=== PATIENT | male | born 1950 | race Caucasian/White ===

== ENCOUNTER 2018-05-13 14:27 | Inpatient (IN) | END 2018-05-19 13:12 | disposition home or self-care (01) | DRG 280 ==

== ENCOUNTER 2018-07-18 10:15 | Inpatient (IN) | payer MEDICARE, BC ==
[~2018-07-18] VITALS: Ht 172.7 cm; Wt 85.0 kg
[~2018-07-18 10:15] MED LIST: AMLO5TAB4 PO; APIX5TAB PO; DIGO125T19 PO; DOXA4TAB3 PO; ERGO500014 PO; ESOM40CA PO; FER325 PO; FURO40TA4 PO; LANT3I SC; LEVO750T25 PO; METO-319 PO; NOV SC; ROSU20TA PO; SACU1TAB4 PO; VALS160T20 PO
[2018-07-18] MEDS ORDERED: METO-335 PO (11:43)
[2018-07-18] MEDS ORDERED: FUROSEMIDE 40 MG INJ IV ONE (13:00)
[2018-07-18] MEDS ORDERED: ASPIRIN 81 MG TAB PO ONE (13:00)
[2018-07-18] MEDS ORDERED: ACETAMINOPHEN 325 MG TAB PO PRN (13:30)
[2018-07-18] MEDS ORDERED: ONDANSETRON 4 MG INJ IV PRN (13:30)
[2018-07-18] MEDS ORDERED: NACL 0.9% 3 ML SYG IV SCH (14:00)
[2018-07-18] MEDS ORDERED: NITROGLYCERIN (SL) 0.4 MG TAB SL PRN (14:00)
[2018-07-18] MEDS ORDERED: DOCUSATE SODIUM 100 MG CAP PO PRN (14:00)
[2018-07-18] MEDS ORDERED: LORAZEPAM 0.5 MG TAB PO PRN (14:00)
[2018-07-18] MEDS ORDERED: morphine LIQ (10 MG/5 ML) CUP PO PRN (14:00)
[2018-07-18] MEDS ORDERED: hydrALAzine 20 MG INJ IV PRN (14:00)
[2018-07-18] MEDS ORDERED: GLUCOSE GEL 15 GRAM TUBE PO PRN ×2 (14:30)
[2018-07-18] MEDS ORDERED: DEXTROSE 50% 50 ML SYRINGE IV PRN ×2 (14:30)
[2018-07-18] MEDS ORDERED: GLUCOSE GEL 15 GRAM TUBE BUCCAL PRN (14:30)
[2018-07-18] MEDS ORDERED: GLUCAGON 1 MG INJ IM PRN (14:30)
--- NOTE | 2018-07-18 14:34 | ERD ---
ER Documentation Chief Complaint Chief Complaint CHEST PAIN, BILAT LEG SWELLING, MILD SOB HPI 67-year-old male history of coronary disease, CABG, CHF who presents to the emergency room by his primary return to service inspector, Dr. Csineros. The patient apparently has failed the last several days of an oral diuretic. The patient is noting worsening bilateral lower extremity, shortness of breath, dyspnea on exertion and PND. Mild chest pain occasionally. No pleuritic pain. No fevers chills or cough. ROS All systems reviewed and are negative except as per history of present illness. Medications Home Meds Reported Medications Metoprolol Succinate* (Toprol XL*) 25 Mg Tab.sr.24h, 25 MG PO DAILY, #30 TAB 07/18/18 Sacubitril/Valsartan (Entresto 97 mg-103 mg Tablet) 1 Each Tablet, 1 TAB PO BID 05/13/18 Digoxin* (Digox*) 125 Mcg Tablet, 0.125 MG PO DAILY, TAB 05/13/18 Apixaban* (Eliquis*) 5 Mg Tablet, 5 MG PO BID, TAB 08/19/15 Insulin Aspart* (Novolog Insulin Vial*) 100 U/Ml Vial, 0 SC SLIDING SCALE AC, VIAL 08/19/15 Insulin Glargine* (Lantus*) 100 Unit/Ml Soln, 12 UNIT SC QHS, #1 VIAL 08/19/15 Esomeprazole Mag Trihydrate (Nexium) 40 Mg Capsule.dr, 40 MG PO DAILY, #30 CAP 08/19/15 Furosemide* (Furosemide*) 40 Mg Tablet, 40 MG PO DAILY, TAB 08/19/15 Amlodipine Besylate* (Norvasc*) 5 Mg Tablet, 5 MG PO DAILY, TAB 02/19/15 Rosuvastatin Calcium* (Crestor*) 20 Mg Tablet, 20 MG PO HS, TAB 02/19/15 Ergocalciferol* (Drisdol* (Vitamin D2)) 50,000 Unit Capsule, 75818 UNIT PO Q7D, CAP Mondays02/19/15 Doxazosin Mesylate* (Doxazosin Mesylate*) 4 Mg Tablet, 4 MG PO BID, TAB 08/17/14 Ferrous Sulfate* (Ferrous Sulfate*) 325 Mg Tabec, 325 MG PO BID, TAB 08/17/14 Discontinued Reported Medications Metoprolol Succinate* (Toprol XL*) 50 Mg Tab.er.24h, 50 MG PO DAILY, #30 TAB 08/19/15 Valsartan* (Diovan*) 160 Mg Tablet, 160 MG PO DAILY, TAB 02/19/15 Discontinued Scripts Levofloxacin* (Levaquin*) 750 Mg Tablet, 750 MG PO Q48H, #3 TAB Prov:DEVIN BALDWIN MD 05/19/18 Allergies Allergies: Coded Allergies: No Known Allergies (Verified Allergy, Mild, 07/18/18) PMhx/Soc History of Surgery: Yes (CABG, PM) Anesthesia Reaction: No Hx Neurological Disorder: No Hx Respiratory Disorders: Yes (CHF, COPD) Hx Cardiac Disorders: Yes (CABG, PM, CAD) Hx Psychiatric Problems: No Hx Miscellaneous Medical Probl: No (OPEN HEART 8 YEARS AGO. ) Hx Alcohol Use: No Hx Substance Use: No Hx Tobacco Use: Yes Smoking Status: Former smoker FmHx Family History: coronary disease; No diabetes Physical Exam Vitals Vital Signs Date Temp Pulse Resp B/P (MAP) Pulse Ox O2 O2 Flow FiO2 Time Delivery Rate 07/18/18 70 20 127/85 95 Room Air 10:45 (99) 07/18/18 97.5 64 20 124/61 96 10:25 (82) Physical Exam General: Well developed, well nourished, no acute distress Head: Normocephalic, atraumatic. Eyes: Pupils equally reactive, EOM intact ENT: Moist mucous membranes Neck: Supple, no lymphadenopathy Respiratory: Rales at the bases bilaterally Cardiovascular: RRR, no murmurs, rubs, or gallops Abdominal: Soft, non-tender, non-distended, no peritoneal signs : Deferred MSK: Bilateral lower extremity pitting edema, no unilateral swelling, 5/5 strength Neurologic: Alert and oriented, moving all extremities, normal speech, no focal weakness, no cerebellar signs Skin: No rash Psych: Normal mood Result Diagram: 07/18/18 1046 07/18/18 1046 Results 24 hrs Laboratory Tests Test 07/18/18 10:46 07/18/18 13:55 White Blood Count 6.7 10^3/ul Red Blood Count 4.86 10^6/ul Hemoglobin 12.0 g/dl Hematocrit 38.7 % Mean Corpuscular Volume 79.6 fl Mean Corpuscular Hemoglobin 24.7 pg Mean Corpuscular Hemoglobin Concent 31.0 g/dl Red Cell Distribution Width 18.9 % Platelet Count 179 10^3/UL Mean Platelet Volume 12.1 fl Immature Granulocytes % 0.300 % Neutrophils % 68.7 % Lymphocytes % 19.9 % Monocytes % 8.0 % Eosinophils % 1.8 % Basophils % 1.3 % Nucleated Red Blood Cells % 0.0 /100WBC Immature Granulocytes # 0.020 10^3/ul Neutrophils # 4.6 10^3/ul Lymphocytes # 1.3 10^3/ul Monocytes # 0.5 10^3/ul Eosinophils # 0.1 10^3/ul Basophils # 0.1 10^3/ul Nucleated Red Blood Cells # 0.0 10^3/ul Sodium Level 143 mmol/L Potassium Level 4.3 mmol/L Chloride Level 101 mmol/L Carbon Dioxide Level 28 mmol/L Anion Gap 14 Blood Urea Nitrogen 54 mg/dl Creatinine 2.26 mg/dl Est Glomerular Filtrat Rate mL/min 29 mL/min Glucose Level 171 mg/dl Calcium Level 9.8 mg/dl Troponin I 0.139 ng/ml Pending B-Type Natriuretic Peptide 68889 PG/ML Prothrombin Time 18.5 Sec Prothrombin Time Ratio 1.4 INR International Normalized Ratio 1.53 Activated Partial Thromboplast Time 42.8 Sec Creatine Kinase 58 IU/L Creatine Kinase Index Pending Creatinine Kinase MB (Mass) Pending Current Medications Medications Dose Sig/Daria Start Time Status Last (Trade) Ordered Route PRN Stop Time Admin Dose Reason Admin Aspirin 324 mg ONCE ONCE 07/18/18 DC 07/18/18 (Aspirin) PO 13:00 12:55 07/18/18 13:01 Furosemide 40 mg ONCE ONCE 07/18/18 DC 07/18/18 (Lasix) IV 13:00 12:54 07/18/18 13:01 Ondansetron 4 mg ER BRIDGE 07/18/18 HCl (Zofran PRN IV 13:30 Inj) NAUSEA/VOMITI 07/19/18 13:29 NG 650 mg ER BRIDGE 07/18/18 Acetaminophen PRN PO 13:30 (Tylenol .MILD PAIN 07/19/18 13:29 Tab) 1-3 OR TEMP IV Flush 3 ml PER 07/18/18 (NS 3 ml) PROTOCOL IV 14:00 Ondansetron 4 mg Q6H PRN 07/18/18 HCl (Zofran IV 14:00 Inj) NAUSEA/VOMITI NG 650 mg Q6H PRN 07/18/18 Acetaminophen PO .PAIN 1-3 14:00 (Tylenol OR TEMP Tab) 1 tab Q6H PRN 07/18/18 Acetaminophen PO .MOD PAIN 14:00 / 4-6 Hydrocodone Bitart (Norphlet (5/325)) Morphine 2 mg Q4H PRN 07/18/18 UNV Sulfate IV .SEVERE 14:00 (morphine) PAIN 7-10 Docusate 100 mg Q12H PRN 07/18/18 Sodium PO 14:00 (Colace) .CONSTIPATION Magnesium 30 ml DAILY PRN 07/18/18 Hydroxide PO 14:00 (Milk Of Mag) .CONSTIPATION Heparin 5,000 unit Q12 SC 07/18/18 UNV Sodium 21:00 (Porcine) (Heparin (5000 Units/1ml)) Lorazepam 0.5 mg Q6H PRN 07/18/18 UNV (Ativan) IV ANXIETY 14:00 Albuterol/ 3 ml Q4H RESP 07/18/18 Ipratropium THERAPY PRN 14:00 (Duoneb) HHN SHORTNESS OF BREATH Hydralazine 10 mg Q6H PRN 07/18/18 HCl IV ELEVATED 14:00 (Apresoline) BLOOD PRESSURE 1 tab Q5M PRN 07/18/18 UNV Nitroglycerin SL ANGINA 14:00 (Nitroglyceri n (Sl Tab) 0.4 Mg) Apixaban 5 mg BID PO 07/18/18 UNV (Eliquis) 21:00 Digoxin 0.125 mg DAILY@1300 07/19/18 (Digoxin) PO 13:00 Doxazosin 4 mg BID PO 07/18/18 Mesylate 21:00 (Cardura) 50,000 unit Q7D PO 07/18/18 UNV Ergocalcifero 14:00 l (Drisdol) Ferrous 325 mg BID PO 07/18/18 Sulfate 21:00 (Ferrous Sulfate (Ec)) Insulin 12 units QHS SC 07/18/18 Glargine 21:00 (Lantus) 40 mg DAILY PO 07/19/18 UNV Miscellaneous 09:00 Information 20 mg HS PO 07/18/18 UNV Miscellaneous 21:00 Information 1 tab BID PO 07/18/18 UNV Miscellaneous 21:00 Information Discontinue ONCE ONCE 07/18/18 DC Miscellaneous current oral XX 14:00 sulfonylur... 07/18/18 14:03 Information (* Miscellaneous Pharmacy Order) Diagnostic 1 ea 02 XX 07/19/18 Test (Pha) 02:00 (Accu-Chek) ONCE ONCE 07/18/18 DC Miscellaneous HYPOGLYCEMIA XX 14:00 PROTOCOL 07/18/18 14:03 Information w... (* Miscellaneous Pharmacy Order) Insulin NOVOLOG Q4 SC 07/18/18 UNV Aspart *MILD* 17:00 (Novolog ALGORI... Insulin Pen) Discontinue ONCE ONCE 07/18/18 DC Miscellaneous all previ... XX 14:00 07/18/18 14:03 Information (* Miscellaneous Pharmacy Order) Furosemide 40 mg DAILY IV 07/19/18 UNV (Lasix) 09:00 1 ea NOTE XX 07/18/18 Miscellaneous 14:30 Information Glucose 15 gm Q15M PRN 07/18/18 (Glutose) PO DECREASED 14:30 GLUCOSE Glucose 22.5 gm Q15M PRN 07/18/18 (Glutose) PO DECREASED 14:30 GLUCOSE Dextrose 25 ml Q15M PRN 07/18/18 (D50w IV DECREASED 14:30 Syringe) GLUCOSE Dextrose 50 ml Q15M PRN 07/18/18 (D50w IV DECREASED 14:30 Syringe) GLUCOSE Glucagon 1 mg Q15M PRN 07/18/18 (Glucagen) IM DECREASED 14:30 GLUCOSE Glucose 15 gm Q15M PRN 07/18/18 (Glutose) BUCCAL 14:30 DECREASED GLUCOSE Procedures/MDM EKG, MONITORS, & DIAGNOSTIC IMAGING: EKG: I reviewed and interpreted a 12-lead EKG. Rhythm: Atrial fibrillation, rate controlled, left bundle branch block ST Changes: No contiguous ST segment elevations T waves: No contiguous T wave inversions Impression: Abnormal EKG Repeat EKG: EKG: I reviewed and interpreted a 12-lead EKG. Rhythm: Atrial fibrillation, rate controlled, left bundle branch block ST Changes: No contiguous ST segment elevations T waves: No contiguous T wave inversions Impression: Abnormal EKG Chest x-ray: I reviewed and interpreted a 1 view of the chest Mediastinum: No enlargement Cardiac silhouette: cardiomegaly Airspace: Bilateral pulmonary edema Bones: No evidence of fracture PROCEDURES: [None] LAB INTERPRETATION: * Elevated troponin and BNP MEDICAL DECISION MAKING: The patient's history, physical exam and clinical presentation is concerning for possible cardiogenic etiology and acute coronary syndrome. Based on the patient's clinical exam and history and risk factors, I have a much lower clinical concern for pulmonary embolism, acute aortic dissection, pneumothorax, pneumonia, cardiac tamponade HEART Score: Greater than 4 MACE Rate: Greater than 16.6% Shared Decision Making: We had a conversation regarding risk stratification, MACE rate, and the risks, benefits, alternatives of disposition planning options. Disposition planning: Admit ER COURSE: * Aspirin, Lasix provided. Chest pain-free. * Dr. Brewer, on-call for primary return to service inspector notified. He agrees with plan of care and will consult CONSULTATION: Cardiology as above DISPOSITION PLAN: Accepting care team and consultations: I discussed the current laboratory data, diagnostic imaging and emergency care provided. Admitting team: Panel Admitting team indication: Insurance directed Departure Diagnosis: Primary Impression: Chest pain Chest pain type: unspecified Qualified Codes: R07.9 - Chest pain, unspe cified Additional Impressions: CHF (congestive heart failure) Heart failure type: combined systolic and diastolic Heart failure chronicity: acute on chronic Qualified Codes: I50.43 - Acute on chronic combined systolic (congestive) and diastolic (congestive) heart failure NSTEMI (non-ST elevated myocardial infarction) Chronic renal insufficiency Chronic kidney disease stage: unspecified stage Qualified Codes: N18.9 - Chronic kidney disease, unspecified Condition: Stable GRIFFIN ÁLVAREZ MD Jul 18, 2018 14:34
[2018-07-18] MEDS: INSULIN ASPART [NOVOLOG] 3 ML PEN SC SCH ×2 (17:00→21:46)
--- NOTE | 2018-07-18 17:03 | HP ---
DATE OF ADMISSION: 07/18/2018 IDENTIFICATION: This is a 67-year-old male. CHIEF COMPLAINT: Shortness of breath and leg swelling. HISTORY OF PRESENT ILLNESS: A 67-year-old male with past medical history of coronary artery disease, prior CABG, CHF with AICD placement, smoking history, atrial fibrillation, cardiomyopathy, high chol esterol, CKD, type 2 diabetes and hypertension, who has complaints of chest pressure, shortness of br eath and leg swelling. The patient went to his primary legal executive assistant earlier today with the same comp laints. He has also been having some dyspnea on exertion and PND and also again some mild chest pres sure. Apparently, he has been taking oral diuretic at home that did not help the symptoms. When he arrived to the outpatient legal executive assistant, he was told, because of his symptoms, to come to the ER where he has come now. He was given a dose of Lasix IV in the ER as well as high-dose aspirin. He was fo und with BNP elevated at 19,300. Also, his first troponin was elevated 0.139 and his creatinine was more elevated than before, today is 2.26. The patient was last here at our hospital from 05/13/2018 to 05/19/2018, so 2 months ago. At that time, he was treated for acute CHF exacerbation as well as c ommunity-acquired pneumonia. PAST MEDICAL HISTORY: As stated above. ALLERGIES: NO KNOWN DRUG ALLERGIES. HOME MEDICATIONS: 1. Eliquis 5 mg b.i.d. 2. Iron sulfate 325 mg b.i.d. 3. Norvasc 5 mg daily. 4. Digoxin 0.125 mg daily. 5. Doxazosin 4 mg b.i.d. 6. Toprol-XL 25 mg daily. 7. Crestor 20 mg at bedtime. 8. Entresto 97/103 one tab b.i.d. 9. Lasix 40 mg daily. 10. Nexium 40 mg daily. 11. Sliding scale insulin. 12. Aspart at home. 13. Lantus 12 units subcutaneously at bedtime. 14. Vitamin D2 50,000 units q. weekly. PAST SURGICAL HISTORY: Again, he has had coronary artery bypass grafting performed and AICD placemen t as well. SOCIAL HISTORY: Negative for IV drug abuse, negative for drinking, but positive smoking history. FAMILY HISTORY: Noncontributory. PHYSICAL EXAMINATION: VITAL SIGNS: Today, T-max 98.0, pulse of 63 to 70, respirations 18 to 20, blood pressure was 118/63, saturating at 97% room air. GENERAL: The patient is sitting on the edge of bed, is at the bedside, in no acute distress. HEENT: Pupils equal, round and reactive to light. Extraocular muscles are intact. NECK: Supple, no thyromegaly. LUNGS: Distant breath sounds bilaterally, mild crackles heard at the bases. CARDIOVASCULAR: Irregularly irregular heart rate. No rubs or gallops. ABDOMEN: Soft, nontender and nondistended. Normal bowel sounds. No rebound or guarding. MUSCULOSKELETAL: 2+ pitting edema in bilateral lower extremities to the mid calves. NEUROLOGIC: No focal deficits. DIAGNOSTIC DATA: CBC is normal. The sodium is 143, potassium 4.3, chloride 101, CO2 28, BUN of 54, creatinine 2.26, glucose of 171. First troponin is 0.139. Coags show an INR of 1.53. He had a ches t x-ray today that shows cardiomegaly with failure. ASSESSMENT AND PLAN: A 67-year-old male coming in with chest pressure, shortness of breath, lower ex tremity swelling, signs of congestive heart failure exacerbation, also rule out for acute coronary sy ndrome. 1. Shortness of breath and chest pressure. Again, symptoms are likely secondary to congestive heart failure exacerbation. The patient has extensive cardiac history as mentioned in the HPI, so admit t he patient; check TSH, A1c and lipid panel; and get PT and OT consults. We will also diurese the pat ient, keep the head of the bed greater than 30 degrees, follow up Cardiology recommendations and cont inue digoxin for now. 2. History of atrial fibrillation. Continue to monitor heart rate. Continue Eliquis as well. 3. Smoking history. Counseled on cessation. Order nicotine patch. 4. History of hypertension. Again, see above. Continue current medications. Also hydralazine p.r. n. 5. History of chronic kidney disease. Again, the kidney function appears to be slightly worse than when he was here 2 months ago, so we will go ahead and obtain renal consult and follow up their recom mendations. Monitor BUN and creatinine levels and urine output. 6. Type 2 diabetes. Follow up A1c. Continue Lantus and add sliding scale insulin. 7. Deep venous thrombosis prophylaxis. He is on Eliquis. Dictated By: MELVI JUÁREZ Conf#: [id number] DID#: [id number]
--- NOTE | 2018-07-18 17:15 | QN ---
Documentation Comment seen and examined MONICA JONES MD Jul 18, 2018 17:15
[2018-07-18 17:44] VITALS: BP 115/72; PULSE 81; RESP 19
--- NOTE | 2018-07-18 17:44 | CONS ---
DATE OF ADMISSION: 07/18/2018 DATE OF CONSULTATION: 07/18/2018 REASON FOR CONSULTATION: Congestive heart failure exacerbation. REQUESTING PHYSICIAN: Dr. Wolfe. HISTORY OF PRESENT ILLNESS: Mr. Cruz is a very pleasant 67-year-old male well-known to myself as a primary office patient with a history of cardiomyopathy with decreased left ventricular ejection f raction last approximately 30% by echo in 05/2018 with associated mild aortic regurgitation and moder ate tricuspid regurgitation, recurrent bouts of systolic congestive heart failure, ICD, chronic kidne y disease, dyslipidemia, and ____ during last admission who had presented to his primary electrophysi ologist's office and was noted to have worsening lower extremity edema, shortness of breath and ortho pnea. Therefore, he have been sent to the emergency department here at [facility]. Upon arrival, temperature is 97.5, blood pressure is 124/61, pulse 60, respiration 20, saturating 9 6%. The patient's labs revealed a white count of 6.7, hemoglobin 12.0, and platelet count of 179. S odium of 143, potassium 4.3, creatinine 2.2 and BUN 54. Troponin is positive at 0.139, BNP of 19,30 0, and INR of 1.53. The patient underwent a chest x-ray revealing cardiomegaly and failure. The pat ient's electrocardiogram revealed atrial fibrillation, rate of 71 with a nonspecific IVCD, secondary repolarization abnormalities. The patient subsequently has been treated with aspirin dose and Lasix and now awaits admit to the floor. PAST MEDICAL HISTORY: As above in the HPI. MEDICATIONS CURRENTLY IN THE HOSPITAL: 1. Digoxin 0.125 mg daily. 2. Lasix 40 mg IV daily. 3. Heparin 5000 subQ 12. 4. Eliquis 5 mg p.o. b.i.d. 5. Cardura 4 mg. p.o. b.i.d. 6. Lantus. 7. Nicotine patch. 8. Morphine p.r.n. 9. Tylenol p.r.n. 10. Vitamin D. MEDICATIONS PRIOR TO ADMIT: 1. Norvasc 5 mg a day. 2. Digoxin 0.125 mg daily. 3. Cardura 4 mg daily. 4. Toprol-XL 25 daily. 5. Crestor 20 mg at bedtime. 6. Entresto, unclear if patient was re-taking this again. 7. Eliquis 5 mg b.i.d. 8. Ferrous sulfate. 9. Nexium. 10. Insulin. 11. Vitamin D. ALLERGIES: NO KNOWN DRUG ALLERGIES. SOCIAL HISTORY: No current tobacco, ETOH or illicit drug use. FAMILY HISTORY: No history of sudden cardiac or early CAD. REVIEW OF SYSTEMS: As above in the HPI. CONSTITUTIONAL: No fevers or chills. PULMONARY: Shortness of breath. CARDIOVASCULAR: Congestive heart failure. GASTROINTESTINAL: No vomiting. GENITOURINARY: No hematuria. MUSCULOSKELETAL: Degenerative joint disease. PSYCHIATRIC: The patient denies depression. NEUROLOGIC: No documented history of CVA. ENDOCRINE: Diabetes mellitus. PHYSICAL EXAMINATION: VITAL SIGNS: Temperature of 97.5, blood pressure 118/60, pulse 60, respirations 18, saturation 95%. GENERAL: The patient is alert, awake, in no acute distress. NECK: JVP approximately 8 to 10 cm water. CHEST: decreased breath sounds at the bases bilaterally. HEART: Irregularly irregular, I/ systolic murmur with nondisplaced PMI. ABDOMEN: Positive bowel sounds, soft. EXTREMITIES: 2+ edema. Somewhat difficult to palpate distal pulses of bilateral posterior tibial an d dorsalis pedis. LABORATORY DATA: As above in the HPI with a repeat troponin mildly trended up to 0.16. IMAGING STUDIES: As above in the HPI with chest x-ray showing cardiomegaly with failure. ECG: As above in the HPI. No further electrocardiograms for my review at this time. RECOMMENDATIONS : 1. At this time, would admit patient to telemetry monitoring to follow rhythm and rates closely. 2. We will continue to trend the patient's cardiac enzymes and assess for any significant ongoing ca rdiac damage. 3. Would continue the patient's Lasix diuresis and consider increasing to b.i.d. in order to improve diuresis. 4. We will continue the patient's baseline Eliquis at this time to prevent thromboembolic events in the setting of atrial fibrillation and would resume the patient's baseline beta leatha and we will h old on the patient's Entresto at this time in the setting of acute on chronic renal failure. We will give patient a low-dose hydralazine afterload reduction in lieu of this at this time. 5. The patient is status post 2D echo in May revealing an ejection fraction of 30%. 6. Follow the patient's blood sugars closely. 7. Check a digoxin level to rule out any possible accumulation in the setting of renal failure. Thank you for allowing me to take part in the care of this patient. I will continue to follow him cl osely with you with further recommendations to be made as the patient progresses through inpatient the [facility]opedic specialty hospital clinical course. Dictated By: DEVIN TURNER/REBECCA Conf#: [id number] DID#: [id number] CC: MONICA WOLFE;*EndCC*
[2018-07-18] MEDS: ERGOCALCIFEROL 50,000 UNIT CAP PO SCH (18:03)
--- NOTE | 2018-07-18 18:03 | CONS ---
DATE OF ADMISSION: 07/18/2018 DATE OF CONSULTATION: TYPE OF CONSULTATION: Renal. REASON FOR ADMISSION: Shortness of breath and lower extremity edema. REASON FOR CONSULTATION: Acute on chronic renal failure. HISTORY OF PRESENT ILLNESS: This is a 67-year-old male with a past medical history of coronary arter y bypass, AICD placement, CHF, cardiomyopathy and CKD with a creatinine ranging from 1.4 to 1.7 since 2016. The patient was last admitted in 05/2018. At that time, the creatinine was ranging between 1 .5 to 2.1. On discharge, the creatinine was 1.1. The patient presented to the emergency department after being sent by Dr. Cisneros due to worsening in the bilateral lower extremity edema and shortness of breath for about 2 weeks. The patient has been followed by Dr. Cisneros as an outpatient. The jacquelyn ent was having abdominal distention and bilateral lower extremity edema for the past 2 weeks. The carole machado was seen by Dr. Cisneros 3 days ago and Lasix was increased to 80 b.i.d. He went to Dr. Cisneros's office today and still was having persistent edema and abdominal distention and was sent into the ER for further evaluation. The patient denies any abdominal pain, nausea, vomiting and diarrhea. Acco rding to the patient, he has actually lost weight since seeing Dr. Cisneros of about 6 pounds. On arri berkley to ED, vital signs showed a blood pressure of 124/61, heart rate 64, respirations 20, saturating 96%. Labs showed white count of 6.7, hemoglobin 12.0, platelet count 179, BUN of 15 and creatinine 2 .26. Troponin 0.131 and 0.160. BNP 19,300. Chest x-ray showed cardiomegaly with failure and the carole machado was admitted for further management. PAST MEDICAL HISTORY: 1. Diabetes. 2. Hypertension. 3. Hyperlipidemia. 4. Congestive heart failure. 5. Atrial fibrillation. 6. History of AICD. 7. Chronic kidney disease IIIB likely secondary to diabetes/cardiac. 8. Chronic obstructive pulmonary disease. ALLERGIES: NO KNOWN DRUG ALLERGIES. PAST SURGICAL HISTORY: Coronary artery bypass and AICD. MEDICATIONS TAKING AT HOME: 1. Eliquis 5 b.i.d. 2. Lasix 40, which was increased to 80 b.i.d. for the last 3 days. 3. Crestor 40. 4. Doxazosin 8. 5. Entresto. 6. Digoxin 0.125. 7. Metoprolol. 8. Iron. 9. Norvasc. 10. Insulin. SOCIAL HISTORY: He did smoke cigarettes. He denies any alcohol or any recreational drug use. FAMILY HISTORY: No history of kidney disease in the family. REVIEW OF SYSTEMS: The patient complains of shortness of breath, orthopnea, PND and lower extremity edema. He denies any abdominal pain, nausea, vomiting or diarrhea. He denies any headache or any bl urry vision. He denied any hematemesis, any melena or any blood per rectum. Urine output has increa sed somewhat when he has increased the Lasix. PHYSICAL EXAMINATION: VITAL SIGNS: Blood pressure 125/85, pulse 70, respirations 20, saturating 95% on room air. GENERAL: The patient is awake, alert, oriented and appears to be in mild distress secondary to short ness of breath. HEENT: Pupils equal, round and reactive to light. Extraocular movements are intact. NECK: Supple. JVD appreciated. LUNGS: Decreased breath sounds bilaterally. Few crackles heard at the bases. HEART: Irregularly irregular. No murmur, rub or gallop. ABDOMEN: Soft, somewhat distended with some abdominal wall edema. EXTREMITIES: Legs with 2 to 3+ pitting edema in bilateral lower extremity to mid-calf. GENERAL: Awake, alert, oriented and does not appear to in any acute distress. 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 DIAGNOSTIC DATA: CBC is normal. Sodium 143, potassium 4.3, chloride 101, bicarbonate 28, BUN of 54, creatinine 2.26, glucose 171. First troponin 0.139. Coags showed INR of 1.53. Chest x-ray shows c ardiomegaly and pulmonary edema. ASSESSMENT: A 67-year-old male presenting with: 1. Shortness of breath with bilateral lower extremity edema, orthopnea and PND likely secondary to a cute on chronic congestive heart failure. 2. Acute on chronic renal failure; however, the patient's baseline creatinine ranges from 1.9 to 2. On last discharge in May, the creatinine was 1.9. This could be all secondary to cardiorenal a s the patient is clearly in decompensated heart failure right now. 3. History of atrial fibrillation. 4. Hypertension. 5. Diabetes. 6. Hyperlipidemia. 7. BPH. 8. Positive troponin with chest pain ____. 9. Elevated BNP. PLAN: 1. At this period of time, the patient will be admitted to telemetry. 2. The patient should be on fluid restriction of 1 liter. 3. The patient should monitor strict I's and O's. 4. Agree with Lasix 40 IV b.i.d. 5. We will check a UA, urine electrolytes and urine eosinophils. 6. Would hold off Entresto at this point. 7. We will check for digoxin levels. 8. Keep a systolic blood pressure of greater than 100. 9. Renally dose all meds. 10. Avoid nephrotoxic agents. 11. We will closely follow the patient with the Cardiology and primary team. In case the patient ne eded an angiogram, we will have to explain to him the risks and benefits. The rest of the treatment will depend on the patient's hospitalization course. I spoke to the family and the patient's at the bedside. Dictated By: MONICA RODRIGUEZ/REBECCA Conf#: [id number] DID#: [id number]
[2018-07-18] MEDS: NICOTINE (21 MG/24 HR) PATCH TRANSDERM SCH (18:06)
[2018-07-18 18:12] VITALS: PULSE 55
[2018-07-18 18:16] VITALS: Ht 172.7 cm; Wt 85.0 kg
[2018-07-18 20:00] VITALS: PULSE 67
[2018-07-18 20:02] VITALS: BP 110/55; PULSE 71; RESP 18
[2018-07-18] MEDS: APIXABAN 5 MG TABLET PO SCH (20:53)
[2018-07-18] MEDS: FERROUS SULFATE (EC) 325 MG TAB PO SCH (20:53)
[2018-07-18] MEDS: ATORVASTATIN 80 MG TAB PO SCH (20:53)
[2018-07-18] MEDS: ENTRESTO 97 MG/103 MG PO SCH (20:54)
[2018-07-18] MEDS: DOXAZOSIN 4 MG TAB PO SCH (20:54)
[2018-07-18] MEDS ORDERED: SACUBITRIL PO SCH (21:00)
[2018-07-18] MEDS ORDERED: [UNRECOGNIZED DRUG - OTHER] PO SCH (21:00)
[2018-07-18] MEDS ORDERED: HEPARIN 5,000 UNIT/1 ML VIAL SC SCH (21:00)
[2018-07-18] MEDS ORDERED: VALSARTAN PO SCH (21:00)
[2018-07-18] MEDS: INSULIN GLARGINE [LANTus] (100 UNITS/ML) SYG SC SCH (21:46)
[2018-07-18] MEDS: ACETAMINOPHEN 325 MG TAB PO PRN (22:02)
[2018-07-18] MEDS: FAMOTIDINE 20 MG TAB PO SCH (22:24)
[2018-07-18] MEDS: HYDROCODONE/APAP (5/325) TAB PO PRN (22:58)
[2018-07-18 23:30] VITALS: BP 105/60; PULSE 48; RESP 20
[2018-07-19] VITALS (12 sets, daily range): BP systolic 99–140; BP diastolic 55–79; PULSE 47–77; RESP 18–20
[2018-07-19] MEDS: INSULIN ASPART [NOVOLOG] 3 ML PEN SC SCH ×4 (01:01→12:01)
[2018-07-19] MEDS: ACCU-CHEK XX SCH (01:04)
[2018-07-19] MEDS: DOXAZOSIN 4 MG TAB PO SCH ×2 (08:07→20:27)
[2018-07-19] MEDS: APIXABAN 5 MG TABLET PO SCH ×2 (08:07→20:26)
[2018-07-19] MEDS: FUROSEMIDE 40 MG INJ IV SCH ×2 (08:08→20:26)
[2018-07-19] MEDS: FERROUS SULFATE (EC) 325 MG TAB PO SCH ×2 (08:08→20:26)
[2018-07-19] MEDS: FAMOTIDINE 20 MG TAB PO SCH ×2 (08:08→20:26)
[2018-07-19] MEDS: METOPROLOL (XL) 25 MG TAB PO SCH (08:08)
[2018-07-19] MEDS: ENTRESTO 97 MG/103 MG PO SCH (08:09)
[2018-07-19] MEDS: NICOTINE (21 MG/24 HR) PATCH TRANSDERM SCH (08:10)
[2018-07-19] MEDS ORDERED: FUROSEMIDE 40 MG INJ IV SCH (09:00)
--- NOTE | 2018-07-19 10:31 | CONS ---
Consult Date/Type/Reason Admit Date/Time Jul 18, 2018 at 13:13 Initial Consult Date Date/Time of Note DATE: 07/19/18 TIME: 10:28 Subjective No acute events - improved fluidsatus - con't diuresis as Cr allows - better now. ROS: No fever, no chills, no nausea, no vomiting, no diarrhea/constipation No recent weight changes No chest pain, no PND, no orthopnea - improved SOB. No dizziness, blurred vision No thirst, no heat or cold intolerance Objective Vitals Vital Signs Date Temp Pulse Resp B/P (MAP) Pulse Ox O2 O2 Flow FiO2 Time Delivery Rate 07/19/18 71 08:00 07/19/18 97.5 20 116/63 91 07:22 (80) 07/18/18 Room Air 15:50 Intake and Output 07/18/18 07/18/18 07/19/18 1515:00 23:00 07:00 IntakeIntake Total 220 ml 120 ml OutputOutput Total 600 ml 400 ml BalanceBalance -380 ml -280 ml Exam General: WN/WD/NAD, AOx 3 HEENT: Unicetric/atraumatic/EOMI ( follow commands) NECK: JVD elevated, no thyromegaly, JVD 78 cm Lymph: no lymphadenopathy HEART: regular with no S3, II/ systolic murmur at apex, PMI L , ICD LUNGS: Coarse sounds ABD: soft, NT, ND, +BS : Intact Neuro: non focal SKIN: chronic changes EXT: 1-2+ edema Results/Medications Result Diagram: 07/19/18 0653 07/19/18 0653 Results 24 hrs Laboratory Tests Test 07/18/18 10:46 07/18/18 13:55 07/18/18 17:58 07/18/18 18:58 White Blood Count 6.7 # Red Blood Count 4.86 Hemoglobin 12.0 L Hematocrit 38.7 L Mean Corpuscular 79.6 L Volume Mean Corpuscular 24.7 L Hemoglobin Mean Corpuscular 31.0 L Hemoglobin Concent Red Cell 18.9 H Distribution Width Platelet Count 179 # Mean Platelet Volume 12.1 H Immature 0.300 Granulocytes % Neutrophils % 68.7 Lymphocytes % 19.9 Monocytes % 8.0 Eosinophils % 1.8 Basophils % 1.3 Nucleated Red Blood 0.0 Cells % Immature 0.020 Granulocytes # Neutrophils # 4.6 Lymphocytes # 1.3 Monocytes # 0.5 Eosinophils # 0.1 Basophils # 0.1 Nucleated Red Blood 0.0 Cells # Sodium Level 143 Potassium Level 4.3 Chloride Level 101 Carbon Dioxide Level 28 Anion Gap 14 H Blood Urea Nitrogen 54 H Creatinine 2.26 H Est Glomerular 29 L Filtrat Rate mL/min Glucose Level 171 Calcium Level 9.8 Troponin I 0.139 *H 0.160 *H 0.198 *H B-Type Natriuretic 78589 H Peptide Prothrombin Time 18.5 H Prothrombin Time 1.4 Ratio INR International 1.53 Normalized Ratio Activated 42.8 H Partial Thromboplast Time Creatine Kinase 58 64 Creatine Kinase 3.1 3.8 Index Creatinine Kinase MB 1.82 2.45 H (Mass) Free Thyroxine 2.16 Bedside Glucose 143 Test 07/18/18 21:00 07/18/18 21:36 07/19/18 00:49 07/19/18 02:33 Urine Color YELLOW Urine Clarity CLEAR Urine pH 5.0 Urine Specific 1.009 [place] Urine Ketones NEGATIVE Urine Nitrite NEGATIVE Urine Bilirubin NEGATIVE Urine Urobilinogen NEGATIVE Urine Leukocyte NEGATIVE Esterase Urine Eosinophils % 0.0 Urine Hemoglobin NEGATIVE Urine Random Sodium 89 Urine Glucose NEGATIVE Urine Total Protein NEGATIVE Bedside Glucose 297 H 145 Troponin I 0.171 *H Test 07/19/18 04:34 07/19/18 06:53 07/19/18 08:05 Bedside Glucose 122 98 White Blood Count 5.5 Red Blood Count 4.42 L Hemoglobin 10.9 L Hematocrit 35.1 L Mean Corpuscular 79.4 L Volume Mean Corpuscular 24.7 L Hemoglobin Mean Corpuscular 31.1 L Hemoglobin Concent Red Cell 18.5 H Distribution Width Platelet Count 178 Mean Platelet Volume 13.4 H Immature 0.400 Granulocytes % Neutrophils % 55.7 Lymphocytes % 28.7 Monocytes % 10.8 Eosinophils % 3.1 Basophils % 1.3 Nucleated Red Blood 0.0 Cells % Immature 0.020 Granulocytes # Neutrophils # 3.1 Lymphocytes # 1.6 Monocytes # 0.6 Eosinophils # 0.2 Basophils # 0.1 Nucleated Red Blood 0.0 Cells # Sodium Level 143 Potassium Level 3.9 Chloride Level 105 Carbon Dioxide Level 33 H Anion Gap 5 # Blood Urea Nitrogen 54 H Creatinine 2.27 H Est Glomerular 29 L Filtrat Rate mL/min Glucose Level 101 # Hemoglobin A1c 9.0 H Calcium Level 9.2 Phosphorus Level 3.9 Magnesium Level 2.0 Troponin I 0.166 *H Triglycerides Level 90 Cholesterol Level 90 L LDL Cholesterol, 31 Calculated HDL Cholesterol 41 Cholesterol/HDL 2.1 Ratio Thyroid Stimulating 5.510 H Hormone (TSH) Home Meds Reported Medications Metoprolol Succinate* (Toprol XL*) 25 Mg Tab.sr.24h, 25 MG PO DAILY, #30 TAB 07/18/18 Sacubitril/Valsartan (Entresto 97 mg-103 mg Tablet) 1 Each Tablet, 1 TAB PO BID 05/13/18 Digoxin* (Digox*) 125 Mcg Tablet, 0.125 MG PO DAILY, TAB 05/13/18 Apixaban* (Eliquis*) 5 Mg Tablet, 5 MG PO BID, TAB 08/19/15 Insulin Aspart* (Novolog Insulin Vial*) 100 U/Ml Vial, 0 SC SLIDING SCALE AC, VIAL 08/19/15 Insulin Glargine* (Lantus*) 100 Unit/Ml Soln, 12 UNIT SC QHS, #1 VIAL 08/19/15 Esomeprazole Mag Trihydrate (Nexium) 40 Mg Capsule.dr, 40 MG PO DAILY, #30 CAP 08/19/15 Furosemide* (Furosemide*) 40 Mg Tablet, 40 MG PO DAILY, TAB 08/19/15 Amlodipine Besylate* (Norvasc*) 5 Mg Tablet, 5 MG PO DAILY, TAB 02/19/15 Rosuvastatin Calcium* (Crestor*) 20 Mg Tablet, 20 MG PO HS, TAB 02/19/15 Ergocalciferol* (Drisdol* (Vitamin D2)) 50,000 Unit Capsule, 70823 UNIT PO Q7D, CAP Mondays02/19/15 Doxazosin Mesylate* (Doxazosin Mesylate*) 4 Mg Tablet, 4 MG PO BID, TAB 08/17/14 Ferrous Sulfate* (Ferrous Sulfate*) 325 Mg Tabec, 325 MG PO BID, TAB 08/17/14 Discontinued Reported Medications Metoprolol Succinate* (Toprol XL*) 50 Mg Tab.er.24h, 50 MG PO DAILY, #30 TAB 08/19/15 Valsartan* (Diovan*) 160 Mg Tablet, 160 MG PO DAILY, TAB 02/19/15 Discontinued Scripts Levofloxacin* (Levaquin*) 750 Mg Tablet, 750 MG PO Q48H, #3 TAB Prov:DEVIN BALDWIN MD 05/19/18 Medications Current Medications IV Flush (NS 3 ml) 3 ml PER PROTOCOL IV ; Start 07/18/18 at 14:00 Ondansetron HCl (Zofran Inj) 4 mg Q6H PRN IV NAUSEA/VOMITING; Start 07/18/18 at 14:00 Acetaminophen (Tylenol Tab) 650 mg Q6H PRN PO .PAIN 1-3 OR TEMP Last administered on 07/18/18at 22:02; Admin Dose 650 MG; Start 07/18/18 at 14:00 Acetaminophen/ Hydrocodone Bitart ([place] (5/325)) 1 tab Q6H PRN PO .MOD PAIN 4- 6 Last administered on 07/18/18at 22:58; Admin Dose 1 TAB; Start 07/18/18 at 14:00 Morphine Sulfate (morphine) 6 mg Q4H PRN PO .SEVERE PAIN 7-10; Start 07/18/18 at 14:00 Docusate Sodium (Colace) 100 mg Q12H PRN PO .CONSTIPATION; Start 07/18/18 at 14:00 Magnesium Hydroxide (Milk Of Mag) 30 ml DAILY PRN PO .CONSTIPATION; Start 07/18/18 at 14:00 Lorazepam (Ativan) 0.5 mg Q6H PRN PO ANXIETY; Start 07/18/18 at 14:00 Albuterol/ Ipratropium (Duoneb) 3 ml Q4H RESP THERAPY PRN HHN SHORTNESS OF BREATH; Start 07/18/18 at 14:00 Hydralazine HCl (Apresoline) 10 mg Q6H PRN IV ELEVATED BLOOD PRESSURE; Start 07/18/18 at 14:00 Nitroglycerin (Nitroglycerin (Sl Tab) 0.4 Mg) 1 tab Q5M PRN SL ANGINA; Start 07/18/18 at 14:00 Apixaban (Eliquis) 5 mg BID PO Last administered on 07/19/18at 08:07; Admin Dose 5 MG; Start 07/18/18 at 21:00 Digoxin (Digoxin) 0.125 mg DAILY@1300 PO ; Start 07/19/18 at 13:00 Doxazosin Mesylate (Cardura) 4 mg BID PO Last administered on 07/19/18at 08:07; Admin Dose 4 MG; Start 07/18/18 at 21:00 Ergocalciferol (Drisdol) 50,000 unit Q7D PO Last administered on 07/18/18at 18:03; Admin Dose 50,000 UNIT; Start 07/18/18 at 14:00 Ferrous Sulfate (Ferrous Sulfate (Ec)) 325 mg BID PO Last administered on 07/19/18at 08:08; Admin Dose 325 MG; Start 07/18/18 at 21:00 Insulin Glargine (Lantus) 12 units QHS SC Last administered on 07/18/18at 21:46; Admin Dose 12 UNITS; Start 07/18/18 at 21:00 Famotidine (Pepcid) 20 mg DAILY PO Last administered on 07/19/18at 08:08; Admin Dose 20 MG; Start 07/19/18 at 09:00 Atorvastatin Calcium (Lipitor) 80 mg HS PO Last administered on 07/18/18at 20:53; Admin Dose 80 MG; Start 07/18/18 at 21:00 Diagnostic Test (Pha) (Accu-Chek) 1 ea 02 XX ; Start 07/19/18 at 02:00 Insulin Aspart (Novolog Insulin Pen) NOVOLOG *MILD* ALGORI... Q4 SC Last administered on 07/19/18at 01:01; Admin Dose 1 UNIT; Start 07/18/18 at 17:00 Miscellaneous Information 1 ea NOTE XX ; Start 07/18/18 at 14:30 Glucose (Glutose) 15 gm Q15M PRN PO DECREASED GLUCOSE; Start 07/18/18 at 14:30 Glucose (Glutose) 22.5 gm Q15M PRN PO DECREASED GLUCOSE; Start 07/18/18 at 14:30 Dextrose (D50w Syringe) 25 ml Q15M PRN IV DECREASED GLUCOSE; Start 07/18/18 at 14:30 Dextrose (D50w Syringe) 50 ml Q15M PRN IV DECREASED GLUCOSE; Start 07/18/18 at 14:30 Glucagon (Glucagen) 1 mg Q15M PRN IM DECREASED GLUCOSE; Start 07/18/18 at 14:30 Glucose (Glutose) 15 gm Q15M PRN BUCCAL DECREASED GLUCOSE; Start 07/18/18 at 14:30 Nicotine (Nicoderm 21 Mg/ 24hr) 1 patch DAILY TRANSDERM ; Start 07/18/18 at 16:30 Metoprolol Succinate (Toprol Xl) 25 mg DAILY PO Last administered on 07/19/18at 08:08; Admin Dose 25 MG; Start 07/19/18 at 09:00 Furosemide (Lasix) 40 mg BID IV Last administered on 07/19/18 08:08; Admin Dose 40 MG; Start 07/19/18 at 09:00 Patient Own Medication 1 ea BID PO Last administered on 07/19/18 08:09; Admin Dose 1 EA; Start 07/18/18 at 21:00 Famotidine (Pepcid) 20 mg Q24H PO Last administered on 07/18/18 22:24; Admin Dose 20 MG; Start 07/18/18 at 22:00 Imaging 1. CHF - acute on chronic - not able to keep up with diuresis in the officewith Cr 2.2 - better now with IV lasix. 2. CAD - trend the patient's cardiac enzymes and assess for any significant ongoing cardiac damage. Doubt ACS now. 3. A. fib - continue the patient's baseline Eliquis at this time to prevent thromboembolic events in the setting of atrial fibrillation and would resume the patient's baseline beta leatha and we will hold on the patient's Entresto at this time in the setting of acute on chronic renal failure. We will give patient a low-dose hydralazine afterload reduction in lieu of this at this time. 5. The patient is status post 2D echo in May revealing an ejection fraction of 30% - ICD in place. 6. DM - Follow the patient's blood sugars closely 7. Check a digoxin level to rule out any possible accumulation in the setting of renal failure. 8. ARF - Cr high - renal team on the case. KINSEY PEPPER MD Jul 19, 2018 10:31
--- NOTE | 2018-07-19 12:25 | PN ---
Date/Time of Note Date/Time of Note DATE: 07/19/18 TIME: 12: Assessment/Plan VTE Prophylaxis Risk score (from Ns)>0 risk: 5 SCD applied (from Ns): No SCD contraindicated: other Pharmacological prophylaxis: apixaban Lines/Catheters Urinary Cath still in place: No Assessment/Plan Hospital Course S: Patient has less shortness of breath symptoms. Seen by renal and cardiology team yesterday. O: VS - see below PHYSICAL EXAMINATION: GENERAL: lying in bed, in no acute distress. HEENT: Pupils equal, round and reactive to light. Extraocular muscles are intact. NECK: Supple, no thyromegaly. LUNGS: Distant breath sounds bilaterally, mild crackles heard at the bases. CARDIOVASCULAR: Irregularly irregular heart rate. No rubs or gallops. ABDOMEN: Soft, nontender and nondistended. Normal bowel sounds. No rebound or guarding. MUSCULOSKELETAL: 2+ pitting edema in bilateral lower extremities to the mid calves. NEUROLOGIC: No focal deficits. ASSESSMENT AND PLAN: 67-year-old male coming in with chest pressure, shortness of breath, lower extremity swelling, signs of congestive heart failure exacerbation, also rule out for acute coronary syndrome. 1. Shortness of breath and chest pressure -slowly improving, symptoms are likely secondary to congestive heart failure exacerbation. -Continue fluid restriction as recommended by cardiology and renal teams, continue twice daily diurese as well with Lasix, low-dose beta-leatha -Continue to keep the head of the bed greater than 30 degrees - follow up Cardiology recommendations and continue digoxin for now. -Off of Entresto presently while in-house 2. Acute on chronic kidney disease. Again, the kidney function appears to be slightly worse than when he was here 2 months ago -Follow-up recommendations renal consult -Continue to monitor BUN and creatinine levels and urine output. 3. Smoking history. Counseled on cessation. Order nicotine patch. 4. History of hypertension. Again, see above. Continue current medications. Also hydralazine p.r.n. 5. History of atrial fibrillation -appears stable -Monitor, continue Eliquis as well. 6. Type 2 diabetes. A1c equals 9.0, sugars presently stable - continue Lantus and sliding scale insulin. 7. Deep venous thrombosis prophylaxis-on Eliquis. Result Diagram: 07/19/18 0653 07/19/18 06 Results 24hrs Laboratory Tests Test 07/18/18 13:55 07/18/18 17:58 07/18/18 18:58 07/18/18 21:00 Prothrombin Time 18.5 H Prothrombin Time 1.4 Ratio INR International 1.53 Normalized Ratio Activated 42.8 H Partial Thromboplast Time Creatine Kinase 58 64 Creatine Kinase 3.1 3.8 Index Creatinine Kinase MB 1.82 2.45 H (Mass) Troponin I 0.160 *H 0.198 *H Free Thyroxine 2.16 Bedside Glucose 143 Urine Color YELLOW Urine Clarity CLEAR Urine pH 5.0 Urine Specific 1.009 [place] Urine Ketones NEGATIVE Urine Nitrite NEGATIVE Urine Bilirubin NEGATIVE Urine Urobilinogen NEGATIVE Urine Leukocyte NEGATIVE Esterase Urine Eosinophils % 0.0 Urine Hemoglobin NEGATIVE Urine Random Sodium 89 Urine Glucose NEGATIVE Urine Total Protein NEGATIVE Test 07/18/18 21:36 07/19/18 00:49 07/19/18 02:33 07/19/18 04:34 Bedside Glucose 297 H 145 122 Troponin I 0.171 *H Test 07/19/18 06:50 07/19/18 06:53 07/19/18 08:05 07/19/18 11:55 Digoxin Level 1.5 White Blood Count 5.5 Red Blood Count 4.42 L Hemoglobin 10.9 L Hematocrit 35.1 L Mean Corpuscular 79.4 L Volume Mean Corpuscular 24.7 L Hemoglobin Mean Corpuscular 31.1 L Hemoglobin Concent Red Cell 18.5 H Distribution Width Platelet Count 178 Mean Platelet Volume 13.4 H Immature 0.400 Granulocytes % Neutrophils % 55.7 Lymphocytes % 28.7 Monocytes % 10.8 Eosinophils % 3.1 Basophils % 1.3 Nucleated Red Blood 0.0 Cells % Immature 0.020 Granulocytes # Neutrophils # 3.1 Lymphocytes # 1.6 Monocytes # 0.6 Eosinophils # 0.2 Basophils # 0.1 Nucleated Red Blood 0.0 Cells # Sodium Level 143 Potassium Level 3.9 Chloride Level 105 Carbon Dioxide Level 33 H Anion Gap 5 # Blood Urea Nitrogen 54 H Creatinine 2.27 H Est Glomerular 29 L Filtrat Rate mL/min Glucose Level 101 # Hemoglobin A1c 9.0 H Calcium Level 9.2 Phosphorus Level 3.9 Magnesium Level 2.0 Troponin I 0.166 *H Triglycerides Level 90 Cholesterol Level 90 L LDL Cholesterol, 31 Calculated HDL Cholesterol 41 Cholesterol/HDL 2.1 Ratio Thyroid Stimulating 5.510 H Hormone (TSH) Bedside Glucose 98 120 Exam/Review of Systems Exam Vitals Vital Signs Date Temp Pulse Resp B/P (MAP) Pulse Ox O2 O2 Flow FiO2 Time Delivery Rate 07/19/18 97.7 77 18 140/65 92 11:23 (90) 07/18/18 Room Air 15:50 Intake and Output 07/18/18 07/18/18 07/19/18 1515:00 23:00 07:00 IntakeIntake Total 220 ml 120 ml OutputOutput Total 600 ml 400 ml BalanceBalance -380 ml -280 ml Results Results 24hrs Laboratory Tests Test 07/18/18 13:55 07/18/18 17:58 07/18/18 18:58 07/18/18 21:00 Prothrombin Time 18.5 H Prothrombin Time 1.4 Ratio INR International 1.53 Normalized Ratio Activated 42.8 H Partial Thromboplast Time Creatine Kinase 58 64 Creatine Kinase 3.1 3.8 Index Creatinine Kinase MB 1.82 2.45 H (Mass) Troponin I 0.160 *H 0.198 *H Free Thyroxine 2.16 Bedside Glucose 143 Urine Color YELLOW Urine Clarity CLEAR Urine pH 5.0 Urine Specific 1.009 [place] Urine Ketones NEGATIVE Urine Nitrite NEGATIVE Urine Bilirubin NEGATIVE Urine Urobilinogen NEGATIVE Urine Leukocyte NEGATIVE Esterase Urine Eosinophils % 0.0 Urine Hemoglobin NEGATIVE Urine Random Sodium 89 Urine Glucose NEGATIVE Urine Total Protein NEGATIVE Test 07/18/18 21:36 07/19/18 00:49 07/19/18 02:33 07/19/18 04:34 Bedside Glucose 297 H 145 122 Troponin I 0.171 *H Test 07/19/18 06:50 07/19/18 06:53 07/19/18 08:05 07/19/18 11:55 Digoxin Level 1.5 White Blood Count 5.5 Red Blood Count 4.42 L Hemoglobin 10.9 L Hematocrit 35.1 L Mean Corpuscular 79.4 L Volume Mean Corpuscular 24.7 L Hemoglobin Mean Corpuscular 31.1 L Hemoglobin Concent Red Cell 18.5 H Distribution Width Platelet Count 178 Mean Platelet Volume 13.4 H Immature 0.400 Granulocytes % Neutrophils % 55.7 Lymphocytes % 28.7 Monocytes % 10.8 Eosinophils % 3.1 Basophils % 1.3 Nucleated Red Blood 0.0 Cells % Immature 0.020 Granulocytes # Neutrophils # 3.1 Lymphocytes # 1.6 Monocytes # 0.6 Eosinophils # 0.2 Basophils # 0.1 Nucleated Red Blood 0.0 Cells # Sodium Level 143 Potassium Level 3.9 Chloride Level 105 Carbon Dioxide Level 33 H Anion Gap 5 # Blood Urea Nitrogen 54 H Creatinine 2.27 H Est Glomerular 29 L Filtrat Rate mL/min Glucose Level 101 # Hemoglobin A1c 9.0 H Calcium Level 9.2 Phosphorus Level 3.9 Magnesium Level 2.0 Troponin I 0.166 *H Triglycerides Level 90 Cholesterol Level 90 L LDL Cholesterol, 31 Calculated HDL Cholesterol 41 Cholesterol/HDL 2.1 Ratio Thyroid Stimulating 5.510 H Hormone (TSH) Bedside Glucose 98 120 Medications Medication Current Medications IV Flush (NS 3 ml) 3 ml PER PROTOCOL IV ; Start 07/18/18 at 14:00 Ondansetron HCl (Zofran Inj) 4 mg Q6H PRN IV NAUSEA/VOMITING; Start 07/18/18 at 14:00 Acetaminophen (Tylenol Tab) 650 mg Q6H PRN PO .PAIN 1-3 OR TEMP Last administered on 07/18/18at 22:02; Admin Dose 650 MG; Start 07/18/18 at 14:00 Acetaminophen/ Hydrocodone Bitart ([place] (5/325)) 1 tab Q6H PRN PO .MOD PAIN 4- 6 Last administered on 07/18/18at 22:58; Admin Dose 1 TAB; Start 07/18/18 at 14:00 Morphine Sulfate (morphine) 6 mg Q4H PRN PO .SEVERE PAIN 7-10; Start 07/18/18 at 14:00 Docusate Sodium (Colace) 100 mg Q12H PRN PO .CONSTIPATION; Start 07/18/18 at 14:00 Magnesium Hydroxide (Milk Of Mag) 30 ml DAILY PRN PO .CONSTIPATION; Start 07/18/18 at 14:00 Lorazepam (Ativan) 0.5 mg Q6H PRN PO ANXIETY; Start 07/18/18 at 14:00 Albuterol/ Ipratropium (Duoneb) 3 ml Q4H RESP THERAPY PRN HHN SHORTNESS OF BREATH; Start 07/18/18 at 14:00 Hydralazine HCl (Apresoline) 10 mg Q6H PRN IV ELEVATED BLOOD PRESSURE; Start 07/18/18 at 14:00 Nitroglycerin (Nitroglycerin (Sl Tab) 0.4 Mg) 1 tab Q5M PRN SL ANGINA; Start 07/18/18 at 14:00 Apixaban (Eliquis) 5 mg BID PO Last administered on 07/19/18at 08:07; Admin Dose 5 MG; Start 07/18/18 at 21:00 Digoxin (Digoxin) 0.125 mg DAILY@1300 PO ; Start 07/19/18 at 13:00 Doxazosin Mesylate (Cardura) 4 mg BID PO Last administered on 07/19/18at 08:07; Admin Dose 4 MG; Start 07/18/18 at 21:00 Ergocalciferol (Drisdol) 50,000 unit Q7D PO Last administered on 07/18/18at 18:03; Admin Dose 50,000 UNIT; Start 07/18/18 at 14:00 Ferrous Sulfate (Ferrous Sulfate (Ec)) 325 mg BID PO Last administered on 07/19/18at 08:08; Admin Dose 325 MG; Start 07/18/18 at 21:00 Insulin Glargine (Lantus) 12 units QHS SC Last administered on 07/18/18at 21:46; Admin Dose 12 UNITS; Start 07/18/18 at 21:00 Famotidine (Pepcid) 20 mg DAILY PO Last administered on 07/19/18at 08:08; Admin Dose 20 MG; Start 07/19/18 at 09:00 Atorvastatin Calcium (Lipitor) 80 mg HS PO Last administered on 07/18/18at 20:53; Admin Dose 80 MG; Start 07/18/18 at 21:00 Diagnostic Test (Pha) (Accu-Chek) 1 ea 02 XX ; Start 07/19/18 at 02:00 Insulin Aspart (Novolog Insulin Pen) NOVOLOG *MILD* ALGORI... Q4 SC Last administered on 07/19/18at 01:01; Admin Dose 1 UNIT; Start 07/18/18 at 17:00 Miscellaneous Information 1 ea NOTE XX ; Start 07/18/18 at 14:30 Glucose (Glutose) 15 gm Q15M PRN PO DECREASED GLUCOSE; Start 07/18/18 at 14:30 Glucose (Glutose) 22.5 gm Q15M PRN PO DECREASED GLUCOSE; Start 07/18/18 at 14:30 Dextrose (D50w Syringe) 25 ml Q15M PRN IV DECREASED GLUCOSE; Start 07/18/18 at 14:30 Dextrose (D50w Syringe) 50 ml Q15M PRN IV DECREASED GLUCOSE; Start 07/18/18 at 14:30 Glucagon (Glucagen) 1 mg Q15M PRN IM DECREASED GLUCOSE; Start 07/18/18 at 14:30 Glucose (Glutose) 15 gm Q15M PRN BUCCAL DECREASED GLUCOSE; Start 07/18/18 at 14:30 Nicotine (Nicoderm 21 Mg/ 24hr) 1 patch DAILY TRANSDERM ; Start 07/18/18 at 16:30 Metoprolol Succinate (Toprol Xl) 25 mg DAILY PO Last administered on 07/19/18at 08:08; Admin Dose 25 MG; Start 07/19/18 at 09:00 Furosemide (Lasix) 40 mg BID IV Last administered on 07/19/18at 08:08; Admin Dose 40 MG; Start 07/19/18 at 09:00 Patient Own Medication 1 ea BID PO Last administered on 07/19/18at 08:09; Admin Dose 1 EA; Start 07/18/18 at 21:00 Famotidine (Pepcid) 20 mg Q24H PO Last administered on 07/18/18at 22:24; Admin Dose 20 MG; Start 07/18/18 at 22:00 MELVI LANCE Jul 19, 2018 12:25
[2018-07-19] MEDS: DIGOXIN 0.125 MG TAB PO SCH (12:42)
[2018-07-19] MEDS: HYDROCODONE/APAP (5/325) TAB PO PRN (13:01)
--- NOTE | 2018-07-19 13:22 | CONS ---
Assessment/Plan Assessment/Plan Assessment/Plan (Daily) ASSESSMENT: A 67-year-old male presenting with: 1. Shortness of breath with bilateral lower extremity edema, orthopnea and PND likely secondary to acute on chronic congestive heart failure. 2. Acute on chronic renal failure; however, the patient's baseline creatinine ranges from 1.9 to 2. On last discharge in May, the creatinine was 1.9. This could be all secondary to cardiorenal as the patient is clearly in decompensated heart failure right now.Cr stable from yesterday, pt had Renal U/S in 05/24 which showed chronci kidney disease 3. History of atrial fibrillation. 4. Hypertension. 5. Diabetes. 6. Hyperlipidemia. 7. BPH. 8. Positive troponin with chest pain ? NSTEMI 9. Elevated BNP. PLAN: - CW with Lasix 40 IV b.i.d. - cw hold off Entresto at this point. - Digoxin levels normal. -. Keep a systolic blood pressure of greater than 100. - Renally dose all meds. - Avoid nephrotoxic agents. Consultation Date/Type/Reason Admit Date/Time Jul 18, 2018 at 13:13 Initial Consult Date Date/Time of Note DATE: 07/19/18 TIME: 13:22 24 HR Interval Summary Free Text/Dictation Feels slightly better. Exam/Review of Systems Exam Vitals Vital Signs Date Temp Pulse Resp B/P (MAP) Pulse Ox O2 O2 Flow FiO2 Time Delivery Rate 07/19/18 97.7 77 18 140/65 92 11:23 (90) 07/18/18 Room Air 15:50 Intake and Output 07/18/18 07/18/18 07/19/18 1515:00 23:00 07:00 IntakeIntake Total 220 ml 120 ml OutputOutput Total 600 ml 400 ml BalanceBalance -380 ml -280 ml Exam ENERAL: The patient is awake, alert, oriented and appears to be in mild distr ess secondary to shortness of breath. HEENT: Pupils equal, round and reactive to light. Extraocular movements are intact. NECK: Supple. JVD appreciated. LUNGS: Decreased breath sounds bilaterally. Few crackles heard at the bases. HEART: Irregularly irregular. No murmur, rub or gallop. ABDOMEN: Soft, somewhat distended with some abdominal wall edema. EXTREMITIES: Legs with 2 to 3+ pitting edema in bilateral lower extremity to mid-calf. GENERAL: Awake, alert, oriented and does not appear to in any acute distress. 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 Results Result Diagram: 07/19/18 0653 07/19/18 0653 Results 24hrs Laboratory Tests Test 07/18/18 13:55 07/18/18 17:58 07/18/18 18:58 07/18/18 21:00 Prothrombin Time 18.5 H Prothrombin Time 1.4 Ratio INR International 1.53 Normalized Ratio Activated 42.8 H Partial Thromboplast Time Creatine Kinase 58 64 Creatine Kinase 3.1 3.8 Index Creatinine Kinase MB 1.82 2.45 H (Mass) Troponin I 0.160 *H 0.198 *H Free Thyroxine 2.16 Bedside Glucose 143 Urine Color YELLOW Urine Clarity CLEAR Urine pH 5.0 Urine Specific 1.009 [place] Urine Ketones NEGATIVE Urine Nitrite NEGATIVE Urine Bilirubin NEGATIVE Urine Urobilinogen NEGATIVE Urine Leukocyte NEGATIVE Esterase Urine Eosinophils % 0.0 Urine Hemoglobin NEGATIVE Urine Random Sodium 89 Urine Glucose NEGATIVE Urine Total Protein NEGATIVE Test 07/18/18 21:36 07/19/18 00:49 07/19/18 02:33 07/19/18 04:34 Bedside Glucose 297 H 145 122 Troponin I 0.171 *H Test 07/19/18 06:50 07/19/18 06:53 07/19/18 08:05 07/19/18 11:55 Digoxin Level 1.5 White Blood Count 5.5 Red Blood Count 4.42 L Hemoglobin 10.9 L Hematocrit 35.1 L Mean Corpuscular 79.4 L Volume Mean Corpuscular 24.7 L Hemoglobin Mean Corpuscular 31.1 L Hemoglobin Concent Red Cell 18.5 H Distribution Width Platelet Count 178 Mean Platelet Volume 13.4 H Immature 0.400 Granulocytes % Neutrophils % 55.7 Lymphocytes % 28.7 Monocytes % 10.8 Eosinophils % 3.1 Basophils % 1.3 Nucleated Red Blood 0.0 Cells % Immature 0.020 Granulocytes # Neutrophils # 3.1 Lymphocytes # 1.6 Monocytes # 0.6 Eosinophils # 0.2 Basophils # 0.1 Nucleated Red Blood 0.0 Cells # Sodium Level 143 Potassium Level 3.9 Chloride Level 105 Carbon Dioxide Level 33 H Anion Gap 5 # Blood Urea Nitrogen 54 H Creatinine 2.27 H Est Glomerular 29 L Filtrat Rate mL/min Glucose Level 101 # Hemoglobin A1c 9.0 H Calcium Level 9.2 Phosphorus Level 3.9 Magnesium Level 2.0 Troponin I 0.166 *H Triglycerides Level 90 Cholesterol Level 90 L LDL Cholesterol, 31 Calculated HDL Cholesterol 41 Cholesterol/HDL 2.1 Ratio Thyroid Stimulating 5.510 H Hormone (TSH) Bedside Glucose 98 120 Medications Medication Current Medications IV Flush (NS 3 ml) 3 ml PER PROTOCOL IV ; Start 07/18/18 at 14:00 Ondansetron HCl (Zofran Inj) 4 mg Q6H PRN IV NAUSEA/VOMITING; Start 07/18/18 at 14:00 Acetaminophen (Tylenol Tab) 650 mg Q6H PRN PO .PAIN 1-3 OR TEMP Last administered on 07/18/18at 22:02; Admin Dose 650 MG; Start 07/18/18 at 14:00 Acetaminophen/ Hydrocodone Bitart ([place] (5/325)) 1 tab Q6H PRN PO .MOD PAIN 4- 6 Last administered on 07/19/18at 13:01; Admin Dose 1 TAB; Start 07/18/18 at 14:00 Morphine Sulfate (morphine) 6 mg Q4H PRN PO .SEVERE PAIN 7-10; Start 07/18/18 at 14:00 Docusate Sodium (Colace) 100 mg Q12H PRN PO .CONSTIPATION; Start 07/18/18 at 14:00 Magnesium Hydroxide (Milk Of Mag) 30 ml DAILY PRN PO .CONSTIPATION; Start 07/18/18 at 14:00 Lorazepam (Ativan) 0.5 mg Q6H PRN PO ANXIETY; Start 07/18/18 at 14:00 Albuterol/ Ipratropium (Duoneb) 3 ml Q4H RESP THERAPY PRN HHN SHORTNESS OF BREATH; Start 07/18/18 at 14:00 Hydralazine HCl (Apresoline) 10 mg Q6H PRN IV ELEVATED BLOOD PRESSURE; Start 07/18/18 at 14:00 Nitroglycerin (Nitroglycerin (Sl Tab) 0.4 Mg) 1 tab Q5M PRN SL ANGINA; Start 07/18/18 at 14:00 Apixaban (Eliquis) 5 mg BID PO Last administered on 07/19/18at 08:07; Admin Dose 5 MG; Start 07/18/18 at 21:00 Digoxin (Digoxin) 0.125 mg DAILY@1300 PO Last administered on 07/19/18at 12:42; Admin Dose 0.125 MG; Start 07/19/18 at 13:00 Doxazosin Mesylate (Cardura) 4 mg BID PO Last administered on 07/19/18at 08:07; Admin Dose 4 MG; Start 07/18/18 at 21:00 Ergocalciferol (Drisdol) 50,000 unit Q7D PO Last administered on 07/18/18at 18:03; Admin Dose 50,000 UNIT; Start 07/18/18 at 14:00 Ferrous Sulfate (Ferrous Sulfate (Ec)) 325 mg BID PO Last administered on 07/19/18at 08:08; Admin Dose 325 MG; Start 07/18/18 at 21:00 Insulin Glargine (Lantus) 12 units QHS SC Last administered on 07/18/18at 21:46; Admin Dose 12 UNITS; Start 07/18/18 at 21:00 Famotidine (Pepcid) 20 mg DAILY PO Last administered on 07/19/18at 08:08; Admin Dose 20 MG; Start 07/19/18 at 09:00 Atorvastatin Calcium (Lipitor) 80 mg HS PO Last administered on 07/18/18at 20:53; Admin Dose 80 MG; Start 07/18/18 at 21:00 Diagnostic Test (Pha) (Accu-Chek) 1 ea 02 XX ; Start 07/19/18 at 02:00 Miscellaneous Information 1 ea NOTE XX ; Start 07/18/18 at 14:30 Glucose (Glutose) 15 gm Q15M PRN PO DECREASED GLUCOSE; Start 07/18/18 at 14:30 Glucose (Glutose) 22.5 gm Q15M PRN PO DECREASED GLUCOSE; Start 07/18/18 at 14:30 Dextrose (D50w Syringe) 25 ml Q15M PRN IV DECREASED GLUCOSE; Start 07/18/18 at 14:30 Dextrose (D50w Syringe) 50 ml Q15M PRN IV DECREASED GLUCOSE; Start 07/18/18 at 14:30 Glucagon (Glucagen) 1 mg Q15M PRN IM DECREASED GLUCOSE; Start 07/18/18 at 14:30 Glucose (Glutose) 15 gm Q15M PRN BUCCAL DECREASED GLUCOSE; Start 07/18/18 at 14:30 Nicotine (Nicoderm 21 Mg/ 24hr) 1 patch DAILY TRANSDERM ; Start 07/18/18 at 16:30 Metoprolol Succinate (Toprol Xl) 25 mg DAILY PO Last administered on 07/19/18 08:08; Admin Dose 25 MG; Start 07/19/18 at 09:00 Furosemide (Lasix) 40 mg BID IV Last administered on 07/19/18 08:08; Admin Dose 40 MG; Start 07/19/18 at 09:00 Patient Own Medication 1 ea BID PO Last administered on 07/19/18at 08:09; Admin Dose 1 EA; Start 07/18/18 at 21:00; Status Hold Famotidine (Pepcid) 20 mg Q24H PO Last administered on 07/18/18at 22:24; Admin Dose 20 MG; Start 07/18/18 at 22:00 Insulin Aspart (Novolog Insulin Pen) (Adult SC Insulin - Mild Algorithm)... AC MEALS AND BEDTIME SC ; Start 07/19/18 at 17:25 MONICA JONES MD Jul 19, 2018 13:22
[2018-07-19] MEDS: Insulin NOVOLOG SS MILD Algorithm (SS with meals and bedtime) SC SCH ×2 (17:15→20:27)
[2018-07-19] MEDS ORDERED: INSULIN ASPART [NOVOLOG] 3 ML PEN SC SCH (17:25)
[2018-07-19] MEDS: MAGNESIUM HYDROXIDE 30ML CUP PO PRN (18:09)
[2018-07-19] MEDS: ATORVASTATIN 80 MG TAB PO SCH (20:26)
[2018-07-19] MEDS: INSULIN GLARGINE [LANTus] (100 UNITS/ML) SYG SC SCH (20:32)
[2018-07-19] MEDS: ONDANSETRON 4 MG INJ IV PRN (21:20)
[2018-07-20] VITALS (12 sets, daily range): BP systolic 85–130; BP diastolic 50–74; PULSE 51–68; RESP 17–20
[2018-07-20] MEDS: ACCU-CHEK XX SCH (02:00)
[2018-07-20] MEDS: ONDANSETRON 4 MG INJ IV PRN (04:47)
[2018-07-20] MEDS: FUROSEMIDE 40 MG INJ IV SCH ×2 (05:20→17:34)
[2018-07-20] MEDS: ALBUTEROL/IPRATROPIUM (NEB) 3 ML AMP HHN PRN (05:39)
[2018-07-20] MEDS: Insulin NOVOLOG SS MILD Algorithm (SS with meals and bedtime) SC SCH ×4 (07:25→22:22)
[2018-07-20] MEDS: NICOTINE (21 MG/24 HR) PATCH TRANSDERM SCH (08:42)
[2018-07-20] MEDS: FAMOTIDINE 20 MG TAB PO SCH ×2 (08:42→22:08)
[2018-07-20] MEDS: DOXAZOSIN 4 MG TAB PO SCH ×2 (08:42→21:00)
[2018-07-20] MEDS: FERROUS SULFATE (EC) 325 MG TAB PO SCH ×2 (08:42→22:07)
[2018-07-20] MEDS: APIXABAN 5 MG TABLET PO SCH ×2 (08:42→22:07)
[2018-07-20] MEDS: METOPROLOL (XL) 25 MG TAB PO SCH (08:43)
--- NOTE | 2018-07-20 11:03 | PN ---
Date/Time of Note Date/Time of Note DATE: 07/20/18 TIME: 11:00 Assessment/Plan VTE Prophylaxis Risk score (from Ns)>0 risk: 5 SCD applied (from Ns): No SCD contraindicated: other Pharmacological prophylaxis: apixaban Lines/Catheters Urinary Cath still in place: No Assessment/Plan Hospital Course S: Patient had an episode of increased shortness of breath earlier this morning, given Lasix orally for that. Did require nonrebreather for a couple of hours, now back on 4 L nasal cannula presently does not have any increased shortness of breath symptoms. He did complain of some vomiting symptoms earlier, and chest x-ray this morning did show some increased pulmonary edema. O: VS - see below PHYSICAL EXAMINATION: GENERAL: lying in bed, in no acute distress. HEENT: Pupils equal, round and reactive to light. Extraocular muscles are intact. NECK: Supple, no thyromegaly. LUNGS: Distant breath sounds bilaterally, mild crackles heard at the bases. CARDIOVASCULAR: Irregularly irregular heart rate. No rubs or gallops. ABDOMEN: Soft, nontender and nondistended. Normal bowel sounds. No rebound or guarding. MUSCULOSKELETAL: 2+ pitting edema in bilateral lower extremities to the mid calves. NEUROLOGIC: No focal deficits. ASSESSMENT AND PLAN: 67-year-old male coming in with chest pressure, shortness of breath, lower extremity swelling, signs of congestive heart failure exacerbation, also rule out for acute coronary syndrome. 1. Shortness of breath and chest pressure -appeared to be slowly improving, although patient did have some increased shortness of breath symptoms earlier this morning as mentioned above. -Continue fluid restriction as recommended by cardiology and renal teams, continue twice daily diurese as well with Lasix (perhaps consider increasing the dose now to 60 given the chest x-ray findings this morning?), low-dose beta- leatha -Continue to keep the head of the bed greater than 30 degrees - follow up Cardiology recommendations and continue digoxin for now. -Off of Entresto presently while in-house 2. Acute on chronic kidney disease. Again, the kidney function appears to be slightly worse than when he was here 2 months ago. Creatinine slightly decreased from yesterday. Patient having adequate urine output -Follow-up recommendations renal consult -Continue to monitor BUN and creatinine levels and urine output. 3. Smoking history. -Counseled on cessation. -Continue nicotine patch. 4. History of hypertension. Again, see above. - Continue current medications. - Also hydralazine p.r.n. 5. History of atrial fibrillation -appears stable -Monitor, continue Eliquis as well. 6. Type 2 diabetes. A1c equals 9.0, sugars presently stable - continue Lantus and sliding scale insulin. 7. Deep venous thrombosis prophylaxis-on Eliquis. Result Diagram: 07/20/18 0545 07/20/18 0545 Results 24hrs Laboratory Tests Test 07/19/18 11:55 07/19/18 17:14 07/19/18 20:23 07/20/18 04:51 Bedside Glucose 120 122 147 108 Test 07/20/18 05:01 07/20/18 05:45 07/20/18 07:42 Blood Gas Blood arterial Specimen Source Arterial Blood 07/20/2018 5:10:0 Date Drawn 1 AM Arterial Blood pH 7.383 (Temp corrected) Arterial Blood 54.7 H pCO2 (Temp correct) Arterial Blood 90.1 pO2 (Temp corrected) Arterial Blood 31.9 H HCO3 Arterial Blood 5.5 H Base Excess Arterial Blood 96.8 Oxygen Saturation Ankur Test ACCEPTAB Arterial Blood Right Radial Gas Puncture Site Arterial 1.1 Blood Carboxyhemo globin Arterial Blood 0.3 Methemoglobin Blood Gas A-a O2 568.2 H Differential Oxyhemoglobin 95.4 Percent Blood Gas 37.0 Temperature Blood Gas Actual 22 Respiration Rate Blood Gas MASK - NRB Modality FiO2 100.0 Blood Gas MG Notified Whom Blood Gas 07/20/2018 5:30:0 Notified Time 9 AM White Blood Count 5.4 Red Blood Count 4.52 L Hemoglobin 11.0 L Hematocrit 36.8 L Mean Corpuscular 81.4 L Volume Mean Corpuscular 24.3 L Hemoglobin Mean Corpuscular 29.9 L Hemoglobin Concen t Red Cell 18.5 H Distribution Width Platelet Count 160 Mean Platelet 11.8 H Volume Immature 0.200 Granulocytes % Neutrophils % 65.1 Lymphocytes % 21.4 Monocytes % 9.8 Eosinophils % 2.0 Basophils % 1.5 Nucleated Red 0.0 Blood Cells % Immature 0.010 Granulocytes # Neutrophils # 3.5 Lymphocytes # 1.2 Monocytes # 0.5 Eosinophils # 0.1 Basophils # 0.1 Nucleated Red 0.0 Blood Cells # Sodium Level 141 Potassium Level 4.1 Chloride Level 100 Carbon Dioxide 31 Level Anion Gap 10 # Blood Urea 53 H Nitrogen Creatinine 2.17 H Est Glomerular 30 L Filtrat Rate mL/min Glucose Level 114 Calcium Level 9.0 Troponin I 0.109 Bedside Glucose 112 Exam/Review of Systems Exam Vitals Vital Signs Date Temp Pulse Resp B/P (MAP) Pulse Ox O2 O2 Flow FiO2 Time Delivery Rate 07/20/18 63 08:46 07/20/18 97.8 18 130/60 100 Nasal 07:26 (83) Cannula 07/20/18 15.0 100 05:40 Intake and Output 07/19/18 07/19/18 07/20/18 1515:00 23:00 07:00 IntakeIntake Total 640 ml 120 ml OutputOutput Total 1310 ml 500 ml BalanceBalance -670 ml -380 ml Results Results 24hrs Laboratory Tests Test 07/19/18 11:55 07/19/18 17:14 07/19/18 20:23 07/20/18 04:51 Bedside Glucose 120 122 147 108 Test 07/20/18 05:01 07/20/18 05:45 07/20/18 07:42 Blood Gas Blood arterial Specimen Source Arterial Blood 07/20/2018 5:10:0 Date Drawn 1 AM Arterial Blood pH 7.383 (Temp corrected) Arterial Blood 54.7 H pCO2 (Temp correct) Arterial Blood 90.1 pO2 (Temp corrected) Arterial Blood 31.9 H HCO3 Arterial Blood 5.5 H Base Excess Arterial Blood 96.8 Oxygen Saturation Ankur Test ACCEPTAB Arterial Blood Right Radial Gas Puncture Site Arterial 1.1 Blood Carboxyhemo globin Arterial Blood 0.3 Methemoglobin Blood Gas A-a O2 568.2 H Differential Oxyhemoglobin 95.4 Percent Blood Gas 37.0 Temperature Blood Gas Actual 22 Respiration Rate Blood Gas MASK - NRB Modality FiO2 100.0 Blood Gas MG Notified Whom Blood Gas 07/20/2018 5:30:0 Notified Time 9 AM White Blood Count 5.4 Red Blood Count 4.52 L Hemoglobin 11.0 L Hematocrit 36.8 L Mean Corpuscular 81.4 L Volume Mean Corpuscular 24.3 L Hemoglobin Mean Corpuscular 29.9 L Hemoglobin Concen t Red Cell 18.5 H Distribution Width Platelet Count 160 Mean Platelet 11.8 H Volume Immature 0.200 Granulocytes % Neutrophils % 65.1 Lymphocytes % 21.4 Monocytes % 9.8 Eosinophils % 2.0 Basophils % 1.5 Nucleated Red 0.0 Blood Cells % Immature 0.010 Granulocytes # Neutrophils # 3.5 Lymphocytes # 1.2 Monocytes # 0.5 Eosinophils # 0.1 Basophils # 0.1 Nucleated Red 0.0 Blood Cells # Sodium Level 141 Potassium Level 4.1 Chloride Level 100 Carbon Dioxide 31 Level Anion Gap 10 # Blood Urea 53 H Nitrogen Creatinine 2.17 H Est Glomerular 30 L Filtrat Rate mL/min Glucose Level 114 Calcium Level 9.0 Troponin I 0.109 Bedside Glucose 112 Medications Medication Current Medications IV Flush (NS 3 ml) 3 ml PER PROTOCOL IV ; Start 07/18/18 at 14:00 Ondansetron HCl (Zofran Inj) 4 mg Q6H PRN IV NAUSEA/VOMITING Last administered on 07/20/18at 04:47; Admin Dose 4 MG; Start 07/18/18 at 14:00 Acetaminophen (Tylenol Tab) 650 mg Q6H PRN PO .PAIN 1-3 OR TEMP Last administ ered on 07/18/18at 22:02; Admin Dose 650 MG; Start 07/18/18 at 14:00 Acetaminophen/ Hydrocodone Bitart ([place] (5/325)) 1 tab Q6H PRN PO .MOD PAIN 4- 6 Last administered on 07/19/18at 13:01; Admin Dose 1 TAB; Start 07/18/18 at 14:00 Morphine Sulfate (morphine) 6 mg Q4H PRN PO .SEVERE PAIN 7-10; Start 07/18/18 at 14:00 Docusate Sodium (Colace) 100 mg Q12H PRN PO .CONSTIPATION; Start 07/18/18 at 14:00 Magnesium Hydroxide (Milk Of Mag) 30 ml DAILY PRN PO .CONSTIPATION Last administered on 07/19/18at 18:09; Admin Dose 30 ML; Start 07/18/18 at 14:00 Lorazepam (Ativan) 0.5 mg Q6H PRN PO ANXIETY; Start 07/18/18 at 14:00 Albuterol/ Ipratropium (Duoneb) 3 ml Q4H RESP THERAPY PRN HHN SHORTNESS OF BOUCHRA ATH Last administered on 07/20/18at 05:39; Admin Dose 3 ML; Start 07/18/18 at 14:00 Hydralazine HCl (Apresoline) 10 mg Q6H PRN IV ELEVATED BLOOD PRESSURE; Start 07/18/18 at 14:00 Nitroglycerin (Nitroglycerin (Sl Tab) 0.4 Mg) 1 tab Q5M PRN SL ANGINA; Start 07/18/18 at 14:00 Apixaban (Eliquis) 5 mg BID PO Last administered on 07/20/18 08:42; Admin Dose 5 MG; Start 07/18/18 at 21:00 Digoxin (Digoxin) 0.125 mg DAILY@1300 PO Last administered on 07/19/18 12:42; Admin Dose 0.125 MG; Start 07/19/18 at 13:00 Doxazosin Mesylate (Cardura) 4 mg BID PO Last administered on 07/20/18 08:42; Admin Dose 4 MG; Start 07/18/18 at 21:00 Ergocalciferol (Drisdol) 50,000 unit Q7D PO Last administered on 07/18/18 18:03; Admin Dose 50,000 UNIT; Start 07/18/18 at 14:00 Ferrous Sulfate (Ferrous Sulfate (Ec)) 325 mg BID PO Last administered on 07/20/18 08:42; Admin Dose 325 MG; Start 07/18/18 at 21:00 Insulin Glargine (Lantus) 12 units QHS SC Last administered on 07/19/18 20:32; Admin Dose 12 UNITS; Start 07/18/18 at 21:00 Famotidine (Pepcid) 20 mg DAILY PO Last administered on 07/20/18 08:42; Admin Dose 20 MG; Start 07/19/18 at 09:00 Atorvastatin Calcium (Lipitor) 80 mg HS PO Last administered on 07/19/18 20:26; Admin Dose 80 MG; Start 07/18/18 at 21:00 Diagnostic Test (Pha) (Accu-Chek) 1 ea 02 XX ; Start 07/19/18 at 02:00 Miscellaneous Information 1 ea NOTE XX ; Start 07/18/18 at 14:30 Glucose (Glutose) 15 gm Q15M PRN PO DECREASED GLUCOSE; Start 07/18/18 at 14:30 Glucose (Glutose) 22.5 gm Q15M PRN PO DECREASED GLUCOSE; Start 07/18/18 at 14:30 Dextrose (D50w Syringe) 25 ml Q15M PRN IV DECREASED GLUCOSE; Start 07/18/18 at 14:30 Dextrose (D50w Syringe) 50 ml Q15M PRN IV DECREASED GLUCOSE; Start 07/18/18 at 14:30 Glucagon (Glucagen) 1 mg Q15M PRN IM DECREASED GLUCOSE; Start 07/18/18 at 14:30 Glucose (Glutose) 15 gm Q15M PRN BUCCAL DECREASED GLUCOSE; Start 07/18/18 at 14:30 Nicotine (Nicoderm 21 Mg/ 24hr) 1 patch DAILY TRANSDERM ; Start 07/18/18 at 16:30 Metoprolol Succinate (Toprol Xl) 25 mg DAILY PO Last administered on 07/20/18at 08:43; Admin Dose 25 MG; Start 07/19/18 at 09:00 Furosemide (Lasix) 40 mg BID IV Last administered on 07/20/18at 05:20; Admin Dose 40 MG; Start 07/19/18 at 09:00 Patient Own Medication 1 ea BID PO Last administered on 07/19/18at 08:09; Admin Dose 1 EA; Start 07/18/18 at 21:00; Status Hold Famotidine (Pepcid) 20 mg Q24H PO Last administered on 07/19/18at 20:26; Admin Dose 20 MG; Start 07/18/18 at 22:00 Insulin Aspart (Novolog Insulin Pen) (Adult SC Insulin - Mild Algorithm)... AC MEALS AND BEDTIME SC ; Start 07/19/18 at 17:25 Miscellaneous Information Patients own medicat... BID@10,16 XX ; Start 07/20/18 at 10:00 MELVI LANCE Jul 20, 2018 11:03
[2018-07-20] MEDS: ACETAMINOPHEN 325 MG TAB PO PRN (13:07)
[2018-07-20] MEDS: DIGOXIN 0.125 MG TAB PO SCH (13:21)
--- NOTE | 2018-07-20 15:15 | PN ---
Date/Time of Note Date/Time of Note DATE: 07/20/18 TIME: 15:11 Assessment/Plan VTE Prophylaxis Risk score (from Ns)>0 risk: 5 SCD applied (from [facility] [place] SCD contraindicated: low risk/ambulating Pharmacological prophylaxis: NA/contraindicated Pharm contraindication: low risk/ambulating Lines/Catheters Urinary Cath still in place: No Assessment/Plan Hospital Course A 67-year-old male presenting with: 1. Shortness of breath with bilateral lower extremity edema, orthopnea and PND likely secondary to acute on chronic congestive heart failure. 2. Acute on chronic renal failure; however, the patient's baseline creatinine ranges from 1.9 to 2. On last discharge in May, the creatinine was 1.9. This could be all secondary to cardiorenal as the patient is clearly in decompensated heart failure right now.Cr stable from yesterday, pt had Renal U/S in 05/24 which showed chronci kidney disease 3. History of atrial fibrillation. 4. Hypertension. 5. Diabetes. 6. Hyperlipidemia. 7. BPH. 8. Positive troponin with chest pain ? NSTEMI 9. Elevated BNP. PLAN: - neg 1 L - due to worseing sob/chest xray and cr being stable> will increase lasix to 40 tid - cw hold off Entresto at this point. - Digoxin levels normal. -. Keep a systolic blood pressure of greater than 100. - Renally dose all meds. - Avoid nephrotoxic agents. spoke to family at bedside Result Diagram: 07/20/18 0545 07/20/18 0545 Results 24hrs Laboratory Tests Test 07/19/18 17:14 07/19/18 20:23 07/20/18 04:51 07/20/18 05:01 Bedside Glucose 122 147 108 Blood Gas Blood arterial Specimen Source Arterial Blood 07/20/2018 5:10:0 Date Drawn 1 AM Arterial Blood pH 7.383 (Temp corrected) Arterial Blood 54.7 H pCO2 (Temp correct) Arterial Blood 90.1 pO2 (Temp corrected) Arterial Blood 31.9 H HCO3 Arterial Blood 5.5 H Base Excess Arterial Blood 96.8 Oxygen Saturation Ankur Test ACCEPTAB Arterial Blood Right Radial Gas Puncture Site Arterial 1.1 Blood Carboxyhemo globin Arterial Blood 0.3 Methemoglobin Blood Gas A-a O2 568.2 H Differential Oxyhemoglobin 95.4 Percent Blood Gas 37.0 Temperature Blood Gas Actual 22 Respiration Rate Blood Gas MASK - NRB Modality FiO2 100.0 Blood Gas MG Notified Whom Blood Gas 07/20/2018 5:30:0 Notified Time 9 AM Test 07/20/18 05:45 07/20/18 07:42 07/20/18 11:59 07/20/18 13:05 White Blood Count 5.4 Red Blood Count 4.52 L Hemoglobin 11.0 L Hematocrit 36.8 L Mean Corpuscular 81.4 L Volume Mean Corpuscular 24.3 L Hemoglobin Mean Corpuscular 29.9 L Hemoglobin Concen t Red Cell 18.5 H Distribution Width Platelet Count 160 Mean Platelet 11.8 H Volume Immature 0.200 Granulocytes % Neutrophils % 65.1 Lymphocytes % 21.4 Monocytes % 9.8 Eosinophils % 2.0 Basophils % 1.5 Nucleated Red 0.0 Blood Cells % Immature 0.010 Granulocytes # Neutrophils # 3.5 Lymphocytes # 1.2 Monocytes # 0.5 Eosinophils # 0.1 Basophils # 0.1 Nucleated Red 0.0 Blood Cells # Sodium Level 141 Potassium Level 4.1 Chloride Level 100 Carbon Dioxide 31 Level Anion Gap 10 # Blood Urea 53 H Nitrogen Creatinine 2.17 H Est Glomerular 30 L Filtrat Rate mL/min Glucose Level 114 Calcium Level 9.0 Troponin I 0.109 Bedside Glucose 112 165 197 Subjective 24 Hr Interval Summary Free Text/Dictation Short of breath today. Episode of vomiting this morning resolved Exam/Review of Systems Exam Vitals Vital Signs Date Temp Pulse Resp B/P (MAP) Pulse Ox O2 O2 Flow FiO2 Time Delivery Rate 07/20/18 56 13:32 07/20/18 98.3 17 115/54 92 11:25 (74) 07/20/18 Nasal 07:26 Cannula 07/20/18 15.0 100 05:40 Intake and Output 07/19/18 07/19/18 07/20/18 1515:00 23:00 07:00 IntakeIntake Total 640 ml 120 ml OutputOutput Total 1310 ml 500 ml BalanceBalance -670 ml -380 ml Exam ENERAL: The patient is awake, alert, oriented and appears to be in mild distress secondary to shortness of breath. HEENT: Pupils equal, round and reactive to light. Extraocular movements are intact. NECK: Supple. JVD appreciated. LUNGS: crackles at bases HEART: Irregularly irregular. No murmur, rub or gallop. ABDOMEN: Soft, somewhat distended with some abdominal wall edema. EXTREMITIES: Legs with 2 to 3+ pitting edema in bilateral lower extremity to mid-calf. GENERAL: Awake, alert, oriented and does not appear to in any acute distress. 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 Results Results 24hrs Laboratory Tests Test 07/19/18 17:14 07/19/18 20:23 07/20/18 04:51 07/20/18 05:01 Bedside Glucose 122 147 108 Blood Gas Blood arterial Specimen Source Arterial Blood 07/20/2018 5:10:0 Date Drawn 1 AM Arterial Blood pH 7.383 (Temp corrected) Arterial Blood 54.7 H pCO2 (Temp correct) Arterial Blood 90.1 pO2 (Temp corrected) Arterial Blood 31.9 H HCO3 Arterial Blood 5.5 H Base Excess Arterial Blood 96.8 Oxygen Saturation Ankur Test ACCEPTAB Arterial Blood Right Radial Gas Puncture Site Arterial 1.1 Blood Carboxyhemo globin Arterial Blood 0.3 Methemoglobin Blood Gas A-a O2 568.2 H Differential Oxyhemoglobin 95.4 Percent Blood Gas 37.0 Temperature Blood Gas Actual 22 Respiration Rate Blood Gas MASK - NRB Modality FiO2 100.0 Blood Gas MG Notified Whom Blood Gas 07/20/2018 5:30:0 Notified Time 9 AM Test 07/20/18 05:45 07/20/18 07:42 07/20/18 11:59 07/20/18 13:05 White Blood Count 5.4 Red Blood Count 4.52 L Hemoglobin 11.0 L Hematocrit 36.8 L Mean Corpuscular 81.4 L Volume Mean Corpuscular 24.3 L Hemoglobin Mean Corpuscular 29.9 L Hemoglobin Concen t Red Cell 18.5 H Distribution Width Platelet Count 160 Mean Platelet 11.8 H Volume Immature 0.200 Granulocytes % Neutrophils % 65.1 Lymphocytes % 21.4 Monocytes % 9.8 Eosinophils % 2.0 Basophils % 1.5 Nucleated Red 0.0 Blood Cells % Immature 0.010 Granulocytes # Neutrophils # 3.5 Lymphocytes # 1.2 Monocytes # 0.5 Eosinophils # 0.1 Basophils # 0.1 Nucleated Red 0.0 Blood Cells # Sodium Level 141 Potassium Level 4.1 Chloride Level 100 Carbon Dioxide 31 Level Anion Gap 10 # Blood Urea 53 H Nitrogen Creatinine 2.17 H Est Glomerular 30 L Filtrat Rate mL/min Glucose Level 114 Calcium Level 9.0 Troponin I 0.109 Bedside Glucose 112 165 197 Medications Medication Current Medications IV Flush (NS 3 ml) 3 ml PER PROTOCOL IV ; Start 07/18/18 at 14:00 Ondansetron HCl (Zofran Inj) 4 mg Q6H PRN IV NAUSEA/VOMITING Last administered on 07/20/18at 04:47; Admin Dose 4 MG; Start 07/18/18 at 14:00 Acetaminophen (Tylenol Tab) 650 mg Q6H PRN PO .PAIN 1-3 OR TEMP Last administered on 07/20/18at 13:07; Admin Dose 650 MG; Start 07/18/18 at 14:00 Acetaminophen/ Hydrocodone Bitart ([place] (5/325)) 1 tab Q6H PRN PO .MOD PAIN 4- 6 Last administered on 07/19/18at 13:01; Admin Dose 1 TAB; Start 07/18/18 at 14:00 Morphine Sulfate (morphine) 6 mg Q4H PRN PO .SEVERE PAIN 7-10; Start 07/18/18 at 14:00 Docusate Sodium (Colace) 100 mg Q12H PRN PO .CONSTIPATION; Start 07/18/18 at 14:00 Magnesium Hydroxide (Milk Of Mag) 30 ml DAILY PRN PO .CONSTIPATION Last administered on 07/19/18at 18:09; Admin Dose 30 ML; Start 07/18/18 at 14:00 Lorazepam (Ativan) 0.5 mg Q6H PRN PO ANXIETY; Start 07/18/18 at 14:00 Albuterol/ Ipratropium (Duoneb) 3 ml Q4H RESP THERAPY PRN HHN SHORTNESS OF BREATH Last administered on 07/20/18at 05:39; Admin Dose 3 ML; Start 07/18/18 at 14:00 Hydralazine HCl (Apresoline) 10 mg Q6H PRN IV ELEVATED BLOOD PRESSURE; Start 07/18/18 at 14:00 Nitroglycerin (Nitroglycerin (Sl Tab) 0.4 Mg) 1 tab Q5M PRN SL ANGINA; Start 07/18/18 at 14:00 Apixaban (Eliquis) 5 mg BID PO Last administered on 07/20/18 08:42; Admin Dose 5 MG; Start 07/18/18 at 21:00 Digoxin (Digoxin) 0.125 mg DAILY@1300 PO Last administered on 07/20/18 13:21; Admin Dose 0.125 MG; Start 07/19/18 at 13:00 Doxazosin Mesylate (Cardura) 4 mg BID PO Last administered on 07/20/18 08:42; Admin Dose 4 MG; Start 07/18/18 at 21:00 Ergocalciferol (Drisdol) 50,000 unit Q7D PO Last administered on 07/18/18 18:03; Admin Dose 50,000 UNIT; Start 07/18/18 at 14:00 Ferrous Sulfate (Ferrous Sulfate (Ec)) 325 mg BID PO Last administered on 08:42; Admin Dose 325 MG; Start 07/18/18 at 21:00 Insulin Glargine (Lantus) 12 units QHS SC Last administered on 07/19/18 20:32; Admin Dose 12 UNITS; Start 07/18/18 at 21:00 Famotidine (Pepcid) 20 mg DAILY PO Last administered on 07/20/18 08:42; Admin Dose 20 MG; Start 07/19/18 at 09:00 Atorvastatin Calcium (Lipitor) 80 mg HS PO Last administered on 07/19/18 20:26; Admin Dose 80 MG; Start 07/18/18 at 21:00 Diagnostic Test (Pha) (Accu-Chek) 1 ea 02 XX ; Start 07/19/18 at 02:00 Miscellaneous Information 1 ea NOTE XX ; Start 07/18/18 at 14:30 Glucose (Glutose) 15 gm Q15M PRN PO DECREASED GLUCOSE; Start 07/18/18 at 14:30 Glucose (Glutose) 22.5 gm Q15M PRN PO DECREASED GLUCOSE; Start 07/18/18 at 14:30 Dextrose (D50w Syringe) 25 ml Q15M PRN IV DECREASED GLUCOSE; Start 07/18/18 at 14:30 Dextrose (D50w Syringe) 50 ml Q15M PRN IV DECREASED GLUCOSE; Start 07/18/18 at 14:30 Glucagon (Glucagen) 1 mg Q15M PRN IM DECREASED GLUCOSE; Start 07/18/18 at 14:30 Glucose (Glutose) 15 gm Q15M PRN BUCCAL DECREASED GLUCOSE; Start 07/18/18 at 14:30 Nicotine (Nicoderm 21 Mg/ 24hr) 1 patch DAILY TRANSDERM ; Start 07/18/18 at 16:30 Metoprolol Succinate (Toprol Xl) 25 mg DAILY PO Last administered on 07/20/18at 08:43; Admin Dose 25 MG; Start 07/19/18 at 09:00 Patient Own Medication 1 ea BID PO Last administered on 07/19/18at 08:09; Admin Dose 1 EA; Start 07/18/18 at 21:00; Status Hold Famotidine (Pepcid) 20 mg Q24H PO Last administered on 07/19/18at 20:26; Admin Dose 20 MG; Start 07/18/18 at 22:00 Insulin Aspart (Novolog Insulin Pen) (Adult SC Insulin - Mild Algorithm)... AC MEALS AND BEDTIME SC Last administered on 07/20/18at 12:07; Admin Dose 1 UNIT; Start 07/19/18 at 17:25 Miscellaneous Information Patients own medicat... BID@10,16 XX ; Start 07/20/18 at 10:00 Furosemide (Lasix) 40 mg 0900,1300,1700 IV ; Start 07/20/18 at 17:00 MONIAC JONES MD Jul 20, 2018 15:15
--- NOTE | 2018-07-20 16:17 | CONS ---
Assessment/Plan Assessment/Plan Hospital Course (Demo Recall) IMP: 1.CHF- systolic acute on chronic 2.Cardiomyoopathy- EF 30% 3.CKD 4.HTN 5.Dyslipidemia Recc: -Tele -Agree with increase in lasix dose and consider addition of metolazone to assure good output -continue bb/cardura and would consider addition of hydralazine afterload reduction in lieu of ACEI given renal failure -Continue statin/Eliquis Consultation Date/Type/Reason Admit Date/Time Jul 18, 2018 at 13:13 Initial Consult Date 07/18/18 Type of Consult Cardiology Reason for Consultation CHF Requesting Provider: MELVI LANCE Date/Time of Note DATE: 07/20/18 TIME: 16:01 Exam/Review of Systems Vital Signs Vitals Vital Signs Date Temp Pulse Resp B/P (MAP) Pulse Ox O2 O2 Flow FiO2 Time Delivery Rate 07/20/18 98.8 57 18 109/55 98 15:21 (73) 07/20/18 Nasal 07:26 Cannula 07/20/18 15.0 100 05:40 Intake and Output 07/19/18 07/19/18 07/20/18 1515:00 23:00 07:00 IntakeIntake Total 640 ml 120 ml OutputOutput Total 1310 ml 500 ml BalanceBalance -670 ml -380 ml Exam Exam Review of Systems: CONSTITUTIONAL: No fevers, chills. PULMONARY: No sob CARDIOVASCULAR: No chest pain/palpitations GASTROINTESTINAL: No nausea/vomiting. GENITOURINARY: No hematuria/dysuria. MUSCULOSKELETAL: No myagias/arthalgias. PSYCHIATRIC: The patient denies depression. NEUROLOGIC: No weakness Constitutional: alert Psych: no complaints Head: normocephalic ENMT: mucosa pink and moist Neck: supple, jvd (9 cm water) Respiratory: diminished breath sounds (at bases/B) Cardiovascular: regular rate and rhythm Gastrointestinal: soft, non-tender Musculoskeletal: muscle tone (normal) Extremities: pitting pedal edema (bilteral) Neurological: other (No focal deficits) Labs Result Diagram: 07/20/18 0545 07/20/18 0545 Results 24hrs Laboratory Tests Test 07/19/18 17:14 07/19/18 20:23 07/20/18 04:51 07/20/18 05:01 Bedside Glucose 122 147 108 Blood Gas Blood arterial Specimen Source Arterial Blood 07/20/2018 5:10:0 Date Drawn 1 AM Arterial Blood pH 7.383 (Temp corrected) Arterial Blood 54.7 H pCO2 (Temp correct) Arterial Blood 90.1 pO2 (Temp corrected) Arterial Blood 31.9 H HCO3 Arterial Blood 5.5 H Base Excess Arterial Blood 96.8 Oxygen Saturation Ankur Test ACCEPTAB Arterial Blood Right Radial Gas Puncture Site Arterial 1.1 Blood Carboxyhemo globin Arterial Blood 0.3 Methemoglobin Blood Gas A-a O2 568.2 H Differential Oxyhemoglobin 95.4 Percent Blood Gas 37.0 Temperature Blood Gas Actual 22 Respiration Rate Blood Gas MASK - NRB Modality FiO2 100.0 Blood Gas MG Notified Whom Blood Gas 07/20/2018 5:30:0 Notified Time 9 AM Test 07/20/18 05:45 07/20/18 07:42 07/20/18 11:59 07/20/18 13:05 White Blood Count 5.4 Red Blood Count 4.52 L Hemoglobin 11.0 L Hematocrit 36.8 L Mean Corpuscular 81.4 L Volume Mean Corpuscular 24.3 L Hemoglobin Mean Corpuscular 29.9 L Hemoglobin Concen t Red Cell 18.5 H Distribution Width Platelet Count 160 Mean Platelet 11.8 H Volume Immature 0.200 Granulocytes % Neutrophils % 65.1 Lymphocytes % 21.4 Monocytes % 9.8 Eosinophils % 2.0 Basophils % 1.5 Nucleated Red 0.0 Blood Cells % Immature 0.010 Granulocytes # Neutrophils # 3.5 Lymphocytes # 1.2 Monocytes # 0.5 Eosinophils # 0.1 Basophils # 0.1 Nucleated Red 0.0 Blood Cells # Sodium Level 141 Potassium Level 4.1 Chloride Level 100 Carbon Dioxide 31 Level Anion Gap 10 # Blood Urea 53 H Nitrogen Creatinine 2.17 H Est Glomerular 30 L Filtrat Rate mL/min Glucose Level 114 Calcium Level 9.0 Troponin I 0.109 Bedside Glucose 112 165 197 Medications Medications Current Medications IV Flush (NS 3 ml) 3 ml PER PROTOCOL IV ; Start 07/18/18 at 14:00 Ondansetron HCl (Zofran Inj) 4 mg Q6H PRN IV NAUSEA/VOMITING Last administered on 07/20/18at 04:47; Admin Dose 4 MG; Start 07/18/18 at 14:00 Acetaminophen (Tylenol Tab) 650 mg Q6H PRN PO .PAIN 1-3 OR TEMP Last administered on 07/20/18 13:07; Admin Dose 650 MG; Start 07/18/18 at 14:00 Acetaminophen/ Hydrocodone Bitart ([place] (5/325)) 1 tab Q6H PRN PO .MOD PAIN 4- 6 Last administered on 07/19/18 13:01; Admin Dose 1 TAB; Start 07/18/18 at 14:00 Morphine Sulfate (morphine) 6 mg Q4H PRN PO .SEVERE PAIN 7-10; Start 07/18/18 at 14:00 Docusate Sodium (Colace) 100 mg Q12H PRN PO .CONSTIPATION; Start 07/18/18 at 14:00 Magnesium Hydroxide (Milk Of Mag) 30 ml DAILY PRN PO .CONSTIPATION Last adminis tered on 07/19/18 18:09; Admin Dose 30 ML; Start 07/18/18 at 14:00 Lorazepam (Ativan) 0.5 mg Q6H PRN PO ANXIETY; Start 07/18/18 at 14:00 Albuterol/ Ipratropium (Duoneb) 3 ml Q4H RESP THERAPY PRN HHN SHORTNESS OF BREATH Last administered on 07/20/18 05:39; Admin Dose 3 ML; Start 07/18/18 at 14:00 Hydralazine HCl (Apresoline) 10 mg Q6H PRN IV ELEVATED BLOOD PRESSURE; Start 07/18/18 at 14:00 Nitroglycerin (Nitroglycerin (Sl Tab) 0.4 Mg) 1 tab Q5M PRN SL ANGINA; Start 07/18/18 at 14:00 Apixaban (Eliquis) 5 mg BID PO Last administered on 07/20/18 08:42; Admin Dose 5 MG; Start 07/18/18 at 21:00 Digoxin (Digoxin) 0.125 mg DAILY@1300 PO Last administered on 07/20/18 13:21; Admin Dose 0.125 MG; Start 07/19/18 at 13:00 Doxazosin Mesylate (Cardura) 4 mg BID PO Last administered on 07/20/18 08:42; Admin Dose 4 MG; Start 07/18/18 at 21:00 Ergocalciferol (Drisdol) 50,000 unit Q7D PO Last administered on 07/18/18 18:03; Admin Dose 50,000 UNIT; Start 07/18/18 at 14:00 Ferrous Sulfate (Ferrous Sulfate (Ec)) 325 mg BID PO Last administered on 07/20/18 08:42; Admin Dose 325 MG; Start 07/18/18 at 21:00 Insulin Glargine (Lantus) 12 units QHS SC Last administered on 07/19/18 20:32; Admin Dose 12 UNITS; Start 07/18/18 at 21:00 Famotidine (Pepcid) 20 mg DAILY PO Last administered on 07/20/18 08:42; Admin Dose 20 MG; Start 07/19/18 at 09:00 Atorvastatin Calcium (Lipitor) 80 mg HS PO Last administered on 07/19/18 20:26; Admin Dose 80 MG; Start 07/18/18 at 21:00 Diagnostic Test (Pha) (Accu-Chek) 1 ea 02 XX ; Start 07/19/18 at 02:00 Miscellaneous Information 1 ea NOTE XX ; Start 07/18/18 at 14:30 Glucose (Glutose) 15 gm Q15M PRN PO DECREASED GLUCOSE; Start 07/18/18 at 14:30 Glucose (Glutose) 22.5 gm Q15M PRN PO DECREASED GLUCOSE; Start 07/18/18 at 14:30 Dextrose (D50w Syringe) 25 ml Q15M PRN IV DECREASED GLUCOSE; Start 07/18/18 at 14:30 Dextrose (D50w Syringe) 50 ml Q15M PRN IV DECREASED GLUCOSE; Start 07/18/18 at 14:30 Glucagon (Glucagen) 1 mg Q15M PRN IM DECREASED GLUCOSE; Start 07/18/18 at 14:30 Glucose (Glutose) 15 gm Q15M PRN BUCCAL DECREASED GLUCOSE; Start 07/18/18 at 14:30 Nicotine (Nicoderm 21 Mg/ 24hr) 1 patch DAILY TRANSDERM ; Start 07/18/18 at 16:30 Metoprolol Succinate (Toprol Xl) 25 mg DAILY PO Last administered on 07/20/18 08:43; Admin Dose 25 MG; Start 07/19/18 at 09:00 Patient Own Medication 1 ea BID PO Last administered on 07/19/18at 08:09; Admin Dose 1 EA; Start 07/18/18 at 21:00; Status Hold Famotidine (Pepcid) 20 mg Q24H PO Last administered on 07/19/18at 20:26; Admin Dose 20 MG; Start 07/18/18 at 22:00 Insulin Aspart (Novolog Insulin Pen) (Adult SC Insulin - Mild Algorithm)... AC MEALS AND BEDTIME SC Last administered on 07/20/18at 12:07; Admin Dose 1 UNIT; Start 07/19/18 at 17:25 Miscellaneous Information Patients own medicat... BID@10,16 XX ; Start 07/20/18 at 10:00 Furosemide (Lasix) 40 mg 0900,1300,1700 IV ; Start 07/20/18 at 17:00 DEVIN LOWE Jul 20, 2018 16:13
[2018-07-20] MEDS ORDERED: METOLAZONE 2.5 MG TAB PO SCH (16:30)
[2018-07-20] MEDS: METOLAZONE 2.5 MG TAB PO SCH (17:15)
[2018-07-20] MEDS ORDERED: FUROSEMIDE 40 MG INJ IV SCH (21:00)
[2018-07-20] MEDS: INSULIN GLARGINE [LANTus] (100 UNITS/ML) SYG SC SCH (21:00)
[2018-07-20] MEDS: ATORVASTATIN 80 MG TAB PO SCH (22:07)
[2018-07-21] VITALS (14 sets, daily range): BP systolic 96–112; BP diastolic 55–64; PULSE 48–132; RESP 18–22
[2018-07-21] MEDS: ACCU-CHEK XX SCH (02:00)
[2018-07-21] MEDS: Insulin NOVOLOG SS MILD Algorithm (SS with meals and bedtime) SC SCH ×4 (07:25→21:15)
[2018-07-21] MEDS: APIXABAN 5 MG TABLET PO SCH ×2 (08:37→21:02)
[2018-07-21] MEDS: FAMOTIDINE 20 MG TAB PO SCH ×2 (08:37→21:02)
[2018-07-21] MEDS: DOXAZOSIN 4 MG TAB PO SCH ×2 (08:38→21:00)
[2018-07-21] MEDS: FERROUS SULFATE (EC) 325 MG TAB PO SCH ×2 (08:38→21:02)
[2018-07-21] MEDS: FUROSEMIDE 40 MG INJ IV SCH ×3 (08:39→17:45)
[2018-07-21] MEDS: METOPROLOL (XL) 25 MG TAB PO SCH (08:39)
[2018-07-21] MEDS: NICOTINE (21 MG/24 HR) PATCH TRANSDERM SCH (09:00)
[2018-07-21] MEDS: METOLAZONE 2.5 MG TAB PO SCH ×2 (09:00→21:00)
--- NOTE | 2018-07-21 12:22 | PN ---
Date/Time of Note Date/Time of Note DATE: 07/21/18 TIME: 12:20 Assessment/Plan VTE Prophylaxis Risk score (from Ns)>0 risk: 5 SCD applied (from Ns): No SCD contraindicated: other Pharmacological prophylaxis: apixaban Lines/Catheters IV [facility]ter Type (from [facility]): Peripheral IV Urinary Cath still in place: No Assessment/Plan Hospital Course S: Patient states less shortness of breath today. Seen by cardiology team earlier today. O: VS - see below PHYSICAL EXAMINATION: GENERAL: lying in bed, in no acute distress. HEENT: Pupils equal, round and reactive to light. Extraocular muscles are intact. NECK: Supple, no thyromegaly. LUNGS: Distant breath sounds bilaterally, less crackles heard at the bases. CARDIOVASCULAR: Irregularly irregular heart rate. No rubs or gallops. ABDOMEN: Soft, nontender and nondistended. Normal bowel sounds. No rebound or guarding. MUSCULOSKELETAL: 1+ pitting edema in bilateral lower extremities to the mid calves. NEUROLOGIC: No focal deficits. ASSESSMENT AND PLAN: 67-year-old male coming in with chest pressure, shortness of breath, lower extremity swelling, signs of congestive heart failure exacerbation, also rule out for acute coronary syndrome. 1. Shortness of breath and chest pressure -overall slowly improving now. -Continue fluid restriction as recommended by cardiology and renal teams, and for now continue 3 times a day IV Lasix, lower dose metolazone, and low-dose beta-leatha -Continue to keep the head of the bed greater than 30 degrees - follow up Cardiology recommendations and continue digoxin for now. -Off of Entresto presently while in-house 2. Acute on chronic kidney disease. Again, the kidney function appears to be slightly worse than when he was here 2 months ago. Creatinine slightly increased from yesterday. Patient having adequate urine output. -Follow-up recommendations from renal consult -Continue to carefully monitor BUN and creatinine levels and urine output. 3. Smoking history. -Counseled on cessation. -Continue nicotine patch. 4. History of hypertension. Again, see above. - Continue current medications. - Also hydralazine p.r.n. 5. History of atrial fibrillation -appears stable -Monitor, continue Eliquis as well. 6. Type 2 diabetes. A1c equals 9.0, sugars presently stable - continue Lantus and sliding scale insulin. 7. Deep venous thrombosis prophylaxis-on Eliquis. Result Diagram: 07/21/18 0553 07/21/18 0553 Results 24hrs Laboratory Tests Test 07/20/18 13:05 07/20/18 17:32 07/20/18 22:06 07/21/18 02:40 Bedside Glucose 197 199 195 129 Test 07/21/18 05:53 07/21/18 08:30 07/21/18 08:55 07/21/18 09:17 White Blood Count 6.1 Red Blood Count 4.40 L Hemoglobin 10.9 L Hematocrit 36.7 L Mean Corpuscular 83.4 Volume Mean Corpuscular 24.8 L Hemoglobin Mean Corpuscular 29.7 L Hemoglobin Concent Red Cell 18.5 H Distribution Width Platelet Count 178 Mean Platelet Volume 12.3 H Immature 0.300 Granulocytes % Neutrophils % 70.0 Lymphocytes % 17.0 Monocytes % 9.0 Eosinophils % 2.9 Basophils % 0.8 Nucleated Red Blood 0.0 Cells % Immature 0.020 Granulocytes # Neutrophils # 4.3 Lymphocytes # 1.0 Monocytes # 0.6 Eosinophils # 0.2 Basophils # 0.1 Nucleated Red Blood 0.0 Cells # Sodium Level 142 Potassium Level 4.1 Chloride Level 97 Carbon Dioxide Level 34 H Anion Gap 11 Blood Urea Nitrogen 56 H Creatinine 2.51 H Est Glomerular 26 L Filtrat Rate mL/min Glucose Level 68 #L Calcium Level 9.0 Bedside Glucose 55 L 84 84 Test 07/21/18 12:01 Bedside Glucose 126 Exam/Review of Systems Exam Vitals Vital Signs Date Temp Pulse Resp B/P (MAP) Pulse Ox O2 O2 Flow FiO2 Time Delivery Rate 07/21/18 98.0 56 22 112/64 96 Nasal 5.0 11:54 (80) Cannula 07/21/18 50 04:30 Intake and Output 07/20/18 07/20/18 07/21/18 1414:59 22:59 06:59 IntakeIntake Total 750 ml 250 ml OutputOutput Total 900 ml 720 ml BalanceBalance -150 ml -470 ml Results Results 24hrs Laboratory Tests Test 07/20/18 13:05 07/20/18 17:32 07/20/18 22:06 07/21/18 02:40 Bedside Glucose 197 199 195 129 Test 07/21/18 05:53 07/21/18 08:30 07/21/18 08:55 07/21/18 09:17 White Blood Count 6.1 Red Blood Count 4.40 L Hemoglobin 10.9 L Hematocrit 36.7 L Mean Corpuscular 83.4 Volume Mean Corpuscular 24.8 L Hemoglobin Mean Corpuscular 29.7 L Hemoglobin Concent Red Cell 18.5 H Distribution Width Platelet Count 178 Mean Platelet Volume 12.3 H Immature 0.300 Granulocytes % Neutrophils % 70.0 Lymphocytes % 17.0 Monocytes % 9.0 Eosinophils % 2.9 Basophils % 0.8 Nucleated Red Blood 0.0 Cells % Immature 0.020 Granulocytes # Neutrophils # 4.3 Lymphocytes # 1.0 Monocytes # 0.6 Eosinophils # 0.2 Basophils # 0.1 Nucleated Red Blood 0.0 Cells # Sodium Level 142 Potassium Level 4.1 Chloride Level 97 Carbon Dioxide Level 34 H Anion Gap 11 Blood Urea Nitrogen 56 H Creatinine 2.51 H Est Glomerular 26 L Filtrat Rate mL/min Glucose Level 68 #L Calcium Level 9.0 Bedside Glucose 55 L 84 84 Test 07/21/18 12:01 Bedside Glucose 126 Medications Medication Current Medications IV Flush (NS 3 ml) 3 ml PER PROTOCOL IV ; Start 07/18/18 at 14:00 Ondansetron HCl (Zofran Inj) 4 mg Q6H PRN IV NAUSEA/VOMITING Last administered on 07/20/18at 04:47; Admin Dose 4 MG; Start 07/18/18 at 14:00 Acetaminophen (Tylenol Tab) 650 mg Q6H PRN PO .PAIN 1-3 OR TEMP Last administered on 07/20/18at 13:07; Admin Dose 650 MG; Start 07/18/18 at 14:00 Acetaminophen/ Hydrocodone Bitart ([place] (5/325)) 1 tab Q6H PRN PO .MOD PAIN 4- 6 Last administered on 07/19/18at 13:01; Admin Dose 1 TAB; Start 07/18/18 at 14:00 Morphine Sulfate (morphine) 6 mg Q4H PRN PO .SEVERE PAIN 7-10; Start 07/18/18 at 14:00 Docusate Sodium (Colace) 100 mg Q12H PRN PO .CONSTIPATION; Start 07/18/18 at 14:00 Magnesium Hydroxide (Milk Of Mag) 30 ml DAILY PRN PO .CONSTIPATION Last administered on 07/19/18 18:09; Admin Dose 30 ML; Start 07/18/18 at 14:00 Lorazepam (Ativan) 0.5 mg Q6H PRN PO ANXIETY; Start 07/18/18 at 14:00 Albuterol/ Ipratropium (Duoneb) 3 ml Q4H RESP THERAPY PRN HHN SHORTNESS OF BREATH Last administered on 07/20/18 05:39; Admin Dose 3 ML; Start 07/18/18 at 14:00 Hydralazine HCl (Apresoline) 10 mg Q6H PRN IV ELEVATED BLOOD PRESSURE; Start 07/18/18 at 14:00 Nitroglycerin (Nitroglycerin (Sl Tab) 0.4 Mg) 1 tab Q5M PRN SL ANGINA; Start 07/18/18 at 14:00 Apixaban (Eliquis) 5 mg BID PO Last administered on 07/21/18 08:37; Admin Dose 5 MG; Start 07/18/18 at 21:00 Digoxin (Digoxin) 0.125 mg DAILY@1300 PO Last administered on 07/20/18 13:21; Admin Dose 0.125 MG; Start 07/19/18 at 13:00 Doxazosin Mesylate (Cardura) 4 mg BID PO Last administered on 07/20/18 08:42; Admin Dose 4 MG; Start 07/18/18 at 21:00 Ergocalciferol (Drisdol) 50,000 unit Q7D PO Last administered on 07/18/18 18:03; Admin Dose 50,000 UNIT; Start 07/18/18 at 14:00 Ferrous Sulfate (Ferrous Sulfate (Ec)) 325 mg BID PO Last administered on 08:38; Admin Dose 325 MG; Start 07/18/18 at 21:00 Insulin Glargine (Lantus) 12 units QHS SC Last administered on 07/20/18 21:00; Admin Dose 12 UNITS; Start 07/18/18 at 21:00 Famotidine (Pepcid) 20 mg DAILY PO Last administered on 07/21/18 08:37; Admin Dose 20 MG; Start 07/19/18 at 09:00 Atorvastatin Calcium (Lipitor) 80 mg HS PO Last administered on 07/20/18 22:07; Admin Dose 80 MG; Start 07/18/18 at 21:00 Diagnostic Test (Pha) (Accu-Chek) 1 ea 02 XX ; Start 07/19/18 at 02:00 Miscellaneous Information 1 ea NOTE XX ; Start 07/18/18 at 14:30 Glucose (Glutose) 15 gm Q15M PRN PO DECREASED GLUCOSE; Start 07/18/18 at 14:30 Glucose (Glutose) 22.5 gm Q15M PRN PO DECREASED GLUCOSE; Start 07/18/18 at 14:30 Dextrose (D50w Syringe) 25 ml Q15M PRN IV DECREASED GLUCOSE; Start 07/18/18 at 14:30 Dextrose (D50w Syringe) 50 ml Q15M PRN IV DECREASED GLUCOSE; Start 07/18/18 at 14:30 Glucagon (Glucagen) 1 mg Q15M PRN IM DECREASED GLUCOSE; Start 07/18/18 at 14:30 Glucose (Glutose) 15 gm Q15M PRN BUCCAL DECREASED GLUCOSE Last administered on 07/21/18at 08:36; Admin Dose 15 GM; Start 07/18/18 at 14:30 Nicotine (Nicoderm 21 Mg/ 24hr) 1 patch DAILY TRANSDERM ; Start 07/18/18 at 16:30 Metoprolol Succinate (Toprol Xl) 25 mg DAILY PO Last administered on 07/20/18at 08:43; Admin Dose 25 MG; Start 07/19/18 at 09:00 Patient Own Medication 1 ea BID PO Last administered on 07/19/18at 08:09; Admin Dose 1 EA; Start 07/18/18 at 21:00; Status Hold Famotidine (Pepcid) 20 mg Q24H PO Last administered on 07/20/18at 22:08; Admin Dose 20 MG; Start 07/18/18 at 22:00 Insulin Aspart (Novolog Insulin Pen) (Adult SC Insulin - Mild Algorithm)... AC MEALS AND BEDTIME SC Last administered on 07/20/18at 22:22; Admin Dose 1 UNIT; Start 07/19/18 at 17:25 Miscellaneous Information Patients own medicat... BID@10,16 XX ; Start 07/20/18 at 10:00 Furosemide (Lasix) 40 mg 0900,1300,1700 IV Last administered on 07/21/18at 08:39; Admin Dose 40 MG; Start 07/20/18 at 17:00 Metolazone (Zaroxolyn) 2.5 mg BID PO Last administered on 07/21/18at 09:00; Admin Dose 2.5 MG; Start 07/20/18 at 17:15 MELVI LANCE Jul 21, 2018 12:22
[2018-07-21] MEDS: DIGOXIN 0.125 MG TAB PO SCH (13:00)
--- NOTE | 2018-07-21 17:20 | CONS ---
Assessment/Plan Assessment/Plan Assessment/Plan (Daily) A 67-year-old male presenting with: 1. Shortness of breath with bilateral lower extremity edema, orthopnea and PND likely secondary to acute on chronic congestive heart failure. 2. Acute on chronic renal failure; however, the patient's baseline creatinine ranges from 1.9 to 2. On last discharge in May, the creatinine was 1.9. This could be all secondary to cardiorenal as the patient is clearly in decompensated heart failure right now., pt had Renal U/S in 05/24 which showed chronci kidney disease, net negative only 620 however creatinine up trended today, and had episode of hypotension yesterday 3. History of atrial fibrillation. 4. Hypertension. 5. Diabetes. 6. Hyperlipidemia. 7. BPH. 8. Positive troponin with chest pain ? NSTEMI 9. Elevated BNP. PLAN: - neg 620 ml -cw with Lasix of 40 IV 3 times daily/metolazone - cr 2.5 today> to monitor - cw hold off Entresto at this point. - Digoxin levels normal. -. Keep a systolic blood pressure of greater than 100 to have adequate renal perfusion - Renally dose all meds. - Avoid nephrotoxic agents. Spoke to the family at bedside Consultation Date/Type/Reason Admit Date/Time Jul 18, 2018 at 13:13 Initial Consult Date Requesting Provider: MELVI LANCE Date/Time of Note DATE: 07/21/18 TIME: 17:17 24 HR Interval Summary Free Text/Dictation -620 Bilateral lower extremity edema is improved Exam/Review of Systems Exam Vitals Vital Signs Date Temp Pulse Resp B/P (MAP) Pulse Ox O2 O2 Flow FiO2 Time Delivery Rate 07/21/18 98.0 56 22 99/58 (72) 92 Nasal 5.0 16:07 Cannula 07/21/18 50 13:23 Intake and Output 07/20/18 07/20/18 07/21/18 1515:00 23:00 07:00 IntakeIntake Total 750 ml 250 ml OutputOutput Total 900 ml 720 ml BalanceBalance -150 ml -470 ml Exam ENERAL: The patient is awake, alert, oriented and appears to be in mild distress secondary to shortness of breath. HEENT: Pupils equal, round and reactive to light. Extraocular movements are intact. NECK: Supple. JVD appreciated. LUNGS: crackles at bases improved HEART: Irregularly irregular. No murmur, rub or gallop. ABDOMEN: Soft, somewhat distended with some abdominal wall edema. EXTREMITIES: Legs with 2 to 3+ pitting edema in bilateral lower extremity to mid-calf. GENERAL: Awake, alert, oriented and does not appear to in any acute distress. 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 Results Result Diagram: 07/21/18 0553 07/21/18 0553 Results 24hrs Laboratory Tests Test 07/20/18 17:32 07/20/18 22:06 07/21/18 02:40 07/21/18 05:53 Bedside Glucose 199 195 129 White Blood Count 6.1 Red Blood Count 4.40 L Hemoglobin 10.9 L Hematocrit 36.7 L Mean Corpuscular 83.4 Volume Mean Corpuscular 24.8 L Hemoglobin Mean Corpuscular 29.7 L Hemoglobin Concent Red Cell 18.5 H Distribution Width Platelet Count 178 Mean Platelet Volume 12.3 H Immature 0.300 Granulocytes % Neutrophils % 70.0 Lymphocytes % 17.0 Monocytes % 9.0 Eosinophils % 2.9 Basophils % 0.8 Nucleated Red Blood 0.0 Cells % Immature 0.020 Granulocytes # Neutrophils # 4.3 Lymphocytes # 1.0 Monocytes # 0.6 Eosinophils # 0.2 Basophils # 0.1 Nucleated Red Blood 0.0 Cells # Sodium Level 142 Potassium Level 4.1 Chloride Level 97 Carbon Dioxide Level 34 H Anion Gap 11 Blood Urea Nitrogen 56 H Creatinine 2.51 H Est Glomerular 26 L Filtrat Rate mL/min Glucose Level 68 #L Calcium Level 9.0 Test 07/21/18 08:30 07/21/18 08:55 07/21/18 09:17 07/21/18 12:01 Bedside Glucose 55 L 84 84 126 Medications Medication Current Medications IV Flush (NS 3 ml) 3 ml PER PROTOCOL IV ; Start 07/18/18 at 14:00 Ondansetron HCl (Zofran Inj) 4 mg Q6H PRN IV NAUSEA/VOMITING Last administered on 07/20/18at 04:47; Admin Dose 4 MG; Start 07/18/18 at 14:00 Acetaminophen (Tylenol Tab) 650 mg Q6H PRN PO .PAIN 1-3 OR TEMP Last administered on 07/20/18at 13:07; Admin Dose 650 MG; Start 07/18/18 at 14:00 Acetaminophen/ Hydrocodone Bitart ([place] (5/325)) 1 tab Q6H PRN PO .MOD PAIN 4- 6 Last administered on 07/19/18at 13:01; Admin Dose 1 TAB; Start 07/18/18 at 14:00 Morphine Sulfate (morphine) 6 mg Q4H PRN PO .SEVERE PAIN 7-10; Start 07/18/18 at 14:00 Docusate Sodium (Colace) 100 mg Q12H PRN PO .CONSTIPATION; Start 07/18/18 at 14:00 Magnesium Hydroxide (Milk Of Mag) 30 ml DAILY PRN PO .CONSTIPATION Last administered on 07/19/18 18:09; Admin Dose 30 ML; Start 07/18/18 at 14:00 Lorazepam (Ativan) 0.5 mg Q6H PRN PO ANXIETY; Start 07/18/18 at 14:00 Albuterol/ Ipratropium (Duoneb) 3 ml Q4H RESP THERAPY PRN HHN SHORTNESS OF BREATH Last administered on 07/20/18at 05:39; Admin Dose 3 ML; Start 07/18/18 at 14:00 Hydralazine HCl (Apresoline) 10 mg Q6H PRN IV ELEVATED BLOOD PRESSURE; Start 07/18/18 at 14:00 Nitroglycerin (Nitroglycerin (Sl Tab) 0.4 Mg) 1 tab Q5M PRN SL ANGINA; Start 07/18/18 at 14:00 Apixaban (Eliquis) 5 mg BID PO Last administered on 07/21/18at 08:37; Admin Dose 5 MG; Start 07/18/18 at 21:00 Digoxin (Digoxin) 0.125 mg DAILY@1300 PO Last administered on 07/21/18 13:00; Admin Dose 0.125 MG; Start 07/19/18 at 13:00 Ergocalciferol (Drisdol) 50,000 unit Q7D PO Last administered on 07/18/18 18:03; Admin Dose 50,000 UNIT; Start 07/18/18 at 14:00 Ferrous Sulfate (Ferrous Sulfate (Ec)) 325 mg BID PO Last administered on 07/21/18 08:38; Admin Dose 325 MG; Start 07/18/18 at 21:00 Insulin Glargine (Lantus) 12 units QHS SC Last administered on 07/20/18at 21:00; Admin Dose 12 UNITS; Start 07/18/18 at 21:00 Famotidine (Pepcid) 20 mg DAILY PO Last administered on 07/21/18at 08:37; Admin Dose 20 MG; Start 07/19/18 at 09:00 Atorvastatin Calcium (Lipitor) 80 mg HS PO Last administered on 07/20/18at 22:07; Admin Dose 80 MG; Start 07/18/18 at 21:00 Diagnostic Test (Pha) (Accu-Chek) 1 ea 02 XX ; Start 07/19/18 at 02:00 Miscellaneous Information 1 ea NOTE XX ; Start 07/18/18 at 14:30 Glucose (Glutose) 15 gm Q15M PRN PO DECREASED GLUCOSE; Start 07/18/18 at 14:30 Glucose (Glutose) 22.5 gm Q15M PRN PO DECREASED GLUCOSE; Start 07/18/18 at 14:30 Dextrose (D50w Syringe) 25 ml Q15M PRN IV DECREASED GLUCOSE; Start 07/18/18 at 14:30 Dextrose (D50w Syringe) 50 ml Q15M PRN IV DECREASED GLUCOSE; Start 07/18/18 at 14:30 Glucagon (Glucagen) 1 mg Q15M PRN IM DECREASED GLUCOSE; Start 07/18/18 at 14:30 Glucose (Glutose) 15 gm Q15M PRN BUCCAL DECREASED GLUCOSE Last administered on 07/21/18at 08:36; Admin Dose 15 GM; Start 07/18/18 at 14:30 Nicotine (Nicoderm 21 Mg/ 24hr) 1 patch DAILY TRANSDERM ; Start 07/18/18 at 16:30 Metoprolol Succinate (Toprol Xl) 25 mg DAILY PO Last administered on 07/20/18at 08:43; Admin Dose 25 MG; Start 07/19/18 at 09:00 Patient Own Medication 1 ea BID PO Last administered on 07/19/18at 08:09; Admin Dose 1 EA; Start 07/18/18 at 21:00; Status Hold Famotidine (Pepcid) 20 mg Q24H PO Last administered on 07/20/18at 22:08; Admin Dose 20 MG; Start 07/18/18 at 22:00 Insulin Aspart (Novolog Insulin Pen) (Adult SC Insulin - Mild Algorithm)... AC MEALS AND BEDTIME SC Last administered on 07/20/18at 22:22; Admin Dose 1 UNIT; Start 07/19/18 at 17:25 Miscellaneous Information Patients own medicat... BID@10,16 XX ; Start 07/20/18 at 10:00 Furosemide (Lasix) 40 mg 0900,1300,1700 IV Last administered on 07/21/18at 14:00; Admin Dose 40 MG; Start 07/20/18 at 17:00 Metolazone (Zaroxolyn) 2.5 mg BID PO Last administered on 07/21/18at 09:00; Admin Dose 2.5 MG; Start 07/20/18 at 17:15 Doxazosin Mesylate (Cardura) 4 mg HS PO ; Start 07/21/18 at 21:00 MONICA JONES MD Jul 21, 2018 17:20
[2018-07-21] MEDS: ATORVASTATIN 80 MG TAB PO SCH (21:02)
[2018-07-21] MEDS: INSULIN GLARGINE [LANTus] (100 UNITS/ML) SYG SC SCH (21:15)
[2018-07-21] MEDS: ALBUTEROL/IPRATROPIUM (NEB) 3 ML AMP HHN PRN (23:35)
[2018-07-22] VITALS (12 sets, daily range): BP systolic 95–118; BP diastolic 50–59; PULSE 53–83; RESP 18
[2018-07-22] MEDS: ACCU-CHEK XX SCH (02:00)
[2018-07-22] MEDS: Insulin NOVOLOG SS MILD Algorithm (SS with meals and bedtime) SC SCH ×4 (07:25→21:31)
[2018-07-22] MEDS: FERROUS SULFATE (EC) 325 MG TAB PO SCH ×2 (08:17→21:00)
[2018-07-22] MEDS: METOLAZONE 2.5 MG TAB PO SCH ×2 (08:17→22:49)
[2018-07-22] MEDS: FUROSEMIDE 40 MG INJ IV SCH ×3 (08:18→17:08)
[2018-07-22] MEDS: APIXABAN 5 MG TABLET PO SCH ×2 (08:18→21:10)
[2018-07-22] MEDS: FAMOTIDINE 20 MG TAB PO SCH ×2 (08:18→21:11)
[2018-07-22] MEDS: NICOTINE (21 MG/24 HR) PATCH TRANSDERM SCH (09:00)
[2018-07-22] MEDS: METOPROLOL (XL) 25 MG TAB PO SCH (09:00)
[2018-07-22] MEDS: DIGOXIN 0.125 MG TAB PO SCH (13:00)
--- NOTE | 2018-07-22 13:36 | CONS ---
[facility] Name: [place] Unit Number: [id number] Date of : 1950 Patient Status: Admitted Inpatient Attending Doctor: Melvi Lance Edit: MONICA JONES MD on 07/22/18 @ 17:30 cr fluctating cw monitor Assessment/Plan Assessment/Plan Hospital Course (Demo Recall) 1. Shortness of breath with bilateral lower extremity edema, orthopnea and PND likely secondary to acute on chronic congestive heart failure. 2. Acute on chronic renal failure; however, the patient's baseline creatinine ranges from 1.9 to 2. On last discharge in May, the creatinine was 1.9. This could be all secondary to cardiorenal as the patient is clearly in decompensated heart failure right now., pt had Renal U/S in 05/24 which showed chronic kidney disease, 3. History of atrial fibrillation. 4. Hypertension. 5. Diabetes. 6. Hyperlipidemia. 7. BPH. 8. Positive troponin with chest pain ? NSTEMI. Per cardiology CHF EF 35% 9. Elevated BNP. 10 Microcytic hypochromic anemia 11. Overweight 12. fatty liver infiltration 13. s/p cholecystectomy Assessment/Plan (Daily) -cw with Lasix of 40 IV 3 times daily/metolazone - cr 2.33 from 2.5 > to monitor - Digoxin levels normal. -Renal US is normal - Keep a systolic blood pressure of greater than 100 to have adequate renal perfusion - Renally dose all meds. - Avoid nephrotoxic agents. Consultation Date/Type/Reason Admit Date/Time Jul 18, 2018 at 13:13 Initial Consult Date 07/18/2018 Type of Consult nephrology Reason for Consultation dr Ellsworth Requesting Provider: MELVI LANCE Date/Time of Note DATE: 07/22/18 TIME: 13:33 24 HR Interval Summary Free Text/Dictation less leg edema Constitutional: improved Exam/Review of Systems Exam Vitals Vital Signs Date Temp Pulse Resp B/P (MAP) Pulse Ox O2 O2 Flow FiO2 Time Delivery Rate 07/22/18 63 13:11 07/22/18 98.4 18 108/55 95 11:51 (72) 07/22/18 Nasal 3.0 07:48 Cannula 07/21/18 50 13:23 Intake and Output 07/21/18 07/21/18 07/22/18 1515:00 23:00 07:00 IntakeIntake Total 700 ml 400 ml OutputOutput Total 1100 ml 1000 ml BalanceBalance -400 ml -600 ml Constitutional: alert, oriented Neck: supple Respiratory: diminished breath sounds Cardiovascular: regular rate and rhythm, other (afib) Gastrointestinal: soft Musculoskeletal: other (BLE discoloration) Results Result Diagram: 07/22/1861807/22/18618 Results 24hrs Laboratory Tests Test 07/21/18 17:38 07/21/18 20:59 07/22/18 01:36 07/22/18 06:19 Bedside Glucose 168 229 H 233 H White Blood Count 6.1 Red Blood Count 4.41 L Hemoglobin 10.6 L Hematocrit 37.0 L Mean Corpuscular 83.9 Volume Mean Corpuscular 24.0 L Hemoglobin Mean Corpuscular 28.6 L Hemoglobin Concent Red Cell 18.5 H Distribution Width Platelet Count 173 Mean Platelet Volume 12.4 H Immature 0.300 Granulocytes % Neutrophils % 67.2 Lymphocytes % 17.9 Monocytes % 10.8 Eosinophils % 3.0 Basophils % 0.8 Nucleated Red Blood 0.0 Cells % Immature 0.020 Granulocytes # Neutrophils # 4.1 Lymphocytes # 1.1 Monocytes # 0.7 Eosinophils # 0.2 Basophils # 0.1 Nucleated Red Blood 0.0 Cells # Sodium Level 143 Potassium Level 4.2 Chloride Level 99 Carbon Dioxide Level 36 H Anion Gap 8 Blood Urea Nitrogen 57 H Creatinine 2.33 H Est Glomerular 28 L Filtrat Rate mL/min Glucose Level 124 # Calcium Level 9.0 Test 07/22/18 07:34 07/22/18 11:59 Bedside Glucose 131 112 Medications Medication Current Medications IV Flush (NS 3 ml) 3 ml PER PROTOCOL IV ; Start 07/18/18 at 14:00 Ondansetron HCl (Zofran Inj) 4 mg Q6H PRN IV NAUSEA/VOMITING Last administered on 07/20/18 04:47; Admin Dose 4 MG; Start 07/18/18 at 14:00 Acetaminophen (Tylenol Tab) 650 mg Q6H PRN PO .PAIN 1-3 OR TEMP Last administered on 07/20/18 13:07; Admin Dose 650 MG; Start 07/18/18 at 14:00 Acetaminophen/ Hydrocodone Bitart ([place] (5/325)) 1 tab Q6H PRN PO .MOD PAIN 4- 6 Last administered on 07/19/18 13:01; Admin Dose 1 TAB; Start 07/18/18 at 14:00 Morphine Sulfate (morphine) 6 mg Q4H PRN PO .SEVERE PAIN 7-10; Start 07/18/18 at 14:00 Docusate Sodium (Colace) 100 mg Q12H PRN PO .CONSTIPATION; Start 07/18/18 at 14:00 Magnesium Hydroxide (Milk Of Mag) 30 ml DAILY PRN PO .CONSTIPATION Last administered on 07/19/18 18:09; Admin Dose 30 ML; Start 07/18/18 at 14:00 Lorazepam (Ativan) 0.5 mg Q6H PRN PO ANXIETY; Start 07/18/18 at 14:00 Albuterol/ Ipratropium (Duoneb) 3 ml Q4H RESP THERAPY PRN HHN SHORTNESS OF BREATH Last administered on 07/21/18 23:35; Admin Dose 3 ML; Start 07/18/18 at 14:00 Hydralazine HCl (Apresoline) 10 mg Q6H PRN IV ELEVATED BLOOD PRESSURE; Start 07/18/18 at 14:00 Nitroglycerin (Nitroglycerin (Sl Tab) 0.4 Mg) 1 tab Q5M PRN SL ANGINA; Start 07/18/18 at 14:00 Apixaban (Eliquis) 5 mg BID PO Last administered on 07/22/18 08:18; Admin Dose 5 MG; Start 07/18/18 at 21:00 Digoxin (Digoxin) 0.125 mg DAILY@1300 PO Last administered on 07/21/18 13:00; Admin Dose 0.125 MG; Start 07/19/18 at 13:00 Ergocalciferol (Drisdol) 50,000 unit Q7D PO Last administered on 07/18/18at 18:03; Admin Dose 50,000 UNIT; Start 07/18/18 at 14:00 Ferrous Sulfate (Ferrous Sulfate (Ec)) 325 mg BID PO Last administered on 07/22/18at 08:17; Admin Dose 325 MG; Start 07/18/18 at 21:00 Insulin Glargine (Lantus) 12 units QHS SC Last administered on 07/21/18 21:15; Admin Dose 12 UNITS; Start 07/18/18 at 21:00 Famotidine (Pepcid) 20 mg DAILY PO Last administered on 07/22/18 08:18; Admin Dose 20 MG; Start 07/19/18 at 09:00 Atorvastatin Calcium (Lipitor) 80 mg HS PO Last administered on 07/21/18 21:02; Admin Dose 80 MG; Start 07/18/18 at 21:00 Diagnostic Test (Pha) (Accu-Chek) 1 ea 02 XX ; Start 07/19/18 at 02:00 Miscellaneous Information 1 ea NOTE XX ; Start 07/18/18 at 14:30 Glucose (Glutose) 15 gm Q15M PRN PO DECREASED GLUCOSE; Start 07/18/18 at 14:30 Glucose (Glutose) 22.5 gm Q15M PRN PO DECREASED GLUCOSE; Start 07/18/18 at 14:30 Dextrose (D50w Syringe) 25 ml Q15M PRN IV DECREASED GLUCOSE; Start 07/18/18 at 14:30 Dextrose (D50w Syringe) 50 ml Q15M PRN IV DECREASED GLUCOSE; Start 07/18/18 at 14:30 Glucagon (Glucagen) 1 mg Q15M PRN IM DECREASED GLUCOSE; Start 07/18/18 at 14:30 Glucose (Glutose) 15 gm Q15M PRN BUCCAL DECREASED GLUCOSE Last administered on 07/21/18at 08:36; Admin Dose 15 GM; Start 07/18/18 at 14:30 Nicotine (Nicoderm 21 Mg/ 24hr) 1 patch DAILY TRANSDERM ; Start 07/18/18 at 16:30 Metoprolol Succinate (Toprol Xl) 25 mg DAILY PO Last administered on 07/20/18at 08:43; Admin Dose 25 MG; Start 07/19/18 at 09:00 Patient Own Medication 1 ea BID PO Last administered on 07/19/18 08:09; Admin Dose 1 EA; Start 07/18/18 at 21:00; Status Hold Famotidine (Pepcid) 20 mg Q24H PO Last administered on 07/21/18 21:02; Admin Dose 20 MG; Start 07/18/18 at 22:00 Insulin Aspart (Novolog Insulin Pen) (Adult SC Insulin - Mild Algorithm)... AC MEALS AND BEDTIME SC Last administered on 07/21/18 21:15; Admin Dose 2 UNIT; Start 07/19/18 at 17:25 Miscellaneous Information Patients own medicat... BID@10,16 XX Last administered on 07/22/18 10:13; Admin Dose 1,000 EA; Start 07/20/18 at 10:00 Furosemide (Lasix) 40 mg 0900,1300,1700 IV Last administered on 07/22/18 13:07; Admin Dose 40 MG; Start 07/20/18 at 17:00 Metolazone (Zaroxolyn) 2.5 mg BID PO Last administered on 07/22/18 08:17; Admin Dose 2.5 MG; Start 07/20/18 at 17:15 Doxazosin Mesylate (Cardura) 4 mg HS PO ; Start 07/21/18 at 21:00 KACI GUILLORY Jul 22, 2018 13:36
--- NOTE | 2018-07-22 14:38 | CONS ---
Assessment/Plan Assessment/Plan Hospital Course (Demo Recall) IMP: 1.CHF- systolic acute on chronic 2.Cardiomyopathy- EF 30% 3.CKD 4.HTN 5.Dyslipidemia 6. Hepatomegaly-likley due to passive congestion of liver Recc: -Tele -Continue lasix dose and metolazone and follow volume status and creatnine clsoely -continue bb and decrease cardura and as BP allows will add afterload reduction with low dose hydralazine -Continue statin/Eliquis Consultation Date/Type/Reason Admit Date/Time Jul 18, 2018 at 13:13 Initial Consult Date 07/18/18 Type of Consult Cardiology Reason for Consultation CHF Requesting Provider: MELVI LANCE Date/Time of Note DATE: 07/22/18 TIME: 14:34 Exam/Review of Systems Vital Signs Vitals Vital Signs Date Temp Pulse Resp B/P (MAP) Pulse Ox O2 O2 Flow FiO2 Time Delivery Rate 07/22/18 63 13:11 07/22/18 98.4 18 108/55 95 11:51 (72) 07/22/18 Nasal 3.0 07:48 Cannula 07/21/18 50 13:23 Intake and Output 07/21/18 07/21/18 07/22/18 1515:00 23:00 07:00 IntakeIntake Total 700 ml 400 ml OutputOutput Total 1100 ml 1000 ml BalanceBalance -400 ml -600 ml Exam Exam Review of Systems: CONSTITUTIONAL: No fevers, chills. PULMONARY: No sob CARDIOVASCULAR: No chest pain/palpitations GASTROINTESTINAL: No nausea/vomiting. GENITOURINARY: No hematuria/dysuria. MUSCULOSKELETAL: No myagias/arthalgias. PSYCHIATRIC: The patient denies depression. NEUROLOGIC: No weakness Constitutional: alert Psych: no complaints Head: normocephalic ENMT: mucosa pink and moist Neck: supple, jvd (9 cm water) Respiratory: diminished breath sounds (at bases/B) Cardiovascular: regular rate and rhythm Gastrointestinal: soft, non-tender Musculoskeletal: muscle tone (normal) Extremities: edema (none) Neurological: other (No focal deficits) Labs Result Diagram: 07/22/18 0619 07/22/18 0619 Results 24hrs Laboratory Tests Test 07/21/18 17:38 07/21/18 20:59 07/22/18 01:36 07/22/18 06:19 Bedside Glucose 168 229 H 233 H White Blood Count 6.1 Red Blood Count 4.41 L Hemoglobin 10.6 L Hematocrit 37.0 L Mean Corpuscular 83.9 Volume Mean Corpuscular 24.0 L Hemoglobin Mean Corpuscular 28.6 L Hemoglobin Concent Red Cell 18.5 H Distribution Width Platelet Count 173 Mean Platelet Volume 12.4 H Immature 0.300 Granulocytes % Neutrophils % 67.2 Lymphocytes % 17.9 Monocytes % 10.8 Eosinophils % 3.0 Basophils % 0.8 Nucleated Red Blood 0.0 Cells % Immature 0.020 Granulocytes # Neutrophils # 4.1 Lymphocytes # 1.1 Monocytes # 0.7 Eosinophils # 0.2 Basophils # 0.1 Nucleated Red Blood 0.0 Cells # Sodium Level 143 Potassium Level 4.2 Chloride Level 99 Carbon Dioxide Level 36 H Anion Gap 8 Blood Urea Nitrogen 57 H Creatinine 2.33 H Est Glomerular 28 L Filtrat Rate mL/min Glucose Level 124 # Calcium Level 9.0 Test 07/22/18 07:34 07/22/18 11:59 Bedside Glucose 131 112 Medications Medications Current Medications IV Flush (NS 3 ml) 3 ml PER PROTOCOL IV ; Start 07/18/18 at 14:00 Ondansetron HCl (Zofran Inj) 4 mg Q6H PRN IV NAUSEA/VOMITING Last administered on 07/20/18at 04:47; Admin Dose 4 MG; Start 07/18/18 at 14:00 Acetaminophen (Tylenol Tab) 650 mg Q6H PRN PO .PAIN 1-3 OR TEMP Last administered on 07/20/18at 13:07; Admin Dose 650 MG; Start 07/18/18 at 14:00 Acetaminophen/ Hydrocodone Bitart ([place] (5/325)) 1 tab Q6H PRN PO .MOD PAIN 4- 6 Last administered on 07/19/18at 13:01; Admin Dose 1 TAB; Start 07/18/18 at 14:00 Morphine Sulfate (morphine) 6 mg Q4H PRN PO .SEVERE PAIN 7-10; Start 07/18/18 at 14:00 Docusate Sodium (Colace) 100 mg Q12H PRN PO .CONSTIPATION; Start 07/18/18 at 14:00 Magnesium Hydroxide (Milk Of Mag) 30 ml DAILY PRN PO .CONSTIPATION Last administered on 07/19/18 18:09; Admin Dose 30 ML; Start 07/18/18 at 14:00 Lorazepam (Ativan) 0.5 mg Q6H PRN PO ANXIETY; Start 07/18/18 at 14:00 Albuterol/ Ipratropium (Duoneb) 3 ml Q4H RESP THERAPY PRN HHN SHORTNESS OF BREATH Last administered on 07/21/18 23:35; Admin Dose 3 ML; Start 07/18/18 at 14:00 Hydralazine HCl (Apresoline) 10 mg Q6H PRN IV ELEVATED BLOOD PRESSURE; Start 07/18/18 at 14:00 Nitroglycerin (Nitroglycerin (Sl Tab) 0.4 Mg) 1 tab Q5M PRN SL ANGINA; Start 07/18/18 at 14:00 Apixaban (Eliquis) 5 mg BID PO Last administered on 07/22/18 08:18; Admin Dose 5 MG; Start 07/18/18 at 21:00 Digoxin (Digoxin) 0.125 mg DAILY@1300 PO Last administered on 07/21/18 13:00; Admin Dose 0.125 MG; Start 07/19/18 at 13:00 Ergocalciferol (Drisdol) 50,000 unit Q7D PO Last administered on 07/18/18 18:03; Admin Dose 50,000 UNIT; Start 07/18/18 at 14:00 Ferrous Sulfate (Ferrous Sulfate (Ec)) 325 mg BID PO Last administered on 07/22/18 08:17; Admin Dose 325 MG; Start 07/18/18 at 21:00 Insulin Glargine (Lantus) 12 units QHS SC Last administered on 07/21/18 21:15; Admin Dose 12 UNITS; Start 07/18/18 at 21:00 Famotidine (Pepcid) 20 mg DAILY PO Last administered on 07/22/18 08:18; Admin Dose 20 MG; Start 07/19/18 at 09:00 Atorvastatin Calcium (Lipitor) 80 mg HS PO Last administered on 07/21/18 21:02; Admin Dose 80 MG; Start 07/18/18 at 21:00 Diagnostic Test (Pha) (Accu-Chek) 1 ea 02 XX ; Start 07/19/18 at 02:00 Miscellaneous Information 1 ea NOTE XX ; Start 07/18/18 at 14:30 Glucose (Glutose) 15 gm Q15M PRN PO DECREASED GLUCOSE; Start 07/18/18 at 14:30 Glucose (Glutose) 22.5 gm Q15M PRN PO DECREASED GLUCOSE; Start 07/18/18 at 14:30 Dextrose (D50w Syringe) 25 ml Q15M PRN IV DECREASED GLUCOSE; Start 07/18/18 at 14:30 Dextrose (D50w Syringe) 50 ml Q15M PRN IV DECREASED GLUCOSE; Start 07/18/18 at 14:30 Glucagon (Glucagen) 1 mg Q15M PRN IM DECREASED GLUCOSE; Start 07/18/18 at 14:30 Glucose (Glutose) 15 gm Q15M PRN BUCCAL DECREASED GLUCOSE Last administered on 07/21/18at 08:36; Admin Dose 15 GM; Start 07/18/18 at 14:30 Nicotine (Nicoderm 21 Mg/ 24hr) 1 patch DAILY TRANSDERM ; Start 07/18/18 at 16:30 Metoprolol Succinate (Toprol Xl) 25 mg DAILY PO Last administered on 07/20/18at 08:43; Admin Dose 25 MG; Start 07/19/18 at 09:00 Patient Own Medication 1 ea BID PO Last administered on 07/19/18 08:09; Admin Dose 1 EA; Start 07/18/18 at 21:00; Status Hold Famotidine (Pepcid) 20 mg Q24H PO Last administered on 07/21/18at 21:02; Admin Dose 20 MG; Start 07/18/18 at 22:00 Insulin Aspart (Novolog Insulin Pen) (Adult SC Insulin - Mild Algorithm)... AC MEALS AND BEDTIME SC Last administered on 07/21/18at 21:15; Admin Dose 2 UNIT; Start 07/19/18 at 17:25 Miscellaneous Information Patients own medicat... BID@10,16 XX Last administered on 07/22/18at 10:13; Admin Dose 1,000 EA; Start 07/20/18 at 10:00 Furosemide (Lasix) 40 mg 0900,1300,1700 IV Last administered on 07/22/18at 13:07; Admin Dose 40 MG; Start 07/20/18 at 17:00 Metolazone (Zaroxolyn) 2.5 mg BID PO Last administered on 07/22/18at 08:17; Admin Dose 2.5 MG; Start 07/20/18 at 17:15 Doxazosin Mesylate (Cardura) 4 mg HS PO ; Start 07/21/18 at 21:00 Magnesium Citrate (Citroma) 300 ml ONCE ONCE PO ; Start 07/22/18 at 15:00; Stop 07/22/18 at 15:01 DEVIN LOWE Jul 22, 2018 14:38
[2018-07-22] MEDS ORDERED: MAGNESIUM CITRATE 300 ML BTL PO ONE (15:00)
--- NOTE | 2018-07-22 15:32 | PN ---
Date/Time of Note Date/Time of Note DATE: 07/22/18 TIME: 15:28 Assessment/Plan VTE Prophylaxis Risk score (from Ns)>0 risk: 5 SCD applied (from Ns): No SCD contraindicated: other Pharmacological prophylaxis: apixaban Lines/Catheters IV C[facility]ter Type (from [facility]): Peripheral IV Urinary Cath still in place: No Assessment/Plan Hospital Course S: Patient states less shortness of breath today. Seen by cardiology team earlier today. O: VS - see below PHYSICAL EXAMINATION: GENERAL: lying in bed, in no acute distress. HEENT: Pupils equal, round and reactive to light. Extraocular muscles are intact. NECK: Supple, no thyromegaly. LUNGS: Distant breath sounds bilaterally, less crackles heard at the bases. CARDIOVASCULAR: Irregularly irregular heart rate. No rubs or gallops. ABDOMEN: Soft, nontender and nondistended. Normal bowel sounds. No rebound or guarding. MUSCULOSKELETAL: 1+ pitting edema in bilateral lower extremities to the mid calves. NEUROLOGIC: No focal deficits. ASSESSMENT AND PLAN: 67-year-old male coming in with chest pressure, shortness of breath, lower extremity swelling, signs of congestive heart failure exacerbation, also rule out for acute coronary syndrome. 1. Shortness of breath and chest pressure -overall slowly improving now. -Continue fluid restriction as recommended by cardiology and renal teams, and for now continue 3 times a day IV Lasix, lower dose metolazone, and low-dose beta-leatha -Continue to keep the head of the bed greater than 30 degrees - follow up Cardiology recommendations and continue digoxin for now. -Off of Entresto presently while in-house 2. Acute on chronic kidney disease. Again, the kidney function appears to be slightly worse than when he was here 2 months ago. Creatinine slightly increased from yesterday. Patient having adequate urine output. -Follow-up recommendations from renal consult -Continue to carefully monitor BUN and creatinine levels and urine output. 3. Smoking history. -Counseled on cessation. -Continue nicotine patch. 4. History of hypertension. Again, see above. - Continue current medications. - Also hydralazine p.r.n. 5. History of atrial fibrillation -appears stable -Monitor, continue Eliquis as well. 6. Type 2 diabetes. A1c equals 9.0, sugars presently stable - continue Lantus and sliding scale insulin. 7. Deep venous thrombosis prophylaxis-on Eliquis. Result Diagram: 07/22/18 0619 07/22/18 0619 Results 24hrs Laboratory Tests Test 07/21/18 17:38 07/21/18 20:59 07/22/18 01:36 07/22/18 06:19 Bedside Glucose 168 229 H 233 H White Blood Count 6.1 Red Blood Count 4.41 L Hemoglobin 10.6 L Hematocrit 37.0 L Mean Corpuscular 83.9 Volume Mean Corpuscular 24.0 L Hemoglobin Mean Corpuscular 28.6 L Hemoglobin Concent Red Cell 18.5 H Distribution Width Platelet Count 173 Mean Platelet Volume 12.4 H Immature 0.300 Granulocytes % Neutrophils % 67.2 Lymphocytes % 17.9 Monocytes % 10.8 Eosinophils % 3.0 Basophils % 0.8 Nucleated Red Blood 0.0 Cells % Immature 0.020 Granulocytes # Neutrophils # 4.1 Lymphocytes # 1.1 Monocytes # 0.7 Eosinophils # 0.2 Basophils # 0.1 Nucleated Red Blood 0.0 Cells # Sodium Level 143 Potassium Level 4.2 Chloride Level 99 Carbon Dioxide Level 36 H Anion Gap 8 Blood Urea Nitrogen 57 H Creatinine 2.33 H Est Glomerular 28 L Filtrat Rate mL/min Glucose Level 124 # Calcium Level 9.0 Test 07/22/18 07:34 07/22/18 11:59 Bedside Glucose 131 112 Exam/Review of Systems Exam Vitals Vital Signs Date Temp Pulse Resp B/P (MAP) Pulse Ox O2 O2 Flow FiO2 Time Delivery Rate 07/22/18 63 13:11 07/22/18 98.4 18 108/55 95 11:51 (72) 07/22/18 Nasal 3.0 07:48 Cannula 07/21/18 50 13:23 Intake and Output 07/21/18 07/21/18 07/22/18 1414:59 22:59 06:59 IntakeIntake Total 700 ml 400 ml OutputOutput Total 1100 ml 1000 ml BalanceBalance -400 ml -600 ml Results Results 24hrs Laboratory Tests Test 07/21/18 17:38 07/21/18 20:59 07/22/18 01:36 07/22/18 06:19 Bedside Glucose 168 229 H 233 H White Blood Count 6.1 Red Blood Count 4.41 L Hemoglobin 10.6 L Hematocrit 37.0 L Mean Corpuscular 83.9 Volume Mean Corpuscular 24.0 L Hemoglobin Mean Corpuscular 28.6 L Hemoglobin Concent Red Cell 18.5 H Distribution Width Platelet Count 173 Mean Platelet Volume 12.4 H Immature 0.300 Granulocytes % Neutrophils % 67.2 Lymphocytes % 17.9 Monocytes % 10.8 Eosinophils % 3.0 Basophils % 0.8 Nucleated Red Blood 0.0 Cells % Immature 0.020 Granulocytes # Neutrophils # 4.1 Lymphocytes # 1.1 Monocytes # 0.7 Eosinophils # 0.2 Basophils # 0.1 Nucleated Red Blood 0.0 Cells # Sodium Level 143 Potassium Level 4.2 Chloride Level 99 Carbon Dioxide Level 36 H Anion Gap 8 Blood Urea Nitrogen 57 H Creatinine 2.33 H Est Glomerular 28 L Filtrat Rate mL/min Glucose Level 124 # Calcium Level 9.0 Test 07/22/18 07:34 07/22/18 11:59 Bedside Glucose 131 112 Medications Medication Current Medications IV Flush (NS 3 ml) 3 ml PER PROTOCOL IV ; Start 07/18/18 at 14:00 Ondansetron HCl (Zofran Inj) 4 mg Q6H PRN IV NAUSEA/VOMITING Last administered on 07/20/18at 04:47; Admin Dose 4 MG; Start 07/18/18 at 14:00 Acetaminophen (Tylenol Tab) 650 mg Q6H PRN PO .PAIN 1-3 OR TEMP Last administered on 07/20/18at 13:07; Admin Dose 650 MG; Start 07/18/18 at 14:00 Acetaminophen/ Hydrocodone Bitart ([place] (5/325)) 1 tab Q6H PRN PO .MOD PAIN 4- 6 Last administered on 07/19/18at 13:01; Admin Dose 1 TAB; Start 07/18/18 at 14:00 Morphine Sulfate (morphine) 6 mg Q4H PRN PO .SEVERE PAIN 7-10; Start 07/18/18 at 14:00 Docusate Sodium (Colace) 100 mg Q12H PRN PO .CONSTIPATION; Start 07/18/18 at 14:00 Magnesium Hydroxide (Milk Of Mag) 30 ml DAILY PRN PO .CONSTIPATION Last administered on 07/19/18at 18:09; Admin Dose 30 ML; Start 07/18/18 at 14:00 Lorazepam (Ativan) 0.5 mg Q6H PRN PO ANXIETY; Start 07/18/18 at 14:00 Albuterol/ Ipratropium (Duoneb) 3 ml Q4H RESP THERAPY PRN HHN SHORTNESS OF BREATH Last administered on 07/21/18at 23:35; Admin Dose 3 ML; Start 07/18/18 at 14:00 Hydralazine HCl (Apresoline) 10 mg Q6H PRN IV ELEVATED BLOOD PRESSURE; Start 07/18/18 at 14:00 Nitroglycerin (Nitroglycerin (Sl Tab) 0.4 Mg) 1 tab Q5M PRN SL ANGINA; Start at 14:00 Apixaban (Eliquis) 5 mg BID PO Last administered on 07/22/18 08:18; Admin Dose 5 MG; Start 07/18/18 at 21:00 Digoxin (Digoxin) 0.125 mg DAILY@1300 PO Last administered on 07/21/18 13:00; Admin Dose 0.125 MG; Start 07/19/18 at 13:00 Ergocalciferol (Drisdol) 50,000 unit Q7D PO Last administered on 07/18/18 18:03; Admin Dose 50,000 UNIT; Start 07/18/18 at 14:00 Ferrous Sulfate (Ferrous Sulfate (Ec)) 325 mg BID PO Last administered on 07/22/18 08:17; Admin Dose 325 MG; Start 07/18/18 at 21:00 Insulin Glargine (Lantus) 12 units QHS SC Last administered on 07/21/18 21:15; Admin Dose 12 UNITS; Start 07/18/18 at 21:00 Famotidine (Pepcid) 20 mg DAILY PO Last administered on 07/22/18 08:18; Admin Dose 20 MG; Start 07/19/18 at 09:00 Atorvastatin Calcium (Lipitor) 80 mg HS PO Last administered on 07/21/18 21:02; Admin Dose 80 MG; Start 07/18/18 at 21:00 Diagnostic Test (Pha) (Accu-Chek) 1 ea 02 XX ; Start 07/19/18 at 02:00 Miscellaneous Information 1 ea NOTE XX ; Start 07/18/18 at 14:30 Glucose (Glutose) 15 gm Q15M PRN PO DECREASED GLUCOSE; Start 07/18/18 at 14:30 Glucose (Glutose) 22.5 gm Q15M PRN PO DECREASED GLUCOSE; Start 07/18/18 at 14:30 Dextrose (D50w Syringe) 25 ml Q15M PRN IV DECREASED GLUCOSE; Start 07/18/18 at 14:30 Dextrose (D50w Syringe) 50 ml Q15M PRN IV DECREASED GLUCOSE; Start 07/18/18 at 14:30 Glucagon (Glucagen) 1 mg Q15M PRN IM DECREASED GLUCOSE; Start 07/18/18 at 14:30 Glucose (Glutose) 15 gm Q15M PRN BUCCAL DECREASED GLUCOSE Last administered on 07/21/18at 08:36; Admin Dose 15 GM; Start 07/18/18 at 14:30 Nicotine (Nicoderm 21 Mg/ 24hr) 1 patch DAILY TRANSDERM ; Start 07/18/18 at 16:30 Metoprolol Succinate (Toprol Xl) 25 mg DAILY PO Last administered on 07/20/18at 08:43; Admin Dose 25 MG; Start 07/19/18 at 09:00 Patient Own Medication 1 ea BID PO Last administered on 07/19/18 08:09; Admin Dose 1 EA; Start 07/18/18 at 21:00; Status Hold Famotidine (Pepcid) 20 mg Q24H PO Last administered on 07/21/18 21:02; Admin Dose 20 MG; Start 07/18/18 at 22:00 Insulin Aspart (Novolog Insulin Pen) (Adult SC Insulin - Mild Algorithm)... AC MEALS AND BEDTIME SC Last administered on 07/21/18at 21:15; Admin Dose 2 UNIT; Start 07/19/18 at 17:25 Miscellaneous Information Patients own medicat... BID@10,16 XX Last administered on 07/22/18at 10:13; Admin Dose 1,000 EA; Start 07/20/18 at 10:00 Furosemide (Lasix) 40 mg 0900,1300,1700 IV Last administered on 07/22/18at 13:07; Admin Dose 40 MG; Start 07/20/18 at 17:00 Metolazone (Zaroxolyn) 2.5 mg BID PO Last administered on 07/22/18 08:17; Admin Dose 2.5 MG; Start 07/20/18 at 17:15 Doxazosin Mesylate (Cardura) 4 mg HS PO ; Start 07/21/18 at 21:00 MELVI LANCE Jul 22, 2018 15:31
[2018-07-22] MEDS: ATORVASTATIN 80 MG TAB PO SCH (21:10)
[2018-07-22] MEDS: DOXAZOSIN 4 MG TAB PO SCH (21:14)
[2018-07-22] MEDS: INSULIN GLARGINE [LANTus] (100 UNITS/ML) SYG SC SCH (21:23)
[2018-07-23] VITALS (12 sets, daily range): BP systolic 98–132; BP diastolic 47–62; PULSE 55–150; RESP 16–19
[2018-07-23] MEDS: traZODone 50 MG TAB PO SCH ×2 (00:18→20:15)
[2018-07-23] MEDS: ACCU-CHEK XX SCH (02:00)
[2018-07-23] MEDS: FUROSEMIDE 40 MG INJ IV SCH ×3 (08:27→17:27)
[2018-07-23] MEDS: FERROUS SULFATE (EC) 325 MG TAB PO SCH ×2 (08:27→20:13)
[2018-07-23] MEDS: METOLAZONE 2.5 MG TAB PO SCH ×2 (08:27→20:14)
[2018-07-23] MEDS: FAMOTIDINE 20 MG TAB PO SCH ×2 (08:27→21:23)
[2018-07-23] MEDS: APIXABAN 5 MG TABLET PO SCH ×2 (08:27→20:13)
[2018-07-23] MEDS: METOPROLOL (XL) 25 MG TAB PO SCH (08:27)
[2018-07-23] MEDS: NICOTINE (21 MG/24 HR) PATCH TRANSDERM SCH ×2 (08:28→09:00)
[2018-07-23] MEDS: Insulin NOVOLOG SS MILD Algorithm (SS with meals and bedtime) SC SCH ×4 (08:40→20:26)
[2018-07-23] MEDS: DIGOXIN 0.125 MG TAB PO SCH (12:10)
--- NOTE | 2018-07-23 12:48 | PN ---
Date/Time of Note Date/Time of Note DATE: 07/23/18 TIME: 12:46 Assessment/Plan VTE Prophylaxis Risk score (from Ns)>0 risk: 5 SCD applied (from Ns): No SCD contraindicated: other Pharmacological prophylaxis: apixaban Lines/Catheters IV Catheter Type (from [facility]): Peripheral IV Urinary Cath still in place: No Assessment/Plan Hospital Course S: Patient had no acute events overnight. O: VS - see below PHYSICAL EXAMINATION: GENERAL: lying in bed, in no acute distress. HEENT: Pupils equal, round and reactive to light. Extraocular muscles are intact. NECK: Supple, no thyromegaly. LUNGS: Distant breath sounds bilaterally, less crackles heard at the bases. CARDIOVASCULAR: Irregularly irregular heart rate. No rubs or gallops. ABDOMEN: Soft, nontender and nondistended. Normal bowel sounds. No rebound or guarding. MUSCULOSKELETAL: 1+ pitting edema in bilateral lower extremities to the mid calves. NEUROLOGIC: No focal deficits. ASSESSMENT AND PLAN: 67-year-old male coming in with chest pressure, shortness of breath, lower extremity swelling, signs of congestive heart failure exacerbation, also rule out for acute coronary syndrome. 1. Shortness of breath and chest pressure -overall slowly improving now. -Continue fluid restriction as recommended by cardiology and renal teams, 3 times a day IV Lasix, lower dose metolazone, and low-dose beta-leatha -Continue to keep the head of the bed greater than 30 degrees - follow up Cardiology recommendations and continue digoxin for now. -Off of Entresto presently while in-house 2. Acute on chronic kidney disease. Again, the kidney function appears to be slightly worse than when he was here 2 months ago. Creatinine levels have been in the low to mid 2 range. Patient having adequate urine output. -Follow-up recommendations from renal consult -Continue to carefully monitor BUN and creatinine levels and urine output. 3. Smoking history. -Counseled on cessation. -Continue nicotine patch. 4. History of hypertension. Again, see above. - Continue current medications. - Also hydralazine p.r.n. 5. History of atrial fibrillation -appears stable -Monitor, continue Eliquis as well. 6. Type 2 diabetes. A1c equals 9.0, sugars presently stable - continue Lantus and sliding scale insulin. 7. Deep venous thrombosis prophylaxis-on Eliquis. Result Diagram: 07/23/18 0600 07/23/18 0600 Results 24hrs Laboratory Tests Test 07/22/18 17:06 07/22/18 21:19 07/23/18 03:58 07/23/18 06:00 Bedside Glucose 206 309 H 130 White Blood Count 6.6 Red Blood Count 4.50 L Hemoglobin 10.9 L Hematocrit 37.5 L Mean Corpuscular 83.3 Volume Mean Corpuscular 24.2 L Hemoglobin Mean Corpuscular 29.1 L Hemoglobin Concent Red Cell 18.6 H Distribution Width Platelet Count 186 Mean Platelet Volume 12.8 H Immature 0.300 Granulocytes % Neutrophils % 71.6 Lymphocytes % 15.5 Monocytes % 9.0 Eosinophils % 2.7 Basophils % 0.9 Nucleated Red Blood 0.0 Cells % Immature 0.020 Granulocytes # Neutrophils # 4.7 Lymphocytes # 1.0 Monocytes # 0.6 Eosinophils # 0.2 Basophils # 0.1 Nucleated Red Blood 0.0 Cells # Sodium Level 141 Potassium Level 4.7 Chloride Level 97 Carbon Dioxide Level 36 H Anion Gap 8 Blood Urea Nitrogen 62 H Creatinine 2.41 H Est Glomerular 27 L Filtrat Rate mL/min Glucose Level 201 Calcium Level 9.3 Test 07/23/18 08:34 07/23/18 12:08 Bedside Glucose 179 212 Exam/Review of Systems Exam Vitals Vital Signs Date Temp Pulse Resp B/P (MAP) Pulse Ox O2 O2 Flow FiO2 Time Delivery Rate 07/23/18 97.7 58 16 105/59 100 Nasal 4.0 11:20 (74) Cannula 07/21/18 50 13:23 Intake and Output 07/22/18 07/22/18 07/23/18 1515:00 23:00 07:00 IntakeIntake Total 1100 ml 400 ml OutputOutput Total 3375 ml 1075 ml BalanceBalance -2275 ml -675 ml Results Results 24hrs Laboratory Tests Test 07/22/18 17:06 07/22/18 21:19 07/23/18 03:58 07/23/18 06:00 Bedside Glucose 206 309 H 130 White Blood Count 6.6 Red Blood Count 4.50 L Hemoglobin 10.9 L Hematocrit 37.5 L Mean Corpuscular 83.3 Volume Mean Corpuscular 24.2 L Hemoglobin Mean Corpuscular 29.1 L Hemoglobin Concent Red Cell 18.6 H Distribution Width Platelet Count 186 Mean Platelet Volume 12.8 H Immature 0.300 Granulocytes % Neutrophils % 71.6 Lymphocytes % 15.5 Monocytes % 9.0 Eosinophils % 2.7 Basophils % 0.9 Nucleated Red Blood 0.0 Cells % Immature 0.020 Granulocytes # Neutrophils # 4.7 Lymphocytes # 1.0 Monocytes # 0.6 Eosinophils # 0.2 Basophils # 0.1 Nucleated Red Blood 0.0 Cells # Sodium Level 141 Potassium Level 4.7 Chloride Level 97 Carbon Dioxide Level 36 H Anion Gap 8 Blood Urea Nitrogen 62 H Creatinine 2.41 H Est Glomerular 27 L Filtrat Rate mL/min Glucose Level 201 Calcium Level 9.3 Test 07/23/18 08:34 07/23/18 12:08 Bedside Glucose 179 212 Medications Medication Current Medications IV Flush (NS 3 ml) 3 ml PER PROTOCOL IV ; Start 07/18/18 at 14:00 Ondansetron HCl (Zofran Inj) 4 mg Q6H PRN IV NAUSEA/VOMITING Last administered on 07/20/18at 04:47; Admin Dose 4 MG; Start 07/18/18 at 14:00 Acetaminophen (Tylenol Tab) 650 mg Q6H PRN PO .PAIN 1-3 OR TEMP Last administered on 07/20/18 13:07; Admin Dose 650 MG; Start 07/18/18 at 14:00 Acetaminophen/ Hydrocodone Bitart ([place] (5/325)) 1 tab Q6H PRN PO .MOD PAIN 4- 6 Last administered on 07/19/18at 13:01; Admin Dose 1 TAB; Start 07/18/18 at 14:00 Morphine Sulfate (morphine) 6 mg Q4H PRN PO .SEVERE PAIN 7-10; Start 07/18/18 at 14:00 Docusate Sodium (Colace) 100 mg Q12H PRN PO .CONSTIPATION; Start 07/18/18 at 14:00 Magnesium Hydroxide (Milk Of Mag) 30 ml DAILY PRN PO .CONSTIPATION Last administered on 07/19/18at 18:09; Admin Dose 30 ML; Start 07/18/18 at 14:00 Lorazepam (Ativan) 0.5 mg Q6H PRN PO ANXIETY; Start 07/18/18 at 14:00 Albuterol/ Ipratropium (Duoneb) 3 ml Q4H RESP THERAPY PRN HHN SHORTNESS OF BREATH Last administered on 07/21/18 23:35; Admin Dose 3 ML; Start 07/18/18 at 14:00 Hydralazine HCl (Apresoline) 10 mg Q6H PRN IV ELEVATED BLOOD PRESSURE; Start 07/18/18 at 14:00 Nitroglycerin (Nitroglycerin (Sl Tab) 0.4 Mg) 1 tab Q5M PRN SL ANGINA; Start 07/18/18 at 14:00 Apixaban (Eliquis) 5 mg BID PO Last administered on 07/23/18 08:27; Admin Dose 5 MG; Start 07/18/18 at 21:00 Digoxin (Digoxin) 0.125 mg DAILY@1300 PO Last administered on 07/23/18 12:10; Admin Dose 0.125 MG; Start 07/19/18 at 13:00 Ergocalciferol (Drisdol) 50,000 unit Q7D PO Last administered on 07/18/18 18:03; Admin Dose 50,000 UNIT; Start 07/18/18 at 14:00 Ferrous Sulfate (Ferrous Sulfate (Ec)) 325 mg BID PO Last administered on 07/23/18 08:27; Admin Dose 325 MG; Start 07/18/18 at 21:00 Insulin Glargine (Lantus) 12 units QHS SC Last administered on 07/22/18 21:23; Admin Dose 12 UNITS; Start 07/18/18 at 21:00 Famotidine (Pepcid) 20 mg DAILY PO Last administered on 07/23/18 08:27; Admin Dose 20 MG; Start 07/19/18 at 09:00 Atorvastatin Calcium (Lipitor) 80 mg HS PO Last administered on 07/22/18 21:10; Admin Dose 80 MG; Start 07/18/18 at 21:00 Diagnostic Test (Pha) (Accu-Chek) 1 ea 02 XX ; Start 07/19/18 at 02:00 Miscellaneous Information 1 ea NOTE XX ; Start 07/18/18 at 14:30 Glucose (Glutose) 15 gm Q15M PRN PO DECREASED GLUCOSE; Start 07/18/18 at 14:30 Glucose (Glutose) 22.5 gm Q15M PRN PO DECREASED GLUCOSE; Start 07/18/18 at 14:30 Dextrose (D50w Syringe) 25 ml Q15M PRN IV DECREASED GLUCOSE; Start 07/18/18 at 14:30 Dextrose (D50w Syringe) 50 ml Q15M PRN IV DECREASED GLUCOSE; Start 07/18/18 at 14:30 Glucagon (Glucagen) 1 mg Q15M PRN IM DECREASED GLUCOSE; Start 07/18/18 at 14:30 Glucose (Glutose) 15 gm Q15M PRN BUCCAL DECREASED GLUCOSE Last administered on 07/21/18 08:36; Admin Dose 15 GM; Start 07/18/18 at 14:30 Nicotine (Nicoderm 21 Mg/ 24hr) 1 patch DAILY TRANSDERM ; Start 07/18/18 at 16:30 Metoprolol Succinate (Toprol Xl) 25 mg DAILY PO Last administered on 07/23/18 08:27; Admin Dose 25 MG; Start 07/19/18 at 09:00 Patient Own Medication 1 ea BID PO Last administered on 07/19/18 08:09; Admin Dose 1 EA; Start 07/18/18 at 21:00; Status Hold Famotidine (Pepcid) 20 mg Q24H PO Last administered on 07/22/18 21:11; Admin Dose 20 MG; Start 07/18/18 at 22:00 Insulin Aspart (Novolog Insulin Pen) (Adult SC Insulin - Mild Algorithm)... AC MEALS AND BEDTIME SC Last administered on 07/23/18 12:33; Admin Dose 2 UNIT; Start 07/19/18 at 17:25 Miscellaneous Information Patients own medicat... BID@10,16 XX Last administered on 07/22/18 16:28; Admin Dose 1,600 EA; Start 07/20/18 at 10:00 Furosemide (Lasix) 40 mg 0900,1300,1700 IV Last administered on 07/23/18 12:09; Admin Dose 40 MG; Start 07/20/18 at 17:00 Metolazone (Zaroxolyn) 2.5 mg BID PO Last administered on 07/23/18 08:27; Admin Dose 2.5 MG; Start 07/20/18 at 17:15 Doxazosin Mesylate (Cardura) 4 mg HS PO Last administered on 07/22/18 21:14; Admin Dose 4 MG; Start 07/21/18 at 21:00 Trazodone HCl (Desyrel) 50 mg HS PO ; Start 07/23/18 at 00:30 MELVI LANCE Jul 23, 2018 12:48
--- NOTE | 2018-07-23 13:17 | CONS ---
Assessment/Plan Assessment/Plan Hospital Course (Demo Recall) 1. Shortness of breath with bilateral lower extremity edema, orthopnea and PND likely secondary to acute on chronic congestive heart failure. 2. Acute on chronic renal failure; however, the patient's baseline creatinine ranges from 1.9 to 2. On last discharge in May, the creatinine was 1.9. This could be all secondary to cardiorenal as the patient is clearly in decompensated heart failure right now., pt had Renal U/S in 05/24 which showed chronic kidney disease, 3. History of atrial fibrillation. 4. Hypertension. 5. Diabetes. 6. Hyperlipidemia. 7. BPH. 8. Positive troponin with chest pain ? NSTEMI. Per cardiology CHF EF 35% 9. Elevated BNP. 10 Microcytic hypochromic anemia 11. Overweight 12. fatty liver infiltration 13. s/p cholecystectomy Assessment/Plan (Daily) -cw with Lasix of 40 IV 2 times daily/metolazone - cr is fluctuating 2.33 from 2.5 > to monitor - Digoxin levels normal. -Renal US is normal - Keep a systolic blood pressure of greater than 100 to have adequate renal perfusion - Renally dose all meds. - Avoid nephrotoxic agents. Consultation Date/Type/Reason Admit Date/Time Jul 18, 2018 at 13:13 Initial Consult Date 07/18/2018 Type of Consult nephrology Requesting Provider: MLEVI LANCE Date/Time of Note DATE: 07/23/18 TIME: 13:16 24 HR Interval Summary Constitutional: requiring O2 Exam/Review of Systems Exam Vitals Vital Signs Date Temp Pulse Resp B/P (MAP) Pulse Ox O2 O2 Flow FiO2 Time Delivery Rate 07/23/18 97.7 58 16 105/59 100 Nasal 4.0 11:20 (74) Cannula 07/21/18 50 13:23 Intake and Output 07/22/18 07/22/18 07/23/18 1515:00 23:00 07:00 IntakeIntake Total 1100 ml 400 ml OutputOutput Total 3375 ml 1075 ml BalanceBalance -2275 ml -675 ml Constitutional: alert, oriented Head: normocephalic Eyes: nl conjunctiva Neck: supple Respiratory: diminished breath sounds, labored breathing Cardiovascular: regular rate and rhythm Gastrointestinal: soft Musculoskeletal: muscle weakness, swelling; No nl extremities to inspection, No nl gait and stance, No joint tenderness, No muscle tone, No range of motion, No spine non-tender, No other Results Result Diagram: 07/23/18 0600 07/23/18 0600 Results 24hrs Laboratory Tests Test 07/22/18 17:06 07/22/18 21:19 07/23/18 03:58 07/23/18 06:00 Bedside Glucose 206 309 H 130 White Blood Count 6.6 Red Blood Count 4.50 L Hemoglobin 10.9 L Hematocrit 37.5 L Mean Corpuscular 83.3 Volume Mean Corpuscular 24.2 L Hemoglobin Mean Corpuscular 29.1 L Hemoglobin Concent Red Cell 18.6 H Distribution Width Platelet Count 186 Mean Platelet Volume 12.8 H Immature 0.300 Granulocytes % Neutrophils % 71.6 Lymphocytes % 15.5 Monocytes % 9.0 Eosinophils % 2.7 Basophils % 0.9 Nucleated Red Blood 0.0 Cells % Immature 0.020 Granulocytes # Neutrophils # 4.7 Lymphocytes # 1.0 Monocytes # 0.6 Eosinophils # 0.2 Basophils # 0.1 Nucleated Red Blood 0.0 Cells # Sodium Level 141 Potassium Level 4.7 Chloride Level 97 Carbon Dioxide Level 36 H Anion Gap 8 Blood Urea Nitrogen 62 H Creatinine 2.41 H Est Glomerular 27 L Filtrat Rate mL/min Glucose Level 201 Calcium Level 9.3 Test 07/23/18 08:34 07/23/18 12:08 Bedside Glucose 179 212 Medications Medication Current Medications IV Flush (NS 3 ml) 3 ml PER PROTOCOL IV ; Start 07/18/18 at 14:00 Ondansetron HCl (Zofran Inj) 4 mg Q6H PRN IV NAUSEA/VOMITING Last administered on 07/20/18at 04:47; Admin Dose 4 MG; Start 07/18/18 at 14:00 Acetaminophen (Tylenol Tab) 650 mg Q6H PRN PO .PAIN 1-3 OR TEMP Last administered on 07/20/18at 13:07; Admin Dose 650 MG; Start 07/18/18 at 14:00 Acetaminophen/ Hydrocodone Bitart ([place] (5/325)) 1 tab Q6H PRN PO .MOD PAIN 4- 6 Last administered on 07/19/18at 13:01; Admin Dose 1 TAB; Start 07/18/18 at 14:00 Morphine Sulfate (morphine) 6 mg Q4H PRN PO .SEVERE PAIN 7-10; Start 07/18/18 at 14:00 Docusate Sodium (Colace) 100 mg Q12H PRN PO .CONSTIPATION; Start 07/18/18 at 14:00 Magnesium Hydroxide (Milk Of Mag) 30 ml DAILY PRN PO .CONSTIPATION Last administered on 07/19/18 18:09; Admin Dose 30 ML; Start 07/18/18 at 14:00 Lorazepam (Ativan) 0.5 mg Q6H PRN PO ANXIETY; Start 07/18/18 at 14:00 Albuterol/ Ipratropium (Duoneb) 3 ml Q4H RESP THERAPY PRN HHN SHORTNESS OF BREATH Last administered on 07/21/18 23:35; Admin Dose 3 ML; Start 07/18/18 at 14:00 Hydralazine HCl (Apresoline) 10 mg Q6H PRN IV ELEVATED BLOOD PRESSURE; Start 07/18/18 at 14:00 Nitroglycerin (Nitroglycerin (Sl Tab) 0.4 Mg) 1 tab Q5M PRN SL ANGINA; Start 07/18/18 at 14:00 Apixaban (Eliquis) 5 mg BID PO Last administered on 07/23/18 08:27; Admin Dose 5 MG; Start 07/18/18 at 21:00 Digoxin (Digoxin) 0.125 mg DAILY@1300 PO Last administered on 07/23/18 12:10; Admin Dose 0.125 MG; Start 07/19/18 at 13:00 Ergocalciferol (Drisdol) 50,000 unit Q7D PO Last administered on 07/18/18 18:03; Admin Dose 50,000 UNIT; Start 07/18/18 at 14:00 Ferrous Sulfate (Ferrous Sulfate (Ec)) 325 mg BID PO Last administered on 07/08 08:27; Admin Dose 325 MG; Start 07/18/18 at 21:00 Insulin Glargine (Lantus) 12 units QHS SC Last administered on 07/22/18 21:23; Admin Dose 12 UNITS; Start 07/18/18 at 21:00 Famotidine (Pepcid) 20 mg DAILY PO Last administered on 07/23/18 08:27; Admin Dose 20 MG; Start 07/19/18 at 09:00 Atorvastatin Calcium (Lipitor) 80 mg HS PO Last administered on 07/22/18at 21:10; Admin Dose 80 MG; Start 07/18/18 at 21:00 Diagnostic Test (Pha) (Accu-Chek) 1 ea 02 XX ; Start 07/19/18 at 02:00 Miscellaneous Information 1 ea NOTE XX ; Start 07/18/18 at 14:30 Glucose (Glutose) 15 gm Q15M PRN PO DECREASED GLUCOSE; Start 07/18/18 at 14:30 Glucose (Glutose) 22.5 gm Q15M PRN PO DECREASED GLUCOSE; Start 07/18/18 at 14:30 Dextrose (D50w Syringe) 25 ml Q15M PRN IV DECREASED GLUCOSE; Start 07/18/18 at 14:30 Dextrose (D50w Syringe) 50 ml Q15M PRN IV DECREASED GLUCOSE; Start 07/18/18 at 14:30 Glucagon (Glucagen) 1 mg Q15M PRN IM DECREASED GLUCOSE; Start 07/18/18 at 14:30 Glucose (Glutose) 15 gm Q15M PRN BUCCAL DECREASED GLUCOSE Last administered on 07/21/18at 08:36; Admin Dose 15 GM; Start 07/18/18 at 14:30 Nicotine (Nicoderm 21 Mg/ 24hr) 1 patch DAILY TRANSDERM ; Start 07/18/18 at 16:30 Metoprolol Succinate (Toprol Xl) 25 mg DAILY PO Last administered on 07/23/18at 08:27; Admin Dose 25 MG; Start 07/19/18 at 09:00 Patient Own Medication 1 ea BID PO Last administered on 07/19/18at 08:09; Admin Dose 1 EA; Start 07/18/18 at 21:00; Status Hold Famotidine (Pepcid) 20 mg Q24H PO Last administered on 07/22/18at 21:11; Admin Dose 20 MG; Start 07/18/18 at 22:00 Insulin Aspart (Novolog Insulin Pen) (Adult SC Insulin - Mild Algorithm)... AC MEALS AND BEDTIME SC Last administered on 07/23/18at 12:33; Admin Dose 2 UNIT; Start 07/19/18 at 17:25 Miscellaneous Information Patients own medicat... BID@,16 XX Last administered on 07/22/18at 16:28; Admin Dose 1,600 EA; Start 07/20/18 at 10:00 Furosemide (Lasix) 40 mg 0900,1300,1700 IV Last administered on 07/23/18at 12:09; Admin Dose 40 MG; Start 07/20/18 at 17:00 Metolazone (Zaroxolyn) 2.5 mg BID PO Last administered on 07/23/18at 08:27; Ad min Dose 2.5 MG; Start 07/20/18 at 17:15 Doxazosin Mesylate (Cardura) 4 mg HS PO Last administered on 07/22/18at 21:14; Admin Dose 4 MG; Start 07/21/18 at 21:00 Trazodone HCl (Desyrel) 50 mg HS PO ; Start 07/23/18 at 00:30 KACI GUILLORY Jul 23, 2018 13:17
--- NOTE | 2018-07-23 15:08 | CONS ---
Consult Date/Type/Reason Admit Date/Time Jul 18, 2018 at 13:13 Initial Consult Date Requesting Provider: MELVI LANCE Date/Time of Note DATE: 07/23/18 TIME: 15:05 Subjective NO acute events - BP in good range - much improved with diuresis - Cr high - con't gent;le duresis and afterload reduction to goal. Pt determined to get better. ROS: No fever, no chills, no nausea, no vomiting, no diarrhea/constipation No recent weight changes No chest pain, no PND, no orthopnea - much better SOB No dizziness, blurred vision No thirst, no heat or cold intolerance Objective Vitals Vital Signs Date Temp Pulse Resp B/P (MAP) Pulse Ox O2 O2 Flow FiO2 Time Delivery Rate 07/23/18 69 12:00 07/23/18 97.7 16 105/59 100 Nasal 4.0 11:20 (74) Cannula 07/21/18 50 13:23 Intake and Output 07/22/18 07/22/18 07/23/18 1515:00 23:00 07:00 IntakeIntake Total 1100 ml 400 ml OutputOutput Total 3375 ml 1075 ml BalanceBalance -2275 ml -675 ml Exam General: WN/WD/NAD, AOx 3 HEENT: Unicetric/atraumatic/EOMI (follow commands) NECK: JVD elevated, no thyromegaly Lymph: no lymphadenopathy HEART: regular with no S3, II/ systolic murmur at apex, PMI L - ICD in place LUNGS: Coarse sounds ABD: soft, NT, ND, +BS : Intact Neuro: non focal SKIN: chronic changes EXT: trace edema Results/Medications Result Diagram: 07/23/18 0600 07/23/18 0600 Results 24 hrs Laboratory Tests Test 07/22/18 17:06 07/22/18 21:19 07/23/18 03:58 07/23/18 06:00 Bedside Glucose 206 309 H 130 White Blood Count 6.6 Red Blood Count 4.50 L Hemoglobin 10.9 L Hematocrit 37.5 L Mean Corpuscular 83.3 Volume Mean Corpuscular 24.2 L Hemoglobin Mean Corpuscular 29.1 L Hemoglobin Concent Red Cell 18.6 H Distribution Width Platelet Count 186 Mean Platelet Volume 12.8 H Immature 0.300 Granulocytes % Neutrophils % 71.6 Lymphocytes % 15.5 Monocytes % 9.0 Eosinophils % 2.7 Basophils % 0.9 Nucleated Red Blood 0.0 Cells % Immature 0.020 Granulocytes # Neutrophils # 4.7 Lymphocytes # 1.0 Monocytes # 0.6 Eosinophils # 0.2 Basophils # 0.1 Nucleated Red Blood 0.0 Cells # Sodium Level 141 Potassium Level 4.7 Chloride Level 97 Carbon Dioxide Level 36 H Anion Gap 8 Blood Urea Nitrogen 62 H Creatinine 2.41 H Est Glomerular 27 L Filtrat Rate mL/min Glucose Level 201 Calcium Level 9.3 Test 07/23/18 08:34 07/23/18 12:08 Bedside Glucose 179 212 Home Meds Reported Medications Metoprolol Succinate* (Toprol XL*) 25 Mg Tab.sr.24h, 25 MG PO DAILY, #30 TAB 07/18/18 Sacubitril/Valsartan (Entresto 97 mg-103 mg Tablet) 1 Each Tablet, 1 TAB PO BID 05/13/18 Digoxin* (Digox*) 125 Mcg Tablet, 0.125 MG PO DAILY, TAB 05/13/18 Apixaban* (Eliquis*) 5 Mg Tablet, 5 MG PO BID, TAB 08/19/15 Insulin Aspart* (Novolog Insulin Vial*) 100 U/Ml Vial, 0 SC SLIDING SCALE AC, VIAL 08/19/15 Insulin Glargine* (Lantus*) 100 Unit/Ml Soln, 12 UNIT SC QHS, #1 VIAL 08/19/15 Esomeprazole Mag Trihydrate (Nexium) 40 Mg Capsule.dr, 40 MG PO DAILY, #30 CAP 08/19/15 Furosemide* (Furosemide*) 40 Mg Tablet, 40 MG PO DAILY, TAB 08/19/15 Amlodipine Besylate* (Norvasc*) 5 Mg Tablet, 5 MG PO DAILY, TAB 02/19/15 Rosuvastatin Calcium* (Crestor*) 20 Mg Tablet, 20 MG PO HS, TAB 02/19/15 Ergocalciferol* (Drisdol* (Vitamin D2)) 50,000 Unit Capsule, 20118 UNIT PO Q7D, CAP Mondays02/19/15 Doxazosin Mesylate* (Doxazosin Mesylate*) 4 Mg Tablet, 4 MG PO BID, TAB 08/17/14 Ferrous Sulfate* (Ferrous Sulfate*) 325 Mg Tabec, 325 MG PO BID, TAB 08/17/14 Discontinued Reported Medications Metoprolol Succinate* (Toprol XL*) 50 Mg Tab.er.24h, 50 MG PO DAILY, #30 TAB 08/19/15 Valsartan* (Diovan*) 160 Mg Tablet, 160 MG PO DAILY, TAB 02/19/15 Discontinued Scripts Levofloxacin* (Levaquin*) 750 Mg Tablet, 750 MG PO Q48H, #3 TAB Prov:DEVIN BALDWIN MD 05/19/18 Medications Current Medications IV Flush (NS 3 ml) 3 ml PER PROTOCOL IV ; Start 07/18/18 at 14:00 Ondansetron HCl (Zofran Inj) 4 mg Q6H PRN IV NAUSEA/VOMITING Last administered on 07/20/18at 04:47; Admin Dose 4 MG; Start 07/18/18 at 14:00 Acetaminophen (Tylenol Tab) 650 mg Q6H PRN PO .PAIN 1-3 OR TEMP Last administered on 07/20/18at 13:07; Admin Dose 650 MG; Start 07/18/18 at 14:00 Acetaminophen/ Hydrocodone Bitart ([place] (5/325)) 1 tab Q6H PRN PO .MOD PAIN 4- 6 Last administered on 07/19/18at 13:01; Admin Dose 1 TAB; Start 07/18/18 at 14:00 Morphine Sulfate (morphine) 6 mg Q4H PRN PO .SEVERE PAIN 7-10; Start 07/18/18 at 14:00 Docusate Sodium (Colace) 100 mg Q12H PRN PO .CONSTIPATION; Start 07/18/18 at 14:00 Magnesium Hydroxide (Milk Of Mag) 30 ml DAILY PRN PO .CONSTIPATION Last administered on 07/19/18at 18:09; Admin Dose 30 ML; Start 07/18/18 at 14:00 Lorazepam (Ativan) 0.5 mg Q6H PRN PO ANXIETY; Start 07/18/18 at 14:00 Albuterol/ Ipratropium (Duoneb) 3 ml Q4H RESP THERAPY PRN HHN SHORTNESS OF BREATH Last administered on 07/21/18at 23:35; Admin Dose 3 ML; Start 07/18/18 at 14:00 Hydralazine HCl (Apresoline) 10 mg Q6H PRN IV ELEVATED BLOOD PRESSURE; Start 07/18/18 at 14:00 Nitroglycerin (Nitroglycerin (Sl Tab) 0.4 Mg) 1 tab Q5M PRN SL ANGINA; Start 07/18/18 at 14:00 Apixaban (Eliquis) 5 mg BID PO Last administered on 07/23/18 08:27; Admin Dose 5 MG; Start 07/18/18 at 21:00 Digoxin (Digoxin) 0.125 mg DAILY@1300 PO Last administered on 07/23/18at 12:10; Admin Dose 0.125 MG; Start 07/19/18 at 13:00 Ergocalciferol (Drisdol) 50,000 unit Q7D PO Last administered on 07/18/18 18:03; Admin Dose 50,000 UNIT; Start 07/18/18 at 14:00 Ferrous Sulfate (Ferrous Sulfate (Ec)) 325 mg BID PO Last administered on 07/23/18 08:27; Admin Dose 325 MG; Start 07/18/18 at 21:00 Insulin Glargine (Lantus) 12 units QHS SC Last administered on 07/22/18 21:23; Admin Dose 12 UNITS; Start 07/18/18 at 21:00 Famotidine (Pepcid) 20 mg DAILY PO Last administered on 07/23/18 08:27; Admin Dose 20 MG; Start 07/19/18 at 09:00 Atorvastatin Calcium (Lipitor) 80 mg HS PO Last administered on 07/22/18 21:10; Admin Dose 80 MG; Start 07/18/18 at 21:00 Diagnostic Test (Pha) (Accu-Chek) 1 ea 02 XX ; Start 07/19/18 at 02:00 Miscellaneous Information 1 ea NOTE XX ; Start 07/18/18 at 14:30 Glucose (Glutose) 15 gm Q15M PRN PO DECREASED GLUCOSE; Start 07/18/18 at 14:30 Glucose (Glutose) 22.5 gm Q15M PRN PO DECREASED GLUCOSE; Start 07/18/18 at 14:30 Dextrose (D50w Syringe) 25 ml Q15M PRN IV DECREASED GLUCOSE; Start 07/18/18 at 14:30 Dextrose (D50w Syringe) 50 ml Q15M PRN IV DECREASED GLUCOSE; Start 07/18/18 at 14:30 Glucagon (Glucagen) 1 mg Q15M PRN IM DECREASED GLUCOSE; Start 07/18/18 at 14:30 Glucose (Glutose) 15 gm Q15M PRN BUCCAL DECREASED GLUCOSE Last administered on 07/21/18 08:36; Admin Dose 15 GM; Start 07/18/18 at 14:30 Nicotine (Nicoderm 21 Mg/ 24hr) 1 patch DAILY TRANSDERM ; Start 07/18/18 at 16:30 Metoprolol Succinate (Toprol Xl) 25 mg DAILY PO Last administered on 07/23/18 08:27; Admin Dose 25 MG; Start 07/19/18 at 09:00 Patient Own Medication 1 ea BID PO Last administered on 07/19/18 08:09; Admin Dose 1 EA; Start 07/18/18 at 21:00; Status Hold Famotidine (Pepcid) 20 mg Q24H PO Last administered on 07/22/18 21:11; Admin Dose 20 MG; Start 07/18/18 at 22:00 Insulin Aspart (Novolog Insulin Pen) (Adult SC Insulin - Mild Algorithm)... AC MEALS AND BEDTIME SC Last administered on 07/23/18 12:33; Admin Dose 2 UNIT; Start 07/19/18 at 17:25 Miscellaneous Information Patients own medicat... BID@10,16 XX Last admi nistered on 07/22/18 16:28; Admin Dose 1,600 EA; Start 07/20/18 at 10:00 Furosemide (Lasix) 40 mg 0900,1300,1700 IV Last administered on 07/23/18 12:09; Admin Dose 40 MG; Start 07/20/18 at 17:00 Metolazone (Zaroxolyn) 2.5 mg BID PO Last administered on 07/23/18 08:27; Admin Dose 2.5 MG; Start 07/20/18 at 17:15 Doxazosin Mesylate (Cardura) 4 mg HS PO Last administered on 07/22/18 21:14; Admin Dose 4 MG; Start 07/21/18 at 21:00 Trazodone HCl (Desyrel) 50 mg HS PO ; Start 07/23/18 at 00:30 Assessment/Plan Hospital Course (Demo Recall) 1.CHF- systolic acute on chronic - responded wel to diuresis - con't Rx and afterload reduction. 2.Cardiomyopathy- EF 30% - ICD in place. 3.CKD - Cr at 2.4 - close to baseline - with diuresis. 4.HTN - well Rx now. 5.Dyslipidemia 6. Hepatomegaly-likley due to passive congestion of liver - primary follows. KINSEY PEPPER MD Jul 23, 2018 15:08
[2018-07-23] MEDS: ATORVASTATIN 80 MG TAB PO SCH (20:12)
[2018-07-23] MEDS: DOXAZOSIN 4 MG TAB PO SCH (20:15)
[2018-07-23] MEDS: INSULIN GLARGINE [LANTus] (100 UNITS/ML) SYG SC SCH (20:26)
[2018-07-24] VITALS (11 sets, daily range): BP systolic 96–121; BP diastolic 40–70; PULSE 50–81; RESP 19–20
[2018-07-24] MEDS: ACCU-CHEK XX SCH (02:29)
[2018-07-24] MEDS: APIXABAN 5 MG TABLET PO SCH ×2 (08:05→20:35)
[2018-07-24] MEDS: FERROUS SULFATE (EC) 325 MG TAB PO SCH ×2 (08:05→20:34)
[2018-07-24] MEDS: FAMOTIDINE 20 MG TAB PO SCH ×2 (08:05→21:06)
[2018-07-24] MEDS: FUROSEMIDE 40 MG INJ IV SCH ×3 (08:06→17:37)
[2018-07-24] MEDS: METOLAZONE 2.5 MG TAB PO SCH ×2 (08:06→20:34)
[2018-07-24] MEDS: NICOTINE (21 MG/24 HR) PATCH TRANSDERM SCH (08:07)
[2018-07-24] MEDS: METOPROLOL (XL) 25 MG TAB PO SCH (08:07)
[2018-07-24] MEDS: Insulin NOVOLOG SS MILD Algorithm (SS with meals and bedtime) SC SCH ×4 (08:13→20:41)
[2018-07-24] MEDS: DIGOXIN 0.125 MG TAB PO SCH (13:00)
--- NOTE | 2018-07-24 13:17 | PN ---
Date/Time of Note Date/Time of Note DATE: 07/24/18 TIME: 13:17 Assessment/Plan VTE Prophylaxis Risk score (from Ns)>0 risk: 7 SCD applied (from Ns): No SCD contraindicated: other Pharmacological prophylaxis: apixaban Lines/Catheters [facility]from [facility]): Peripheral IV Urinary Cath still in place: No Assessment/Plan Hospital Course S: Patient had no acute events overnight, still on IV Lasix 3 times a day, seen by renal and cardiology teams yesterday. O: VS - see below PHYSICAL EXAMINATION: GENERAL: lying in bed, in no acute distress. HEENT: Pupils equal, round and reactive to light. Extraocular muscles are intact. NECK: Supple, no thyromegaly. LUNGS: Distant breath sounds bilaterally, less crackles heard at the bases. CARDIOVASCULAR: Irregularly irregular heart rate. No rubs or gallops. ABDOMEN: Soft, nontender and nondistended. Normal bowel sounds. No rebound or guarding. MUSCULOSKELETAL: 1+ pitting edema in bilateral lower extremities to the mid calves. NEUROLOGIC: No focal deficits. ASSESSMENT AND PLAN: 67-year-old male coming in with chest pressure, shortness of breath, lower extremity swelling, signs of congestive heart failure exacerbation, also rule out for acute coronary syndrome. 1. Shortness of breath and chest pressure -overall slowly improving now. -Continue fluid restriction as recommended by cardiology and renal teams, apparently for now still continue 3 times a day IV Lasix, lower dose metolazone, and low-dose beta-leatha -Continue to keep the head of the bed greater than 30 degrees - follow up Cardiology recommendations and continue digoxin for now. -Off of Entresto presently while in-house 2. Acute on chronic kidney disease. Again, the kidney function appears to be slightly worse than when he was here 2 months ago. Creatinine levels have been in the low to mid 2 range. Patient having adequate urine output. -Follow-up recommendations from renal consult -Continue to carefully monitor BUN and creatinine levels and urine output. 3. Smoking history. -Counseled on cessation. -Continue nicotine patch. 4. History of hypertension. Again, see above. - Continue current medications. - Also hydralazine p.r.n. 5. History of atrial fibrillation -appears stable -Monitor, continue Eliquis as well. 6. Type 2 diabetes. A1c equals 9.0, sugars presently stable - continue Lantus and sliding scale insulin. 7. Deep venous thrombosis prophylaxis-on Eliquis. Result Diagram: 07/24/18 0540 07/24/18 0540 Results 24hrs Laboratory Tests Test 07/23/18 17:25 07/23/18 20:11 07/24/18 02:01 07/24/18 05:40 Bedside Glucose 143 209 238 H White Blood Count 6.1 Red Blood Count 4.31 L Hemoglobin 10.7 L Hematocrit 36.3 L Mean Corpuscular 84.2 Volume Mean Corpuscular 24.8 L Hemoglobin Mean Corpuscular 29.5 L Hemoglobin Concent Red Cell 19.5 H Distribution Width Platelet Count 158 Mean Platelet Volume 12.2 H Immature 0.200 Granulocytes % Neutrophils % 66.0 Lymphocytes % 18.1 Monocytes % 11.7 H Eosinophils % 3.0 Basophils % 1.0 Nucleated Red Blood 0.0 Cells % Immature 0.010 Granulocytes # Neutrophils # 4.0 Lymphocytes # 1.1 Monocytes # 0.7 Eosinophils # 0.2 Basophils # 0.1 Nucleated Red Blood 0.0 Cells # Sodium Level 139 Potassium Level 4.5 Chloride Level 93 L Carbon Dioxide Level 37 H Anion Gap 9 Blood Urea Nitrogen 72 H Creatinine 2.41 H Est Glomerular 27 L Filtrat Rate mL/min Glucose Level 205 Calcium Level 9.3 Test 07/24/18 08:03 07/24/18 11:48 Bedside Glucose 164 179 Exam/Review of Systems Exam Vitals Vital Signs Date Temp Pulse Resp B/P (MAP) Pulse Ox O2 O2 Flow FiO2 Time Delivery Rate 07/24/18 62 12:00 07/24/18 97.9 20 114/56 97 11:19 (75) 07/24/18 Nasal 4.0 07:21 Cannula 07/21/18 50 13:23 Intake and Output 07/23/18 07/23/18 07/24/18 1515:00 23:00 07:00 IntakeIntake Total 800 ml 480 ml OutputOutput Total 1700 ml 900 ml BalanceBalance -900 ml -420 ml Results Results 24hrs Laboratory Tests Test 07/23/18 17:25 07/23/18 20:11 07/24/18 02:01 07/24/18 05:40 Bedside Glucose 143 209 238 H White Blood Count 6.1 Red Blood Count 4.31 L Hemoglobin 10.7 L Hematocrit 36.3 L Mean Corpuscular 84.2 Volume Mean Corpuscular 24.8 L Hemoglobin Mean Corpuscular 29.5 L Hemoglobin Concent Red Cell 19.5 H Distribution Width Platelet Count 158 Mean Platelet Volume 12.2 H Immature 0.200 Granulocytes % Neutrophils % 66.0 Lymphocytes % 18.1 Monocytes % 11.7 H Eosinophils % 3.0 Basophils % 1.0 Nucleated Red Blood 0.0 Cells % Immature 0.010 Granulocytes # Neutrophils # 4.0 Lymphocytes # 1.1 Monocytes # 0.7 Eosinophils # 0.2 Basophils # 0.1 Nucleated Red Blood 0.0 Cells # Sodium Level 139 Potassium Level 4.5 Chloride Level 93 L Carbon Dioxide Level 37 H Anion Gap 9 Blood Urea Nitrogen 72 H Creatinine 2.41 H Est Glomerular 27 L Filtrat Rate mL/min Glucose Level 205 Calcium Level 9.3 Test 07/24/18 08:03 07/24/18 11:48 Bedside Glucose 164 179 Medications Medication Current Medications IV Flush (NS 3 ml) 3 ml PER PROTOCOL IV ; Start 07/18/18 at 14:00 Ondansetron HCl (Zofran Inj) 4 mg Q6H PRN IV NAUSEA/VOMITING Last administered on 07/20/18at 04:47; Admin Dose 4 MG; Start 07/18/18 at 14:00 Acetaminophen (Tylenol Tab) 650 mg Q6H PRN PO .PAIN 1-3 OR TEMP Last administered on 07/20/18at 13:07; Admin Dose 650 MG; Start 07/18/18 at 14:00 Acetaminophen/ Hydrocodone Bitart ([place] (5/325)) 1 tab Q6H PRN PO .MOD PAIN 4- 6 Last administered on 07/19/18at 13:01; Admin Dose 1 TAB; Start 07/18/18 at 14:00 Morphine Sulfate (morphine) 6 mg Q4H PRN PO .SEVERE PAIN 7-10; Start 07/18/18 at 14:00 Docusate Sodium (Colace) 100 mg Q12H PRN PO .CONSTIPATION; Start 07/18/18 at 14:00 Magnesium Hydroxide (Milk Of Mag) 30 ml DAILY PRN PO .CONSTIPATION Last administered on 07/19/18at 18:09; Admin Dose 30 ML; Start 07/18/18 at 14:00 Lorazepam (Ativan) 0.5 mg Q6H PRN PO ANXIETY; Start 07/18/18 at 14:00 Albuterol/ Ipratropium (Duoneb) 3 ml Q4H RESP THERAPY PRN HHN SHORTNESS OF BREATH Last administered on 07/21/18at 23:35; Admin Dose 3 ML; Start 07/18/18 at 14:00 Hydralazine HCl (Apresoline) 10 mg Q6H PRN IV ELEVATED BLOOD PRESSURE; Start 07/18/18 at 14:00 Nitroglycerin (Nitroglycerin (Sl Tab) 0.4 Mg) 1 tab Q5M PRN SL ANGINA; Start 07/18/18 at 14:00 Apixaban (Eliquis) 5 mg BID PO Last administered on 07/24/18 08:05; Admin Dose 5 MG; Start 07/18/18 at 21:00 Digoxin (Digoxin) 0.125 mg DAILY@1300 PO Last administered on 07/23/18 12:10; Admin Dose 0.125 MG; Start 07/19/18 at 13:00 Ergocalciferol (Drisdol) 50,000 unit Q7D PO Last administered on 07/18/18 18:03; Admin Dose 50,000 UNIT; Start 07/18/18 at 14:00 Ferrous Sulfate (Ferrous Sulfate (Ec)) 325 mg BID PO Last administered on 07/24/18 08:05; Admin Dose 325 MG; Start 07/18/18 at 21:00 Insulin Glargine (Lantus) 12 units QHS SC Last administered on 07/23/18 20:26; Admin Dose 12 UNITS; Start 07/18/18 at 21:00 Famotidine (Pepcid) 20 mg DAILY PO Last administered on 07/24/18 08:05; Admin Dose 20 MG; Start 07/19/18 at 09:00 Atorvastatin Calcium (Lipitor) 80 mg HS PO Last administered on 07/23/18 20:12; Admin Dose 80 MG; Start 07/18/18 at 21:00 Diagnostic Test (Pha) (Accu-Chek) 1 ea 02 XX Last administered on 07/24/18at 02:29; Admin Dose 1 EA; Start 07/19/18 at 02:00 Miscellaneous Information 1 ea NOTE XX ; Start 07/18/18 at 14:30 Glucose (Glutose) 15 gm Q15M PRN PO DECREASED GLUCOSE; Start 07/18/18 at 14:30 Glucose (Glutose) 22.5 gm Q15M PRN PO DECREASED GLUCOSE; Start 07/18/18 at 14:30 Dextrose (D50w Syringe) 25 ml Q15M PRN IV DECREASED GLUCOSE; Start 07/18/18 at 14:30 Dextrose (D50w Syringe) 50 ml Q15M PRN IV DECREASED GLUCOSE; Start 07/18/18 at 14:30 Glucagon (Glucagen) 1 mg Q15M PRN IM DECREASED GLUCOSE; Start 07/18/18 at 14:30 Glucose (Glutose) 15 gm Q15M PRN BUCCAL DECREASED GLUCOSE Last administered on 07/21/18at 08:36; Admin Dose 15 GM; Start 07/18/18 at 14:30 Nicotine (Nicoderm 21 Mg/ 24hr) 1 patch DAILY TRANSDERM ; Start 07/18/18 at 16:30 Metoprolol Succinate (Toprol Xl) 25 mg DAILY PO Last administered on 07/24/18 08:07; Admin Dose 25 MG; Start 07/19/18 at 09:00 Patient Own Medication 1 ea BID PO Last administered on 07/19/18 08:09; Admin Dose 1 EA; Start 07/18/18 at 21:00; Status Hold Famotidine (Pepcid) 20 mg Q24H PO Last administered on 07/23/18 21:23; Admin D ose 20 MG; Start 07/18/18 at 22:00 Insulin Aspart (Novolog Insulin Pen) (Adult SC Insulin - Mild Algorithm)... AC MEALS AND BEDTIME SC Last administered on 07/24/18at 11:53; Admin Dose 1 UNIT; Start 07/19/18 at 17:25 Miscellaneous Information Patients own medicat... BID@10,16 XX Last administered on 07/22/18 16:28; Admin Dose 1,600 EA; Start 07/20/18 at 10:00 Furosemide (Lasix) 40 mg 0900,1300,1700 IV Last administered on 07/24/18 08:06; Admin Dose 40 MG; Start 07/20/18 at 17:00 Metolazone (Zaroxolyn) 2.5 mg BID PO Last administered on 2/17/19at 08:06; Admin Dose 2.5 MG; Start 07/20/18 at 17:15 Doxazosin Mesylate (Cardura) 4 mg HS PO Last administered on 07/22/18at 21:14; Admin Dose 4 MG; Start 07/21/18 at 21:00 Trazodone HCl (Desyrel) 50 mg HS PO ; Start 07/23/18 at 00:30 MELVI LANCE Jul 24, 2018 13:17
--- NOTE | 2018-07-24 14:33 | CONS ---
Consult Date/Type/Reason Admit Date/Time Jul 18, 2018 at 13:13 Initial Consult Date Requesting Provider: MELVI LANCE Date/Time of Note DATE: 07/24/18 TIME: 14:31 Subjective NO acute events - pt stable - Cr at 2.41 - unchanged - improved fluid status. ROS: No fever, no chills, no nausea, no vomiting, no diarrhea/constipation No recent weight changes No chest pain, no PND, no orthopnea - improved SOB No dizziness, blurred vision No thirst, no heat or cold intolerance Objective Vitals Vital Signs Date Temp Pulse Resp B/P (MAP) Pulse Ox O2 O2 Flow FiO2 Time Delivery Rate 07/24/18 62 12:00 07/24/18 97.9 20 114/56 97 11:19 (75) 07/24/18 Nasal 4.0 07:21 Cannula 07/21/18 50 13:23 Intake and Output 07/23/18 07/23/18 07/24/18 1515:00 23:00 07:00 IntakeIntake Total 800 ml 480 ml OutputOutput Total 1700 ml 900 ml BalanceBalance -900 ml -420 ml Exam General: WN/WD/NAD, AOx 3 HEENT: Unicetric/atraumatic/EOMI (follows commands) NECK: JVD elevated, no thyromegaly Lymph: no lymphadenopathy HEART: regular with no S3, II/ systolic murmur at apex, PMI L LUNGS: Coarse sounds ABD: soft, NT, ND, +BS : Intact Neuro: non focal SKIN: chronic changes EXT: trace edema Results/Medications Result Diagram: 07/24/18 0540 07/24/18 0540 Results 24 hrs Laboratory Tests Test 07/23/18 17:25 07/23/18 20:11 07/24/18 02:01 07/24/18 05:40 Bedside Glucose 143 209 238 H White Blood Count 6.1 Red Blood Count 4.31 L Hemoglobin 10.7 L Hematocrit 36.3 L Mean Corpuscular 84.2 Volume Mean Corpuscular 24.8 L Hemoglobin Mean Corpuscular 29.5 L Hemoglobin Concent Red Cell 19.5 H Distribution Width Platelet Count 158 Mean Platelet Volume 12.2 H Immature 0.200 Granulocytes % Neutrophils % 66.0 Lymphocytes % 18.1 Monocytes % 11.7 H Eosinophils % 3.0 Basophils % 1.0 Nucleated Red Blood 0.0 Cells % Immature 0.010 Granulocytes # Neutrophils # 4.0 Lymphocytes # 1.1 Monocytes # 0.7 Eosinophils # 0.2 Basophils # 0.1 Nucleated Red Blood 0.0 Cells # Sodium Level 139 Potassium Level 4.5 Chloride Level 93 L Carbon Dioxide Level 37 H Anion Gap 9 Blood Urea Nitrogen 72 H Creatinine 2.41 H Est Glomerular 27 L Filtrat Rate mL/min Glucose Level 205 Calcium Level 9.3 Test 07/24/18 08:03 07/24/18 11:48 Bedside Glucose 164 179 Home Meds Reported Medications Metoprolol Succinate* (Toprol XL*) 25 Mg Tab.sr.24h, 25 MG PO DAILY, #30 TAB 07/18/18 Sacubitril/Valsartan (Entresto 97 mg-103 mg Tablet) 1 Each Tablet, 1 TAB PO BID 05/13/18 Digoxin* (Digox*) 125 Mcg Tablet, 0.125 MG PO DAILY, TAB 05/13/18 Apixaban* (Eliquis*) 5 Mg Tablet, 5 MG PO BID, TAB 08/19/15 Insulin Aspart* (Novolog Insulin Vial*) 100 U/Ml Vial, 0 SC SLIDING SCALE AC, VIAL 08/19/15 Insulin Glargine* (Lantus*) 100 Unit/Ml Soln, 12 UNIT SC QHS, #1 VIAL 08/19/15 Esomeprazole Mag Trihydrate (Nexium) 40 Mg Capsule.dr, 40 MG PO DAILY, #30 CAP 08/19/15 Furosemide* (Furosemide*) 40 Mg Tablet, 40 MG PO DAILY, TAB 08/19/15 Amlodipine Besylate* (Norvasc*) 5 Mg Tablet, 5 MG PO DAILY, TAB 02/19/15 Rosuvastatin Calcium* (Crestor*) 20 Mg Tablet, 20 MG PO HS, TAB 02/19/15 Ergocalciferol* (Drisdol* (Vitamin D2)) 50,000 Unit Capsule, 41073 UNIT PO Q7D, CAP Mondays02/19/15 Doxazosin Mesylate* (Doxazosin Mesylate*) 4 Mg Tablet, 4 MG PO BID, TAB 08/17/14 Ferrous Sulfate* (Ferrous Sulfate*) 325 Mg Tabec, 325 MG PO BID, TAB 08/17/14 Discontinued Reported Medications Metoprolol Succinate* (Toprol XL*) 50 Mg Tab.er.24h, 50 MG PO DAILY, #30 TAB 08/19/15 Valsartan* (Diovan*) 160 Mg Tablet, 160 MG PO DAILY, TAB 02/19/15 Discontinued Scripts Levofloxacin* (Levaquin*) 750 Mg Tablet, 750 MG PO Q48H, #3 TAB Prov:DEVIN BALDWIN MD 05/19/18 Medications Current Medications IV Flush (NS 3 ml) 3 ml PER PROTOCOL IV ; Start 07/18/18 at 14:00 Ondansetron HCl (Zofran Inj) 4 mg Q6H PRN IV NAUSEA/VOMITING Last administered on 07/20/18at 04:47; Admin Dose 4 MG; Start 07/18/18 at 14:00 Acetaminophen (Tylenol Tab) 650 mg Q6H PRN PO .PAIN 1-3 OR TEMP Last administered on 07/20/18at 13:07; Admin Dose 650 MG; Start 07/18/18 at 14:00 Acetaminophen/ Hydrocodone Bitart ([place] (5/325)) 1 tab Q6H PRN PO .MOD PAIN 4- 6 Last administered on 07/19/18at 13:01; Admin Dose 1 TAB; Start 07/18/18 at 14:00 Morphine Sulfate (morphine) 6 mg Q4H PRN PO .SEVERE PAIN 7-10; Start 07/18/18 at 14:00 Docusate Sodium (Colace) 100 mg Q12H PRN PO .CONSTIPATION; Start 07/18/18 at 14:00 Magnesium Hydroxide (Milk Of Mag) 30 ml DAILY PRN PO .CONSTIPATION Last administered on 07/19/18at 18:09; Admin Dose 30 ML; Start 07/18/18 at 14:00 Lorazepam (Ativan) 0.5 mg Q6H PRN PO ANXIETY; Start 07/18/18 at 14:00 Albuterol/ Ipratropium (Duoneb) 3 ml Q4H RESP THERAPY PRN HHN SHORTNESS OF BREATH Last administered on 07/21/18at 23:35; Admin Dose 3 ML; Start 07/18/18 at 14:00 Hydralazine HCl (Apresoline) 10 mg Q6H PRN IV ELEVATED BLOOD PRESSURE; Start 07/18/18 at 14:00 Nitroglycerin (Nitroglycerin (Sl Tab) 0.4 Mg) 1 tab Q5M PRN SL ANGINA; Start 07/18/18 at 14:00 Apixaban (Eliquis) 5 mg BID PO Last administered on 07/24/18at 08:05; Admin Dose 5 MG; Start 07/18/18 at 21:00 Digoxin (Digoxin) 0.125 mg DAILY@1300 PO Last administered on 07/24/18at 13:00; Admin Dose 0.125 MG; Start 07/19/18 at 13:00 Ergocalciferol (Drisdol) 50,000 unit Q7D PO Last administered on 07/18/18at 18:03; Admin Dose 50,000 UNIT; Start 07/18/18 at 14:00 Ferrous Sulfate (Ferrous Sulfate (Ec)) 325 mg BID PO Last administered on 07/24at 08:05; Admin Dose 325 MG; Start 07/18/18 at 21:00 Insulin Glargine (Lantus) 12 units QHS SC Last administered on 07/23/18at 20:26; Admin Dose 12 UNITS; Start 07/18/18 at 21:00 Famotidine (Pepcid) 20 mg DAILY PO Last administered on 07/24/18at 08:05; Admin Dose 20 MG; Start 07/19/18 at 09:00 Atorvastatin Calcium (Lipitor) 80 mg HS PO Last administered on 07/23/18at 20:12; Admin Dose 80 MG; Start 07/18/18 at 21:00 Diagnostic Test (Pha) (Accu-Chek) 1 ea 02 XX Last administered on 07/24/18at 0 2:29; Admin Dose 1 EA; Start 07/19/18 at 02:00 Miscellaneous Information 1 ea NOTE XX ; Start 07/18/18 at 14:30 Glucose (Glutose) 15 gm Q15M PRN PO DECREASED GLUCOSE; Start 07/18/18 at 14:30 Glucose (Glutose) 22.5 gm Q15M PRN PO DECREASED GLUCOSE; Start 07/18/18 at 14:30 Dextrose (D50w Syringe) 25 ml Q15M PRN IV DECREASED GLUCOSE; Start 07/18/18 at 14:30 Dextrose (D50w Syringe) 50 ml Q15M PRN IV DECREASED GLUCOSE; Start 07/18/18 at 14:30 Glucagon (Glucagen) 1 mg Q15M PRN IM DECREASED GLUCOSE; Start 07/18/18 at 14:30 Glucose (Glutose) 15 gm Q15M PRN BUCCAL DECREASED GLUCOSE Last administered on 07/21/18at 08:36; Admin Dose 15 GM; Start 07/18/18 at 14:30 Nicotine (Nicoderm 21 Mg/ 24hr) 1 patch DAILY TRANSDERM ; Start 07/18/18 at 16:30 Metoprolol Succinate (Toprol Xl) 25 mg DAILY PO Last administered on 07/24/18 08:07; Admin Dose 25 MG; Start 07/19/18 at 09:00 Patient Own Medication 1 ea BID PO Last administered on 07/19/18 08:09; Admin Dose 1 EA; Start 07/18/18 at 21:00; Status Hold Famotidine (Pepcid) 20 mg Q24H PO Last administered on 07/23/18 21:23; Admin Dose 20 MG; Start 07/18/18 at 22:00 Insulin Aspart (Novolog Insulin Pen) (Adult SC Insulin - Mild Algorithm)... AC MEALS AND BEDTIME SC Last administered on 07/24/18 11:53; Admin Dose 1 UNIT; Start 07/19/18 at 17:25 Miscellaneous Information Patients own medicat... BID@10,16 XX Last administered on 07/22/18 16:28; Admin Dose 1,600 EA; Start 07/20/18 at 10:00 Furosemide (Lasix) 40 mg 0900,1300,1700 IV Last administered on 07/24/18 13:16; Admin Dose 40 MG; Start 07/20/18 at 17:00 Metolazone (Zaroxolyn) 2.5 mg BID PO Last administered on 07/24/18 08:06; Admin Dose 2.5 MG; Start 07/20/18 at 17:15 Doxazosin Mesylate (Cardura) 4 mg HS PO Last administered on 07/22/18 21:14; Admin Dose 4 MG; Start 07/21/18 at 21:00 Trazodone HCl (Desyrel) 50 mg HS PO ; Start 07/23/18 at 00:30 Assessment/Plan Hospital Course (Demo Recall) 1.CHF- systolic acute on chronic - responded wel to diuresis - con't Rx and afterload reduction. Better now - will try to transition to po tomorrow. 2.Cardiomyopathy- EF 30% - ICD in place. 3.CKD - Cr at 2.4 - close to baseline - with diuresis. Stable x 2 days. 4.HTN - well Rx now. WEll Rx. 5.Dyslipidemia 6. Hepatomegaly-likley due to passive congestion of liver - primary follows. KINSEY PEPPER MD Jul 24, 2018 14:33
--- NOTE | 2018-07-24 18:20 | CONS ---
Assessment/Plan Assessment/Plan Hospital Course (Demo Recall) 1. Shortness of breath with bilateral lower extremity edema, orthopnea and PND likely secondary to acute on chronic congestive heart failure. 2. Acute on chronic renal failure; however, the patient's baseline creatinine 3. History of atrial fibrillation. 4. Hypertension. 5. Diabetes. 6. Hyperlipidemia. 7. BPH. 8. Positive troponin with chest pain ? NSTEMI 9. Elevated BNP 10 LEG EDEMA PLAN DIURETIC Consultation Date/Type/Reason Admit Date/Time Jul 18, 2018 at 13:13 Initial Consult Date Type of Consult renal SOB BETTER Requesting Provider: MELVI LANCE Date/Time of Note DATE: 07/24/18 TIME: 18:18 Exam/Review of Systems Exam Vitals Vital Signs Date Temp Pulse Resp B/P (MAP) Pulse Ox O2 O2 Flow FiO2 Time Delivery Rate 07/24/18 3.0 18:17 07/24/18 78 16:00 07/24/18 98.7 20 96/40 (58) 93 15:05 07/24/18 Nasal 07:21 Cannula 07/21/18 50 13:23 Intake and Output 07/23/18 07/23/18 07/24/18 1515:00 23:00 07:00 IntakeIntake Total 800 ml 480 ml OutputOutput Total 1700 ml 900 ml BalanceBalance -900 ml -420 ml Respiratory: diminished breath sounds Cardiovascular: regular rate and rhythm Gastrointestinal: soft Musculoskeletal: nl extremities to inspection Extremities: normal pulses Results Result Diagram: 07/24/18 0540 07/24/18 0540 Results 24hrs Laboratory Tests Test 07/23/18 20:11 07/24/18 02:01 07/24/18 05:40 07/24/18 08:03 Bedside Glucose 209 238 H 164 White Blood Count 6.1 Red Blood Count 4.31 L Hemoglobin 10.7 L Hematocrit 36.3 L Mean Corpuscular 84.2 Volume Mean Corpuscular 24.8 L Hemoglobin Mean Corpuscular 29.5 L Hemoglobin Concent Red Cell 19.5 H Distribution Width Platelet Count 158 Mean Platelet Volume 12.2 H Immature 0.200 Granulocytes % Neutrophils % 66.0 Lymphocytes % 18.1 Monocytes % 11.7 H Eosinophils % 3.0 Basophils % 1.0 Nucleated Red Blood 0.0 Cells % Immature 0.010 Granulocytes # Neutrophils # 4.0 Lymphocytes # 1.1 Monocytes # 0.7 Eosinophils # 0.2 Basophils # 0.1 Nucleated Red Blood 0.0 Cells # Sodium Level 139 Potassium Level 4.5 Chloride Level 93 L Carbon Dioxide Level 37 H Anion Gap 9 Blood Urea Nitrogen 72 H Creatinine 2.41 H Est Glomerular 27 L Filtrat Rate mL/min Glucose Level 205 Calcium Level 9.3 Test 07/24/18 11:48 07/24/18 17:31 Bedside Glucose 179 306 H Medications Medication Current Medications IV Flush (NS 3 ml) 3 ml PER PROTOCOL IV ; Start 07/18/18 at 14:00 Ondansetron HCl (Zofran Inj) 4 mg Q6H PRN IV NAUSEA/VOMITING Last administered on 07/20/18at 04:47; Admin Dose 4 MG; Start 07/18/18 at 14:00 Acetaminophen (Tylenol Tab) 650 mg Q6H PRN PO .PAIN 1-3 OR TEMP Last administered on 07/20/18at 13:07; Admin Dose 650 MG; Start 07/18/18 at 14:00 Acetaminophen/ Hydrocodone Bitart ([place] (5/325)) 1 tab Q6H PRN PO .MOD PAIN 4- 6 Last administered on 07/19/18at 13:01; Admin Dose 1 TAB; Start 07/18/18 at 14:00 Morphine Sulfate (morphine) 6 mg Q4H PRN PO .SEVERE PAIN 7-10; Start 07/18/18 at 14:00 Docusate Sodium (Colace) 100 mg Q12H PRN PO .CONSTIPATION; Start 07/18/18 at 14:00 Magnesium Hydroxide (Milk Of Mag) 30 ml DAILY PRN PO .CONSTIPATION Last administered on 07/19/18at 18:09; Admin Dose 30 ML; Start 07/18/18 at 14:00 Lorazepam (Ativan) 0.5 mg Q6H PRN PO ANXIETY; Start 07/18/18 at 14:00 Albuterol/ Ipratropium (Duoneb) 3 ml Q4H RESP THERAPY PRN HHN SHORTNESS OF BREATH Last administered on 07/21/18at 23:35; Admin Dose 3 ML; Start 07/18/18 at 14:00 Hydralazine HCl (Apresoline) 10 mg Q6H PRN IV ELEVATED BLOOD PRESSURE; Start 07/18/18 at 14:00 Nitroglycerin (Nitroglycerin (Sl Tab) 0.4 Mg) 1 tab Q5M PRN SL ANGINA; Start 07/18/18 at 14:00 Apixaban (Eliquis) 5 mg BID PO Last administered on 07/24/18at 08:05; Admin Dose 5 MG; Start 07/18/18 at 21:00 Digoxin (Digoxin) 0.125 mg DAILY@1300 PO Last administered on 07/24/18at 13:00; Admin Dose 0.125 MG; Start 07/19/18 at 13:00 Ergocalciferol (Drisdol) 50,000 unit Q7D PO Last administered on 07/18/18at 18:03; Admin Dose 50,000 UNIT; Start 07/18/18 at 14:00 Ferrous Sulfate (Ferrous Sulfate (Ec)) 325 mg BID PO Last administered on 07/24/18at 08:05; Admin Dose 325 MG; Start 07/18/18 at 21:00 Insulin Glargine (Lantus) 12 units QHS SC Last administered on 07/23/18at 20:26; Admin Dose 12 UNITS; Start 07/18/18 at 21:00 Famotidine (Pepcid) 20 mg DAILY PO Last administered on 07/24/18at 08:05; Admin Dose 20 MG; Start 07/19/18 at 09:00 Atorvastatin Calcium (Lipitor) 80 mg HS PO Last administered on 07/23/18at 20:12; Admin Dose 80 MG; Start 07/18/18 at 21:00 Diagnostic Test (Pha) (Accu-Chek) 1 ea 02 XX Last administered on 07/24/18at 02:29; Admin Dose 1 EA; Start 07/19/18 at 02:00 Miscellaneous Information 1 ea NOTE XX ; Start 07/18/18 at 14:30 Glucose (Glutose) 15 gm Q15M PRN PO DECREASED GLUCOSE; Start 07/18/18 at 14:30 Glucose (Glutose) 22.5 gm Q15M PRN PO DECREASED GLUCOSE; Start 07/18/18 at 14:30 Dextrose (D50w Syringe) 25 ml Q15M PRN IV DECREASED GLUCOSE; Start 07/18/18 at 14:30 Dextrose (D50w Syringe) 50 ml Q15M PRN IV DECREASED GLUCOSE; Start 07/18/18 at 14:30 Glucagon (Glucagen) 1 mg Q15M PRN IM DECREASED GLUCOSE; Start 07/18/18 at 14:30 Glucose (Glutose) 15 gm Q15M PRN BUCCAL DECREASED GLUCOSE Last administered on 07/21/18at 08:36; Admin Dose 15 GM; Start 07/18/18 at 14:30 Nicotine (Nicoderm 21 Mg/ 24hr) 1 patch DAILY TRANSDERM ; Start 07/18/18 at 16:30 Metoprolol Succinate (Toprol Xl) 25 mg DAILY PO Last administered on 07/24/18at 08:07; Admin Dose 25 MG; Start 07/19/18 at 09:00 Patient Own Medication 1 ea BID PO Last administered on 07/19/18 08:09; Admin Dose 1 EA; Start 07/18/18 at 21:00; Status Hold Famotidine (Pepcid) 20 mg Q24H PO Last administered on 07/23/18 21:23; Admin Dose 20 MG; Start 07/18/18 at 22:00 Insulin Aspart (Novolog Insulin Pen) (Adult SC Insulin - Mild Algorithm)... AC MEALS AND BEDTIME SC Last administered on 07/24/18 17:41; Admin Dose 5 UNIT; Start 07/19/18 at 17:25 Miscellaneous Information Patients own medicat... BID@10,16 XX Last administered on 07/22/18at 16:28; Admin Dose 1,600 EA; Start 07/20/18 at 10:00 Furosemide (Lasix) 40 mg 0900,1300,1700 IV Last administered on 07/24/18 17:37; Admin Dose 40 MG; Start 07/20/18 at 17:00 Metolazone (Zaroxolyn) 2.5 mg BID PO Last administered on 07/24/18 08:06; Admin Dose 2.5 MG; Start 07/20/18 at 17:15 Doxazosin Mesylate (Cardura) 4 mg HS PO Last administered on 07/22/18 21:14; Admin Dose 4 MG; Start 07/21/18 at 21:00 Trazodone HCl (Desyrel) 50 mg HS PO ; Start 07/23/18 at 00:30 CHAUNCEY BURGER MD Jul 24, 2018 18:20
[2018-07-24] MEDS: ATORVASTATIN 80 MG TAB PO SCH (20:34)
[2018-07-24] MEDS: DOXAZOSIN 4 MG TAB PO SCH ×2 (20:35→20:40)
[2018-07-24] MEDS: INSULIN GLARGINE [LANTus] (100 UNITS/ML) SYG SC SCH (20:40)
[2018-07-24] MEDS: traZODone 50 MG TAB PO SCH (20:41)
[2018-07-25] VITALS (12 sets, daily range): BP systolic 88–113; BP diastolic 53–65; PULSE 44–75; RESP 17–22
[2018-07-25] MEDS: ACCU-CHEK XX SCH (01:07)
[2018-07-25] MEDS: Insulin NOVOLOG SS MILD Algorithm (SS with meals and bedtime) SC SCH ×4 (07:25→21:26)
[2018-07-25] MEDS: FERROUS SULFATE (EC) 325 MG TAB PO SCH ×2 (08:52→20:06)
[2018-07-25] MEDS: METOLAZONE 2.5 MG TAB PO SCH (08:52)
[2018-07-25] MEDS: METOPROLOL (XL) 25 MG TAB PO SCH (08:53)
[2018-07-25] MEDS: FAMOTIDINE 20 MG TAB PO SCH ×2 (08:53→22:09)
[2018-07-25] MEDS: FUROSEMIDE 40 MG INJ IV SCH (08:53)
[2018-07-25] MEDS: APIXABAN 5 MG TABLET PO SCH ×2 (08:53→20:06)
[2018-07-25] MEDS: ACETAZOLAMIDE 500 MG INJ IV SCH (08:54)
[2018-07-25] MEDS: NICOTINE (21 MG/24 HR) PATCH TRANSDERM SCH (08:54)
--- NOTE | 2018-07-25 12:12 | CONS ---
Assessment/Plan Assessment/Plan Hospital Course (Demo Recall) IMP: 1.CHF- systolic acute on chronic 2.Cardiomyopathy- EF 30% 3.CKD 4.HTN 5.Dyslipidemia 6. Hepatomegaly-likley due to passive congestion of liver Recc: -Tele -Continue lasix but change to PO and now diamox for contraction alkalosis and follow volume status and creatnine clsoely -continue bb and cardura and if BP allows will start afterload reduction with hydralazine low dose -Continue statin/Eliquis Consultation Date/Type/Reason Admit Date/Time Jul 18, 2018 at 13:13 Initial Consult Date 07/18/18 Type of Consult Cardiology Reason for Consultation CHF Requesting Provider: MELVI LANCE Date/Time of Note DATE: 07/25/18 TIME: 12:09 Exam/Review of Systems Vital Signs Vitals Vital Signs Date Temp Pulse Resp B/P (MAP) Pulse Ox O2 O2 Flow FiO2 Time Delivery Rate 07/25/18 98.0 57 20 109/57 100 3.0 11:38 (74) 07/25/18 Nasal 07:25 Cannula 07/25/18 31 04:29 Intake and Output 07/24/18 07/24/18 07/25/18 1515:00 23:00 07:00 IntakeIntake Total 650 ml 100 ml OutputOutput Total 1200 ml BalanceBalance -550 ml 100 ml Exam Exam Review of Systems: CONSTITUTIONAL: No fevers, chills. PULMONARY: No sob CARDIOVASCULAR: No chest pain/palpitations GASTROINTESTINAL: No nausea/vomiting. GENITOURINARY: No hematuria/dysuria. MUSCULOSKELETAL: No myagias/arthalgias. PSYCHIATRIC: The patient denies depression. NEUROLOGIC: No weakness Constitutional: alert, oriented, well developed Psych: no complaints Head: normocephalic ENMT: mucosa pink and moist Neck: supple, jvd (9 cm water) Respiratory: diminished breath sounds (at bases/B) Cardiovascular: regular rate and rhythm Gastrointestinal: soft, non-tender Musculoskeletal: muscle tone (normal) Extremities: edema (normal) Neurological: other (None) Labs Result Diagram: 07/25/18 0549 07/25/18 0549 Results 24hrs Laboratory Tests Test 07/24/18 17:31 07/24/18 20:31 07/25/18 05:49 07/25/18 08:17 Bedside Glucose 306 H 142 129 White Blood Count 7.1 Red Blood Count 4.31 L Hemoglobin 10.8 L Hematocrit 34.6 L Mean Corpuscular 80.3 L Volume Mean Corpuscular 25.1 L Hemoglobin Mean Corpuscular 31.2 L Hemoglobin Concent Red Cell 18.1 H Distribution Width Platelet Count 166 Mean Platelet Volume 12.7 H Immature 0.300 Granulocytes % Neutrophils % 66.2 Lymphocytes % 18.9 Monocytes % 10.5 Eosinophils % 3.4 Basophils % 0.7 Nucleated Red Blood 0.0 Cells % Immature 0.020 Granulocytes # Neutrophils # 4.7 Lymphocytes # 1.3 Monocytes # 0.7 Eosinophils # 0.2 Basophils # 0.1 Nucleated Red Blood 0.0 Cells # Sodium Level 140 Potassium Level 4.2 Chloride Level 92 L Carbon Dioxide Level 41 *H Anion Gap 7 Blood Urea Nitrogen 74 H Creatinine 2.23 H Est Glomerular 29 L Filtrat Rate mL/min Glucose Level 177 Calcium Level 9.4 Medications Medications Current Medications IV Flush (NS 3 ml) 3 ml PER PROTOCOL IV ; Start 07/18/18 at 14:00 Ondansetron HCl (Zofran Inj) 4 mg Q6H PRN IV NAUSEA/VOMITING Last administered on 07/20/18at 04:47; Admin Dose 4 MG; Start 07/18/18 at 14:00 Acetaminophen (Tylenol Tab) 650 mg Q6H PRN PO .PAIN 1-3 OR TEMP Last administered on 07/20/18at 13:07; Admin Dose 650 MG; Start 07/18/18 at 14:00 Acetaminophen/ Hydrocodone Bitart ([place] (5/325)) 1 tab Q6H PRN PO .MOD PAIN 4- 6 Last administered on 07/19/18at 13:01; Admin Dose 1 TAB; Start 07/18/18 at 14:00 Morphine Sulfate (morphine) 6 mg Q4H PRN PO .SEVERE PAIN 7-10; Start 07/18/18 at 14:00 Docusate Sodium (Colace) 100 mg Q12H PRN PO .CONSTIPATION; Start 07/18/18 at 14:00 Magnesium Hydroxide (Milk Of Mag) 30 ml DAILY PRN PO .CONSTIPATION Last administered on 07/19/18at 18:09; Admin Dose 30 ML; Start 07/18/18 at 14:00 Lorazepam (Ativan) 0.5 mg Q6H PRN PO ANXIETY; Start 07/18/18 at 14:00 Albuterol/ Ipratropium (Duoneb) 3 ml Q4H RESP THERAPY PRN HHN SHORTNESS OF BREATH Last administered on 07/21/18at 23:35; Admin Dose 3 ML; Start 07/18/18 at 14:00 Hydralazine HCl (Apresoline) 10 mg Q6H PRN IV ELEVATED BLOOD PRESSURE; Start 07/18/18 at 14:00 Nitroglycerin (Nitroglycerin (Sl Tab) 0.4 Mg) 1 tab Q5M PRN SL ANGINA; Start 07/18/18 at 14:00 Apixaban (Eliquis) 5 mg BID PO Last administered on 07/25/18 08:53; Admin Dose 5 MG; Start 07/18/18 at 21:00 Digoxin (Digoxin) 0.125 mg DAILY@1300 PO Last administered on 07/24/18 13:00; Admin Dose 0.125 MG; Start 07/19/18 at 13:00 Ergocalciferol (Drisdol) 50,000 unit Q7D PO Last administered on 07/18/18 18:03; Admin Dose 50,000 UNIT; Start 07/18/18 at 14:00 Ferrous Sulfate (Ferrous Sulfate (Ec)) 325 mg BID PO Last administered on 07/25/18 08:52; Admin Dose 325 MG; Start 07/18/18 at 21:00 Insulin Glargine (Lantus) 12 units QHS SC Last administered on 07/24/18 20:40; Admin Dose 12 UNITS; Start 07/18/18 at 21:00 Famotidine (Pepcid) 20 mg DAILY PO Last administered on 07/25/18 08:53; Admin Dose 20 MG; Start 07/19/18 at 09:00 Atorvastatin Calcium (Lipitor) 80 mg HS PO Last administered on 07/24/18 20:34; Admin Dose 80 MG; Start 07/18/18 at 21:00 Diagnostic Test (Pha) (Accu-Chek) 1 ea 02 XX Last administered on 07/24/18at 02:29; Admin Dose 1 EA; Start 07/19/18 at 02:00 Miscellaneous Information 1 ea NOTE XX ; Start 07/18/18 at 14:30 Glucose (Glutose) 15 gm Q15M PRN PO DECREASED GLUCOSE; Start 07/18/18 at 14:30 Glucose (Glutose) 22.5 gm Q15M PRN PO DECREASED GLUCOSE; Start 07/18/18 at 14:30 Dextrose (D50w Syringe) 25 ml Q15M PRN IV DECREASED GLUCOSE; Start 07/18/18 at 14:30 Dextrose (D50w Syringe) 50 ml Q15M PRN IV DECREASED GLUCOSE; Start 07/18/18 at 14:30 Glucagon (Glucagen) 1 mg Q15M PRN IM DECREASED GLUCOSE; Start 07/18/18 at 14:30 Glucose (Glutose) 15 gm Q15M PRN BUCCAL DECREASED GLUCOSE Last administered on 07/21/18 08:36; Admin Dose 15 GM; Start 07/18/18 at 14:30 Nicotine (Nicoderm 21 Mg/ 24hr) 1 patch DAILY TRANSDERM ; Start 07/18/18 at 16:30 Metoprolol Succinate (Toprol Xl) 25 mg DAILY PO Last administered on 07/25/18 08:53; Admin Dose 25 MG; Start 07/19/18 at 09:00 Patient Own Medication 1 ea BID PO Last administered on 07/19/18 08:09; Admin Dose 1 EA; Start 07/18/18 at 21:00; Status Hold Famotidine (Pepcid) 20 mg Q24H PO Last administered on 07/24/18 21:06; Admin Dose 20 MG; Start 07/18/18 at 22:00 Insulin Aspart (Novolog Insulin Pen) (Adult SC Insulin - Mild Algorithm)... AC MEALS AND BEDTIME SC Last administered on 07/24/18 17:41; Admin Dose 5 UNIT; Start 07/19/18 at 17:25 Miscellaneous Information Patients own medicat... BID@10,16 XX Last administered on 07/22/18 16:28; Admin Dose 1,600 EA; Start 07/20/18 at 10:00 Furosemide (Lasix) 40 mg 0900,1300,1700 IV Last administered on 07/25/18 08:53; Admin Dose 40 MG; Start 07/20/18 at 17:00 Metolazone (Zaroxolyn) 2.5 mg BID PO Last administered on 2/18/19at 08:52; Admin Dose 2.5 MG; Start 07/20/18 at 17:15 Doxazosin Mesylate (Cardura) 4 mg HS PO Last administered on 07/22/18at 21:14; Admin Dose 4 MG; Start 07/21/18 at 21:00 Trazodone HCl (Desyrel) 50 mg HS PO ; Start 07/23/18 at 00:30 Acetazolamide (Diamox) 500 mg DAILY IV Last administered on 07/25/18at 08:54; Admin Dose 500 MG; Start 07/25/18 at 09:00; Stop 07/30/18 at 08:59 DEVIN LOWE Jul 25, 2018 12:12
--- NOTE | 2018-07-25 12:24 | PN ---
Date/Time of Note Date/Time of Note DATE: 07/25/18 TIME: 12:21 Assessment/Plan VTE Prophylaxis Risk score (from [facility] [place])>0 risk: 10 SCD applied (from [facility] [place]): No SCD contraindicated: low risk/ambulating Pharmacological prophylaxis: NA/contraindicated Pharm contraindication: low risk/ambulating Lines/Catheters IV Catheter Type (from [facility] Saline Lock Urinary Cath still in place: No Assessment/Plan Hospital Course A 67-year-old male presenting with: 1. Shortness of breath with bilateral lower extremity edema, orthopnea and PND likely secondary to acute on chronic congestive heart failure. 2. Acute on chronic renal failure; however, the patient's baseline creatinine ranges from 1.9 to 2. On last discharge in May, the creatinine was 1.9. This could be all secondary to cardiorenal as the patient is clearly in decompensated heart failure right now. now reached a euvolemic state, pt had Renal U/S in 05/24 which showed chronci kidney disease. Cr 2.23 today 3. History of atrial fibrillation. 4. Hypertension. 5. Diabetes. 6. Hyperlipidemia. 7. BPH. 8. Positive troponin with chest pain ? NSTEMI 9. Elevated BNP. 10 Contraction alkalosis with worsening uremia PLAN: - neg 1 L -change lasix to 40 bid - dc metalozone - diamox iv - cw hold off Entresto at this point. - Digoxin levels normal. -. Keep a systolic blood pressure of greater than 100. - Renally dose all meds. - Avoid nephrotoxic agents. spoke to patient at bedside Result Diagram: 07/25/18 0549 07/25/18 0549 Results 24hrs Laboratory Tests Test 07/24/18 17:31 07/24/18 20:31 07/25/18 05:49 07/25/18 08:17 Bedside Glucose 306 H 142 129 White Blood Count 7.1 Red Blood Count 4.31 L Hemoglobin 10.8 L Hematocrit 34.6 L Mean Corpuscular 80.3 L Volume Mean Corpuscular 25.1 L Hemoglobin Mean Corpuscular 31.2 L Hemoglobin Concent Red Cell 18.1 H Distribution Width Platelet Count 166 Mean Platelet Volume 12.7 H Immature 0.300 Granulocytes % Neutrophils % 66.2 Lymphocytes % 18.9 Monocytes % 10.5 Eosinophils % 3.4 Basophils % 0.7 Nucleated Red Blood 0.0 Cells % Immature 0.020 Granulocytes # Neutrophils # 4.7 Lymphocytes # 1.3 Monocytes # 0.7 Eosinophils # 0.2 Basophils # 0.1 Nucleated Red Blood 0.0 Cells # Sodium Level 140 Potassium Level 4.2 Chloride Level 92 L Carbon Dioxide Level 41 *H Anion Gap 7 Blood Urea Nitrogen 74 H Creatinine 2.23 H Est Glomerular 29 L Filtrat Rate mL/min Glucose Level 177 Calcium Level 9.4 Subjective 24 Hr Interval Summary Free Text/Dictation Feeling better Lower extremity edema is improved Bicarb 41 Exam/Review of Systems Exam Vitals Vital Signs Date Temp Pulse Resp B/P (MAP) Pulse Ox O2 O2 Flow FiO2 Time Delivery Rate 07/25/18 98.0 57 20 109/57 100 3.0 11:38 (74) 07/25/18 Nasal 07:25 Cannula 07/25/18 31 04:29 Intake and Output 07/24/18 07/24/18 07/25/18 1515:00 23:00 07:00 IntakeIntake Total 650 ml 100 ml OutputOutput Total 1200 ml BalanceBalance -550 ml 100 ml Exam Respiratory: diminished breath sounds Cardiovascular: regular rate and rhythm Gastrointestinal: soft Musculoskeletal: nl extremities to inspection Extremities: normal pulses + Edema improved Results Results 24hrs Laboratory Tests Test 07/24/18 17:31 07/24/18 20:31 07/25/18 05:49 07/25/18 08:17 Bedside Glucose 306 H 142 129 White Blood Count 7.1 Red Blood Count 4.31 L Hemoglobin 10.8 L Hematocrit 34.6 L Mean Corpuscular 80.3 L Volume Mean Corpuscular 25.1 L Hemoglobin Mean Corpuscular 31.2 L Hemoglobin Concent Red Cell 18.1 H Distribution Width Platelet Count 166 Mean Platelet Volume 12.7 H Immature 0.300 Granulocytes % Neutrophils % 66.2 Lymphocytes % 18.9 Monocytes % 10.5 Eosinophils % 3.4 Basophils % 0.7 Nucleated Red Blood 0.0 Cells % Immature 0.020 Granulocytes # Neutrophils # 4.7 Lymphocytes # 1.3 Monocytes # 0.7 Eosinophils # 0.2 Basophils # 0.1 Nucleated Red Blood 0.0 Cells # Sodium Level 140 Potassium Level 4.2 Chloride Level 92 L Carbon Dioxide Level 41 *H Anion Gap 7 Blood Urea Nitrogen 74 H Creatinine 2.23 H Est Glomerular 29 L Filtrat Rate mL/min Glucose Level 177 Calcium Level 9.4 Medications Medication Current Medications IV Flush (NS 3 ml) 3 ml PER PROTOCOL IV ; Start 07/18/18 at 14:00 Ondansetron HCl (Zofran Inj) 4 mg Q6H PRN IV NAUSEA/VOMITING Last administered on 07/20/18at 04:47; Admin Dose 4 MG; Start 07/18/18 at 14:00 Acetaminophen (Tylenol Tab) 650 mg Q6H PRN PO .PAIN 1-3 OR TEMP Last administered on 07/20/18 13:07; Admin Dose 650 MG; Start 07/18/18 at 14:00 Acetaminophen/ Hydrocodone Bitart ([place] (5/325)) 1 tab Q6H PRN PO .MOD PAIN 4- 6 Last administered on 07/19/18at 13:01; Admin Dose 1 TAB; Start 07/18/18 at 14:00 Morphine Sulfate (morphine) 6 mg Q4H PRN PO .SEVERE PAIN 7-10; Start 07/18/18 at 14:00 Docusate Sodium (Colace) 100 mg Q12H PRN PO .CONSTIPATION; Start 07/18/18 at 14:00 Magnesium Hydroxide (Milk Of Mag) 30 ml DAILY PRN PO .CONSTIPATION Last administered on 07/19/18 18:09; Admin Dose 30 ML; Start 07/18/18 at 14:00 Lorazepam (Ativan) 0.5 mg Q6H PRN PO ANXIETY; Start 07/18/18 at 14:00 Albuterol/ Ipratropium (Duoneb) 3 ml Q4H RESP THERAPY PRN HHN SHORTNESS OF BREATH Last administered on 07/21/18at 23:35; Admin Dose 3 ML; Start 07/18/18 at 14:00 Hydralazine HCl (Apresoline) 10 mg Q6H PRN IV ELEVATED BLOOD PRESSURE; Start 07/18/18 at 14:00 Nitroglycerin (Nitroglycerin (Sl Tab) 0.4 Mg) 1 tab Q5M PRN SL ANGINA; Start 07/18/18 at 14:00 Apixaban (Eliquis) 5 mg BID PO Last administered on 07/25/18at 08:53; Admin Dose 5 MG; Start 07/18/18 at 21:00 Digoxin (Digoxin) 0.125 mg DAILY@1300 PO Last administered on 07/24/18at 13:00; Admin Dose 0.125 MG; Start 07/19/18 at 13:00 Ergocalciferol (Drisdol) 50,000 unit Q7D PO Last administered on 07/18/18at 1 8:03; Admin Dose 50,000 UNIT; Start 07/18/18 at 14:00 Ferrous Sulfate (Ferrous Sulfate (Ec)) 325 mg BID PO Last administered on 07/25/18at 08:52; Admin Dose 325 MG; Start 07/18/18 at 21:00 Insulin Glargine (Lantus) 12 units QHS SC Last administered on 07/24/18at 20:40; Admin Dose 12 UNITS; Start 07/18/18 at 21:00 Famotidine (Pepcid) 20 mg DAILY PO Last administered on 07/25/18at 08:53; Admin Dose 20 MG; Start 07/19/18 at 09:00 Atorvastatin Calcium (Lipitor) 80 mg HS PO Last administered on 07/24/18at 20:34; Admin Dose 80 MG; Start 07/18/18 at 21:00 Diagnostic Test (Pha) (Accu-Chek) 1 ea 02 XX Last administered on 07/24/18at 02:29; Admin Dose 1 EA; Start 07/19/18 at 02:00 Miscellaneous Information 1 ea NOTE XX ; Start 07/18/18 at 14:30 Glucose (Glutose) 15 gm Q15M PRN PO DECREASED GLUCOSE; Start 07/18/18 at 14:30 Glucose (Glutose) 22.5 gm Q15M PRN PO DECREASED GLUCOSE; Start 07/18/18 at 14:30 Dextrose (D50w Syringe) 25 ml Q15M PRN IV DECREASED GLUCOSE; Start 07/18/18 at 14:30 Dextrose (D50w Syringe) 50 ml Q15M PRN IV DECREASED GLUCOSE; Start 07/18/18 at 14:30 Glucagon (Glucagen) 1 mg Q15M PRN IM DECREASED GLUCOSE; Start 07/18/18 at 14:30 Glucose (Glutose) 15 gm Q15M PRN BUCCAL DECREASED GLUCOSE Last administered on 07/21/18at 08:36; Admin Dose 15 GM; Start 07/18/18 at 14:30 Nicotine (Nicoderm 21 Mg/ 24hr) 1 patch DAILY TRANSDERM ; Start 07/18/18 at 16:30 Metoprolol Succinate (Toprol Xl) 25 mg DAILY PO Last administered on 07/25/18 08:53; Admin Dose 25 MG; Start 07/19/18 at 09:00 Patient Own Medication 1 ea BID PO Last administered on 07/19/18 08:09; Admin Dose 1 EA; Start 07/18/18 at 21:00; Status Hold Famotidine (Pepcid) 20 mg Q24H PO Last administered on 07/24/18 21:06; Admin Dose 20 MG; Start 07/18/18 at 22:00 Insulin Aspart (Novolog Insulin Pen) (Adult SC Insulin - Mild Algorithm)... AC MEALS AND BEDTIME SC Last administered on 07/24/18 17:41; Admin Dose 5 UNIT; Start 07/19/18 at 17:25 Miscellaneous Information Patients own medicat... BID@10,16 XX Last administered on 07/22/18 16:28; Admin Dose 1,600 EA; Start 07/20/18 at 10:00 Metolazone (Zaroxolyn) 2.5 mg BID PO Last administered on 07/25/18 08:52; Admin Dose 2.5 MG; Start 07/20/18 at 17:15 Doxazosin Mesylate (Cardura) 4 mg HS PO Last administered on 07/22/18 21:14; Admin Dose 4 MG; Start 07/21/18 at 21:00 Trazodone HCl (Desyrel) 50 mg HS PO ; Start 07/23/18 at 00:30 Acetazolamide (Diamox) 500 mg DAILY IV Last administered on 07/25/18 08:54; Admin Dose 500 MG; Start 07/25/18 at 09:00; Stop 07/30/18 at 08:59 Furosemide (Lasix) 40 mg BID DIURETICS PO ; Start 07/25/18 at 18:00 MONICA JONES MD Jul 25, 2018 12:24
[2018-07-25] MEDS: DIGOXIN 0.125 MG TAB PO SCH (12:40)
[2018-07-25] MEDS: ERGOCALCIFEROL 50,000 UNIT CAP PO SCH (13:00)
--- NOTE | 2018-07-25 15:43 | PN ---
Date/Time of Note Date/Time of Note DATE: 07/25/18 TIME: 15:40 Assessment/Plan VTE Prophylaxis Risk score (from [facility])>0 risk: 10 SCD applied (from [facility]): No SCD contraindicated: other (not contraindicated) Pharmacological prophylaxis: apixaban Lines/Catheters IV [facility] (from [facility] Saline Lock Urinary Cath still in place: No Assessment/Plan Assessment/Plan 67-year-old man coming in with chest pressure, shortness of breath, lower extremity swelling, signs of congestive heart failure exacerbation, also rule out for acute coronary syndrome. 1. Shortness of breath and chest pressure -overall slowly improving now. -Continue fluid restriction as recommended by cardiology and renal teams, apparently for now still continue 3 times a day IV Lasix, lower dose metolazone, and low-dose beta-leatha -Continue to keep the head of the bed greater than 30 degrees - follow up Cardiology recommendations and continue digoxin for now. -Off of Entresto presently while in-house 2. Acute on chronic kidney disease. Again, the kidney function appears to be sl ightly worse than when he was here 2 months ago. Creatinine levels have been in the low to mid 2 range. Patient having adequate urine output. -Follow-up recommendations from renal consult -Continue to carefully monitor BUN and creatinine levels and urine output. 3. Smoking history. -Counseled on cessation. -Continue nicotine patch. 4. History of hypertension. Again, see above. - Continue current medications. - Also hydralazine p.r.n. 5. History of atrial fibrillation -appears stable -Monitor, continue Eliquis as well. 6. Type 2 diabetes. A1c equals 9.0, sugars presently stable - continue Lantus and sliding scale insulin. 7. Deep venous thrombosis prophylaxis-on Eliquis. Result Diagram: 07/25/18 0549 07/25/18 0549 Subjective 24 Hr Interval Summary Free Text/Dictation Patient feeling well. Lying flat in bed on oxygen nasal cannula. No complaints. Exam/Review of Systems Exam Vitals Vital Signs Date Temp Pulse Resp B/P (MAP) Pulse Ox O2 O2 Flow FiO2 Time Delivery Rate 07/25/18 44 12:00 07/25/18 98.0 20 109/57 100 3.0 11:38 (74) 07/25/18 Nasal 07:25 Cannula 07/25/18 31 04:29 Intake and Output 07/24/18 07/24/18 07/25/18 1414:59 22:59 06:59 IntakeIntake Total 650 ml 100 ml OutputOutput Total 1200 ml BalanceBalance -550 ml 100 ml Exam GENERAL: lying in bed, in no acute distress. HEENT: Pupils equal, round and reactive to light. Extraocular muscles are intact. NECK: Supple, no thyromegaly. LUNGS: Distant breath sounds bilaterally, no crackles appreciated. CARDIOVASCULAR: Irregularly irregular heart rate. No rubs or gallops. ABDOMEN: Soft, nontender and nondistended. Normal bowel sounds. No rebound or guarding. MUSCULOSKELETAL: 1+ pitting edema in bilateral lower extremities to the mid calves. Medications Medication Current Medications IV Flush (NS 3 ml) 3 ml PER PROTOCOL IV ; Start 07/18/18 at 14:00 Ondansetron HCl (Zofran Inj) 4 mg Q6H PRN IV NAUSEA/VOMITING Last administered on 07/20/18at 04:47; Admin Dose 4 MG; Start 07/18/18 at 14:00 Acetaminophen (Tylenol Tab) 650 mg Q6H PRN PO .PAIN 1-3 OR TEMP Last administered on 07/20/18at 13:07; Admin Dose 650 MG; Start 07/18/18 at 14:00 Acetaminophen/ Hydrocodone Bitart ([place] (5/325)) 1 tab Q6H PRN PO .MOD PAIN 4- 6 Last administered on 07/19/18at 13:01; Admin Dose 1 TAB; Start 07/18/18 at 14:00 Morphine Sulfate (morphine) 6 mg Q4H PRN PO .SEVERE PAIN 7-10; Start 07/18/18 at 14:00 Docusate Sodium (Colace) 100 mg Q12H PRN PO .CONSTIPATION; Start 07/18/18 at 14:00 Magnesium Hydroxide (Milk Of Mag) 30 ml DAILY PRN PO .CONSTIPATION Last administered on 07/19/18at 18:09; Admin Dose 30 ML; Start 07/18/18 at 14:00 Lorazepam (Ativan) 0.5 mg Q6H PRN PO ANXIETY; Start 07/18/18 at 14:00 Albuterol/ Ipratropium (Duoneb) 3 ml Q4H RESP THERAPY PRN HHN SHORTNESS OF BREATH Last administered on 07/21/18 23:35; Admin Dose 3 ML; Start 07/18/18 at 14:00 Hydralazine HCl (Apresoline) 10 mg Q6H PRN IV ELEVATED BLOOD PRESSURE; Start 07/18/18 at 14:00 Nitroglycerin (Nitroglycerin (Sl Tab) 0.4 Mg) 1 tab Q5M PRN SL ANGINA; Start 07/18/18 at 14:00 Apixaban (Eliquis) 5 mg BID PO Last administered on 07/25/18 08:53; Admin Dose 5 MG; Start 07/18/18 at 21:00 Digoxin (Digoxin) 0.125 mg DAILY@1300 PO Last administered on 07/25/18 12:40; Admin Dose 0.125 MG; Start 07/19/18 at 13:00 Ergocalciferol (Drisdol) 50,000 unit Q7D PO Last administered on 07/25/18 13:00; Admin Dose 50,000 UNIT; Start 07/18/18 at 14:00 Ferrous Sulfate (Ferrous Sulfate (Ec)) 325 mg BID PO Last administered on 07/25/18 08:52; Admin Dose 325 MG; Start 07/18/18 at 21:00 Insulin Glargine (Lantus) 12 units QHS SC Last administered on 07/24/18 20:40; Admin Dose 12 UNITS; Start 07/18/18 at 21:00 Famotidine (Pepcid) 20 mg DAILY PO Last administered on 07/25/18 08:53; Admin Dose 20 MG; Start 07/19/18 at 09:00 Atorvastatin Calcium (Lipitor) 80 mg HS PO Last administered on 07/24/18 20:34; Admin Dose 80 MG; Start 07/18/18 at 21:00 Diagnostic Test (Pha) (Accu-Chek) 1 ea 02 XX Last administered on 07/24/18at 02:29; Admin Dose 1 EA; Start 07/19/18 at 02:00 Miscellaneous Information 1 ea NOTE XX ; Start 07/18/18 at 14:30 Glucose (Glutose) 15 gm Q15M PRN PO DECREASED GLUCOSE; Start 07/18/18 at 14:30 Glucose (Glutose) 22.5 gm Q15M PRN PO DECREASED GLUCOSE; Start 07/18/18 at 14:30 Dextrose (D50w Syringe) 25 ml Q15M PRN IV DECREASED GLUCOSE; Start 07/18/18 at 14:30 Dextrose (D50w Syringe) 50 ml Q15M PRN IV DECREASED GLUCOSE; Start 07/18/18 at 14:30 Glucagon (Glucagen) 1 mg Q15M PRN IM DECREASED GLUCOSE; Start 07/18/18 at 14:30 Glucose (Glutose) 15 gm Q15M PRN BUCCAL DECREASED GLUCOSE Last administered on 07/21/18at 08:36; Admin Dose 15 GM; Start 07/18/18 at 14:30 Nicotine (Nicoderm 21 Mg/ 24hr) 1 patch DAILY TRANSDERM ; Start 07/18/18 at 16:30 Metoprolol Succinate (Toprol Xl) 25 mg DAILY PO Last administered on 07/25/18 08:53; Admin Dose 25 MG; Start 07/19/18 at 09:00 Patient Own Medication 1 ea BID PO Last administered on 07/19/18 08:09; Admin Dose 1 EA; Start 07/18/18 at 21:00; Status Hold Famotidine (Pepcid) 20 mg Q24H PO Last administered on 07/24/18 21:06; Admin Dose 20 MG; Start 07/18/18 at 22:00 Insulin Aspart (Novolog Insulin Pen) (Adult SC Insulin - Mild Algorithm)... AC MEALS AND BEDTIME SC Last administered on 07/25/18 12:45; Admin Dose 3 UNIT; Start 07/19/18 at 17:25 Miscellaneous Information Patients own medicat... BID@10,16 XX Last administered on 07/22/18at 16:28; Admin Dose 1,600 EA; Start 07/20/18 at 10:00 Doxazosin Mesylate (Cardura) 4 mg HS PO Last administered on 07/22/18 21:14; Admin Dose 4 MG; Start 07/21/18 at 21:00 Trazodone HCl (Desyrel) 50 mg HS PO ; Start 07/23/18 at 00:30 Acetazolamide (Diamox) 500 mg DAILY IV Last administered on 07/25/18at 08:54; Admin Dose 500 MG; Start 07/25/18 at 09:00; Stop 07/30/18 at 08:59 Furosemide (Lasix) 40 mg BID DIURETICS PO ; Start 07/25/18 at 18:00 DEVIN BALDWIN MD Jul 25, 2018 15:43
[2018-07-25] MEDS: FUROSEMIDE 40 MG TAB PO SCH (17:44)
[2018-07-25] MEDS: traZODone 50 MG TAB PO SCH (20:06)
[2018-07-25] MEDS: MAGNESIUM HYDROXIDE 30ML CUP PO PRN (20:06)
[2018-07-25] MEDS: ATORVASTATIN 80 MG TAB PO SCH (20:06)
[2018-07-25] MEDS: DOXAZOSIN 4 MG TAB PO SCH (20:06)
[2018-07-25] MEDS: INSULIN GLARGINE [LANTus] (100 UNITS/ML) SYG SC SCH (21:25)
[2018-07-26] VITALS (10 sets, daily range): BP systolic 87–111; BP diastolic 51–56; PULSE 53–71; RESP 18
[2018-07-26] MEDS: ACCU-CHEK XX SCH (01:54)
[2018-07-26] MEDS: FUROSEMIDE 40 MG TAB PO SCH ×2 (05:37→17:12)
[2018-07-26] MEDS: NICOTINE (21 MG/24 HR) PATCH TRANSDERM SCH (08:30)
[2018-07-26] MEDS: METOPROLOL (XL) 25 MG TAB PO SCH (08:35)
[2018-07-26] MEDS: APIXABAN 5 MG TABLET PO SCH ×2 (08:36→20:15)
[2018-07-26] MEDS: FAMOTIDINE 20 MG TAB PO SCH (08:36)
[2018-07-26] MEDS: FERROUS SULFATE (EC) 325 MG TAB PO SCH ×2 (08:36→20:15)
[2018-07-26] MEDS: ACETAZOLAMIDE 500 MG INJ IV SCH (08:37)
[2018-07-26] MEDS: Insulin NOVOLOG SS MILD Algorithm (SS with meals and bedtime) SC SCH ×4 (08:42→20:25)
--- NOTE | 2018-07-26 10:00 | CONS ---
Consult Date/Type/Reason Admit Date/Time Jul 18, 2018 at 13:13 Initial Consult Date Requesting Provider: MELVI LANCE Date/Time of Note DATE: 07/26/18 TIME: 09:58 Subjective NO acute events - tolerated PO diuresis - dispo to follow. ROS: No fever, no chills, no nausea, no vomiting, no diarrhea/constipation No recent weight changes No chest pain, no PND, no orthopnea - improved SOB. No dizziness, blurred vision No thirst, no heat or cold intolerance Objective Vitals Vital Signs Date Temp Pulse Resp B/P (MAP) Pulse Ox O2 O2 Flow FiO2 Time Delivery Rate 07/26/18 53 09:05 07/26/18 98.8 18 102/56 95 Nasal 07:27 (71) Cannula 07/26/18 3.0 03:05 07/25/18 31 04:29 Intake and Output 07/25/18 07/25/18 07/26/18 1414:59 22:59 06:59 IntakeIntake Total 600 ml OutputOutput Total 1600 ml BalanceBalance -1000 ml Exam General: WN/WD/NAD, AOx 3 HEENT: Unicetric/atraumatic/EOMI (follow commands) NECK: JVD elevated, no thyromegaly Lymph: no lymphadenopathy HEART: regular with no S3, II/ systolic murmur at apex, PMI L LUNGS: Coarse sounds ABD: soft, NT, ND, +BS : Intact Neuro: non focal SKIN: chronic changes EXT: trace edema Results/Medications Result Diagram: 07/26/18 0609 07/26/18 0609 Results 24 hrs Laboratory Tests Test 07/25/18 12:39 07/25/18 17:36 07/25/18 21:21 07/26/18 01:52 Bedside Glucose 225 H 195 207 167 Test 07/26/18 06:09 07/26/18 08:34 White Blood Count 6.0 Red Blood Count 4.80 Hemoglobin 11.5 L Hematocrit 38.5 L Mean Corpuscular 80.2 L Volume Mean Corpuscular 24.0 L Hemoglobin Mean Corpuscular 29.9 L Hemoglobin Concent Red Cell 18.2 H Distribution Width Platelet Count 169 Mean Platelet Volume 11.9 H Immature 0.300 Granulocytes % Neutrophils % 68.3 Lymphocytes % 19.2 Monocytes % 9.2 Eosinophils % 2.0 Basophils % 1.0 Nucleated Red Blood 0.0 Cells % Immature 0.020 Granulocytes # Neutrophils # 4.1 Lymphocytes # 1.2 Monocytes # 0.6 Eosinophils # 0.1 Basophils # 0.1 Nucleated Red Blood 0.0 Cells # Sodium Level 142 Potassium Level 4.5 Chloride Level 87 L Carbon Dioxide Level 41 *H Anion Gap 14 #H Blood Urea Nitrogen 69 H Creatinine 2.39 H Est Glomerular 27 L Filtrat Rate mL/min Glucose Level 139 Calcium Level 9.7 Bedside Glucose 172 Home Meds Reported Medications Metoprolol Succinate* (Toprol XL*) 25 Mg Tab.sr.24h, 25 MG PO DAILY, #30 TAB 07/18/18 Sacubitril/Valsartan (Entresto 97 mg-103 mg Tablet) 1 Each Tablet, 1 TAB PO BID 05/13/18 Digoxin* (Digox*) 125 Mcg Tablet, 0.125 MG PO DAILY, TAB 05/13/18 Apixaban* (Eliquis*) 5 Mg Tablet, 5 MG PO BID, TAB 08/19/15 Insulin Aspart* (Novolog Insulin Vial*) 100 U/Ml Vial, 0 SC SLIDING SCALE AC, VIAL 08/19/15 Insulin Glargine* (Lantus*) 100 Unit/Ml Soln, 12 UNIT SC QHS, #1 VIAL 08/19/15 Esomeprazole Mag Trihydrate (Nexium) 40 Mg Capsule.dr, 40 MG PO DAILY, #30 CAP 08/19/15 Furosemide* (Furosemide*) 40 Mg Tablet, 40 MG PO DAILY, TAB 08/19/15 Amlodipine Besylate* (Norvasc*) 5 Mg Tablet, 5 MG PO DAILY, TAB 02/19/15 Rosuvastatin Calcium* (Crestor*) 20 Mg Tablet, 20 MG PO HS, TAB 02/19/15 Ergocalciferol* (Drisdol* (Vitamin D2)) 50,000 Unit Capsule, 70435 UNIT PO Q7D, CAP Mondays02/19/15 Doxazosin Mesylate* (Doxazosin Mesylate*) 4 Mg Tablet, 4 MG PO BID, TAB 08/17/14 Ferrous Sulfate* (Ferrous Sulfate*) 325 Mg Tabec, 325 MG PO BID, TAB 08/17/14 Medications Current Medications IV Flush (NS 3 ml) 3 ml PER PROTOCOL IV ; Start 07/18/18 at 14:00 Ondansetron HCl (Zofran Inj) 4 mg Q6H PRN IV NAUSEA/VOMITING Last administered on 07/20/18 04:47; Admin Dose 4 MG; Start 07/18/18 at 14:00 Acetaminophen (Tylenol Tab) 650 mg Q6H PRN PO .PAIN 1-3 OR TEMP Last administered on 07/20/18 13:07; Admin Dose 650 MG; Start 07/18/18 at 14:00 Acetaminophen/ Hydrocodone Bitart ([place] (5/325)) 1 tab Q6H PRN PO .MOD PAIN 4- 6 Last administered on 07/19/18 13:01; Admin Dose 1 TAB; Start 07/18/18 at 1 4:00 Morphine Sulfate (morphine) 6 mg Q4H PRN PO .SEVERE PAIN 7-10; Start 07/18/18 at 14:00 Docusate Sodium (Colace) 100 mg Q12H PRN PO .CONSTIPATION Last administered on 07/25/18 20:37; Admin Dose 100 MG; Start 07/18/18 at 14:00 Magnesium Hydroxide (Milk Of Mag) 30 ml DAILY PRN PO .CONSTIPATION Last administered on 07/25/18 20:06; Admin Dose 30 ML; Start 07/18/18 at 14:00 Lorazepam (Ativan) 0.5 mg Q6H PRN PO ANXIETY; Start 07/18/18 at 14:00 Albuterol/ Ipratropium (Duoneb) 3 ml Q4H RESP THERAPY PRN HHN SHORTNESS OF BREATH Last administered on 07/21/18at 23:35; Admin Dose 3 ML; Start 07/18/18 at 14:00 Hydralazine HCl (Apresoline) 10 mg Q6H PRN IV ELEVATED BLOOD PRESSURE; Start 07/18/18 at 14:00 Nitroglycerin (Nitroglycerin (Sl Tab) 0.4 Mg) 1 tab Q5M PRN SL ANGINA; Start 07/18/18 at 14:00 Apixaban (Eliquis) 5 mg BID PO Last administered on 07/26/18 08:36; Admin Dose 5 MG; Start 07/18/18 at 21:00 Digoxin (Digoxin) 0.125 mg DAILY@1300 PO Last administered on 07/25/18at 12:40; Admin Dose 0.125 MG; Start 07/19/18 at 13:00 Ergocalciferol (Drisdol) 50,000 unit Q7D PO Last administered on 07/25/18at 13:00; Admin Dose 50,000 UNIT; Start 07/18/18 at 14:00 Ferrous Sulfate (Ferrous Sulfate (Ec)) 325 mg BID PO Last administered on 07/26/18 08:36; Admin Dose 325 MG; Start 07/18/18 at 21:00 Insulin Glargine (Lantus) 12 units QHS SC Last administered on 07/25/18 21:25; Admin Dose 12 UNITS; Start 07/18/18 at 21:00 Famotidine (Pepcid) 20 mg DAILY PO Last administered on 07/26/18 08:36; Admin Dose 20 MG; Start 07/19/18 at 09:00 Atorvastatin Calcium (Lipitor) 80 mg HS PO Last administered on 07/25/18at 20:06; Admin Dose 80 MG; Start 07/18/18 at 21:00 Diagnostic Test (Pha) (Accu-Chek) 1 ea 02 XX Last administered on 07/26/18at 01:54; Admin Dose 1 EA; Start 07/19/18 at 02:00 Miscellaneous Information 1 ea NOTE XX ; Start 07/18/18 at 14:30 Glucose (Glutose) 15 gm Q15M PRN PO DECREASED GLUCOSE; Start 07/18/18 at 14:30 Glucose (Glutose) 22.5 gm Q15M PRN PO DECREASED GLUCOSE; Start 07/18/18 at 14:30 Dextrose (D50w Syringe) 25 ml Q15M PRN IV DECREASED GLUCOSE; Start 07/18/18 at 14:30 Dextrose (D50w Syringe) 50 ml Q15M PRN IV DECREASED GLUCOSE; Start 07/18/18 at 14:30 Glucagon (Glucagen) 1 mg Q15M PRN IM DECREASED GLUCOSE; Start 07/18/18 at 14:30 Glucose (Glutose) 15 gm Q15M PRN BUCCAL DECREASED GLUCOSE Last administered on 07/21/18 08:36; Admin Dose 15 GM; Start 07/18/18 at 14:30 Nicotine (Nicoderm 21 Mg/ 24hr) 1 patch DAILY TRANSDERM ; Start 07/18/18 at 16:30 Metoprolol Succinate (Toprol Xl) 25 mg DAILY PO Last administered on 07/25/18 08:53; Admin Dose 25 MG; Start 07/19/18 at 09:00 Patient Own Medication 1 ea BID PO Last administered on 07/19/18 08:09; Admin Dose 1 EA; Start 07/18/18 at 21:00; Status Hold Famotidine (Pepcid) 20 mg Q24H PO Last administered on 07/25/18 22:09; Admin Dose 20 MG; Start 07/18/18 at 22:00 Insulin Aspart (Novolog Insulin Pen) (Adult SC Insulin - Mild Algorithm)... AC MEALS AND BEDTIME SC Last administered on 07/26/18 08:42; Admin Dose 1 UNIT; Start 07/19/18 at 17:25 Miscellaneous Information Patients own medicat... BID@10,16 XX Last administered on 07/22/18 16:28; Admin Dose 1,600 EA; Start 07/20/18 at 10:00 Doxazosin Mesylate (Cardura) 4 mg HS PO Last administered on 07/22/18 21:14; Admin Dose 4 MG; Start 07/21/18 at 21:00 Trazodone HCl (Desyrel) 50 mg HS PO Last administered on 07/25/18 20:06; Admin Dose 50 MG; Start 07/23/18 at 00:30 Acetazolamide (Diamox) 500 mg DAILY IV Last administered on 07/26/18 08:37; Admin Dose 500 MG; Start 07/25/18 at 09:00; Stop 07/30/18 at 08:59 Furosemide (Lasix) 40 mg BID DIURETICS PO Last administered on 07/26/18 05:37; Admin Dose 40 MG; Start 07/25/18 at 18:00 Assessment/Plan Hospital Course (Demo Recall) 1.CHF- systolic acute on chronic - responded wel to diuresis - con't Rx and afterload reduction. Better now - to PO - stable- Cr ok at 2.39. 2.Cardiomyopathy- EF 30% - ICD in place. 3.CKD - Cr at 2.4 - close to baseline - with diuresis. Stable x 4 days. Renal team on the case. 4.HTN - well Rx now. WEll Rx. Treated., 5.Dyslipidemia 6. Hepatomegaly-likley due to passive congestion of liver - primary follows. KINSEY PEPPER MD Jul 26, 2018 10:00
[2018-07-26] MEDS: DIGOXIN 0.125 MG TAB PO SCH (13:00)
[2018-07-26] MEDS ORDERED: SENNA TAB PO PRN (13:30)
--- NOTE | 2018-07-26 14:32 | PN ---
Date/Time of Note Date/Time of Note DATE: 07/26/18 TIME: 14:29 Assessment/Plan VTE Prophylaxis Risk score (from Ns)>0 risk: 5 SCD applied (from Ns): No SCD contraindicated: other (no) Pharmacological prophylaxis: apixaban Lines/Catheters IV [facility]ter Type [facility]from [facility] Urinary Cath still in place: No Assessment/Plan Assessment/Plan 67-year-old man coming in with chest pressure, shortness of breath, lower extremity swelling, signs of congestive heart failure exacerbation. 1. Shortness of breath and chest pressure -overall slowly improving now. -Continue fluid restriction as recommended by cardiology and renal teams. -Currently holding diuresis due to severe contraction alkalosis. - follow up Cardiology recommendations and continue digoxin for now. -Off of Entresto presently while in-house 2. Acute on chronic kidney disease. Again, the kidney function appears to be slightly worse than when he was here 2 months ago. Creatinine levels have been in the low to mid 2 range. Patient having adequate urine output. -Follow-up recommendations from renal consult -Continue to carefully monitor BUN and creatinine levels and urine output. 3. Smoking history. -Counseled on cessation. -Continue nicotine patch. 4. History of hypertension. Again, see above. - Continue current medications. - Also hydralazine p.r.n. 5. History of atrial fibrillation -appears stable -Monitor, continue Eliquis as well. 6. Type 2 diabetes. A1c equals 9.0, sugars presently stable - continue Lantus and sliding scale insulin. 7. Deep venous thrombosis prophylaxis-on Eliquis. Result Diagram: 07/26/18 0609 07/26/18 0609 Subjective 24 Hr Interval Summary Free Text/Dictation No acute overnight events. Patient feeling slightly better. Still requiring oxygen. Able to ambulate independently to bathroom. He does have severe constipation and during a particularly forceful bowel movement this afternoon he did have small spots of blood on the tissue. Exam/Review of Systems Exam Vitals Vital Signs Date Temp Pulse Resp B/P (MAP) Pulse Ox O2 O2 Flow FiO2 Time Delivery Rate 07/26/18 57 12:49 07/26/18 98.4 18 99/53 (68) 96 12:11 07/26/18 Nasal 2.0 08:15 Cannula 07/25/18 31 04:29 Intake and Output 07/25/18 07/25/18 07/26/18 1515:00 23:00 07:00 IntakeIntake Total 600 ml OutputOutput Total 1600 ml BalanceBalance -1000 ml Exam GENERAL: lying in bed, in no acute distress. HEENT: Pupils equal, round and reactive to light. Extraocular muscles are intact. NECK: Supple, no thyromegaly. LUNGS: Distant breath sounds bilaterally, no crackles appreciated. CARDIOVASCULAR: Irregularly irregular heart rate. No rubs or gallops. ABDOMEN: Soft, nontender and nondistended. Normal bowel sounds. No rebound or guarding. MUSCULOSKELETAL: 1+ pitting edema in bilateral lower extremities to the mid calves. Medications Medication Current Medications IV Flush (NS 3 ml) 3 ml PER PROTOCOL IV ; Start 07/18/18 at 14:00 Ondansetron HCl (Zofran Inj) 4 mg Q6H PRN IV NAUSEA/VOMITING Last administered on 07/20/18 04:47; Admin Dose 4 MG; Start 07/18/18 at 14:00 Acetaminophen (Tylenol Tab) 650 mg Q6H PRN PO .PAIN 1-3 OR TEMP Last administered on 07/20/18 13:07; Admin Dose 650 MG; Start 07/18/18 at 14:00 Acetaminophen/ Hydrocodone Bitart ([place] (5/325)) 1 tab Q6H PRN PO .MOD PAIN 4- 6 Last administered on 07/19/18 13:01; Admin Dose 1 TAB; Start 07/18/18 at 14:00 Morphine Sulfate (morphine) 6 mg Q4H PRN PO .SEVERE PAIN 7-10; Start 07/18/18 at 14:00 Docusate Sodium (Colace) 100 mg Q12H PRN PO .CONSTIPATION Last administered on 07/25/18 20:37; Admin Dose 100 MG; Start 07/18/18 at 14:00 Magnesium Hydroxide (Milk Of Mag) 30 ml DAILY PRN PO .CONSTIPATION Last administered on 07/25/18 20:06; Admin Dose 30 ML; Start 07/18/18 at 14:00 Lorazepam (Ativan) 0.5 mg Q6H PRN PO ANXIETY; Start 07/18/18 at 14:00 Albuterol/ Ipratropium (Duoneb) 3 ml Q4H RESP THERAPY PRN HHN SHORTNESS OF BREATH Last administered on 07/21/18 23:35; Admin Dose 3 ML; Start 07/18/18 at 14:00 Hydralazine HCl (Apresoline) 10 mg Q6H PRN IV ELEVATED BLOOD PRESSURE; Start 07/18/18 at 14:00 Nitroglycerin (Nitroglycerin (Sl Tab) 0.4 Mg) 1 tab Q5M PRN SL ANGINA; Start 07/18/18 at 14:00 Apixaban (Eliquis) 5 mg BID PO Last administered on 07/26/18 08:36; Admin Dose 5 MG; Start 07/18/18 at 21:00 Digoxin (Digoxin) 0.125 mg DAILY@1300 PO Last administered on 07/25/18 12:40; Admin Dose 0.125 MG; Start 07/19/18 at 13:00 Ergocalciferol (Drisdol) 50,000 unit Q7D PO Last administered on 07/25/18 13:00; Admin Dose 50,000 UNIT; Start 07/18/18 at 14:00 Ferrous Sulfate (Ferrous Sulfate (Ec)) 325 mg BID PO Last administered on 07/26/18 08:36; Admin Dose 325 MG; Start 07/18/18 at 21:00 Insulin Glargine (Lantus) 12 units QHS SC Last administered on 07/25/18 21:25; Admin Dose 12 UNITS; Start 07/18/18 at 21:00 Famotidine (Pepcid) 20 mg DAILY PO Last administered on 07/26/18 08:36; Admin Dose 20 MG; Start 07/19/18 at 09:00 Atorvastatin Calcium (Lipitor) 80 mg HS PO Last administered on 07/25/18 20:06; Admin Dose 80 MG; Start 07/18/18 at 21:00 Diagnostic Test (Pha) (Accu-Chek) 1 ea 02 XX Last administered on 07/26/18 01:54; Admin Dose 1 EA; Start 07/19/18 at 02:00 Miscellaneous Information 1 ea NOTE XX ; Start 07/18/18 at 14:30 Glucose (Glutose) 15 gm Q15M PRN PO DECREASED GLUCOSE; Start 07/18/18 at 14:30 Glucose (Glutose) 22.5 gm Q15M PRN PO DECREASED GLUCOSE; Start 07/18/18 at 14:30 Dextrose (D50w Syringe) 25 ml Q15M PRN IV DECREASED GLUCOSE; Start 07/18/18 at 14:30 Dextrose (D50w Syringe) 50 ml Q15M PRN IV DECREASED GLUCOSE; Start 07/18/18 at 14:30 Glucagon (Glucagen) 1 mg Q15M PRN IM DECREASED GLUCOSE; Start 07/18/18 at 14:30 Glucose (Glutose) 15 gm Q15M PRN BUCCAL DECREASED GLUCOSE Last administered on 07/21/18 08:36; Admin Dose 15 GM; Start 07/18/18 at 14:30 Nicotine (Nicoderm 21 Mg/ 24hr) 1 patch DAILY TRANSDERM ; Start 07/18/18 at 16:30 Metoprolol Succinate (Toprol Xl) 25 mg DAILY PO Last administered on 07/25/18 08:53; Admin Dose 25 MG; Start 07/19/18 at 09:00 Patient Own Medication 1 ea BID PO Last administered on 07/19/18 08:09; Admin Dose 1 EA; Start 07/18/18 at 21:00; Status Hold Famotidine (Pepcid) 20 mg Q24H PO Last administered on 07/25/18 22:09; Admin Dose 20 MG; Start 07/18/18 at 22:00 Insulin Aspart (Novolog Insulin Pen) (Adult SC Insulin - Mild Algorithm)... AC MEALS AND BEDTIME SC Last administered on 07/26/18 12:04; Admin Dose 2 UNIT; Start 07/19/18 at 17:25 Miscellaneous Information Patients own medicat... BID@10,16 XX Last administered on 07/22/18 16:28; Admin Dose 1,600 EA; Start 07/20/18 at 10:00 Doxazosin Mesylate (Cardura) 4 mg HS PO Last administered on 07/22/18 21:14; Admin Dose 4 MG; Start 07/21/18 at 21:00 Trazodone HCl (Desyrel) 50 mg HS PO Last administered on 07/25/18 20:06; Admin Dose 50 MG; Start 07/23/18 at 00:30 Acetazolamide (Diamox) 500 mg DAILY IV Last administered on 07/26/18 08:37; Admin Dose 500 MG; Start 07/25/18 at 09:00; Stop 07/30/18 at 08:59 Furosemide (Lasix) 40 mg BID DIURETICS PO Last administered on 07/26/18at 05:37; Admin Dose 40 MG; Start 07/25/18 at 18:00 Senna (Senokot) 1 tab BID PRN PO CONSTIPATION; Start 07/26/18 at 13:30 DEVIN BALDWIN MD Jul 26, 2018 14:32
--- NOTE | 2018-07-26 14:47 | CONS ---
Assessment/Plan Assessment/Plan Assessment/Plan (Daily) A 67-year-old male presenting with: 1. Shortness of breath with bilateral lower extremity edema, orthopnea and PND likely secondary to acute on chronic congestive heart failure. 2. Acute on chronic renal failure; however, the patient's baseline creatinine ranges from 1.9 to 2. On last discharge in May, the creatinine was 1.9. This could be all secondary to cardiorenal as the patient is clearly in decompensated heart failure right now. now reached a euvolemic state, pt had Renal U/S in 05/24 which showed chronci kidney disease. Cr 2.23 >2.39 3. History of atrial fibrillation. 4. Hypertension. 5. Diabetes. 6. Hyperlipidemia. 7. BPH. 8. Positive troponin with chest pain ? NSTEMI 9. Elevated BNP. 10 Contraction alkalosis with worsening uremia PLAN: - Will check ABG to see if true contraction alkalosis - neg 1 L -changeD lasix to 40 bid yesterday> cw for now - diamox iv 500 mg iv for total 5 days, will reassess daily - cw hold off Entresto at this point. - Digoxin levels normal. -. Keep a systolic blood pressure of greater than 100. - Renally dose all meds. - Avoid nephrotoxic agents. Consultation Date/Type/Reason Admit Date/Time Jul 18, 2018 at 13:13 Initial Consult Date Requesting Provider: MELVI LANCE Date/Time of Note DATE: 07/26/18 TIME: 14:45 24 HR Interval Summary Free Text/Dictation Patient is little more lethargic today According to the patient did not sleep at night Bilateral lower extremity edema is much improved Exam/Review of Systems Exam Vitals Vital Signs Date Temp Pulse Resp B/P (MAP) Pulse Ox O2 O2 Flow FiO2 Time Delivery Rate 07/26/18 57 12:49 07/26/18 98.4 18 99/53 (68) 96 12:11 07/26/18 Nasal 2.0 08:15 Cannula 07/25/18 31 04:29 Intake and Output 07/25/18 07/25/18 07/26/18 1515:00 23:00 07:00 IntakeIntake Total 600 ml OutputOutput Total 1600 ml BalanceBalance -1000 ml Exam Respiratory: diminished breath sounds Cardiovascular: regular rate and rhythm, TRICE Gastrointestinal: soft Musculoskeletal: nl extremities to inspection Extremities: normal pulses + Edema improved Results Result Diagram: 07/26/18 0609 07/26/18 0609 Results 24hrs Laboratory Tests Test 07/25/18 17:36 07/25/18 21:21 07/26/18 01:52 07/26/18 06:09 Bedside Glucose 195 207 167 White Blood Count 6.0 Red Blood Count 4.80 Hemoglobin 11.5 L Hematocrit 38.5 L Mean Corpuscular 80.2 L Volume Mean Corpuscular 24.0 L Hemoglobin Mean Corpuscular 29.9 L Hemoglobin Concent Red Cell 18.2 H Distribution Width Platelet Count 169 Mean Platelet Volume 11.9 H Immature 0.300 Granulocytes % Neutrophils % 68.3 Lymphocytes % 19.2 Monocytes % 9.2 Eosinophils % 2.0 Basophils % 1.0 Nucleated Red Blood 0.0 Cells % Immature 0.020 Granulocytes # Neutrophils # 4.1 Lymphocytes # 1.2 Monocytes # 0.6 Eosinophils # 0.1 Basophils # 0.1 Nucleated Red Blood 0.0 Cells # Sodium Level 142 Potassium Level 4.5 Chloride Level 87 L Carbon Dioxide Level 41 *H Anion Gap 14 #H Blood Urea Nitrogen 69 H Creatinine 2.39 H Est Glomerular 27 L Filtrat Rate mL/min Glucose Level 139 Calcium Level 9.7 Test 07/26/18 08:34 07/26/18 11:57 Bedside Glucose 172 201 Medications Medication Current Medications IV Flush (NS 3 ml) 3 ml PER PROTOCOL IV ; Start 07/18/18 at 14:00 Ondansetron HCl (Zofran Inj) 4 mg Q6H PRN IV NAUSEA/VOMITING Last administered on 07/20/18at 04:47; Admin Dose 4 MG; Start 07/18/18 at 14:00 Acetaminophen (Tylenol Tab) 650 mg Q6H PRN PO .PAIN 1-3 OR TEMP Last administered on 07/20/18at 13:07; Admin Dose 650 MG; Start 07/18/18 at 14:00 Acetaminophen/ Hydrocodone Bitart ([place] (5/325)) 1 tab Q6H PRN PO .MOD PAIN 4- 6 Last administered on 07/19/18at 13:01; Admin Dose 1 TAB; Start 07/18/18 at 14:00 Morphine Sulfate (morphine) 6 mg Q4H PRN PO .SEVERE PAIN 7-10; Start 07/18/18 at 14:00 Docusate Sodium (Colace) 100 mg Q12H PRN PO .CONSTIPATION Last administered on 07/25/18 20:37; Admin Dose 100 MG; Start 07/18/18 at 14:00 Magnesium Hydroxide (Milk Of Mag) 30 ml DAILY PRN PO .CONSTIPATION Last administered on 07/25/18 20:06; Admin Dose 30 ML; Start 07/18/18 at 14:00 Lorazepam (Ativan) 0.5 mg Q6H PRN PO ANXIETY; Start 07/18/18 at 14:00 Albuterol/ Ipratropium (Duoneb) 3 ml Q4H RESP THERAPY PRN HHN SHORTNESS OF BR EATH Last administered on 07/21/18 23:35; Admin Dose 3 ML; Start 07/18/18 at 14:00 Hydralazine HCl (Apresoline) 10 mg Q6H PRN IV ELEVATED BLOOD PRESSURE; Start 07/18/18 at 14:00 Nitroglycerin (Nitroglycerin (Sl Tab) 0.4 Mg) 1 tab Q5M PRN SL ANGINA; Start 07/18/18 at 14:00 Apixaban (Eliquis) 5 mg BID PO Last administered on 07/26/18 08:36; Admin Dose 5 MG; Start 07/18/18 at 21:00 Digoxin (Digoxin) 0.125 mg DAILY@1300 PO Last administered on 07/25/18 12:40; Admin Dose 0.125 MG; Start 07/19/18 at 13:00 Ergocalciferol (Drisdol) 50,000 unit Q7D PO Last administered on 07/25/18 13:00; Admin Dose 50,000 UNIT; Start 07/18/18 at 14:00 Ferrous Sulfate (Ferrous Sulfate (Ec)) 325 mg BID PO Last administered on 07/26/18 08:36; Admin Dose 325 MG; Start 07/18/18 at 21:00 Insulin Glargine (Lantus) 12 units QHS SC Last administered on 07/25/18 21:25; Admin Dose 12 UNITS; Start 07/18/18 at 21:00 Famotidine (Pepcid) 20 mg DAILY PO Last administered on 07/26/18 08:36; Admin Dose 20 MG; Start 07/19/18 at 09:00 Atorvastatin Calcium (Lipitor) 80 mg HS PO Last administered on 07/25/18at 20:06 ; Admin Dose 80 MG; Start 07/18/18 at 21:00 Diagnostic Test (Pha) (Accu-Chek) 1 ea 02 XX Last administered on 07/26/18at 01:54; Admin Dose 1 EA; Start 07/19/18 at 02:00 Miscellaneous Information 1 ea NOTE XX ; Start 07/18/18 at 14:30 Glucose (Glutose) 15 gm Q15M PRN PO DECREASED GLUCOSE; Start 07/18/18 at 14:30 Glucose (Glutose) 22.5 gm Q15M PRN PO DECREASED GLUCOSE; Start 07/18/18 at 14:30 Dextrose (D50w Syringe) 25 ml Q15M PRN IV DECREASED GLUCOSE; Start 07/18/18 at 14:30 Dextrose (D50w Syringe) 50 ml Q15M PRN IV DECREASED GLUCOSE; Start 07/18/18 at 14:30 Glucagon (Glucagen) 1 mg Q15M PRN IM DECREASED GLUCOSE; Start 07/18/18 at 14:30 Glucose (Glutose) 15 gm Q15M PRN BUCCAL DECREASED GLUCOSE Last administered on 07/21/18at 08:36; Admin Dose 15 GM; Start 07/18/18 at 14:30 Nicotine (Nicoderm 21 Mg/ 24hr) 1 patch DAILY TRANSDERM ; Start 07/18/18 at 16:30 Metoprolol Succinate (Toprol Xl) 25 mg DAILY PO Last administered on 07/25/18at 08:53; Admin Dose 25 MG; Start 07/19/18 at 09:00 Patient Own Medication 1 ea BID PO Last administered on 07/19/18at 08:09; Admin Dose 1 EA; Start 07/18/18 at 21:00; Status Hold Famotidine (Pepcid) 20 mg Q24H PO Last administered on 07/25/18at 22:09; Admin Dose 20 MG; Start 07/18/18 at 22:00 Insulin Aspart (Novolog Insulin Pen) (Adult SC Insulin - Mild Algorithm)... AC MEALS AND BEDTIME SC Last administered on 07/26/18at 12:04; Admin Dose 2 UNIT; Start 07/19/18 at 17:25 Miscellaneous Information Patients own medicat... BID@10,16 XX Last admin istered on 07/22/18 16:28; Admin Dose 1,600 EA; Start 07/20/18 at 10:00 Doxazosin Mesylate (Cardura) 4 mg HS PO Last administered on 07/22/18at 21:14; Admin Dose 4 MG; Start 07/21/18 at 21:00 Trazodone HCl (Desyrel) 50 mg HS PO Last administered on 07/25/18 20:06; Admin Dose 50 MG; Start 07/23/18 at 00:30 Acetazolamide (Diamox) 500 mg DAILY IV Last administered on 07/26/18 08:37; Admin Dose 500 MG; Start 07/25/18 at 09:00; Stop 07/30/18 at 08:59 Furosemide (Lasix) 40 mg BID DIURETICS PO Last administered on 07/26/18 05:37; Admin Dose 40 MG; Start 07/25/18 at 18:00 Senna (Senokot) 1 tab BID PRN PO CONSTIPATION; Start 07/26/18 at 13:30 MONICA JONES MD Jul 26, 2018 14:47
[2018-07-26] MEDS: DOXAZOSIN 4 MG TAB PO SCH (20:09)
[2018-07-26] MEDS: ATORVASTATIN 80 MG TAB PO SCH (20:15)
[2018-07-26] MEDS: INSULIN GLARGINE [LANTus] (100 UNITS/ML) SYG SC SCH (20:25)
[2018-07-26] MEDS: traZODone 50 MG TAB PO SCH (21:00)
[2018-07-27] VITALS (10 sets, daily range): BP systolic 91–102; BP diastolic 51–72; PULSE 52–87; RESP 18–19
[2018-07-27] MEDS: ACETAMINOPHEN 325 MG TAB PO PRN (01:50)
[2018-07-27] MEDS: ACCU-CHEK XX SCH (01:50)
[2018-07-27] MEDS: FUROSEMIDE 40 MG TAB PO SCH (05:49)
[2018-07-27] MEDS: FAMOTIDINE 20 MG TAB PO SCH (08:13)
[2018-07-27] MEDS: FERROUS SULFATE (EC) 325 MG TAB PO SCH ×2 (08:13→20:52)
[2018-07-27] MEDS: ACETAZOLAMIDE 500 MG INJ IV SCH ×2 (08:13→20:51)
[2018-07-27] MEDS: APIXABAN 5 MG TABLET PO SCH ×2 (08:14→20:51)
[2018-07-27] MEDS: NICOTINE (21 MG/24 HR) PATCH TRANSDERM SCH (08:15)
[2018-07-27] MEDS: METOPROLOL (XL) 25 MG TAB PO SCH (08:15)
[2018-07-27] MEDS: Insulin NOVOLOG SS MILD Algorithm (SS with meals and bedtime) SC SCH ×4 (08:27→20:52)
--- NOTE | 2018-07-27 10:52 | CONS ---
Assessment/Plan Assessment/Plan Assessment/Plan (Daily) A 67-year-old male presenting with: 1. Shortness of breath with bilateral lower extremity edema, orthopnea and PND likely secondary to acute on chronic congestive heart failure. 2. Acute on chronic renal failure; however, the patient's baseline creatinine ranges from 1.9 to 2. On last discharge in May, the creatinine was 1.9. This could be all secondary to cardiorenal as the patient is clearly in decompensated heart failure right now. now reached a euvolemic state, pt had Renal U/S in 05/24 which showed chronci kidney disease. Cr 2.23 >2.39>2.69 3. History of atrial fibrillation. 4. Hypertension. 5. Diabetes. 6. Hyperlipidemia. 7. BPH. 8. Positive troponin with chest pain ? NSTEMI 9. Elevated BNP. 10 Contraction alkalosis with worsening uremia today worsening bicarb 11 hypoxia on ABG due to CHF PLAN: -Hold lasix due to contraction alkalosis - iv diamox 2 doses - Consider chest US and thoracentesis on rt ? - cw hold off Entresto at this point. - Digoxin levels normal. -. Keep a systolic blood pressure of greater than 100. - Renally dose all meds. - Avoid nephrotoxic agents. Consultation Date/Type/Reason Admit Date/Time Jul 18, 2018 at 13:13 Initial Consult Date Requesting Provider: MELVI LANCE Date/Time of Note DATE: 07/27/18 TIME: 10:52 24 HR Interval Summary Free Text/Dictation Feels that the breathing has improved 7 bilateral lower extremity edema has improved Bicarb 44 and Cr UPTRENDING Exam/Review of Systems Exam Vitals Vital Signs Date Temp Pulse Resp B/P (MAP) Pulse Ox O2 O2 Flow FiO2 Time Delivery Rate 07/27/18 58 08:42 07/27/18 Nasal 2.0 07:50 Cannula 07/27/18 97.8 18 101/59 99 07:34 (73) 07/27/18 30 01:40 Intake and Output 07/26/18 07/26/18 07/27/18 1414:59 22:59 06:59 IntakeIntake Total 600 ml 600 ml 800 ml OutputOutput Total 1000 ml 1150 ml 900 ml BalanceBalance -400 ml -550 ml -100 ml Exam Respiratory: diminished breath sounds Cardiovascular: regular rate and rhythm, TRICE Gastrointestinal: soft Musculoskeletal: nl extremities to inspection Extremities: normal pulses + Edema improved Results Result Diagram: 07/26/18 0609 07/27/18 0731 Results 24hrs Laboratory Tests Test 07/26/18 11:57 07/26/18 15:00 07/26/18 17:03 07/26/18 20:09 Bedside Glucose 201 260 H 239 H Blood Gas Blood arterial Specimen Source Arterial Blood 07/26/2018 3:40:3 Date Drawn 8 PM Arterial Blood pH 7.480 H (Temp corrected) Arterial Blood 51.4 H pCO2 (Temp correct) Arterial Blood 52.7 *L pO2 (Temp corrected) Arterial Blood 37.4 H HCO3 Arterial Blood 12.1 H Base Excess Arterial Blood 88.3 L Oxygen Saturation Ankur Test ACCEPTAB Arterial Blood Right Radial Gas Puncture Site Arterial 0.8 Blood Carboxyhemo globin Arterial Blood 0.3 Methemoglobin Blood Gas A-a O2 79.0 H Differential Oxyhemoglobin 87.3 L Percent Blood Gas 37.0 Temperature Blood Gas NASAL CANNULA Modality FiO2 27.0 Blood Gas Critical Value Read Back Blood Gas RT Notified Whom Blood Gas 07/26/2018 3:50:1 Notified Time 6 PM Test 07/27/18 01:43 07/27/18 07:31 07/27/18 08:12 Bedside Glucose 239 H 147 Sodium Level 139 Potassium Level 4.0 Chloride Level 89 L Carbon Dioxide 44 *H Level Anion Gap 6 # Blood Urea 70 H Nitrogen Creatinine 2.69 H Est Glomerular 24 L Filtrat Rate mL/min Glucose Level 157 Calcium Level 9.6 Medications Medication Current Medications IV Flush (NS 3 ml) 3 ml PER PROTOCOL IV ; Start 07/18/18 at 14:00 Ondansetron HCl (Zofran Inj) 4 mg Q6H PRN IV NAUSEA/VOMITING Last administered on 07/20/18at 04:47; Admin Dose 4 MG; Start 07/18/18 at 14:00 Acetaminophen (Tylenol Tab) 650 mg Q6H PRN PO .PAIN 1-3 OR TEMP Last admini stered on 07/27/18at 01:50; Admin Dose 650 MG; Start 07/18/18 at 14:00 Acetaminophen/ Hydrocodone Bitart ([place] (5/325)) 1 tab Q6H PRN PO .MOD PAIN 4- 6 Last administered on 07/19/18 13:01; Admin Dose 1 TAB; Start 07/18/18 at 14:00 Morphine Sulfate (morphine) 6 mg Q4H PRN PO .SEVERE PAIN 7-10; Start 07/18/18 at 14:00 Docusate Sodium (Colace) 100 mg Q12H PRN PO .CONSTIPATION Last administered on 07/25/18 20:37; Admin Dose 100 MG; Start 07/18/18 at 14:00 Magnesium Hydroxide (Milk Of Mag) 30 ml DAILY PRN PO .CONSTIPATION Last administered on 07/25/18 20:06; Admin Dose 30 ML; Start 07/18/18 at 14:00 Lorazepam (Ativan) 0.5 mg Q6H PRN PO ANXIETY; Start 07/18/18 at 14:00 Albuterol/ Ipratropium (Duoneb) 3 ml Q4H RESP THERAPY PRN HHN SHORTNESS OF BREATH Last administered on 07/21/18 23:35; Admin Dose 3 ML; Start 07/18/18 at 14:00 Hydralazine HCl (Apresoline) 10 mg Q6H PRN IV ELEVATED BLOOD PRESSURE; Start 07/18/18 at 14:00 Nitroglycerin (Nitroglycerin (Sl Tab) 0.4 Mg) 1 tab Q5M PRN SL ANGINA; Start 07/18/18 at 14:00 Apixaban (Eliquis) 5 mg BID PO Last administered on 07/27/18 08:14; Admin Dose 5 MG; Start 07/18/18 at 21:00 Digoxin (Digoxin) 0.125 mg DAILY@1300 PO Last administered on 07/25/18 12:40; Admin Dose 0.125 MG; Start 07/19/18 at 13:00 Ergocalciferol (Drisdol) 50,000 unit Q7D PO Last administered on 07/25/18 13:00; Admin Dose 50,000 UNIT; Start 07/18/18 at 14:00 Ferrous Sulfate (Ferrous Sulfate (Ec)) 325 mg BID PO Last administered on 07/27/18 08:13; Admin Dose 325 MG; Start 07/18/18 at 21:00 Insulin Glargine (Lantus) 12 units QHS SC Last administered on 2/19/19at 20:25; Admin Dose 12 UNITS; Start 07/18/18 at 21:00 Famotidine (Pepcid) 20 mg DAILY PO Last administered on 07/27/18at 08:13; Admin Dose 20 MG; Start 07/19/18 at 09:00 Atorvastatin Calcium (Lipitor) 80 mg HS PO Last administered on 07/26/18at 20:15; Admin Dose 80 MG; Start 07/18/18 at 21:00 Diagnostic Test (Pha) (Accu-Chek) 1 ea 02 XX Last administered on 07/27/18at 01:50; Admin Dose 1 EA; Start 07/19/18 at 02:00 Miscellaneous Information 1 ea NOTE XX ; Start 07/18/18 at 14:30 Glucose (Glutose) 15 gm Q15M PRN PO DECREASED GLUCOSE; Start 07/18/18 at 14:30 Glucose (Glutose) 22.5 gm Q15M PRN PO DECREASED GLUCOSE; Start 07/18/18 at 14:30 Dextrose (D50w Syringe) 25 ml Q15M PRN IV DECREASED GLUCOSE; Start 07/18/18 at 14:30 Dextrose (D50w Syringe) 50 ml Q15M PRN IV DECREASED GLUCOSE; Start 07/18/18 at 14:30 Glucagon (Glucagen) 1 mg Q15M PRN IM DECREASED GLUCOSE; Start 07/18/18 at 14:30 Glucose (Glutose) 15 gm Q15M PRN BUCCAL DECREASED GLUCOSE Last administered on 07/21/18at 08:36; Admin Dose 15 GM; Start 07/18/18 at 14:30 Nicotine (Nicoderm 21 Mg/ 24hr) 1 patch DAILY TRANSDERM ; Start 07/18/18 at 16:30 Metoprolol Succinate (Toprol Xl) 25 mg DAILY PO Last administered on 07/27/18at 08:15; Admin Dose 25 MG; Start 07/19/18 at 09:00 Patient Own Medication 1 ea BID PO Last administered on 07/19/18at 08:09; Admin Dose 1 EA; Start 07/18/18 at 21:00; Status Hold Insulin Aspart (Novolog Insulin Pen) (Adult SC Insulin - Mild Algorithm)... AC MEALS AND BEDTIME SC Last administered on 07/27/18at 08:27; Admin Dose 1 UNIT; Start 07/19/18 at 17:25 Miscellaneous Information Patients own medicat... BID@ XX Last administered on 07/22/18at 16:28; Admin Dose 1,600 EA; Start 07/20/18 at 10:00 Doxazosin Mesylate (Cardura) 4 mg HS PO Last administered on 07/22/18at 21:14; Admin Dose 4 MG; Start 07/21/18 at 21:00 Trazodone HCl (Desyrel) 50 mg HS PO Last administered on 07/25/18at 20:06; Admin Dose 50 MG; Start 07/23/18 at 00:30 Acetazolamide (Diamox) 500 mg DAILY IV Last administered on 07/27/18at 08:13; Admin Dose 500 MG; Start 07/25/18 at 09:00; Stop 07/30/18 at 08:59 Senna (Senokot) 1 tab BID PRN PO CONSTIPATION; Start 07/26/18 at 13:30 MONICA JONES MD Jul 27, 2018 10:52
[2018-07-27] MEDS: DIGOXIN 0.125 MG TAB PO SCH (13:00)
--- NOTE | 2018-07-27 15:08 | CONS ---
Assessment/Plan Assessment/Plan Hospital Course (Demo Recall) IMP: 1.CHF- systolic acute on chronic 2.Cardiomyopathy- EF 30% 3.CKD 4.HTN 5.Dyslipidemia 6. Hepatomegaly-likley due to passive congestion of liver Recc: -Tele -Now on diamox for contraction alkalosis -continue bb and cardura and if BP allows will start afterload reduction with hydralazine low dose -Continue statin/Eliquis -hold digoxin and check repeat level Consultation Date/Type/Reason Admit Date/Time Jul 18, 2018 at 13:13 Initial Consult Date 07/18/18 Type of Consult Cardiology Reason for Consultation cHF Requesting Provider: MELVI LANCE Date/Time of Note DATE: 07/27/18 TIME: 15:06 Exam/Review of Systems Vital Signs Vitals Vital Signs Date Temp Pulse Resp B/P (MAP) Pulse Ox O2 O2 Flow FiO2 Time Delivery Rate 07/27/18 55 13:25 07/27/18 98.2 99/55 (70) 94 Nasal 11:49 Cannula 07/27/18 2.0 07:50 07/27/18 18 07:34 07/27/18 30 01:40 Intake and Output 07/26/18 07/26/18 07/27/18 1515:00 23:00 07:00 IntakeIntake Total 600 ml 600 ml 800 ml OutputOutput Total 1000 ml 1150 ml 900 ml BalanceBalance -400 ml -550 ml -100 ml Exam Exam Review of Systems: CONSTITUTIONAL: No fevers, chills. PULMONARY: No sob CARDIOVASCULAR: No chest pain/palpitations GASTROINTESTINAL: No nausea/vomiting. GENITOURINARY: No hematuria/dysuria. MUSCULOSKELETAL: No myagias/arthalgias. PSYCHIATRIC: The patient denies depression. NEUROLOGIC: No weakness Constitutional: alert Psych: no complaints Head: normocephalic ENMT: mucosa pink and moist Neck: supple, jvd (9 cm water) Respiratory: diminished breath sounds (at bases/B) Cardiovascular: regular rate and rhythm Gastrointestinal: soft, non-tender Musculoskeletal: muscle tone (normal) Extremities: edema (none) Neurological: other (No focal deficits) Labs Result Diagram: 07/26/18 0609 07/27/18 0731 Results 24hrs Laboratory Tests Test 07/26/18 17:03 07/26/18 20:09 07/27/18 01:43 07/27/18 07:31 Bedside Glucose 260 H 239 H 239 H Sodium Level 139 Potassium Level 4.0 Chloride Level 89 L Carbon Dioxide Level 44 *H Anion Gap 6 # Blood Urea Nitrogen 70 H Creatinine 2.69 H Est Glomerular 24 L Filtrat Rate mL/min Glucose Level 157 Calcium Level 9.6 Test 07/27/18 08:12 07/27/18 11:37 Bedside Glucose 147 199 Medications Medications Current Medications IV Flush (NS 3 ml) 3 ml PER PROTOCOL IV ; Start 07/18/18 at 14:00 Ondansetron HCl (Zofran Inj) 4 mg Q6H PRN IV NAUSEA/VOMITING Last administered on 07/20/18 04:47; Admin Dose 4 MG; Start 07/18/18 at 14:00 Acetaminophen (Tylenol Tab) 650 mg Q6H PRN PO .PAIN 1-3 OR TEMP Last administered on 07/27/18 01:50; Admin Dose 650 MG; Start 07/18/18 at 14:00 Acetaminophen/ Hydrocodone Bitart ([place] (5/325)) 1 tab Q6H PRN PO .MOD PAIN 4- 6 Last administered on 07/19/18 13:01; Admin Dose 1 TAB; Start 07/18/18 at 14:00 Morphine Sulfate (morphine) 6 mg Q4H PRN PO .SEVERE PAIN 7-10; Start 07/18/18 at 14:00 Docusate Sodium (Colace) 100 mg Q12H PRN PO .CONSTIPATION Last administered on 07/25/18 20:37; Admin Dose 100 MG; Start 07/18/18 at 14:00 Magnesium Hydroxide (Milk Of Mag) 30 ml DAILY PRN PO .CONSTIPATION Last administered on 07/25/18 20:06; Admin Dose 30 ML; Start 07/18/18 at 14:00 Lorazepam (Ativan) 0.5 mg Q6H PRN PO ANXIETY; Start 07/18/18 at 14:00 Albuterol/ Ipratropium (Duoneb) 3 ml Q4H RESP THERAPY PRN HHN SHORTNESS OF BOUCHRA ATH Last administered on 07/21/18 23:35; Admin Dose 3 ML; Start 07/18/18 at 14:00 Hydralazine HCl (Apresoline) 10 mg Q6H PRN IV ELEVATED BLOOD PRESSURE; Start 07/18/18 at 14:00 Nitroglycerin (Nitroglycerin (Sl Tab) 0.4 Mg) 1 tab Q5M PRN SL ANGINA; Start 07/18/18 at 14:00 Apixaban (Eliquis) 5 mg BID PO Last administered on 07/27/18 08:14; Admin Dose 5 MG; Start 07/18/18 at 21:00 Digoxin (Digoxin) 0.125 mg DAILY@1300 PO Last administered on 07/27/18 13:00; Admin Dose 0.125 MG; Start 07/19/18 at 13:00 Ergocalciferol (Drisdol) 50,000 unit Q7D PO Last administered on 07/25/18 13:00; Admin Dose 50,000 UNIT; Start 07/18/18 at 14:00 Ferrous Sulfate (Ferrous Sulfate (Ec)) 325 mg BID PO Last administered on 07/27/18 08:13; Admin Dose 325 MG; Start 07/18/18 at 21:00 Insulin Glargine (Lantus) 12 units QHS SC Last administered on 07/26/18 20:25; Admin Dose 12 UNITS; Start 07/18/18 at 21:00 Famotidine (Pepcid) 20 mg DAILY PO Last administered on 07/27/18 08:13; Admin Dose 20 MG; Start 07/19/18 at 09:00 Atorvastatin Calcium (Lipitor) 80 mg HS PO Last administered on 07/26/18at 20:15; Admin Dose 80 MG; Start 07/18/18 at 21:00 Diagnostic Test (Pha) (Accu-Chek) 1 ea 02 XX Last administered on 07/27/18at 01:50; Admin Dose 1 EA; Start 07/19/18 at 02:00 Miscellaneous Information 1 ea NOTE XX ; Start 07/18/18 at 14:30 Glucose (Glutose) 15 gm Q15M PRN PO DECREASED GLUCOSE; Start 07/18/18 at 14:30 Glucose (Glutose) 22.5 gm Q15M PRN PO DECREASED GLUCOSE; Start 07/18/18 at 14:30 Dextrose (D50w Syringe) 25 ml Q15M PRN IV DECREASED GLUCOSE; Start 07/18/18 at 14:30 Dextrose (D50w Syringe) 50 ml Q15M PRN IV DECREASED GLUCOSE; Start 07/18/18 at 14:30 Glucagon (Glucagen) 1 mg Q15M PRN IM DECREASED GLUCOSE; Start 07/18/18 at 14:30 Glucose (Glutose) 15 gm Q15M PRN BUCCAL DECREASED GLUCOSE Last administered on 07/21/18at 08:36; Admin Dose 15 GM; Start 07/18/18 at 14:30 Nicotine (Nicoderm 21 Mg/ 24hr) 1 patch DAILY TRANSDERM ; Start 07/18/18 at 16:30 Metoprolol Succinate (Toprol Xl) 25 mg DAILY PO Last administered on 07/27/18 08:15; Admin Dose 25 MG; Start 07/19/18 at 09:00 Patient Own Medication 1 ea BID PO Last administered on 07/19/18 08:09; Admin Dose 1 EA; Start 07/18/18 at 21:00; Status Hold Insulin Aspart (Novolog Insulin Pen) (Adult SC Insulin - Mild Algorithm)... AC MEALS AND BEDTIME SC Last administered on 07/27/18at 11:43; Admin Dose 2 UNIT; Start 07/19/18 at 17:25 Miscellaneous Information Patients own medicat... BID@10,16 XX Last administered on 07/22/18 16:28; Admin Dose 1,600 EA; Start 07/20/18 at 10:00 Doxazosin Mesylate (Cardura) 4 mg HS PO Last administered on 07/22/18 21:14; Admin Dose 4 MG; Start 07/21/18 at 21:00 Trazodone HCl (Desyrel) 50 mg HS PO Last administered on 07/25/18at 20:06; Admin Dose 50 MG; Start 07/23/18 at 00:30 Senna (Senokot) 1 tab BID PRN PO CONSTIPATION; Start 07/26/18 at 13:30 Acetazolamide (Diamox) 500 mg Q12 IV ; Start 07/27/18 at 21:00 DEVIN LOWE Jul 27, 2018 15:08
--- NOTE | 2018-07-27 16:39 | PN ---
Date/Time of Note Date/Time of Note DATE: 07/27/18 TIME: 16:36 Assessment/Plan VTE Prophylaxis Risk score (from Ns)>0 risk: 4 SCD applied (from Ns): No SCD contraindicated: other (no) Pharmacological prophylaxis: apixaban Lines/Catheters IV C[facility]ter Type [facility]from [facility] [place] Urinary Cath still in place: No Assessment/Plan Assessment/Plan 67-year-old man coming in with chest pressure, shortness of breath, lower extremity swelling, signs of congestive heart failure exacerbation. 1. Shortness of breath and chest pressure -overall slowly improving now. -Continue fluid restriction as recommended by cardiology and renal teams. -Currently holding diuresis due to severe contraction alkalosis. - follow up Cardiology recommendations and continue digoxin for now. -Off of Entresto presently while in-house 2. Acute on chronic kidney disease. Again, the kidney function appears to be slightly worse than when he was here 2 months ago. Creatinine levels have been in the low to mid 2 range. Patient having adequate urine output. -Follow-up recommendations from renal consult -Continue to carefully monitor BUN and creatinine levels and urine output. 3. Smoking history. -Counseled on cessation. -Continue nicotine patch. 4. History of hypertension. Again, see above. - Continue current medications. - Also hydralazine p.r.n. 5. History of atrial fibrillation -appears stable -Monitor, continue Eliquis as well. 6. Type 2 diabetes. A1c equals 9.0, sugars presently stable - continue Lantus and sliding scale insulin. 7. Deep venous thrombosis prophylaxis-on Eliquis. Dispo: Currently hospitalized for severe metabolic alkalosis Result Diagram: 07/26/18 0609 07/27/18 0731 Results 24hrs Laboratory Tests Test 07/26/18 17:03 07/26/18 20:09 07/27/18 01:43 07/27/18 07:31 Bedside Glucose 260 H 239 H 239 H Sodium Level 139 Potassium Level 4.0 Chloride Level 89 L Carbon Dioxide Level 44 *H Anion Gap 6 # Blood Urea Nitrogen 70 H Creatinine 2.69 H Est Glomerular 24 L Filtrat Rate mL/min Glucose Level 157 Calcium Level 9.6 Test 07/27/18 08:12 07/27/18 11:37 07/27/18 15:16 Bedside Glucose 147 199 Digoxin Level 1.1 Subjective 24 Hr Interval Summary Free Text/Dictation No acute overnight events. Patient has no complaints. Exam/Review of Systems Exam Vitals Vital Signs Date Temp Pulse Resp B/P (MAP) Pulse Ox O2 O2 Flow FiO2 Time Delivery Rate 07/27/18 60 16:19 07/27/18 98.2 18 102/72 96 Nasal 15:33 (82) Cannula 07/27/18 2.0 07:50 07/27/18 30 01:40 Intake and Output 07/26/18 07/26/18 07/27/18 1515:00 23:00 07:00 IntakeIntake Total 600 ml 600 ml 800 ml OutputOutput Total 1000 ml 1150 ml 900 ml BalanceBalance -400 ml -550 ml -100 ml Exam GENERAL: lying in bed, sleeping comfortably. HEENT: Pupils equal, round and reactive to light. Extraocular muscles are intact. NECK: Supple, no thyromegaly. LUNGS: Distant breath sounds bilaterally, no crackles appreciated. CARDIOVASCULAR: Irregularly irregular heart rate. No rubs or gallops. ABDOMEN: Soft, nontender and nondistended. Normal bowel sounds. No rebound or guarding. MUSCULOSKELETAL: 1+ pitting edema in bilateral lower extremities to the mid calves. Results Results 24hrs Laboratory Tests Test 07/26/18 17:03 07/26/18 20:09 07/27/18 01:43 07/27/18 07:31 Bedside Glucose 260 H 239 H 239 H Sodium Level 139 Potassium Level 4.0 Chloride Level 89 L Carbon Dioxide Level 44 *H Anion Gap 6 # Blood Urea Nitrogen 70 H Creatinine 2.69 H Est Glomerular 24 L Filtrat Rate mL/min Glucose Level 157 Calcium Level 9.6 Test 07/27/18 08:12 07/27/18 11:37 07/27/18 15:16 Bedside Glucose 147 199 Digoxin Level 1.1 Medications Medication Current Medications IV Flush (NS 3 ml) 3 ml PER PROTOCOL IV ; Start 07/18/18 at 14:00 Ondansetron HCl (Zofran Inj) 4 mg Q6H PRN IV NAUSEA/VOMITING Last administered on 07/20/18at 04:47; Admin Dose 4 MG; Start 07/18/18 at 14:00 Acetaminophen (Tylenol Tab) 650 mg Q6H PRN PO .PAIN 1-3 OR TEMP Last administer ed on 07/27/18 01:50; Admin Dose 650 MG; Start 07/18/18 at 14:00 Acetaminophen/ Hydrocodone Bitart ([place] (5/325)) 1 tab Q6H PRN PO .MOD PAIN 4- 6 Last administered on 07/19/18 13:01; Admin Dose 1 TAB; Start 07/18/18 at 14:00 Morphine Sulfate (morphine) 6 mg Q4H PRN PO .SEVERE PAIN 7-10; Start 07/18/18 at 14:00 Docusate Sodium (Colace) 100 mg Q12H PRN PO .CONSTIPATION Last administered on 07/25/18 20:37; Admin Dose 100 MG; Start 07/18/18 at 14:00 Magnesium Hydroxide (Milk Of Mag) 30 ml DAILY PRN PO .CONSTIPATION Last administered on 07/25/18 20:06; Admin Dose 30 ML; Start 07/18/18 at 14:00 Lorazepam (Ativan) 0.5 mg Q6H PRN PO ANXIETY; Start 07/18/18 at 14:00 Albuterol/ Ipratropium (Duoneb) 3 ml Q4H RESP THERAPY PRN HHN SHORTNESS OF BREATH Last administered on 07/21/18 23:35; Admin Dose 3 ML; Start 07/18/18 at 14:00 Hydralazine HCl (Apresoline) 10 mg Q6H PRN IV ELEVATED BLOOD PRESSURE; Start 07/18/18 at 14:00 Nitroglycerin (Nitroglycerin (Sl Tab) 0.4 Mg) 1 tab Q5M PRN SL ANGINA; Start 07/18/18 at 14:00 Apixaban (Eliquis) 5 mg BID PO Last administered on 07/27/18 08:14; Admin Dose 5 MG; Start 07/18/18 at 21:00 Digoxin (Digoxin) 0.125 mg DAILY@1300 PO Last administered on 07/27/18 13:00; Admin Dose 0.125 MG; Start 07/19/18 at 13:00; Status Hold Ergocalciferol (Drisdol) 50,000 unit Q7D PO Last administered on 07/25/18 13:00; Admin Dose 50,000 UNIT; Start 07/18/18 at 14:00 Ferrous Sulfate (Ferrous Sulfate (Ec)) 325 mg BID PO Last administered on 07/27/18 08:13; Admin Dose 325 MG; Start 07/18/18 at 21:00 Insulin Glargine (Lantus) 12 units QHS SC Last administered on 07/26/18 20:25; Admin Dose 12 UNITS; Start 07/18/18 at 21:00 Famotidine (Pepcid) 20 mg DAILY PO Last administered on 07/27/18 08:13; Admin Dose 20 MG; Start 07/19/18 at 09:00 Atorvastatin Calcium (Lipitor) 80 mg HS PO Last administered on 07/26/18 20:15; Admin Dose 80 MG; Start 07/18/18 at 21:00 Diagnostic Test (Pha) (Accu-Chek) 1 ea 02 XX Last administered on 07/27/18at 01:50; Admin Dose 1 EA; Start 07/19/18 at 02:00 Miscellaneous Information 1 ea NOTE XX ; Start 07/18/18 at 14:30 Glucose (Glutose) 15 gm Q15M PRN PO DECREASED GLUCOSE; Start 07/18/18 at 14:30 Glucose (Glutose) 22.5 gm Q15M PRN PO DECREASED GLUCOSE; Start 07/18/18 at 14:30 Dextrose (D50w Syringe) 25 ml Q15M PRN IV DECREASED GLUCOSE; Start 07/18/18 at 14:30 Dextrose (D50w Syringe) 50 ml Q15M PRN IV DECREASED GLUCOSE; Start 07/18/18 at 14:30 Glucagon (Glucagen) 1 mg Q15M PRN IM DECREASED GLUCOSE; Start 07/18/18 at 14:30 Glucose (Glutose) 15 gm Q15M PRN BUCCAL DECREASED GLUCOSE Last administered on 07/21/18at 08:36; Admin Dose 15 GM; Start 07/18/18 at 14:30 Nicotine (Nicoderm 21 Mg/ 24hr) 1 patch DAILY TRANSDERM ; Start 07/18/18 at 16:30 Metoprolol Succinate (Toprol Xl) 25 mg DAILY PO Last administered on 07/27/18at 08:15; Admin Dose 25 MG; Start 07/19/18 at 09:00 Patient Own Medication 1 ea BID PO Last administered on 07/19/18at 08:09; Admin Dose 1 EA; Start 07/18/18 at 21:00; Status Hold Insulin Aspart (Novolog Insulin Pen) (Adult SC Insulin - Mild Algorithm)... AC MEALS AND BEDTIME SC Last administered on 07/27/18at 11:43; Admin Dose 2 UNIT; Start 07/19/18 at 17:25 Miscellaneous Information Patients own medicat... BID@10,16 XX Last administered on 07/22/18 16:28; Admin Dose 1,600 EA; Start 07/20/18 at 10:00 Doxazosin Mesylate (Cardura) 4 mg HS PO Last administered on 07/22/18at 21:14; Admin Dose 4 MG; Start 07/21/18 at 21:00 Trazodone HCl (Desyrel) 50 mg HS PO Last administered on 07/25/18at 20:06; Admin Dose 50 MG; Start 07/23/18 at 00:30 Senna (Senokot) 1 tab BID PRN PO CONSTIPATION; Start 07/26/18 at 13:30 Acetazolamide (Diamox) 500 mg Q12 IV ; Start 07/27/18 at 21:00 DEVIN BALDWIN MD Jul 27, 2018 16:39
[2018-07-27] MEDS: DOXAZOSIN 4 MG TAB PO SCH (20:43)
[2018-07-27] MEDS: traZODone 50 MG TAB PO SCH (20:51)
[2018-07-27] MEDS: ATORVASTATIN 80 MG TAB PO SCH (20:52)
[2018-07-27] MEDS: INSULIN GLARGINE [LANTus] (100 UNITS/ML) SYG SC SCH (21:03)
[2018-07-28] VITALS (12 sets, daily range): BP systolic 97–115; BP diastolic 48–60; PULSE 50–100; RESP 17–21
[2018-07-28] MEDS: ACCU-CHEK XX SCH (02:00)
[2018-07-28] MEDS: ACETAMINOPHEN 325 MG TAB PO PRN (06:56)
[2018-07-28] MEDS: Insulin NOVOLOG SS MILD Algorithm (SS with meals and bedtime) SC SCH ×4 (08:54→22:13)
[2018-07-28] MEDS ORDERED: BACLOFEN 10 MG TAB PO PRN (10:00)
[2018-07-28] MEDS: NICOTINE (21 MG/24 HR) PATCH TRANSDERM SCH ×2 (10:08→10:13)
[2018-07-28] MEDS: METOPROLOL (XL) 25 MG TAB PO SCH (10:09)
[2018-07-28] MEDS: FERROUS SULFATE (EC) 325 MG TAB PO SCH ×2 (10:09→21:50)
[2018-07-28] MEDS: APIXABAN 5 MG TABLET PO SCH ×2 (10:09→21:50)
[2018-07-28] MEDS: FAMOTIDINE 20 MG TAB PO SCH (10:09)
[2018-07-28] MEDS: ACETAZOLAMIDE 500 MG INJ IV SCH ×2 (10:10→21:49)
--- NOTE | 2018-07-28 12:27 | CONS ---
Assessment/Plan Assessment/Plan Hospital Course (Demo Recall) IMP: 1.CHF- systolic acute on chronic 2.Cardiomyopathy- EF 30% 3.CKD 4.HTN 5.Dyslipidemia 6. Hepatomegaly-likley due to passive congestion of liver Recc: -Tele -Now on diamox for contraction alkalosis -continue bb and cardura and if BP allows will start afterload reduction with hydralazine low dose -Continue statin/Eliquis -Will resume digoxin in 1-2 days possibly as outpatient Consultation Date/Type/Reason Admit Date/Time Jul 18, 2018 at 13:13 Initial Consult Date 07/18/18 Type of Consult Cardiology Reason for Consultation CHF Requesting Provider: MELVI LANCE Date/Time of Note DATE: 07/28/18 TIME: 12:23 Exam/Review of Systems Vital Signs Vitals Vital Signs Date Temp Pulse Resp B/P (MAP) Pulse Ox O2 O2 Flow FiO2 Time Delivery Rate 07/28/18 20 86 Room Air 11:25 07/28/18 98.2 61 115/58 11:04 (77) 07/28/18 2.0 03:36 07/27/18 30 01:40 Intake and Output 07/27/18 07/27/18 07/28/18 1515:00 23:00 07:00 IntakeIntake Total 800 ml 1000 ml OutputOutput Total 400 ml BalanceBalance 800 ml 600 ml Exam Exam Review of Systems: CONSTITUTIONAL: No fevers, chills. PULMONARY: No sob CARDIOVASCULAR: No chest pain/palpitations GASTROINTESTINAL: No nausea/vomiting. GENITOURINARY: No hematuria/dysuria. MUSCULOSKELETAL: No myagias/arthalgias. PSYCHIATRIC: The patient denies depression. NEUROLOGIC: No weakness Constitutional: alert Psych: no complaints Head: normocephalic ENMT: mucosa pink and moist Neck: supple, jvd (9 cm water) Respiratory: clear to auscultation Cardiovascular: regular rate and rhythm Gastrointestinal: soft, non-tender Musculoskeletal: muscle tone (normal) Extremities: edema (none) Neurological: other (No focal deficits) Labs Result Diagram: 07/28/18 0849 07/28/18 0849 Results 24hrs Laboratory Tests Test 07/27/18 15:16 07/27/18 16:54 07/27/18 20:48 07/28/18 08:45 Digoxin Level 1.1 Bedside Glucose 287 H 174 163 Test 07/28/18 08:49 07/28/18 12:11 White Blood Count 6.4 Red Blood Count 5.03 Hemoglobin 12.2 L Hematocrit 41.1 L Mean Corpuscular 81.7 L Volume Mean Corpuscular 24.3 L Hemoglobin Mean Corpuscular 29.7 L Hemoglobin Concent Red Cell 18.1 H Distribution Width Platelet Count 167 Mean Platelet Volume Immature 0.300 Granulocytes % Neutrophils % 62.4 Lymphocytes % 21.8 Monocytes % 10.9 Eosinophils % 3.7 Basophils % 0.9 Nucleated Red Blood 0.0 Cells % Immature 0.020 Granulocytes # Neutrophils # 4.0 Lymphocytes # 1.4 Monocytes # 0.7 Eosinophils # 0.2 Basophils # 0.1 Nucleated Red Blood 0.0 Cells # Sodium Level 140 Potassium Level 3.8 Chloride Level 90 L Carbon Dioxide Level 41 *H Anion Gap 9 Blood Urea Nitrogen 72 H Creatinine 2.60 H Est Glomerular 25 L Filtrat Rate mL/min Glucose Level 173 Calcium Level 9.6 Bedside Glucose 202 Medications Medications Current Medications IV Flush (NS 3 ml) 3 ml PER PROTOCOL IV ; Start 07/18/18 at 14:00 Ondansetron HCl (Zofran Inj) 4 mg Q6H PRN IV NAUSEA/VOMITING Last administered on 07/20/18at 04:47; Admin Dose 4 MG; Start 07/18/18 at 14:00 Acetaminophen (Tylenol Tab) 650 mg Q6H PRN PO .PAIN 1-3 OR TEMP Last administered on 07/28/18at 06:56; Admin Dose 650 MG; Start 07/18/18 at 14:00 Acetaminophen/ Hydrocodone Bitart ([place] (5/325)) 1 tab Q6H PRN PO .MOD PAIN 4- 6 Last administered on 07/19/18at 13:01; Admin Dose 1 TAB; Start 07/18/18 at 14:00 Morphine Sulfate (morphine) 6 mg Q4H PRN PO .SEVERE PAIN 7-10; Start 07/18/18 at 14:00 Docusate Sodium (Colace) 100 mg Q12H PRN PO .CONSTIPATION Last administered on 07/25/18at 20:37; Admin Dose 100 MG; Start 07/18/18 at 14:00 Magnesium Hydroxide (Milk Of Mag) 30 ml DAILY PRN PO .CONSTIPATION Last administered on 07/25/18 20:06; Admin Dose 30 ML; Start 07/18/18 at 14:00 Lorazepam (Ativan) 0.5 mg Q6H PRN PO ANXIETY; Start 07/18/18 at 14:00 Albuterol/ Ipratropium (Duoneb) 3 ml Q4H RESP THERAPY PRN HHN SHORTNESS OF BREATH Last administered on 07/21/18 23:35; Admin Dose 3 ML; Start 07/18/18 at 14:00 Hydralazine HCl (Apresoline) 10 mg Q6H PRN IV ELEVATED BLOOD PRESSURE; Start 07/18/18 at 14:00 Nitroglycerin (Nitroglycerin (Sl Tab) 0.4 Mg) 1 tab Q5M PRN SL ANGINA; Start 07/18/18 at 14:00 Apixaban (Eliquis) 5 mg BID PO Last administered on 07/28/18 10:09; Admin Dose 5 MG; Start 07/18/18 at 21:00 Digoxin (Digoxin) 0.125 mg DAILY@1300 PO Last administered on 07/27/18 13:00; Admin Dose 0.125 MG; Start 07/19/18 at 13:00; Status Hold Ergocalciferol (Drisdol) 50,000 unit Q7D PO Last administered on 07/25/18 13:00; Admin Dose 50,000 UNIT; Start 07/18/18 at 14:00 Ferrous Sulfate (Ferrous Sulfate (Ec)) 325 mg BID PO Last administered on 07/28/18 10:09; Admin Dose 325 MG; Start 07/18/18 at 21:00 Insulin Glargine (Lantus) 12 units QHS SC Last administered on 07/27/18 21:03; Admin Dose 12 UNITS; Start 07/18/18 at 21:00 Famotidine (Pepcid) 20 mg DAILY PO Last administered on 07/28/18 10:09; Admin Dose 20 MG; Start 07/19/18 at 09:00 Atorvastatin Calcium (Lipitor) 80 mg HS PO Last administered on 07/27/18 20:52; Admin Dose 80 MG; Start 07/18/18 at 21:00 Diagnostic Test (Pha) (Accu-Chek) 1 ea 02 XX Last administered on 2/20/19at 01:50; Admin Dose 1 EA; Start 07/19/18 at 02:00 Miscellaneous Information 1 ea NOTE XX ; Start 07/18/18 at 14:30 Glucose (Glutose) 15 gm Q15M PRN PO DECREASED GLUCOSE; Start 07/18/18 at 14:30 Glucose (Glutose) 22.5 gm Q15M PRN PO DECREASED GLUCOSE; Start 07/18/18 at 14:3 0 Dextrose (D50w Syringe) 25 ml Q15M PRN IV DECREASED GLUCOSE; Start 07/18/18 at 14:30 Dextrose (D50w Syringe) 50 ml Q15M PRN IV DECREASED GLUCOSE; Start 07/18/18 at 14:30 Glucagon (Glucagen) 1 mg Q15M PRN IM DECREASED GLUCOSE; Start 07/18/18 at 14:30 Glucose (Glutose) 15 gm Q15M PRN BUCCAL DECREASED GLUCOSE Last administered on 07/21/18at 08:36; Admin Dose 15 GM; Start 07/18/18 at 14:30 Nicotine (Nicoderm 21 Mg/ 24hr) 1 patch DAILY TRANSDERM ; Start 07/18/18 at 16:30 Metoprolol Succinate (Toprol Xl) 25 mg DAILY PO Last administered on 07/28/18at 10:09; Admin Dose 25 MG; Start 07/19/18 at 09:00 Patient Own Medication 1 ea BID PO Last administered on 07/19/18at 08:09; Admin Dose 1 EA; Start 07/18/18 at 21:00; Status Hold Insulin Aspart (Novolog Insulin Pen) (Adult SC Insulin - Mild Algorithm)... AC MEALS AND BEDTIME SC Last administered on 07/28/18at 08:54; Admin Dose 1 UNIT; Start 07/19/18 at 17:25 Miscellaneous Information Patients own medicat... BID@10,16 XX Last administered on 07/22/18 16:28; Admin Dose 1,600 EA; Start 07/20/18 at 10:00 Doxazosin Mesylate (Cardura) 4 mg HS PO Last administered on 07/22/18at 21:14; Admin Dose 4 MG; Start 07/21/18 at 21:00 Trazodone HCl (Desyrel) 50 mg HS PO Last administered on 07/27/18at 20:51; Admin Dose 50 MG; Start 07/23/18 at 00:30 Senna (Senokot) 1 tab BID PRN PO CONSTIPATION; Start 07/26/18 at 13:30 Acetazolamide (Diamox) 500 mg Q12 IV Last administered on 07/28/18at 10:10; Admin Dose 500 MG; Start 07/27/18 at 21:00 Baclofen (Lioresal) 20 mg TID PRN PO back spasm Last administered on 07/28/18at 10:08; Admin Dose 20 MG; Start 07/28/18 at 10:00 DEVIN LOWE Jul 28, 2018 12:27
--- NOTE | 2018-07-28 14:59 | PN ---
Date/Time of Note Date/Time of Note DATE: 07/28/18 TIME: 14:57 Assessment/Plan VTE Prophylaxis Risk score (from Ns)>0 risk: 4 SCD applied (from Ns): No SCD contraindicated: other (no) Pharmacological prophylaxis: apixaban Lines/Catheters IV [facility]ter Type [facility]from [facility]): [place] Urinary Cath still in place: No Assessment/Plan Assessment/Plan 67-year-old man coming in with chest pressure, shortness of breath, lower extremity swelling, signs of congestive heart failure exacerbation. 1. Shortness of breath and chest pressure -overall slowly improving now. -Continue fluid restriction as recommended by cardiology and renal teams. -Currently holding diuresis due to severe contraction alkalosis. - follow up Cardiology recommendations and continue digoxin for now. -Off of Entresto presently while in-house 2. Acute on chronic kidney disease. Again, the kidney function appears to be slightly worse than when he was here 2 months ago. Creatinine levels have been in the low to mid 2 range. Patient having adequate urine output. -Follow-up recommendations from renal consult -Continue to carefully monitor BUN and creatinine levels and urine output. 3. Smoking history. -Counseled on cessation. -Continue nicotine patch. 4. History of hypertension. Again, see above. - Continue current medications. - Also hydralazine p.r.n. 5. History of atrial fibrillation -appears stable -Monitor, continue Eliquis as well. 6. Type 2 diabetes. A1c equals 9.0, sugars presently stable - continue Lantus and sliding scale insulin. 7. Deep venous thrombosis prophylaxis-on Eliquis. Dispo: Currently hospitalized for severe metabolic alkalosis, anticipate discharge in 24-48 hours Result Diagram: 07/28/18 0849 07/28/18 0849 Subjective 24 Hr Interval Summary Free Text/Dictation Patient doing well, no acute overnight events. Currently up and ambulating off oxygen with physical therapy. He does desat to 86% on room air. Otherwise feeling well, wants to go home. Exam/Review of Systems Exam Vitals Vital Signs Date Temp Pulse Resp B/P (MAP) Pulse Ox O2 O2 Flow FiO2 Time Delivery Rate 07/28/18 3.0 13:36 07/28/18 58 12:28 07/28/18 20 86 Room Air 11:25 07/28/18 98.2 115/58 11:04 (77) 07/27/18 30 01:40 Intake and Output 07/27/18 07/27/18 07/28/18 1414:59 22:59 06:59 IntakeIntake Total 800 ml 1000 ml OutputOutput Total 400 ml BalanceBalance 800 ml 600 ml Exam GENERAL: Ambulating in hallway. HEENT: Pupils equal, round and reactive to light. Extraocular muscles are intact. NECK: Supple, no thyromegaly. LUNGS: Distant breath sounds bilaterally, no crackles appreciated. CARDIOVASCULAR: Irregularly irregular heart rate. No rubs or gallops. ABDOMEN: Soft, nontender and nondistended. Normal bowel sounds. No rebound or guarding. MUSCULOSKELETAL: 1+ pitting edema in bilateral lower extremities to the mid calves. Results Results 24hrs Laboratory Tests Test 07/27/18 15:16 07/27/18 16:54 07/27/18 20:48 07/28/18 08:45 Digoxin Level 1.1 Bedside Glucose 287 H 174 163 Test 07/28/18 08:49 07/28/18 12:11 White Blood Count 6.4 Red Blood Count 5.03 Hemoglobin 12.2 L Hematocrit 41.1 L Mean Corpuscular 81.7 L Volume Mean Corpuscular 24.3 L Hemoglobin Mean Corpuscular 29.7 L Hemoglobin Concent Red Cell 18.1 H Distribution Width Platelet Count 167 Mean Platelet Volume Immature 0.300 Granulocytes % Neutrophils % 62.4 Lymphocytes % 21.8 Monocytes % 10.9 Eosinophils % 3.7 Basophils % 0.9 Nucleated Red Blood 0.0 Cells % Immature 0.020 Granulocytes # Neutrophils # 4.0 Lymphocytes # 1.4 Monocytes # 0.7 Eosinophils # 0.2 Basophils # 0.1 Nucleated Red Blood 0.0 Cells # Sodium Level 140 Potassium Level 3.8 Chloride Level 90 L Carbon Dioxide Level 41 *H Anion Gap 9 Blood Urea Nitrogen 72 H Creatinine 2.60 H Est Glomerular 25 L Filtrat Rate mL/min Glucose Level 173 Calcium Level 9.6 Bedside Glucose 202 Medications Medication Current Medications IV Flush (NS 3 ml) 3 ml PER PROTOCOL IV ; Start 07/18/18 at 14:00 Ondansetron HCl (Zofran Inj) 4 mg Q6H PRN IV NAUSEA/VOMITING Last administered on 07/20/18at 04:47; Admin Dose 4 MG; Start 07/18/18 at 14:00 Acetaminophen (Tylenol Tab) 650 mg Q6H PRN PO .PAIN 1-3 OR TEMP Last administered on 07/28/18 06:56; Admin Dose 650 MG; Start 07/18/18 at 14:00 Acetaminophen/ Hydrocodone Bitart ([place] (5/325)) 1 tab Q6H PRN PO .MOD PAIN 4- 6 Last administered on 07/19/18 13:01; Admin Dose 1 TAB; Start 07/18/18 at 14:00 Morphine Sulfate (morphine) 6 mg Q4H PRN PO .SEVERE PAIN 7-10; Start 07/18/18 at 14:00 Docusate Sodium (Colace) 100 mg Q12H PRN PO .CONSTIPATION Last administered on 07/25/18 20:37; Admin Dose 100 MG; Start 07/18/18 at 14:00 Magnesium Hydroxide (Milk Of Mag) 30 ml DAILY PRN PO .CONSTIPATION Last administered on 07/25/18 20:06; Admin Dose 30 ML; Start 07/18/18 at 14:00 Lorazepam (Ativan) 0.5 mg Q6H PRN PO ANXIETY; Start 07/18/18 at 14:00 Albuterol/ Ipratropium (Duoneb) 3 ml Q4H RESP THERAPY PRN HHN SHORTNESS OF BREATH Last administered on 07/21/18 23:35; Admin Dose 3 ML; Start 07/18/18 at 14:00 Hydralazine HCl (Apresoline) 10 mg Q6H PRN IV ELEVATED BLOOD PRESSURE; Start 07/18/18 at 14:00 Nitroglycerin (Nitroglycerin (Sl Tab) 0.4 Mg) 1 tab Q5M PRN SL ANGINA; Start 07/18/18 at 14:00 Apixaban (Eliquis) 5 mg BID PO Last administered on 07/28/18 10:09; Admin Dose 5 MG; Start 07/18/18 at 21:00 Digoxin (Digoxin) 0.125 mg DAILY@1300 PO Last administered on 07/27/18 13:00; Admin Dose 0.125 MG; Start 07/19/18 at 13:00; Status Hold Ergocalciferol (Drisdol) 50,000 unit Q7D PO Last administered on 2/18/19at 13:00; Admin Dose 50,000 UNIT; Start 07/18/18 at 14:00 Ferrous Sulfate (Ferrous Sulfate (Ec)) 325 mg BID PO Last administered on 07/28/18at 10:09; Admin Dose 325 MG; Start 07/18/18 at 21:00 Insulin Glargine (Lantus) 12 units QHS SC Last administered on 07/27/18at 21:03; Admin Dose 12 UNITS; Start 07/18/18 at 21:00 Famotidine (Pepcid) 20 mg DAILY PO Last administered on 07/28/18at 10:09; Admin Dose 20 MG; Start 07/19/18 at 09:00 Atorvastatin Calcium (Lipitor) 80 mg HS PO Last administered on 07/27/18at 20:52; Admin Dose 80 MG; Start 07/18/18 at 21:00 Diagnostic Test (Pha) (Accu-Chek) 1 ea 02 XX Last administered on 07/27/18at 01:50; Admin Dose 1 EA; Start 07/19/18 at 02:00 Miscellaneous Information 1 ea NOTE XX ; Start 07/18/18 at 14:30 Glucose (Glutose) 15 gm Q15M PRN PO DECREASED GLUCOSE; Start 07/18/18 at 14:30 Glucose (Glutose) 22.5 gm Q15M PRN PO DECREASED GLUCOSE; Start 07/18/18 at 14:30 Dextrose (D50w Syringe) 25 ml Q15M PRN IV DECREASED GLUCOSE; Start 07/18/18 at 14:30 Dextrose (D50w Syringe) 50 ml Q15M PRN IV DECREASED GLUCOSE; Start 07/18/18 at 14:30 Glucagon (Glucagen) 1 mg Q15M PRN IM DECREASED GLUCOSE; Start 07/18/18 at 14:30 Glucose (Glutose) 15 gm Q15M PRN BUCCAL DECREASED GLUCOSE Last administered on 07/21/18at 08:36; Admin Dose 15 GM; Start 07/18/18 at 14:30 Nicotine (Nicoderm 21 Mg/ 24hr) 1 patch DAILY TRANSDERM ; Start 07/18/18 at 16:30 Metoprolol Succinate (Toprol Xl) 25 mg DAILY PO Last administered on 07/28/18at 10:09; Admin Dose 25 MG; Start 07/19/18 at 09:00 Patient Own Medication 1 ea BID PO Last administered on 07/19/18 08:09; Admin Dose 1 EA; Start 07/18/18 at 21:00; Status Hold Insulin Aspart (Novolog Insulin Pen) (Adult SC Insulin - Mild Algorithm)... AC MEALS AND BEDTIME SC Last administered on 07/28/18 13:40; Admin Dose 2 UNIT; Start 07/19/18 at 17:25 Miscellaneous Information Patients own medicat... BID@10,16 XX Last administered on 07/22/18 16:28; Admin Dose 1,600 EA; Start 07/20/18 at 10:00 Doxazosin Mesylate (Cardura) 4 mg HS PO Last administered on 07/22/18 21:14; Admin Dose 4 MG; Start 07/21/18 at 21:00 Trazodone HCl (Desyrel) 50 mg HS PO Last administered on 07/27/18 20:51; Admin Dose 50 MG; Start 07/23/18 at 00:30 Senna (Senokot) 1 tab BID PRN PO CONSTIPATION; Start 07/26/18 at 13:30 Acetazolamide (Diamox) 500 mg Q12 IV Last administered on 07/28/18 10:10; Admin Dose 500 MG; Start 07/27/18 at 21:00 Baclofen (Lioresal) 20 mg TID PRN PO back spasm Last administered on 07/28/18 10:08; Admin Dose 20 MG; Start 07/28/18 at 10:00 DEVIN BALDWIN MD Jul 28, 2018 14:59
--- NOTE | 2018-07-28 15:37 | CONS ---
Assessment/Plan Assessment/Plan Assessment/Plan (Daily) A 67-year-old male presenting with: 1. Shortness of breath with bilateral lower extremity edema, orthopnea and PND likely secondary to acute on chronic congestive heart failure. 2. Acute on chronic renal failure; however, the patient's baseline creatinine ranges from 1.9 to 2. On last discharge in May, the creatinine was 1.9. This could be all secondary to cardiorenal as the patient is clearly in decompensated heart failure right now. now reached a euvolemic state, pt had Renal U/S in 05/24 which showed chronci kidney disease. Cr 2.23 >2.39>2.69 3. History of atrial fibrillation. 4. Hypertension. 5. Diabetes. 6. Hyperlipidemia. 7. BPH. 8. Positive troponin with chest pain ? NSTEMI 9. Elevated BNP. 10 Contraction alkalosis with worsening uremia today worsening bicarb 11 hypoxia on ABG due to CHF PLAN: -Hold lasix due to contraction alkalosis - iv diamox 2 doses today , monitor levels tmw - cw hold off Entresto at this point. - Digoxin levels normal. -. Keep a systolic blood pressure of greater than 100. - Renally dose all meds. - Avoid nephrotoxic agents. recheck bmp tmw pending improvement in bicarb status Consultation Date/Type/Reason Admit Date/Time Jul 18, 2018 at 13:13 Initial Consult Date Requesting Provider: MELVI LANCE Date/Time of Note DATE: 07/28/18 TIME: 15:35 24 HR Interval Summary Free Text/Dictation Carb is 41 And is drinking a lot of water Exam/Review of Systems Exam Vitals Vital Signs Date Temp Pulse Resp B/P (MAP) Pulse Ox O2 O2 Flow FiO2 Time Delivery Rate 07/28/18 97.7 56 20 98/50 (66) 98 Nasal 15:33 Cannula 07/28/18 3.0 13:36 07/27/18 30 01:40 Intake and Output 07/27/18 07/27/18 07/28/18 1515:00 23:00 07:00 IntakeIntake Total 800 ml 1000 ml OutputOutput Total 400 ml BalanceBalance 800 ml 600 ml Exam Respiratory: diminished breath sounds Cardiovascular: regular rate and rhythm, TRICE Gastrointestinal: soft Musculoskeletal: nl extremities to inspection Extremities: normal pulses + Edema improved Results Result Diagram: 07/28/18 0849 07/28/18 0849 Results 24hrs Laboratory Tests Test 07/27/18 16:54 07/27/18 20:48 07/28/18 08:45 07/28/18 08:49 Bedside Glucose 287 H 174 163 White Blood Count 6.4 Red Blood Count 5.03 Hemoglobin 12.2 L Hematocrit 41.1 L Mean Corpuscular 81.7 L Volume Mean Corpuscular 24.3 L Hemoglobin Mean Corpuscular 29.7 L Hemoglobin Concent Red Cell 18.1 H Distribution Width Platelet Count 167 Mean Platelet Volume Immature 0.300 Granulocytes % Neutrophils % 62.4 Lymphocytes % 21.8 Monocytes % 10.9 Eosinophils % 3.7 Basophils % 0.9 Nucleated Red Blood 0.0 Cells % Immature 0.020 Granulocytes # Neutrophils # 4.0 Lymphocytes # 1.4 Monocytes # 0.7 Eosinophils # 0.2 Basophils # 0.1 Nucleated Red Blood 0.0 Cells # Sodium Level 140 Potassium Level 3.8 Chloride Level 90 L Carbon Dioxide Level 41 *H Anion Gap 9 Blood Urea Nitrogen 72 H Creatinine 2.60 H Est Glomerular 25 L Filtrat Rate mL/min Glucose Level 173 Calcium Level 9.6 Test 07/28/18 12:11 Bedside Glucose 202 Medications Medication Current Medications IV Flush (NS 3 ml) 3 ml PER PROTOCOL IV ; Start 07/18/18 at 14:00 Ondansetron HCl (Zofran Inj) 4 mg Q6H PRN IV NAUSEA/VOMITING Last administered on 07/20/18at 04:47; Admin Dose 4 MG; Start 07/18/18 at 14:00 Acetaminophen (Tylenol Tab) 650 mg Q6H PRN PO .PAIN 1-3 OR TEMP Last administered on 07/28/18at 06:56; Admin Dose 650 MG; Start 07/18/18 at 14:00 Acetaminophen/ Hydrocodone Bitart ([place] (5/325)) 1 tab Q6H PRN PO .MOD PAIN 4- 6 Last administered on 07/19/18at 13:01; Admin Dose 1 TAB; Start 07/18/18 at 14:00 Morphine Sulfate (morphine) 6 mg Q4H PRN PO .SEVERE PAIN 7-10; Start 07/18/18 at 14:00 Docusate Sodium (Colace) 100 mg Q12H PRN PO .CONSTIPATION Last administered on 07/25/18 20:37; Admin Dose 100 MG; Start 07/18/18 at 14:00 Magnesium Hydroxide (Milk Of Mag) 30 ml DAILY PRN PO .CONSTIPATION Last administered on 07/25/18 20:06; Admin Dose 30 ML; Start 07/18/18 at 14:00 Lorazepam (Ativan) 0.5 mg Q6H PRN PO ANXIETY; Start 07/18/18 at 14:00 Albuterol/ Ipratropium (Duoneb) 3 ml Q4H RESP THERAPY PRN HHN SHORTNESS OF BREATH Last administered on 07/21/18 23:35; Admin Dose 3 ML; Start 07/18/18 at 14:00 Hydralazine HCl (Apresoline) 10 mg Q6H PRN IV ELEVATED BLOOD PRESSURE; Start 07/18/18 at 14:00 Nitroglycerin (Nitroglycerin (Sl Tab) 0.4 Mg) 1 tab Q5M PRN SL ANGINA; Start 07/18/18 at 14:00 Apixaban (Eliquis) 5 mg BID PO Last administered on 07/28/18 10:09; Admin Dose 5 MG; Start 07/18/18 at 21:00 Digoxin (Digoxin) 0.125 mg DAILY@1300 PO Last administered on 07/27/18 13:00; Admin Dose 0.125 MG; Start 07/19/18 at 13:00; Status Hold Ergocalciferol (Drisdol) 50,000 unit Q7D PO Last administered on 07/25/18 13:00; Admin Dose 50,000 UNIT; Start 07/18/18 at 14:00 Ferrous Sulfate (Ferrous Sulfate (Ec)) 325 mg BID PO Last administered on 07/28/18 10:09; Admin Dose 325 MG; Start 07/18/18 at 21:00 Insulin Glargine (Lantus) 12 units QHS SC Last administered on 07/27/18 21:03; Admin Dose 12 UNITS; Start 07/18/18 at 21:00 Famotidine (Pepcid) 20 mg DAILY PO Last administered on 07/28/18 10:09; Admin Dose 20 MG; Start 07/19/18 at 09:00 Atorvastatin Calcium (Lipitor) 80 mg HS PO Last administered on 2/20/19at 20:52; Admin Dose 80 MG; Start 07/18/18 at 21:00 Diagnostic Test (Pha) (Accu-Chek) 1 ea 02 XX Last administered on 07/27/18at 01:50; Admin Dose 1 EA; Start 07/19/18 at 02:00 Miscellaneous Information 1 ea NOTE XX ; Start 07/18/18 at 14:30 Glucose (Glutose) 15 gm Q15M PRN PO DECREASED GLUCOSE; Start 07/18/18 at 14:30 Glucose (Glutose) 22.5 gm Q15M PRN PO DECREASED GLUCOSE; Start 07/18/18 at 14:30 Dextrose (D50w Syringe) 25 ml Q15M PRN IV DECREASED GLUCOSE; Start 07/18/18 at 14:30 Dextrose (D50w Syringe) 50 ml Q15M PRN IV DECREASED GLUCOSE; Start 07/18/18 at 14:30 Glucagon (Glucagen) 1 mg Q15M PRN IM DECREASED GLUCOSE; Start 07/18/18 at 14:30 Glucose (Glutose) 15 gm Q15M PRN BUCCAL DECREASED GLUCOSE Last administered on 07/21/18at 08:36; Admin Dose 15 GM; Start 07/18/18 at 14:30 Nicotine (Nicoderm 21 Mg/ 24hr) 1 patch DAILY TRANSDERM ; Start 07/18/18 at 16:30 Metoprolol Succinate (Toprol Xl) 25 mg DAILY PO Last administered on 07/28/18at 10:09; Admin Dose 25 MG; Start 07/19/18 at 09:00 Patient Own Medication 1 ea BID PO Last administered on 07/19/18at 08:09; Admin Dose 1 EA; Start 07/18/18 at 21:00; Status Hold Insulin Aspart (Novolog Insulin Pen) (Adult SC Insulin - Mild Algorithm)... AC MEALS AND BEDTIME SC Last administered on 07/28/18at 13:40; Admin Dose 2 UNIT; Start 07/19/18 at 17:25 Miscellaneous Information Patients own medicat... BID@10,16 XX Last administered on 07/22/18at 16:28; Admin Dose 1,600 EA; Start 07/20/18 at 10:00 Doxazosin Mesylate (Cardura) 4 mg HS PO Last administered on 07/22/18at 21:14; Admin Dose 4 MG; Start 07/21/18 at 21:00 Trazodone HCl (Desyrel) 50 mg HS PO Last administered on 07/27/18at 20:51; Admin Dose 50 MG; Start 07/23/18 at 00:30 Senna (Senokot) 1 tab BID PRN PO CONSTIPATION; Start 07/26/18 at 13:30 Acetazolamide (Diamox) 500 mg Q12 IV Last administered on 07/28/18at 10:10; Admin Dose 500 MG; Start 07/27/18 at 21:00 Baclofen (Lioresal) 20 mg TID PRN PO back spasm Last administered on 07/28/18at 10:08; Admin Dose 20 MG; Start 07/28/18 at 10:00 MONICA JONES MD Jul 28, 2018 15:37
[2018-07-28] MEDS: DOXAZOSIN 4 MG TAB PO SCH (21:00)
[2018-07-28] MEDS: traZODone 50 MG TAB PO SCH (21:50)
[2018-07-28] MEDS: ATORVASTATIN 80 MG TAB PO SCH (21:50)
[2018-07-28] MEDS: INSULIN GLARGINE [LANTus] (100 UNITS/ML) SYG SC SCH (22:13)
[2018-07-28] MEDS: ONDANSETRON 4 MG INJ IV PRN (22:45)
[2018-07-29] VITALS (10 sets, daily range): BP systolic 102–113; BP diastolic 54–57; PULSE 44–68; RESP 19–20
[2018-07-29] MEDS: ACCU-CHEK XX SCH (03:00)
[2018-07-29] MEDS: APIXABAN 5 MG TABLET PO SCH ×2 (08:20→21:17)
[2018-07-29] MEDS: FERROUS SULFATE (EC) 325 MG TAB PO SCH ×2 (08:20→21:17)
[2018-07-29] MEDS: ACETAZOLAMIDE 500 MG INJ IV SCH (08:21)
[2018-07-29] MEDS: METOPROLOL (XL) 25 MG TAB PO SCH (08:21)
[2018-07-29] MEDS: FAMOTIDINE 20 MG TAB PO SCH (08:21)
[2018-07-29] MEDS: Insulin NOVOLOG SS MILD Algorithm (SS with meals and bedtime) SC SCH ×4 (08:41→21:55)
[2018-07-29] MEDS: ONDANSETRON 4 MG INJ IV PRN (10:45)
--- NOTE | 2018-07-29 12:53 | CONS ---
[facility]: [place] Unit Number: [id number] Date of : 1950 Patient Status: Admitted Inpatient Attending Doctor: Hayden Sainz MD Edit: MONICA JONES MD on 07/29/18 @ 18:28 SEEN AND EXAMINED PT NAUSEA/VOMITING/GI UPSET/CONFUSION DC NARCOTICS DC SLEEPING PILL/BACLOFEN BICARB IMPROVED DC DIAMOX Assessment/Plan Assessment/Plan Hospital Course (Demo Recall) 1. Shortness of breath with bilateral lower extremity edema, orthopnea and PND likely secondary to acute on chronic congestive heart failure. 2. Acute on chronic renal failure; however, the patient's baseline creatinine ranges from 1.9 to 2. On last discharge in May, the creatinine was 1.9. This could be all secondary to cardiorenal as the patient is clearly in decompensated heart failure right now., pt had Renal U/S in 05/24 which showed chronic kidney disease, 3. History of atrial fibrillation. 4. Hypertension. 5. Diabetes. 6. Hyperlipidemia. 7. BPH. 8. Positive troponin with chest pain ? NSTEMI. Per cardiology CHF EF 35% 9. Elevated BNP. 10 Microcytic hypochromic anemia 11. Overweight 12. fatty liver infiltration 13. s/p cholecystectomy 14/ Alkalosis. 15. NAusea with episode of vomiting. Assessment/Plan (Daily) -Hold lasix due to contraction alkalosis - cw hold off Entresto at this point. - Digoxin levels normal. -. Keep a systolic blood pressure of greater than 100. - Renally dose all meds. - Avoid nephrotoxic agents. Consultation Date/Type/Reason Admit Date/Time Jul 18, 2018 at 13:13 Initial Consult Date 07/18/2018 Type of Consult nephrology Requesting Provider: MELVI LANCE Date/Time of Note DATE: 07/29/18 TIME: 12:51 24 HR Interval Summary Free Text/Dictation nausea, vomit 2 times Exam/Review of Systems Exam Vitals Vital Signs Date Temp Pulse Resp B/P (MAP) Pulse Ox O2 O2 Flow FiO2 Time Delivery Rate 07/29/18 56 12:11 07/29/18 97.8 20 102/54 100 Nasal 12:07 (70) Cannula 07/29/18 3.0 08:01 07/27/18 30 01:40 Intake and Output 07/28/18 07/28/18 07/29/18 1515:00 23:00 07:00 IntakeIntake Total 960 ml BalanceBalance 960 ml Constitutional: alert, oriented Respiratory: clear to auscultation Cardiovascular: regular rate and rhythm Gastrointestinal: soft, rebound or guarding; No nl liver, spleen, No non-tender, No ascites, No bowel sounds, No distended, No firm, No hepatomegaly, No mass, No splenomegaly, No surgical scars, No tender, No other Results Result Diagram: 07/29/18 0604 07/29/18 0604 Results 24hrs Laboratory Tests Test 07/28/18 16:34 07/28/18 16:51 07/28/18 17:35 07/28/18 19:22 Bedside Glucose 256 H 210 226 H Blood Gas Blood arterial Specimen Source Arterial Blood 07/28/2018 5:15:5 Date Drawn 2 PM Arterial Blood pH 7.439 (Temp corrected) Arterial Blood 54.5 H pCO2 (Temp correct) Arterial Blood 64.2 L pO2 (Temp corrected) Arterial Blood 36.1 H HCO3 Arterial Blood 10.1 H Base Excess Arterial Blood 93.6 L Oxygen Saturation Ankur Test N/A Arterial Blood LB Gas Puncture Site Arterial 0.6 Blood Carboxyhemo globin Arterial Blood 0.3 Methemoglobin Blood Gas A-a O2 85.7 H Differential Oxyhemoglobin 92.8 L Percent Blood Gas 37.0 Temperature Blood Gas NASAL CANNULA Modality FiO2 30.0 Blood Gas JERONIMO MORALES Notified Whom Blood Gas 07/28/2018 5:30:2 Notified Time 4 PM Test 07/28/18 21:54 07/29/18 03:18 07/29/18 06:04 07/29/18 08:19 Bedside Glucose 223 H 224 H 199 White Blood Count 6.0 Red Blood Count 4.65 L Hemoglobin 11.3 L Hematocrit 38.0 L Mean Corpuscular 81.7 L Volume Mean Corpuscular 24.3 L Hemoglobin Mean Corpuscular 29.7 L Hemoglobin Concen t Red Cell 17.7 H Distribution Width Platelet Count 158 Mean Platelet Volume Immature 0.300 Granulocytes % Neutrophils % 74.4 Lymphocytes % 14.8 L Monocytes % 8.5 Eosinophils % 1.2 Basophils % 0.8 Nucleated Red 0.0 Blood Cells % Immature 0.020 Granulocytes # Neutrophils # 4.5 Lymphocytes # 0.9 Monocytes # 0.5 Eosinophils # 0.1 Basophils # 0.1 Nucleated Red 0.0 Blood Cells # Sodium Level 138 Potassium Level 4.0 Chloride Level 93 L Carbon Dioxide 33 H Level Anion Gap 12 Blood Urea 69 H Nitrogen Creatinine 2.61 H Est Glomerular 25 L Filtrat Rate mL/min Glucose Level 233 H Calcium Level 9.4 Phosphorus Level 4.8 Magnesium Level 2.7 H Test 07/29/18 11:44 Bedside Glucose 210 Medications Medication Current Medications IV Flush (NS 3 ml) 3 ml PER PROTOCOL IV ; Start 07/18/18 at 14:00 Ondansetron HCl (Zofran Inj) 4 mg Q6H PRN IV NAUSEA/VOMITING Last administered on 07/29/18 10:45; Admin Dose 4 MG; Start 07/18/18 at 14:00 Acetaminophen (Tylenol Tab) 650 mg Q6H PRN PO .PAIN 1-3 OR TEMP Last administered on 07/28/18 06:56; Admin Dose 650 MG; Start 07/18/18 at 14:00 Acetaminophen/ Hydrocodone Bitart ([place] (5/325)) 1 tab Q6H PRN PO .MOD PAIN 4- 6 Last administered on 07/19/18 13:01; Admin Dose 1 TAB; Start 07/18/18 at 14:00 Morphine Sulfate (morphine) 6 mg Q4H PRN PO .SEVERE PAIN 7-10; Start 07/18/18 at 14:00 Docusate Sodium (Colace) 100 mg Q12H PRN PO .CONSTIPATION Last administered on 07/25/18 20:37; Admin Dose 100 MG; Start 07/18/18 at 14:00 Magnesium Hydroxide (Milk Of Mag) 30 ml DAILY PRN PO .CONSTIPATION Last administered on 07/25/18 20:06; Admin Dose 30 ML; Start 07/18/18 at 14:00 Lorazepam (Ativan) 0.5 mg Q6H PRN PO ANXIETY; Start 07/18/18 at 14:00 Albuterol/ Ipratropium (Duoneb) 3 ml Q4H RESP THERAPY PRN HHN SHORTNESS OF BREATH Last administered on 07/21/18at 23:35; Admin Dose 3 ML; Start 07/18/18 at 14:00 Hydralazine HCl (Apresoline) 10 mg Q6H PRN IV ELEVATED BLOOD PRESSURE; Start 07/18/18 at 14:00 Nitroglycerin (Nitroglycerin (Sl Tab) 0.4 Mg) 1 tab Q5M PRN SL ANGINA; Start 07/18/18 at 14:00 Apixaban (Eliquis) 5 mg BID PO Last administered on 07/29/18 08:20; Admin Dose 5 MG; Start 07/18/18 at 21:00 Digoxin (Digoxin) 0.125 mg DAILY@1300 PO Last administered on 07/27/18 13:00; Admin Dose 0.125 MG; Start 07/19/18 at 13:00; Status Hold Ergocalciferol (Drisdol) 50,000 unit Q7D PO Last administered on 07/25/18 13:00; Admin Dose 50,000 UNIT; Start 07/18/18 at 14:00 Ferrous Sulfate (Ferrous Sulfate (Ec)) 325 mg BID PO Last administered on 07/29/18 08:20; Admin Dose 325 MG; Start 07/18/18 at 21:00 Famotidine (Pepcid) 20 mg DAILY PO Last administered on 07/29/18 08:21; Admin Dose 20 MG; Start 07/19/18 at 09:00 Atorvastatin Calcium (Lipitor) 80 mg HS PO Last administered on 07/28/18at 21:50; Admin Dose 80 MG; Start 07/18/18 at 21:00 Diagnostic Test (Pha) (Accu-Chek) 1 ea 02 XX Last administered on 07/29/18at 03:00; Admin Dose 1 EA; Start 07/19/18 at 02:00 Miscellaneous Information 1 ea NOTE XX ; Start 07/18/18 at 14:30 Glucose (Glutose) 15 gm Q15M PRN PO DECREASED GLUCOSE; Start 07/18/18 at 14:30 Glucose (Glutose) 22.5 gm Q15M PRN PO DECREASED GLUCOSE; Start 07/18/18 at 14:30 Dextrose (D50w Syringe) 25 ml Q15M PRN IV DECREASED GLUCOSE; Start 07/18/18 at 14:30 Dextrose (D50w Syringe) 50 ml Q15M PRN IV DECREASED GLUCOSE; Start 07/18/18 at 14:30 Glucagon (Glucagen) 1 mg Q15M PRN IM DECREASED GLUCOSE; Start 07/18/18 at 14:30 Glucose (Glutose) 15 gm Q15M PRN BUCCAL DECREASED GLUCOSE Last administered on 07/21/18at 08:36; Admin Dose 15 GM; Start 07/18/18 at 14:30 Nicotine (Nicoderm 21 Mg/ 24hr) 1 patch DAILY TRANSDERM ; Start 07/18/18 at 16:30 Metoprolol Succinate (Toprol Xl) 25 mg DAILY PO Last administered on 07/29/18 08:21; Admin Dose 25 MG; Start 07/19/18 at 09:00 Patient Own Medication 1 ea BID PO Last administered on 07/19/18at 08:09; Admin Dose 1 EA; Start 07/18/18 at 21:00; Status Hold Insulin Aspart (Novolog Insulin Pen) (Adult SC Insulin - Mild Algorithm)... AC MEALS AND BEDTIME SC Last administered on 07/29/18 12:01; Admin Dose 2 UNIT; Start 07/19/18 at 17:25 Miscellaneous Information Patients own medicat... BID@10,16 XX Last administered on 07/28/18at 16:58; Admin Dose 1 EA; Start 07/20/18 at 10:00 Doxazosin Mesylate (Cardura) 4 mg HS PO Last administered on 07/22/18 21:14; Admin Dose 4 MG; Start 07/21/18 at 21:00 Trazodone HCl (Desyrel) 50 mg HS PO Last administered on 07/28/18at 21:50; Admin Dose 50 MG; Start 07/23/18 at 00:30 Senna (Senokot) 1 tab BID PRN PO CONSTIPATION; Start 07/26/18 at 13:30 Acetazolamide (Diamox) 500 mg Q12 IV Last administered on 07/29/18at 08:21; Admin Dose 500 MG; Start 07/27/18 at 21:00 Baclofen (Lioresal) 20 mg TID PRN PO back spasm Last administered on 07/28/18at 10:08; Admin Dose 20 MG; Start 07/28/18 at 10:00 Insulin Glargine (Lantus) 20 units QHS SC ; Start 07/29/18 at 21:00 KACI GUILLORY Jul 29, 2018 12:53
--- NOTE | 2018-07-29 12:53 | CONS ---
Assessment/Plan Assessment/Plan Hospital Course (Demo Recall) IMP: 1.CHF- systolic acute on chronic 2.Cardiomyopathy- EF 30% 3.CKD 4.HTN 5.Dyslipidemia 6. Hepatomegaly-likley due to passive congestion of liver 7. nausea/vomiting Recc: -Tele -Now on diamox for contraction alkalosis and holding lasix -continue bb and cardura and if BP allows will start afterload reduction with hydralazine low dose -Continue statin/Eliquis -Will resume digoxin in 1-2 days -ongoing eval of n/v Consultation Date/Type/Reason Admit Date/Time Jul 18, 2018 at 13:13 Initial Consult Date 07/18/18 Type of Consult Cardiology Reason for Consultation CHF Requesting Provider: MELVI LANCE Date/Time of Note DATE: 07/29/18 TIME: 12:48 Exam/Review of Systems Vital Signs Vitals Vital Signs Date Temp Pulse Resp B/P (MAP) Pulse Ox O2 O2 Flow FiO2 Time Delivery Rate 07/29/18 56 12:11 07/29/18 97.8 20 102/54 100 Nasal 12:07 (70) Cannula 07/29/18 3.0 08:01 07/27/18 30 01:40 Intake and Output 07/28/18 07/28/18 07/29/18 1515:00 23:00 07:00 IntakeIntake Total 960 ml BalanceBalance 960 ml Exam Exam Review of Systems: CONSTITUTIONAL: No fevers, chills. PULMONARY: No sob CARDIOVASCULAR: No chest pain/palpitations GASTROINTESTINAL: No nausea/vomiting. GENITOURINARY: No hematuria/dysuria. MUSCULOSKELETAL: No myagias/arthalgias. PSYCHIATRIC: The patient denies depression. NEUROLOGIC: No weakness Constitutional: alert Psych: no complaints Head: normocephalic ENMT: mucosa pink and moist Neck: supple, jvd (9cm water) Respiratory: diminished breath sounds Cardiovascular: regular rate and rhythm Gastrointestinal: soft, non-tender Musculoskeletal: muscle tone (normal) Extremities: edema (none) Neurological: other (No focal deficits) Labs Result Diagram: 07/29/18 0604 07/29/18 0604 Results 24hrs Laboratory Tests Test 07/28/18 16:34 07/28/18 16:51 07/28/18 17:35 07/28/18 19:22 Bedside Glucose 256 H 210 226 H Blood Gas Blood arterial Specimen Source Arterial Blood 07/28/2018 5:15:5 Date Drawn 2 PM Arterial Blood pH 7.439 (Temp corrected) Arterial Blood 54.5 H pCO2 (Temp correct) Arterial Blood 64.2 L pO2 (Temp corrected) Arterial Blood 36.1 H HCO3 Arterial Blood 10.1 H Base Excess Arterial Blood 93.6 L Oxygen Saturation Ankur Test N/A Arterial Blood LB Gas Puncture Site Arterial 0.6 Blood Carboxyhemo globin Arterial Blood 0.3 Methemoglobin Blood Gas A-a O2 85.7 H Differential Oxyhemoglobin 92.8 L Percent Blood Gas 37.0 Temperature Blood Gas NASAL CANNULA Modality FiO2 30.0 Blood Gas JERONIMO MORALES Notified Whom Blood Gas 07/28/2018 5:30:2 Notified Time 4 PM Test 07/28/18 21:54 07/29/18 03:18 07/29/18 06:04 07/29/18 08:19 Bedside Glucose 223 H 224 H 199 White Blood Count 6.0 Red Blood Count 4.65 L Hemoglobin 11.3 L Hematocrit 38.0 L Mean Corpuscular 81.7 L Volume Mean Corpuscular 24.3 L Hemoglobin Mean Corpuscular 29.7 L Hemoglobin Concen t Red Cell 17.7 H Distribution Width Platelet Count 158 Mean Platelet Volume Immature 0.300 Granulocytes % Neutrophils % 74.4 Lymphocytes % 14.8 L Monocytes % 8.5 Eosinophils % 1.2 Basophils % 0.8 Nucleated Red 0.0 Blood Cells % Immature 0.020 Granulocytes # Neutrophils # 4.5 Lymphocytes # 0.9 Monocytes # 0.5 Eosinophils # 0.1 Basophils # 0.1 Nucleated Red 0.0 Blood Cells # Sodium Level 138 Potassium Level 4.0 Chloride Level 93 L Carbon Dioxide 33 H Level Anion Gap 12 Blood Urea 69 H Nitrogen Creatinine 2.61 H Est Glomerular 25 L Filtrat Rate mL/min Glucose Level 233 H Calcium Level 9.4 Phosphorus Level 4.8 Magnesium Level 2.7 H Test 07/29/18 11:44 Bedside Glucose 210 Medications Medications Current Medications IV Flush (NS 3 ml) 3 ml PER PROTOCOL IV ; Start 07/18/18 at 14:00 Ondansetron HCl (Zofran Inj) 4 mg Q6H PRN IV NAUSEA/VOMITING Last administered on 2/22/19at 10:45; Admin Dose 4 MG; Start 07/18/18 at 14:00 Acetaminophen (Tylenol Tab) 650 mg Q6H PRN PO .PAIN 1-3 OR TEMP Last administered on 07/28/18 06:56; Admin Dose 650 MG; Start 07/18/18 at 14:00 Acetaminophen/ Hydrocodone Bitart ([place] (5/325)) 1 tab Q6H PRN PO .MOD PAIN 4- 6 Last administered on 07/19/18 13:01; Admin Dose 1 TAB; Start 07/18/18 at 14:00 Morphine Sulfate (morphine) 6 mg Q4H PRN PO .SEVERE PAIN 7-10; Start 07/18/18 at 14:00 Docusate Sodium (Colace) 100 mg Q12H PRN PO .CONSTIPATION Last administered on 07/25/18 20:37; Admin Dose 100 MG; Start 07/18/18 at 14:00 Magnesium Hydroxide (Milk Of Mag) 30 ml DAILY PRN PO .CONSTIPATION Last administered on 07/25/18 20:06; Admin Dose 30 ML; Start 07/18/18 at 14:00 Lorazepam (Ativan) 0.5 mg Q6H PRN PO ANXIETY; Start 07/18/18 at 14:00 Albuterol/ Ipratropium (Duoneb) 3 ml Q4H RESP THERAPY PRN HHN SHORTNESS OF BREATH Last administered on 07/21/18 23:35; Admin Dose 3 ML; Start 07/18/18 at 14:00 Hydralazine HCl (Apresoline) 10 mg Q6H PRN IV ELEVATED BLOOD PRESSURE; Start 07/18/18 at 14:00 Nitroglycerin (Nitroglycerin (Sl Tab) 0.4 Mg) 1 tab Q5M PRN SL ANGINA; Start 07/18/18 at 14:00 Apixaban (Eliquis) 5 mg BID PO Last administered on 07/29/18 08:20; Admin Dose 5 MG; Start 07/18/18 at 21:00 Digoxin (Digoxin) 0.125 mg DAILY@1300 PO Last administered on 07/27/18 13:00; Admin Dose 0.125 MG; Start 07/19/18 at 13:00; Status Hold Ergocalciferol (Drisdol) 50,000 unit Q7D PO Last administered on 07/25/18at 13:00; Admin Dose 50,000 UNIT; Start 07/18/18 at 14:00 Ferrous Sulfate (Ferrous Sulfate (Ec)) 325 mg BID PO Last administered on 07/29/18 08:20; Admin Dose 325 MG; Start 07/18/18 at 21:00 Famotidine (Pepcid) 20 mg DAILY PO Last administered on 07/29/18 08:21; Admin Dose 20 MG; Start 07/19/18 at 09:00 Atorvastatin Calcium (Lipitor) 80 mg HS PO Last administered on 07/28/18at 21:50; Admin Dose 80 MG; Start 07/18/18 at 21:00 Diagnostic Test (Pha) (Accu-Chek) 1 ea 02 XX Last administered on 07/29/18at 03:00; Admin Dose 1 EA; Start 07/19/18 at 02:00 Miscellaneous Information 1 ea NOTE XX ; Start 07/18/18 at 14:30 Glucose (Glutose) 15 gm Q15M PRN PO DECREASED GLUCOSE; Start 07/18/18 at 14:30 Glucose (Glutose) 22.5 gm Q15M PRN PO DECREASED GLUCOSE; Start 07/18/18 at 14:30 Dextrose (D50w Syringe) 25 ml Q15M PRN IV DECREASED GLUCOSE; Start 07/18/18 at 14:30 Dextrose (D50w Syringe) 50 ml Q15M PRN IV DECREASED GLUCOSE; Start 07/18/18 at 14:30 Glucagon (Glucagen) 1 mg Q15M PRN IM DECREASED GLUCOSE; Start 07/18/18 at 14:30 Glucose (Glutose) 15 gm Q15M PRN BUCCAL DECREASED GLUCOSE Last administered on 07/21/18at 08:36; Admin Dose 15 GM; Start 07/18/18 at 14:30 Nicotine (Nicoderm 21 Mg/ 24hr) 1 patch DAILY TRANSDERM ; Start 07/18/18 at 16:30 Metoprolol Succinate (Toprol Xl) 25 mg DAILY PO Last administered on 07/29/18at 08:21; Admin Dose 25 MG; Start 07/19/18 at 09:00 Patient Own Medication 1 ea BID PO Last administered on 07/19/18at 08:09; Admin Dose 1 EA; Start 07/18/18 at 21:00; Status Hold Insulin Aspart (Novolog Insulin Pen) (Adult SC Insulin - Mild Algorithm)... AC MEALS AND BEDTIME SC Last administered on 07/29/18at 12:01; Admin Dose 2 UNIT; Start 07/19/18 at 17:25 Miscellaneous Information Patients own medicat... BID@10,16 XX Last administered on 07/28/18at 16:58; Admin Dose 1 EA; Start 07/20/18 at 10:00 Doxazosin Mesylate (Cardura) 4 mg HS PO Last administered on 07/22/18at 21:14; Admin Dose 4 MG; Start 07/21/18 at 21:00 Trazodone HCl (Desyrel) 50 mg HS PO Last administered on 07/28/18at 21:50; Admin Dose 50 MG; Start 07/23/18 at 00:30 Senna (Senokot) 1 tab BID PRN PO CONSTIPATION; Start 07/26/18 at 13:30 Acetazolamide (Diamox) 500 mg Q12 IV Last administered on 07/29/18at 08:21; Admin Dose 500 MG; Start 07/27/18 at 21:00 Baclofen (Lioresal) 20 mg TID PRN PO back spasm Last administered on 07/28/18at 10:08; Admin Dose 20 MG; Start 07/28/18 at 10:00 Insulin Glargine (Lantus) 20 units QHS SC ; Start 07/29/18 at 21:00 DEVIN LOWE Jul 29, 2018 12:53
[2018-07-29] MEDS: METOCLOPRAMIDE 5 MG TAB PO SCH (17:12)
--- NOTE | 2018-07-29 17:43 | PN ---
Date/Time of Note Date/Time of Note DATE: 07/29/18 TIME: 17:41 Assessment/Plan VTE Prophylaxis Risk score (from Ns)>0 risk: 4 SCD applied (from Ns): No SCD contraindicated: low risk/ambulating Pharmacological prophylaxis: rivaroxaban Lines/Catheters IV [facility]ter [facility]from [facility] Mid Line Urinary Cath still in place: No Assessment/Plan Assessment/Plan 67-year-old man coming in with chest pressure, shortness of breath, lower extremity swelling, signs of congestive heart failure exacerbation. 1. Shortness of breath and chest pressure -overall slowly improving now. -Continue fluid restriction as recommended by cardiology and renal teams. -Currently holding diuresis due to severe contraction alkalosis. - follow up Cardiology recommendations and continue digoxin for now. -Off of Entresto presently while in-house 2. Acute on chronic kidney disease. Again, the kidney function appears to be slightly worse than when he was here 2 months ago. Creatinine levels have been in the low to mid 2 range. Patient having adequate urine output. -Follow-up recommendations from renal consult -Continue to carefully monitor BUN and creatinine levels and urine output. 3. Smoking history. -Counseled on cessation. -Continue nicotine patch. 4. History of hypertension. Again, see above. - Continue current medications. - Also hydralazine p.r.n. 5. History of atrial fibrillation -appears stable -Monitor, continue Eliquis as well. 6. Type 2 diabetes. A1c equals 9.0, sugars presently stable - continue Lantus and sliding scale insulin. 7. Deep venous thrombosis prophylaxis-on Eliquis. Dispo: Currently hospitalized for severe metabolic alkalosis, anticipate discharge in 24-48 hours Result Diagram: 07/29/18 0604 07/29/18 0604 Subjective 24 Hr Interval Summary Free Text/Dictation No acute overnight events. Patient is ambulating around hallway with assistance. Desats to 70s when ambula ting on room air. He did have one episode of vomiting overnight and this morning. Also reports occasional episodes of dizziness and seeing stars when lying in bed. Exam/Review of Systems Exam Vitals Vital Signs Date Temp Pulse Resp B/P (MAP) Pulse Ox O2 O2 Flow FiO2 Time Delivery Rate 07/29/18 3.0 17:05 07/29/18 56 16:12 07/29/18 97.4 20 102/55 100 Nasal 15:27 (71) Cannula 07/27/18 30 01:40 Intake and Output 07/28/18 07/28/18 07/29/18 1515:00 23:00 07:00 IntakeIntake Total 960 ml BalanceBalance 960 ml Exam GENERAL: Ambulating in hallway. HEENT: Pupils equal, round and reactive to light. Extraocular muscles are intact. NECK: Supple, no thyromegaly. LUNGS: Distant breath sounds bilaterally, no crackles appreciated. CARDIOVASCULAR: Irregularly irregular heart rate. No rubs or gallops. ABDOMEN: Soft, nontender and nondistended. Normal bowel sounds. No rebound or guarding. MUSCULOSKELETAL: 1+ pitting edema in bilateral lower extremities to the mid calves. Results Results 24hrs Laboratory Tests Test 07/28/18 19:22 07/28/18 21:54 07/29/18 03:18 07/29/18 06:04 Bedside Glucose 226 H 223 H 224 H White Blood Count 6.0 Red Blood Count 4.65 L Hemoglobin 11.3 L Hematocrit 38.0 L Mean Corpuscular 81.7 L Volume Mean Corpuscular 24.3 L Hemoglobin Mean Corpuscular 29.7 L Hemoglobin Concent Red Cell 17.7 H Distribution Width Platelet Count 158 Mean Platelet Volume Immature 0.300 Granulocytes % Neutrophils % 74.4 Lymphocytes % 14.8 L Monocytes % 8.5 Eosinophils % 1.2 Basophils % 0.8 Nucleated Red Blood 0.0 Cells % Immature 0.020 Granulocytes # Neutrophils # 4.5 Lymphocytes # 0.9 Monocytes # 0.5 Eosinophils # 0.1 Basophils # 0.1 Nucleated Red Blood 0.0 Cells # Sodium Level 138 Potassium Level 4.0 Chloride Level 93 L Carbon Dioxide Level 33 H Anion Gap 12 Blood Urea Nitrogen 69 H Creatinine 2.61 H Est Glomerular 25 L Filtrat Rate mL/min Glucose Level 233 H Calcium Level 9.4 Phosphorus Level 4.8 Magnesium Level 2.7 H Test 07/29/18 08:19 07/29/18 11:44 07/29/18 17:03 Bedside Glucose 199 210 258 H Medications Medication Current Medications IV Flush (NS 3 ml) 3 ml PER PROTOCOL IV ; Start 07/18/18 at 14:00 Ondansetron HCl (Zofran Inj) 4 mg Q6H PRN IV NAUSEA/VOMITING Last administered on 07/29/18 10:45; Admin Dose 4 MG; Start 07/18/18 at 14:00 Acetaminophen (Tylenol Tab) 650 mg Q6H PRN PO .PAIN 1-3 OR TEMP Last administered on 07/28/18 06:56; Admin Dose 650 MG; Start 07/18/18 at 14:00 Acetaminophen/ Hydrocodone Bitart ([place] (5/325)) 1 tab Q6H PRN PO .MOD PAIN 4- 6 Last administered on 07/19/18 13:01; Admin Dose 1 TAB; Start 07/18/18 at 1 4:00 Morphine Sulfate (morphine) 6 mg Q4H PRN PO .SEVERE PAIN 7-10; Start 07/18/18 at 14:00 Docusate Sodium (Colace) 100 mg Q12H PRN PO .CONSTIPATION Last administered on 07/25/18 20:37; Admin Dose 100 MG; Start 07/18/18 at 14:00 Lorazepam (Ativan) 0.5 mg Q6H PRN PO ANXIETY; Start 07/18/18 at 14:00 Albuterol/ Ipratropium (Duoneb) 3 ml Q4H RESP THERAPY PRN HHN SHORTNESS OF BREATH Last administered on 07/21/18 23:35; Admin Dose 3 ML; Start 07/18/18 at 14:00 Hydralazine HCl (Apresoline) 10 mg Q6H PRN IV ELEVATED BLOOD PRESSURE; Start 07/18/18 at 14:00 Nitroglycerin (Nitroglycerin (Sl Tab) 0.4 Mg) 1 tab Q5M PRN SL ANGINA; Start 07/18/18 at 14:00 Apixaban (Eliquis) 5 mg BID PO Last administered on 07/29/18 08:20; Admin Dose 5 MG; Start 07/18/18 at 21:00 Digoxin (Digoxin) 0.125 mg DAILY@1300 PO Last administered on 07/27/18 13:00; Admin Dose 0.125 MG; Start 07/19/18 at 13:00; Status Hold Ergocalciferol (Drisdol) 50,000 unit Q7D PO Last administered on 07/25/18 13:00; Admin Dose 50,000 UNIT; Start 07/18/18 at 14:00 Ferrous Sulfate (Ferrous Sulfate (Ec)) 325 mg BID PO Last administered on 07/29/18 08:20; Admin Dose 325 MG; Start 07/18/18 at 21:00 Famotidine (Pepcid) 20 mg DAILY PO Last administered on 07/29/18at 08:21; Admin Dose 20 MG; Start 07/19/18 at 09:00 Atorvastatin Calcium (Lipitor) 80 mg HS PO Last administered on 07/28/18at 21:50; Admin Dose 80 MG; Start 07/18/18 at 21:00 Diagnostic Test (Pha) (Accu-Chek) 1 ea 02 XX Last administered on 07/29/18at 03:00; Admin Dose 1 EA; Start 07/19/18 at 02:00 Miscellaneous Information 1 ea NOTE XX ; Start 07/18/18 at 14:30 Glucose (Glutose) 15 gm Q15M PRN PO DECREASED GLUCOSE; Start 07/18/18 at 14:30 Glucose (Glutose) 22.5 gm Q15M PRN PO DECREASED GLUCOSE; Start 07/18/18 at 14:30 Dextrose (D50w Syringe) 25 ml Q15M PRN IV DECREASED GLUCOSE; Start 07/18/18 at 14:30 Dextrose (D50w Syringe) 50 ml Q15M PRN IV DECREASED GLUCOSE; Start 07/18/18 at 14:30 Glucagon (Glucagen) 1 mg Q15M PRN IM DECREASED GLUCOSE; Start 07/18/18 at 14:30 Glucose (Glutose) 15 gm Q15M PRN BUCCAL DECREASED GLUCOSE Last administered on 07/21/18at 08:36; Admin Dose 15 GM; Start 07/18/18 at 14:30 Nicotine (Nicoderm 21 Mg/ 24hr) 1 patch DAILY TRANSDERM ; Start 07/18/18 at 16:30 Metoprolol Succinate (Toprol Xl) 25 mg DAILY PO Last administered on 07/29/18 08:21; Admin Dose 25 MG; Start 07/19/18 at 09:00 Patient Own Medication 1 ea BID PO Last administered on 07/19/18at 08:09; Admin Dose 1 EA; Start 07/18/18 at 21:00; Status Hold Insulin Aspart (Novolog Insulin Pen) (Adult SC Insulin - Mild Algorithm)... AC MEALS AND BEDTIME SC Last administered on 07/29/18at 17:09; Admin Dose 3 UNIT; Start 07/19/18 at 17:25 Miscellaneous Information Patients own medicat... BID@10,16 XX Last administered on 07/28/18at 16:58; Admin Dose 1 EA; Start 07/20/18 at 10:00 Doxazosin Mesylate (Cardura) 4 mg HS PO Last administered on 07/22/18 21:14; Admin Dose 4 MG; Start 07/21/18 at 21:00 Trazodone HCl (Desyrel) 50 mg HS PO Last administered on 07/28/18at 21:50; Admin Dose 50 MG; Start 07/23/18 at 00:30 Senna (Senokot) 1 tab BID PRN PO CONSTIPATION; Start 07/26/18 at 13:30 Baclofen (Lioresal) 20 mg TID PRN PO back spasm Last administered on 07/28/18at 10:08; Admin Dose 20 MG; Start 07/28/18 at 10:00 Insulin Glargine (Lantus) 20 units QHS SC ; Start 07/29/18 at 21:00 Metoclopramide HCl (Reglan) 5 mg BEFORE MEALS PO Last administered on 07/29/18at 17:12; Admin Dose 5 MG; Start 07/29/18 at 17:30 DEVIN BALDWIN MD Jul 29, 2018 17:43
[2018-07-29] MEDS ORDERED: INSULIN GLARGINE [LANTus] (100 UNITS/ML) SYG SC SCH (21:00)
[2018-07-29] MEDS: DOXAZOSIN 4 MG TAB PO SCH (21:17)
[2018-07-29] MEDS: ATORVASTATIN 80 MG TAB PO SCH (21:18)
[2018-07-30] VITALS: BP 100/53; PULSE 68; PULSE 69; RESP 20
[2018-07-30 04:00] VITALS: BP 100/54; PULSE 51; PULSE 62; RESP 20
[2018-07-30] MEDS: Insulin NOVOLOG SS MILD Algorithm (SS with meals and bedtime) SC SCH ×2 (07:42→11:40)
[2018-07-30 07:56] VITALS: BP 122/63; PULSE 85; RESP 16
[2018-07-30 08:16] VITALS: PULSE 59
[2018-07-30] MEDS: METOCLOPRAMIDE 5 MG TAB PO SCH ×2 (08:38→13:02)
[2018-07-30] MEDS: APIXABAN 5 MG TABLET PO SCH (08:39)
[2018-07-30] MEDS: FERROUS SULFATE (EC) 325 MG TAB PO SCH (08:39)
[2018-07-30] MEDS: FAMOTIDINE 20 MG TAB PO SCH (08:40)
[2018-07-30] MEDS: NICOTINE (21 MG/24 HR) PATCH TRANSDERM SCH (08:41)
[2018-07-30] MEDS: METOPROLOL (XL) 25 MG TAB PO SCH (08:41)
--- NOTE | 2018-07-30 11:40 | PDOCDIS ---
Discharge Instructions DIAGNOSIS Discharge Diagnosis Acute exacerbation of chronic systolic congestive heart failure CONDITION [id number] Patient Condition: [id number] Fair HOME CARE INSTRUCTIONS: [id number] Diet Instructions: [id number] Reduced Sodium ACTIVITY: [id number] Activity Restrictions: [id number] No Restrictions FOLLOW UP/APPOINTMENTS Follow-up Plan 1. Take all medications as prescribed. Resume your daily Lasix 40mg and Entresto. 2. Home oxygen has been delivered. Use 2L at rest, you can increase the rate if you feel short of breath. 3. See your manager [employer] within 1 week. 4. Return to the emergency room for pressure-like chest pain or worsening shortness of breath at rest. DEVIN BALDWIN MD Jul 30, 2018 11:40
[2018-07-30 11:42] VITALS: BP 120/66; PULSE 56; RESP 18
[2018-07-30 12:20] VITALS: PULSE 54
--- NOTE | 2018-07-30 12:29 | CONS ---
Assessment/Plan Assessment/Plan Hospital Course (Demo Recall) 1. Shortness of breath with bilateral lower extremity edema, orthopnea and PND likely secondary to acute on chronic congestive heart failure. 2. Acute on chronic renal failure; however, the patient's baseline creatinine ranges from 1.9 to 2. On last discharge in May, the creatinine was 1.9. This could be all secondary to cardiorenal as the patient is clearly in decompensated heart failure right now., pt had Renal U/S in 05/24 which showed chronic kidney disease, 3. History of atrial fibrillation. 4. Hypertension. 5. Diabetes. 6. Hyperlipidemia. 7. BPH. 8. Positive troponin with chest pain ? NSTEMI. Per cardiology CHF EF 35% 9. Elevated BNP. 10 Microcytic hypochromic anemia 11. Overweight 12. fatty liver infiltration 13. s/p cholecystectomy 14/ Alkalosis. 15. NAusea with episode of vomiting. Assessment/Plan (Daily) - d/c planning - Digoxin levels normal. -. Keep a systolic blood pressure of greater than 100. - Renally dose all meds. - Avoid nephrotoxic agents. Consultation Date/Type/Reason Admit Date/Time Jul 18, 2018 at 13:13 Initial Consult Date 07/18/2018 Type of Consult nephrology Reason for Consultation Dr Ellsworth Requesting Provider: MELVI LANCE Date/Time of Note DATE: 07/30/18 TIME: 12:29 Exam/Review of Systems Exam Vitals Vital Signs Date Temp Pulse Resp B/P (MAP) Pulse Ox O2 O2 Flow FiO2 Time Delivery Rate 07/30/18 54 12:20 07/30/18 98.7 18 120/66 98 Nasal 11:42 (84) Cannula 07/30/18 3.0 07:54 07/27/18 30 01:40 Intake and Output 07/29/18 07/29/18 07/30/18 1515:00 23:00 07:00 IntakeIntake Total 720 ml BalanceBalance 720 ml Constitutional: alert, oriented Neck: supple Respiratory: diminished breath sounds Cardiovascular: regular rate and rhythm Results Result Diagram: 07/30/18 0944 07/30/18 0944 Results 24hrs Laboratory Tests Test 07/29/18 17:03 07/29/18 21:07 07/30/18 02:52 07/30/18 07:38 Bedside Glucose 258 H 372 H 131 141 Test 07/30/18 09:44 07/30/18 11:36 White Blood Count 8.5 # Red Blood Count 4.77 Hemoglobin 11.6 L Hematocrit 39.6 L Mean Corpuscular 83.0 Volume Mean Corpuscular 24.3 L Hemoglobin Mean Corpuscular 29.3 L Hemoglobin Concent Red Cell 17.8 H Distribution Width Platelet Count 152 Mean Platelet Volume Immature 0.400 Granulocytes % Neutrophils % 76.7 Lymphocytes % 11.8 L Monocytes % 9.2 Eosinophils % 1.2 Basophils % 0.7 Nucleated Red Blood 0.0 Cells % Immature 0.030 Granulocytes # Neutrophils # 6.5 Lymphocytes # 1.0 Monocytes # 0.8 Eosinophils # 0.1 Basophils # 0.1 Nucleated Red Blood 0.0 Cells # Sodium Level 137 Potassium Level 3.8 Chloride Level 93 L Carbon Dioxide Level 34 H Anion Gap 10 Blood Urea Nitrogen 74 H Creatinine 2.68 H Est Glomerular 24 L Filtrat Rate mL/min Glucose Level 194 Calcium Level 9.5 Phosphorus Level 4.4 Magnesium Level 2.6 H Bedside Glucose 223 H Medications Medication Current Medications IV Flush (NS 3 ml) 3 ml PER PROTOCOL IV ; Start 07/18/18 at 14:00 Ondansetron HCl (Zofran Inj) 4 mg Q6H PRN IV NAUSEA/VOMITING Last administered on 07/29/18at 10:45; Admin Dose 4 MG; Start 07/18/18 at 14:00 Acetaminophen (Tylenol Tab) 650 mg Q6H PRN PO .PAIN 1-3 OR TEMP Last administered on 07/28/18 06:56; Admin Dose 650 MG; Start 07/18/18 at 14:00 Docusate Sodium (Colace) 100 mg Q12H PRN PO .CONSTIPATION Last administered on 07/25/18at 20:37; Admin Dose 100 MG; Start 07/18/18 at 14:00 Albuterol/ Ipratropium (Duoneb) 3 ml Q4H RESP THERAPY PRN HHN SHORTNESS OF BREATH Last administered on 07/21/18at 23:35; Admin Dose 3 ML; Start 07/18/18 at 14:00 Hydralazine HCl (Apresoline) 10 mg Q6H PRN IV ELEVATED BLOOD PRESSURE; Start 07/18/18 at 14:00 Nitroglycerin (Nitroglycerin (Sl Tab) 0.4 Mg) 1 tab Q5M PRN SL ANGINA; Start 07/18/18 at 14:00 Apixaban (Eliquis) 5 mg BID PO Last administered on 07/30/18 08:39; Admin Dose 5 MG; Start 07/18/18 at 21:00 Digoxin (Digoxin) 0.125 mg DAILY@1300 PO Last administered on 07/27/18at 13:00; Admin Dose 0.125 MG; Start 07/19/18 at 13:00; Status Hold Ergocalciferol (Drisdol) 50,000 unit Q7D PO Last administered on 07/25/18 13:00; Admin Dose 50,000 UNIT; Start 07/18/18 at 14:00 Ferrous Sulfate (Ferrous Sulfate (Ec)) 325 mg BID PO Last administered on 07/30/18 08:39; Admin Dose 325 MG; Start 07/18/18 at 21:00 Famotidine (Pepcid) 20 mg DAILY PO Last administered on 07/29/18at 08:21; Admin Dose 20 MG; Start 07/19/18 at 09:00 Atorvastatin Calcium (Lipitor) 80 mg HS PO Last administered on 07/29/18at 21:18; Admin Dose 80 MG; Start 07/18/18 at 21:00 Diagnostic Test (Pha) (Accu-Chek) 1 ea 02 XX Last administered on 07/29/18at 03:00; Admin Dose 1 EA; Start 07/19/18 at 02:00 Miscellaneous Information 1 ea NOTE XX ; Start 07/18/18 at 14:30 Glucose (Glutose) 15 gm Q15M PRN PO DECREASED GLUCOSE; Start 07/18/18 at 14:30 Glucose (Glutose) 22.5 gm Q15M PRN PO DECREASED GLUCOSE; Start 07/18/18 at 14:30 Dextrose (D50w Syringe) 25 ml Q15M PRN IV DECREASED GLUCOSE; Start 07/18/18 at 14:30 Dextrose (D50w Syringe) 50 ml Q15M PRN IV DECREASED GLUCOSE; Start 07/18/18 at 14:30 Glucagon (Glucagen) 1 mg Q15M PRN IM DECREASED GLUCOSE; Start 07/18/18 at 14:30 Glucose (Glutose) 15 gm Q15M PRN BUCCAL DECREASED GLUCOSE Last administered on 07/21/18 08:36; Admin Dose 15 GM; Start 07/18/18 at 14:30 Nicotine (Nicoderm 21 Mg/ 24hr) 1 patch DAILY TRANSDERM ; Start 07/18/18 at 16:30 Metoprolol Succinate (Toprol Xl) 25 mg DAILY PO Last administered on 07/29/18 08:21; Admin Dose 25 MG; Start 07/19/18 at 09:00 Patient Own Medication 1 ea BID PO Last administered on 07/19/18 08:09; Admin Dose 1 EA; Start 07/18/18 at 21:00; Status Hold Insulin Aspart (Novolog Insulin Pen) (Adult SC Insulin - Mild Algorithm)... AC MEALS AND BEDTIME SC Last administered on 07/30/18 11:40; Admin Dose 3 UNIT; Start 07/19/18 at 17:25 Miscellaneous Information Patients own medicat... BID@10,16 XX Last administered on 07/28/18 16:58; Admin Dose 1 EA; Start 07/20/18 at 10:00 Doxazosin Mesylate (Cardura) 4 mg HS PO Last administered on 07/29/18 21:17; Admin Dose 4 MG; Start 07/21/18 at 21:00 Senna (Senokot) 1 tab BID PRN PO CONSTIPATION; Start 07/26/18 at 13:30 Insulin Glargine (Lantus) 20 units QHS SC Last administered on 07/29/18 21:33; Admin Dose 20 UNITS; Start 07/29/18 at 21:00 Metoclopramide HCl (Reglan) 5 mg BEFORE MEALS PO Last administered on 07/29/18at 17:12; Admin Dose 5 MG; Start 07/29/18 at 17:30 KACI GUILLORY Jul 30, 2018 12:29
--- NOTE | 2018-07-30 12:31 | CONS ---
Assessment/Plan Assessment/Plan Hospital Course (Demo Recall) IMP: 1.CHF- systolic acute on chronic 2.Cardiomyopathy- EF 30% 3.CKD 4.HTN 5.Dyslipidemia 6. Hepatomegaly-likley due to passive congestion of liver 7. nausea/vomiting Recc: -Tele -continue bb and cardura and if BP/HR allows and thus will decrease dose of BB to allow patient to better tolerate -Continue statin/Eliquis -Digoxin held in the setting of renal failure -Diamox held and will need to be restarted on lasix at d/c for volume management -ongoing eval of n/v Consultation Date/Type/Reason Admit Date/Time Jul 18, 2018 at 13:13 Initial Consult Date 07/18/18 Type of Consult Cardiology Reason for Consultation CHF Requesting Provider: MELVI LANCE Date/Time of Note DATE: 07/30/18 TIME: 12:25 Exam/Review of Systems Vital Signs Vitals Vital Signs Date Temp Pulse Resp B/P (MAP) Pulse Ox O2 O2 Flow FiO2 Time Delivery Rate 07/30/18 54 12:20 07/30/18 98.7 18 120/66 98 Nasal 11:42 (84) Cannula 07/30/18 3.0 07:54 07/27/18 30 01:40 Intake and Output 07/29/18 07/29/18 07/30/18 1515:00 23:00 07:00 IntakeIntake Total 720 ml BalanceBalance 720 ml Exam Exam Review of Systems: CONSTITUTIONAL: No fevers, chills. PULMONARY: No sob CARDIOVASCULAR: No chest pain/palpitations GASTROINTESTINAL: No nausea/vomiting. GENITOURINARY: No hematuria/dysuria. MUSCULOSKELETAL: No myagias/arthalgias. PSYCHIATRIC: The patient denies depression. NEUROLOGIC: No weakness Constitutional: alert Psych: no complaints Head: normocephalic ENMT: mucosa pink and moist Neck: supple, jvd (9 cm water) Respiratory: diminished breath sounds Cardiovascular: regular rate and rhythm Gastrointestinal: soft, non-tender Musculoskeletal: muscle tone (normal) Extremities: edema (none) Neurological: other (No focal deficits) Labs Result Diagram: 07/30/18 0944 07/30/18 0944 Results 24hrs Laboratory Tests Test 07/29/18 17:03 07/29/18 21:07 07/30/18 02:52 07/30/18 07:38 Bedside Glucose 258 H 372 H 131 141 Test 07/30/18 09:44 07/30/18 11:36 White Blood Count 8.5 # Red Blood Count 4.77 Hemoglobin 11.6 L Hematocrit 39.6 L Mean Corpuscular 83.0 Volume Mean Corpuscular 24.3 L Hemoglobin Mean Corpuscular 29.3 L Hemoglobin Concent Red Cell 17.8 H Distribution Width Platelet Count 152 Mean Platelet Volume Immature 0.400 Granulocytes % Neutrophils % 76.7 Lymphocytes % 11.8 L Monocytes % 9.2 Eosinophils % 1.2 Basophils % 0.7 Nucleated Red Blood 0.0 Cells % Immature 0.030 Granulocytes # Neutrophils # 6.5 Lymphocytes # 1.0 Monocytes # 0.8 Eosinophils # 0.1 Basophils # 0.1 Nucleated Red Blood 0.0 Cells # Sodium Level 137 Potassium Level 3.8 Chloride Level 93 L Carbon Dioxide Level 34 H Anion Gap 10 Blood Urea Nitrogen 74 H Creatinine 2.68 H Est Glomerular 24 L Filtrat Rate mL/min Glucose Level 194 Calcium Level 9.5 Phosphorus Level 4.4 Magnesium Level 2.6 H Bedside Glucose 223 H Medications Medications Current Medications IV Flush (NS 3 ml) 3 ml PER PROTOCOL IV ; Start 07/18/18 at 14:00 Ondansetron HCl (Zofran Inj) 4 mg Q6H PRN IV NAUSEA/VOMITING Last administered on 07/29/18at 10:45; Admin Dose 4 MG; Start 07/18/18 at 14:00 Acetaminophen (Tylenol Tab) 650 mg Q6H PRN PO .PAIN 1-3 OR TEMP Last administered on 07/28/18at 06:56; Admin Dose 650 MG; Start 07/18/18 at 14:00 Docusate Sodium (Colace) 100 mg Q12H PRN PO .CONSTIPATION Last administered on 07/25/18at 20:37; Admin Dose 100 MG; Start 07/18/18 at 14:00 Albuterol/ Ipratropium (Duoneb) 3 ml Q4H RESP THERAPY PRN HHN SHORTNESS OF BREATH Last administered on 07/21/18at 23:35; Admin Dose 3 ML; Start 07/18/18 at 14:00 Hydralazine HCl (Apresoline) 10 mg Q6H PRN IV ELEVATED BLOOD PRESSURE; Start 07/18/18 at 14:00 Nitroglycerin (Nitroglycerin (Sl Tab) 0.4 Mg) 1 tab Q5M PRN SL ANGINA; Start 07/18/18 at 14:00 Apixaban (Eliquis) 5 mg BID PO Last administered on 07/30/18at 08:39; Admin Dose 5 MG; Start 07/18/18 at 21:00 Digoxin (Digoxin) 0.125 mg DAILY@1300 PO Last administered on 07/27/18at 13:00; Admin Dose 0.125 MG; Start 07/19/18 at 13:00; Status Hold Ergocalciferol (Drisdol) 50,000 unit Q7D PO Last administered on 07/25/18at 13:00; Admin Dose 50,000 UNIT; Start 07/18/18 at 14:00 Ferrous Sulfate (Ferrous Sulfate (Ec)) 325 mg BID PO Last administered on 07/30/18at 08:39; Admin Dose 325 MG; Start 07/18/18 at 21:00 Famotidine (Pepcid) 20 mg DAILY PO Last administered on 07/29/18at 08:21; Admin Dose 20 MG; Start 07/19/18 at 09:00 Atorvastatin Calcium (Lipitor) 80 mg HS PO Last administered on 07/29/18at 21:18; Admin Dose 80 MG; Start 07/18/18 at 21:00 Diagnostic Test (Pha) (Accu-Chek) 1 ea 02 XX Last administered on 07/29/18at 03:00; Admin Dose 1 EA; Start 07/19/18 at 02:00 Miscellaneous Information 1 ea NOTE XX ; Start 07/18/18 at 14:30 Glucose (Glutose) 15 gm Q15M PRN PO DECREASED GLUCOSE; Start 07/18/18 at 14:30 Glucose (Glutose) 22.5 gm Q15M PRN PO DECREASED GLUCOSE; Start 07/18/18 at 14:3 0 Dextrose (D50w Syringe) 25 ml Q15M PRN IV DECREASED GLUCOSE; Start 07/18/18 at 14:30 Dextrose (D50w Syringe) 50 ml Q15M PRN IV DECREASED GLUCOSE; Start 07/18/18 at 14:30 Glucagon (Glucagen) 1 mg Q15M PRN IM DECREASED GLUCOSE; Start 07/18/18 at 14:30 Glucose (Glutose) 15 gm Q15M PRN BUCCAL DECREASED GLUCOSE Last administered on 07/21/18 08:36; Admin Dose 15 GM; Start 07/18/18 at 14:30 Nicotine (Nicoderm 21 Mg/ 24hr) 1 patch DAILY TRANSDERM ; Start 07/18/18 at 16:30 Metoprolol Succinate (Toprol Xl) 25 mg DAILY PO Last administered on 07/29/18 08:21; Admin Dose 25 MG; Start 07/19/18 at 09:00 Patient Own Medication 1 ea BID PO Last administered on 07/19/18at 08:09; Admin Dose 1 EA; Start 07/18/18 at 21:00; Status Hold Insulin Aspart (Novolog Insulin Pen) (Adult SC Insulin - Mild Algorithm)... AC MEALS AND BEDTIME SC Last administered on 07/30/18 11:40; Admin Dose 3 UNIT; Start 07/19/18 at 17:25 Miscellaneous Information Patients own medicat... BID@10,16 XX Last administered on 07/28/18at 16:58; Admin Dose 1 EA; Start 07/20/18 at 10:00 Doxazosin Mesylate (Cardura) 4 mg HS PO Last administered on 07/29/18at 21:17; Admin Dose 4 MG; Start 07/21/18 at 21:00 Senna (Senokot) 1 tab BID PRN PO CONSTIPATION; Start 07/26/18 at 13:30 Insulin Glargine (Lantus) 20 units QHS SC Last administered on 07/29/18at 21:33; Admin Dose 20 UNITS; Start 07/29/18 at 21:00 Metoclopramide HCl (Reglan) 5 mg BEFORE MEALS PO Last administered on 07/29/18at 17:12; Admin Dose 5 MG; Start 07/29/18 at 17:30 DEVIN LOWE Jul 30, 2018 12:31
--- NOTE | 2018-07-30 16:39 | DS ---
Date/Time of Note Date/Time of Note DATE: 07/30/18 TIME: 16:35 Discharge Summary Admission/Discharge Info Admit Date/Time Jul 18, 2018 at 13:13 Discharge Date/Time Jul 30, 2018 at 14:20 Discharge Diagnosis Acute exacerbation of chronic systolic congestive heart failure Patient Condition: Fair Consults Dr. Brewer, cardiology. Dr. Wolfe, nephrology Procedures None Hx of Present Illness CHIEF COMPLAINT: Shortness of breath and leg swelling. HISTORY OF PRESENT ILLNESS: A 67-year-old male with past medical history of coronary artery disease, prior CABG, CHF with AICD placement, smoking history, atrial fibrillation, cardiomyopathy, high cholesterol, CKD, type 2 diabetes and hypertension, who has complaints of chest pressure, shortness of breath and leg swelling. The patient went to his primary hat lacer earlier today with the same complaints. He has also been having some dyspnea on exertion and PND and also again some mild chest pressure. Apparently, he has been taking oral diuretic at home that did not help the symptoms. When he arrived to the outp atient hat lacer, he was told, because of his symptoms, to come to the ER where he has come now. He was given a dose of Lasix IV in the ER as well as high-dose aspirin. He was found with BNP elevated at 19,300. Also, his first troponin was elevated 0.139 and his creatinine was more elevated than before, today is 2.26. The patient was last here at our hospital from 05/13/2018 to 05/19/2018, so 2 months ago. At that time, he was treated for acute CHF exacerbation as well as community-acquired pneumonia. PAST MEDICAL HISTORY: As stated above. ALLERGIES: NO KNOWN DRUG ALLERGIES. HOME MEDICATIONS: 1. Eliquis 5 mg b.i.d. 2. Iron sulfate 325 mg b.i.d. 3. Norvasc 5 mg daily. 4. Digoxin 0.125 mg daily. 5. Doxazosin 4 mg b.i.d. 6. Toprol-XL 25 mg daily. 7. Crestor 20 mg at bedtime. 8. Entresto 97/103 one tab b.i.d. 9. Lasix 40 mg daily. 10. Nexium 40 mg daily. 11. Sliding scale insulin. 12. Aspart at home. 13. Lantus 12 units subcutaneously at bedtime. 14. Vitamin D2 50,000 units q. weekly. PAST SURGICAL HISTORY: Again, he has had coronary artery bypass grafting performed and AICD placement as well. SOCIAL HISTORY: Negative for IV drug abuse, negative for drinking, but positive smoking history. FAMILY HISTORY: Noncontributory. Hospital Course The patient required several days of IV diuresis. Course was complicated by contraction alkalosis with bicarb up to the 40s. He was started on diamox and diuresis held. For a few days discharge was delayed by dizziness and nausea/vomiting, likely related to the diamox or alkalemia. He also does have well characterized hypoxia even when euvolemic, so he will be discharged on home O2. Home Meds Reported Medications Metoprolol Succinate* (Toprol XL*) 25 Mg Tab.sr.24h, 25 MG PO DAILY, #30 TAB 07/18/18 Sacubitril/Valsartan (Entresto 97 mg-103 mg Tablet) 1 Each Tablet, 1 TAB PO BID 05/13/18 Digoxin* (Digox*) 125 Mcg Tablet, 0.125 MG PO DAILY, TAB 05/13/18 Apixaban* (Eliquis*) 5 Mg Tablet, 5 MG PO BID, TAB 08/19/15 Insulin Aspart* (Novolog Insulin Vial*) 100 U/Ml Vial, 0 SC SLIDING SCALE AC, VIAL 08/19/15 Insulin Glargine* (Lantus*) 100 Unit/Ml Soln, 12 UNIT SC QHS, #1 VIAL 08/19/15 Esomeprazole Mag Trihydrate (Nexium) 40 Mg Capsule.dr, 40 MG PO DAILY, #30 CAP 08/19/15 Furosemide* (Furosemide*) 40 Mg Tablet, 40 MG PO DAILY, TAB 08/19/15 Amlodipine Besylate* (Norvasc*) 5 Mg Tablet, 5 MG PO DAILY, TAB 02/19/15 Rosuvastatin Calcium* (Crestor*) 20 Mg Tablet, 20 MG PO HS, TAB 02/19/15 Ergocalciferol* (Drisdol* (Vitamin D2)) 50,000 Unit Capsule, 48889 UNIT PO Q7D, CAP Mondays02/19/15 Doxazosin Mesylate* (Doxazosin Mesylate*) 4 Mg Tablet, 4 MG PO BID, TAB 08/17/14 Ferrous Sulfate* (Ferrous Sulfate*) 325 Mg Tabec, 325 MG PO BID, TAB 08/17/14 Follow-up Plan 1. Take all medications as prescribed. Resume your daily Lasix 40mg and Entresto. 2. Home oxygen has been delivered. Use 2L at rest, you can increase the rate if you feel short of breath. 3. See your hat lacer within 1 week. 4. Return to the emergency room for pressure-like chest pain or worsening shortness of breath at rest. Primary Care Provider Not On Staff Doctor Time spent on discharge: > 30 minutes Pending Labs Laboratory Tests Test 07/29/18 17:03 07/29/18 21:07 07/30/18 02:52 07/30/18 07:38 Bedside 258 372 131 141 Glucose mg/dL (70-220) mg/dL (70-220) mg/dL (70-220) mg/dL (70-220) Test 07/30/18 09:44 07/30/18 11:36 White Blood 8.5 Count 10^3/ul (4.8-10 .8) Red Blood 4.77 Count 10^6/ul (4.70-6 .10) Hemoglobin 11.6 g/dl (14.0-18.0 ) Hematocrit 39.6 % (42.0-52.0) Mean 83.0 Corpuscular fl (82.0-101.0) Volume Mean 24.3 Corpuscular pg (29.0-33.0) Hemoglobin Mean 29.3 Corpuscular g/dl (32.0-37.0 Hemoglobin Conc ) ent Red Cell 17.8 Distribution % (11.5-14.5) Width Platelet Count 152 10^3/UL (140-41 5) Mean Platelet fl (7.4-10.4) Volume Immature 0.400 Granulocytes % % (0.001-0.429) Neutrophils % 76.7 % (39.0-77.0) Lymphocytes % 11.8 % (15.0-51.0) Monocytes % 9.2 % (0.0-11.0) Eosinophils % 1.2 % (0.0-7.0) Basophils % 0.7 % (0.0-2.0) Nucleated Red 0.0 Blood Cells % /100WBC (0.0-0. 0) Immature 0.030 Granulocytes # 10^3/ul (0.0-0. 031) Neutrophils # 6.5 10^3/ul (1.6-7. 5) Lymphocytes # 1.0 10^3/ul (0.8-2. 9) Monocytes # 0.8 10^3/ul (0.3-0. 9) Eosinophils # 0.1 10^3/ul (0.0-0. 5) Basophils # 0.1 10^3/ul (0.0-0. 1) Nucleated Red 0.0 Blood Cells # 10^3/ul (0.0-0. 0) Sodium Level 137 mmol/L (135-144 ) Potassium 3.8 Level mmol/L (3.5-5.1 ) Chloride Level 93 mmol/L (97-110) Carbon Dioxide 34 Level mmol/L (21-31) Anion Gap 10 (5-13) Blood Urea 74 mg/dl (7-20) Nitrogen Creatinine 2.68 mg/dl (0.61-1.2 4) Est Glomerular 24 mL/min (>60) Filtrat Rate mL/min Glucose Level 194 mg/dl (70-220) Calcium Level 9.5 mg/dl (8.4-10.2 ) Phosphorus 4.4 Level mg/dl (2.5-4.9) Magnesium 2.6 Level mg/dl (1.7-2.5) Bedside 223 Glucose mg/dL (70-220) DEVIN BALDWIN MD Jul 30, 2018 16:38
[2018-07-31] MEDS ORDERED: METOPROLOL (XL) 25 MG TAB PO SCH (09:00)
== END 2018-07-30 14:20 | disposition home or self-care (01) | DRG 291 ==
LOC: E/R 10:15 → TEL 13:13 → CANRESERV 16:50
PROVIDERS: ADMIT Hospitalist; ATTEND Internal Medicine
DX: I13.0 Hypertensive heart and chronic kidney disease with heart failure and stage 1 through stage 4 chronic kidney disease, or unspecified chronic kidney disease (principal); I50.23 Acute on chronic systolic (congestive) heart failure; N17.9 Acute kidney failure, unspecified; E11.22 Type 2 diabetes mellitus with diabetic chronic kidney disease; E78.5 Hyperlipidemia, unspecified; E66.3 Overweight; D50.9 Iron deficiency anemia, unspecified; F17.200 Nicotine dependence, unspecified, uncomplicated; I48.91 Unspecified atrial fibrillation; I25.10 Atherosclerotic heart disease of native coronary artery without angina pectoris; I42.9 Cardiomyopathy, unspecified; K76.0 Fatty (change of) liver, not elsewhere classified; N18.9 Chronic kidney disease, unspecified; N40.0 Benign prostatic hyperplasia without lower urinary tract symptoms; R60.0 Localized edema; Z68.28 Body mass index [BMI] 28.0-28.9, adult; Z90.49 Acquired absence of other specified parts of digestive tract; Z95.1 Presence of aortocoronary bypass graft; Z95.810 Presence of automatic (implantable) cardiac defibrillator; Z79.01 Long term (current) use of anticoagulants; Z79.4 Long term (current) use of insulin
CPT/HCPCS: 36415; 36600; 71045; 74018; 76705; 80048; 80061; 80162; 81003; 82550; 82553; 82803; 82962; 83036; 83735; 83880; 84100; 84300; 84439; 84443; 84484; 85025; 85610; 85730; 89190; 92610; 93005; 94640; 94664; 96374; 97161; 97165; J1120; J1815; J1940; J2405